=== PATIENT | male | born 1935 | race Caucasian/White ===

== ENCOUNTER 2020-01-23 10:45 | Outpatient (REF) | payer MEDICARE, SELFPAY ==
--- NOTE | 2020-01-23 11:03 | XR_ITS ---
EXAMINATION: AP STANDING KNEES AND A LATERAL RIGHT KNEE STANDING VIEW CLINICAL INFORMATION: Right knee pain COMPARISON: May 09, 2019 TECHNIQUE: AP standing views of the knees and lateral view of the right knee FINDINGS: Patient is status post right total knee arthroplasty with components appearing in good position. There is a right knee effusion. No acute fracture or dislocation is evident. Vascular calcifications are seen. About the mid joint space there is an approximately 1 cm circumscribed calcification which may representing loose body. AP view of the left knee demonstrate some marginal spurring about the medial lateral joint space compartments without significant joint space narrowing. No acute fracture or dislocation evident on AP view. IMPRESSION: Right knee effusion. Status post right total knee arthroplasty with question calcific loose body.
== END 2020-01-23 10:46 | disposition home or self-care (01) ==
LOC: HO.XRAY 10:45
PROVIDERS: PCP Internal Medicine; Referring Provider Internal Medicine; Visit Provider Orthopaedic Surgery
DX: T84.84XA Pain due to internal orthopedic prosthetic devices, implants and grafts, initial encounter (principal); M25.562 Pain in left knee; Z96.651 Presence of right artificial knee joint
CPT/HCPCS: 73560; 73565; 99213

== ENCOUNTER 2021-01-21 07:58 | Outpatient (REF) | payer MEDICARE, SELFPAY ==
--- NOTE | ~2021-01-21 | XR_ITS ---
EXAMINATION: XR KNEES STANDING, BILATERAL XR KNEE, RIGHT CLINICAL INFORMATION: Bilateral knee pain. COMPARISON: 01/23/2020 TECHNIQUE: Single standing view of both knees with 2 additional views right knee. FINDINGS: Again seen is a right total knee joint prosthesis. Prosthetic components appear in good position. There has been no significant interval change since last years exam. A small joint effusion is again noted. On the sunrise view, a 5 mm ovoid calcific density seen which could correspond to the intra-articular body felt to be present at the time of the prior study. Single view of the left knee demonstrates at least bicompartmental mild degenerative changes. XR/XR knee standing BI IMPRESSION: Right knee joint prosthesis in good position. Small effusion with question of calcific loose body remains. Degenerative changes of left knee.
--- NOTE | ~2021-01-21 | XR_ITS ---
EXAMINATION: XR KNEES STANDING, BILATERAL XR KNEE, RIGHT CLINICAL INFORMATION: Bilateral knee pain. COMPARISON: 01/23/2020 TECHNIQUE: Single standing view of both knees with 2 additional views right knee. FINDINGS: Again seen is a right total knee joint prosthesis. Prosthetic components appear in good position. There has been no significant interval change since last years exam. A small joint effusion is again noted. On the sunrise view, a 5 mm ovoid calcific density seen which could correspond to the intra-articular body felt to be present at the time of the prior study. Single view of the left knee demonstrates at least bicompartmental mild degenerative changes. XR/XR knee RT 2V IMPRESSION: Right knee joint prosthesis in good position. Small effusion with question of calcific loose body remains. Degenerative changes of left knee.
== END 2021-01-21 07:59 | disposition home or self-care (01) ==
LOC: HO.HOSX 07:58
PROVIDERS: Visit Provider Physician Assistant
DX: Z96.651 Presence of right artificial knee joint (principal)
CPT/HCPCS: 73560; 73565; 99212

== ENCOUNTER 2021-01-30 11:49 | Outpatient (REF) | payer MEDICARE, SELFPAY ==
--- NOTE | ~2021-01-30 | XR_ITS ---
EXAMINATION: XR PELVIS CLINICAL INFORMATION: Pain in the hip COMPARISON: 09/28/2018 TECHNIQUE: AP view of the pelvis. FINDINGS: There is a total left hip arthroplasty. The femoral head component articulates appropriately with the acetabular component. No periprosthetic lucency or fracture. Moderate degenerative change of the right hip with narrowing, sclerosis, and osteophyte formation. The pelvic rim is intact. Partial fusion of the left sacroiliac joint is unchanged. Nonobstructive bowel gas pattern. XR/XR pelvis 1-2V IMPRESSION: Moderate degenerative change of the right hip. Total left hip arthroplasty in typical positioning and alignment.
== END 2021-01-30 11:50 | disposition home or self-care (01) ==
LOC: HO.HOSX 11:49
PROVIDERS: Visit Provider Orthopaedic Surgery
DX: T84.84XA Pain due to internal orthopedic prosthetic devices, implants and grafts, initial encounter (principal); M12.812 Other specific arthropathies, not elsewhere classified, left shoulder; Z96.651 Presence of right artificial knee joint; Z96.642 Presence of left artificial hip joint
CPT/HCPCS: 72170; 99212

== ENCOUNTER → 2021-05-05 12:27 | Outpatient (BNVA) | payer MEDICARE, SELFPAY | PROVIDERS: PCP Internal Medicine; Visit Provider Orthopaedic Surgery ==

== ENCOUNTER → 2021-07-07 10:09 | Outpatient (REF) | payer MEDICARE, SELFPAY ==
--- NOTE | 2021-07-07 10:17 | ECG_ITS ---
Test Reason : FLATULENCE ABD DISTENSION Blood Pressure : / mmHG Vent. Rate : 056 BPM Atrial Rate : 056 BPM P-R Int : 208 ms QRS Dur : 176 ms QT Int : 480 ms P-R-T Axes : 063 -13 024 degrees QTc Int : 463 ms Sinus bradycardia Right bundle branch block Abnormal ECG When compared with ECG of 30-NOV-2018 10:03, Premature ventricular complexes are no longer Present Referred By: Ramsey Campos Electronically Signed By:KAILYN LIZAMA MD
== END ==
LOC: HO.CARD 10:09
PROVIDERS: PCP Internal Medicine; Visit Provider Nurse Practitioner Family
DX: R00.1 Bradycardia, unspecified (principal); I45.10 Unspecified right bundle-branch block; R14.3 Flatulence; R14.0 Abdominal distension (gaseous)
CPT/HCPCS: 93005

== ENCOUNTER → 2021-10-14 12:33 | Outpatient (BNVA) | payer MEDICARE, SELFPAY | PROVIDERS: PCP Internal Medicine; Visit Provider Dietitian, Registered | DX: E66.3 Overweight (principal); Z68.26 Body mass index [BMI] 26.0-26.9, adult; Z71.3 Dietary counseling and surveillance | CPT/HCPCS: 97802 ==

== ENCOUNTER 2022-04-09 08:48 | Outpatient (REF) | payer MEDICARE, SELFPAY ==
--- NOTE | ~2022-04-09 | XR_ITS ---
EXAMINATION: X-RAY BILATERAL KNEES X-RAY RIGHT KNEE CLINICAL INFORMATION: Pain COMPARISON: None TECHNIQUE: AP bilateral knees one view. Right knee 2 views. FINDINGS: Right knee: Right total knee arthroplasty in stable position and alignment. Intact hardware. No suspicious nate-hardware lucencies. No acute periprosthetic fracture. Small effusion.. Redemonstrated is a 5 mm ovoid density on the sunrise view, could represent a loose body, stable from previous. Left knee: Mild-moderate medial and lateral compartment arthritis, with mild joint space loss, marginal osteophytes. There is a small chronic appearing ossification along the superior/lateral aspect of the patella. Vascular calcification. No acute osseous abnormality seen. XR/XR knee RT 2V IMPRESSION: Right knee prosthesis is in stable position and alignment. No suspicious nate-hardware lucencies. Small effusion. Question small loose body, stable.
--- NOTE | ~2022-04-09 | XR_ITS ---
EXAMINATION: XR PELVIS CLINICAL INFORMATION: Pain COMPARISON: X-ray 01/30/2021 TECHNIQUE: 2 AP view of the pelvis. FINDINGS: Left hip prosthesis is in stable position and alignment. No suspicious nate-hardware lucency. No acute periprosthetic fracture. Stable chronic appearing ossification superior to the greater trochanter. Mild-moderate right hip arthritis. No acute fracture or dislocation is seen. SI joints are intact. There are 2 radiopaque densities projected over the pelvis measuring 2.2 cm and 2.5 cm respectively in craniocaudal length, indeterminate. XR/XR pelvis 1-2V IMPRESSION: Left hip prosthesis is unchanged in appearance. No suspicious nate-hardware lucencies. Mild-moderate right hip arthritis. 2 radiopaque densities projected over the pelvis, of indeterminate etiology, clinically correlate. This could be overlying the patient, repeat radiographs as clinically warranted.
--- NOTE | ~2022-04-09 | XR_ITS ---
EXAMINATION: X-RAY BILATERAL KNEES X-RAY RIGHT KNEE CLINICAL INFORMATION: Pain COMPARISON: None TECHNIQUE: AP bilateral knees one view. Right knee 2 views. FINDINGS: Right knee: Right total knee arthroplasty in stable position and alignment. Intact hardware. No suspicious nate-hardware lucencies. No acute periprosthetic fracture. Small effusion.. Redemonstrated is a 5 mm ovoid density on the sunrise view, could represent a loose body, stable from previous. Left knee: Mild-moderate medial and lateral compartment arthritis, with mild joint space loss, marginal osteophytes. There is a small chronic appearing ossification along the superior/lateral aspect of the patella. Vascular calcification. No acute osseous abnormality seen. XR/XR knee standing BI IMPRESSION: Right knee prosthesis is in stable position and alignment. No suspicious nate-hardware lucencies. Small effusion. Question small loose body, stable.
== END 2022-04-09 08:49 | disposition home or self-care (01) ==
LOC: HO.HOSX 08:48
PROVIDERS: Visit Provider Orthopaedic Surgery
DX: T84.84XA Pain due to internal orthopedic prosthetic devices, implants and grafts, initial encounter (principal); Z96.642 Presence of left artificial hip joint; Z96.651 Presence of right artificial knee joint
CPT/HCPCS: 72170; 73560; 73565; 99212

== ENCOUNTER → 2022-04-16 09:56 | Outpatient (BNVA) | payer MEDICARE, SELFPAY | PROVIDERS: PCP Internal Medicine; Visit Provider Dietitian, Registered | DX: E66.3 Overweight (principal); Z68.26 Body mass index [BMI] 26.0-26.9, adult | CPT/HCPCS: 97803 ==

== ENCOUNTER 2022-10-15 09:00 | Outpatient (AMB) | payer MEDICARE, SELFPAY ==
[2022-10-15 09:03] VITALS: BMI 27.0
--- NOTE | 2022-10-15 09:03 | A.OFFVIS_ITS ---
Intake VS Expanded 10/15/22 09:03 Height 6 ft Weight 199 lb 4.766 oz BMI 27.0 Intake Visit Reasons: overweight Allergies No Known Allergies Allergy (Verified 06/16/22 10:09) HPI Nutrition Presentation Details Pt presents for MNT for overweight. Pt reports keeping physically active: plays golf 3 x/wk , Reports reading food labels and calorie content of foods per portion sizes. He reports working on increasing fiber intake to prevent constipation, noted consuming higher calorie foods in the last month monitors weight at home 1 / m typical meal B: bran flakes or shredded wheat or cheerios with lactose free milk L: Sand turkey, ham/cheese/ or tuna or burger fries, other days may have a salad with protein , water or cranberry juice D: potatoes beef, corn, asparagus, water snack: posset, fruits, p.b. Reports working on including fish twice/wk and choosing mufa sources of foods. Has tried low fat /lactose free options but dislike flavors. 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 Mother No problems noted. Social History Housing: House Alcohol intake: former Patient Tobacco Use Status: Never used Tobacco e-Cigarette/Vaping Use: Never Used Second Hand Smoke Exposure: Yes service: No Current occupational status: retired Cognitive needs: No Hearing needs: Yes Vision needs: Yes (Pt wear glasses) Assessment & Plan Assessment & Plan (1) Overweight (BMI 25.0-29.9): Code(s): E66.3 - Overweight Plan: Educate patient on lactose free foods and balancing meals ? Pt's set goal (Date: 10/14/21 ): choosing lactose free foods at follow up (Date: 10/15/22 ): met 50% Used wt : 89 kg Est kcal as per 25 kcal/kg bw: 2225 (40% carb, 30% fat/prot) Est fluid needs: 2225 -2670 ml/d (25-30 ml/kg bw) Rec fiber: increase to 8-10 g per day and gradually increase as tolerated Rec Na: < 2000 mg /d Educate patient on: (R= Reviewed, V = verbalizes understanding N/R= Needs review N/A= not applicable) * Food sources of carbohydrates and serving adequate serving sizes : R * Difference between complex carbohydrates and simple carbohydrates, role of fiber: R * choosing low fat protein foods : R V * Food sources of sodium and salt and healthy modifications for heart health and kidney health: R * Vitamins and minerals: R * How to interpret food labels: R * Healthy Plate method concept: R V * Physical activity: benefits and precaution: R V * lactose free food options : REVIEWED , VERBALIZED Patient Instructions: Keep hydrated, dilute juices with water Continue following healthy plate method MOdify amount of fat on recipes by choosing low fat /lactose free dairy options Keep physically active as able Coding Level of Care Code Nutr Indiv Subseq (10347) Diagnoses Overweight (BMI 25.0-29.9) E66.3 Time Spent (min) 30
== END 2022-10-15 09:37 | disposition home or self-care (01) ==
PROVIDERS: PCP Internal Medicine; Visit Provider Dietitian, Registered
DX: E66.3 Overweight (principal)

== ENCOUNTER → 2022-10-15 09:00 | Outpatient (BNVA) | payer MEDICARE, SELFPAY | PROVIDERS: Visit Provider Dietitian, Registered | DX: E66.3 Overweight (principal); Z68.27 Body mass index [BMI] 27.0-27.9, adult | CPT/HCPCS: 97803 ==

== ENCOUNTER 2022-10-22 09:20 | Outpatient (AMB) | payer MEDICARE, SELFPAY ==
--- NOTE | 2022-10-22 09:42 | MHC.OFFVIS ---
Intake Intake Visit Reasons: OV - Right TKA 01/09/2019 Intake Note: Ruy 86 yr old male presents today for his s/p Right TKA 01/09/2019 follow up visit. Patient reports that he is doing well but is having some concerns of weakness in the right knee. He find this mostly when he is going up and down stairs. He is active in working out at the gym and golfing. Allergies No Known Allergies Allergy (Verified 06/16/22 10:09) HPI OV - Right TKA 01/09/2019 HPI Details Ruy is an 86 year old man who presents for a follow-up of his right knee. He also has a Hx of right TKA, DOS: 01/09/[address] Johnson. He has a Hx of left QUEENIE, DOS: 09/14/[address] Johnson. His complaint today is of right knee weakness, particularly with using stairs. He stays active otherwise with weekly Golf sessions and sculpting classes, as well as other exercise at the gym. He has no issues walking on flat ground. He says he has concerns about falling and wants to know how to minimize the risk. He complains of worsening right shoulder pain, worse with overhead reaching or lifting activities. He has right RTC arthropathy. 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 Mother No problems noted. Social History Housing: House Alcohol intake: former Patient Tobacco Use Status: Never used Tobacco e-Cigarette/Vaping Use: Never Used Second Hand Smoke Exposure: Yes service: No Current occupational status: retired Cognitive needs: No Hearing needs: Yes Vision needs: Yes (Pt wear glasses) Review of Systems Const All systems reviewed & are unremarkable except as noted in HPI and below Physical Exam Const General: no acute distress and alert Orientation/consciousness: patient oriented x3 Neuro General: patient oriented x3 Extrem Other: Right Knee: Full ROM well-healed incision No effusion Psych Appearance: grossly normal Affect: normal affect Attitude: cooperative Results Reviewed Results Reviewed: I personally reviewed relevant radiographs. Right TKA in expected post operative position with no hardware complications or evidence of loosening Assessment & Plan Assessment & Plan (1) History of total right knee replacement (TKR): Code(s): Z96.651 - Presence of right artificial knee joint Plan: This is an 86 year old man with a right TKA, DOS: 01/09/[address] Johnson. He denies any pain and says he is doing well, though with some concerns of falling. He stays active with weekly exercise classes at the gym, and Golfing. No acute intervention warranted. I recommend he remain active with exercise, he can follow up prn. (2) History of total left hip replacement: Comment: 09/14/2011 Code(s): Z96.642 - Presence of left artificial hip joint Plan Scribed for Gilbert Merida MD by Arron Vazquez, medical transcription supervisor, on 10/22/22 at 9:50 AM, EST. Coding Level of Care Code Est Pt Level 3 (54791) Diagnoses History of total right knee replacement (TKR) Z96.651 History of total left hip replacement Z96.642
== END 2022-10-22 09:56 | disposition home or self-care (01) ==
PROVIDERS: Visit Provider Orthopaedic Surgery
DX: Z47.89 Encounter for other orthopedic aftercare (principal); Z96.651 Presence of right artificial knee joint; Z96.642 Presence of left artificial hip joint
CPT/HCPCS: 99213

== ENCOUNTER → 2022-10-22 09:20 | Outpatient (BNVA) | payer MEDICARE, SELFPAY | PROVIDERS: Visit Provider Orthopaedic Surgery | DX: Z96.651 Presence of right artificial knee joint (principal); Z96.642 Presence of left artificial hip joint | CPT/HCPCS: 99212 ==

== ENCOUNTER 2022-11-17 12:48 | Outpatient (AMB) | payer MEDICARE, SELFPAY ==
--- OUTSIDE RECORDS SUMMARY | 2022-11-17 12:50 | XMS_ITS | Patient Health Record ---
Author Name Unknown Organization [facility] Address [address] [place] [address] Care Team Providers Care Veneer Sawyer Name Role Phone Jose L JARAMILLO, [place] Primary Care Provider Ever Brooks Unavailable [phone] ALLERGIES No Known Allergies REASON FOR REFERRAL No Information SOCIAL HISTORY Tobacco Use: Social History Observation Description Date Details (start date - stop date) Never Smoker NA - NA Sex Assigned At : Social History Observation Description Sex Assigned At Unknown Tobacco Use/Smoking Question Answer Notes Are you a: nonsmoker Additional Findings: Tobacco Non-User Current no n-smoker Alcohol Screen Question Answer Notes Did you have a drink containing alcohol in the p ast year? No Points 0 Interpretation Negative Tobacco use other than smoking: Question Answer Notes Are you an other tobacco user? No PROBLEMS Problem Type ICD Code Onset Dates Problem Status W/U Status Risk SNOMED Code Notes Problem Raynaud's disease without gangrene (I73.00) Active confirmed 259633582 Encounters Encounter Location Date Provider Diagnosis [address] [address] 05/14/2022 [facility] Other viral warts B07.8 ; Pain in left foot M79.672 ; Xerosis cutis L85.3 ; Raynaud's disease without gangrene I73.00 and Metatarsalgia, left foot M77.[address] [address] 05/14/2022 [facility] [address] [address] 05/28/2022 [facility] [address] 06/01/[address] [address] 06/04/2022 [facility] Other viral warts B07.8 ; Pain in left foot M79.672 ; Xerosis cutis L85.3 ; Raynaud's disease without gangrene I73.00 and Metatarsalgia, left foot M77.[address] [facility] [address] 06/15/2022 [facility] ASSESSMENTS Encounter Date Diagnosis Assessment Notes Treatment Notes Treatment Clinical Notes 05/14/2022 Other viral warts (ICD-10 - B07.8) 05/14/2022 Pain in left foot (ICD-10 - M79.672) 06/04/2022 Other viral warts (ICD-10 - B07.8) 06/04/2022 Pain in left foot (ICD-10 - M79.672) 06/04/2022 Xerosis cutis (ICD-10 - L85.3) 05/14/2022 Xerosis cutis (ICD-10 - L85.3) 05/14/2022 Raynaud's disease without gangrene (ICD-10 - I73.00) 06/04/2022 Raynaud's disease without gangrene (ICD-10 - I73.00) 05/14/2022 Metatarsalgia, left foot (ICD-10 - M77.42) 06/04/2022 Metatarsalgia, left foot (ICD-10 - M77.42) PLAN OF TREATMENT No Information Insurance Providers Payer Name Payer Address Payer Phone Subscriber Number Group Number Insured Name Patient Relationship to Insured Coverage Start Date Coverage End Date Medicare National [employer] [address] [place] [address] [id number] Ruy Roth Self - patient is the insured [employer] [address] [place] [address] [id number] Ruy Roth Self - patient is the insured MEDICAL (GENERAL) HISTORY Medical History History ICD Code Cataracts Measles Mumps Chicken pox Joint implants/screws Surgical History Surgery Date(Month/Year)
--- OUTSIDE RECORDS SUMMARY | 2022-11-17 12:50 | XMS_ITS ---
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 460829932 Problem History of adenomatous polyp of colon Z86.010 Active Problem Encounter for screening for malignant neoplasm of colon Z12.11 Active 286577847 Problem Preprocedural examination Z01.818 Active 452059978896435 Problem History of colon polyps Z86.010 Active [id number] ALLERGIES No Known Allergies ENCOUNTERS Encounter Location Date Diagnosis [facility] [address] [place] [phone] Jul, [facility] Outpatient [address] [place], [place] [phone] Mar, [facility] [address] [place] [address] Feb, Preprocedural examination Z01.818 ; History of adenomatous polyp of colon Z86.010 and Encounter for screening for malignant neoplasm of colon Z12.11 [facility] [address] [place] [phone] Oct, [facility] [address] [place] [address] Oct, 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 and History of adenomatous polyp of colon Z86.010 [facility] [address] [place] [address] Sep, [facility] Outpatient [address], [place] [id number] Sep, [facility] [address] [place] [address] Jul, [facility] [address] [place] [address] Jul, Preprocedural examination Z01.818 ; History of colon polyps Z86.010 and Encounter for screening for malignant neoplasm of colon Z12.11 [facility] [address] [place] [phone] May, [facility] [address] [place] [phone] Apr, [facility] Outpatient [address] [place], [place] [phone] Apr, [facility] [address] [place] [phone] Jan, [facility] [address] [place] [address] Jan, Preprocedural examination Z01.818 ; History of colon polyps Z86.010 and Encounter for screening for malignant neoplasm of colon Z12.11 [facility] Outpatient [address], [place] [phone] Oct, [facility] [address] [place] [address] Jul, [facility] [address] [place] [address] Jul, [facility] [address] [place] [address] Jul, Other specified pre-operative examination V72.83 and Colon cancer screening V76.51 [facility] Outpatient [address] [place] [id number] Feb, [facility] ER [address] [place] [id number] Sep, IMMUNIZATIONS Vaccine Route Administration Date Status Influenza Unknown Jan 03, 2017 Administered Flu vaccine no Preserv 3 and > Unknown Jan 04 15 Administered Flu vaccine no Preserv 3 and > Unknown Jan 24 14 Administered SOCIAL HISTORY Never Assessed REASON FOR REFERRAL FUNCTIONAL STATUS PLAN OF CARE Activity Details VITAL SIGNS Weight 217 lbs 2017-02-19 Weight 215 lbs 2015-10-08 Weight 216 lbs 2015-07-25 Weight 227 lbs 2015-01-25 Weight 227 lbs 2014-07-17 Height 70 in 2017-02-19 Height 70 in 2015-10-08 Height 70 in 2015-07-25 Height 70 in 2015-01-25 Height 70 in 2014-07-17 BMI 31.13 kg/m2 2017-02-19 BMI 30.85 kg/m2 2015-10-08 BMI 30.99 kg/m2 2015-07-25 BMI 32.57 kg/m2 2015-01-25 BMI 32.57 kg/m2 2014-07-17 Heart Rate 60 /min 2014-07-17 Blood pressure systolic 122 mm Hg Blood pressure diastolic 68 mm Hg 2017-02 MEDICATIONS Unknown Medications PROCEDURES Procedure Date Ordered Result Body Site [facility] [place] [facility] July 25, 2015 BMI >=30 CALCUATE W/FOLLOWUP Jan 25, 2015 BMI >=30 CALCUATE W/FOLLOWUP October 08, 2015 BMI >=30 CALCUATE W/FOLLOWUP July 17, 2014 FLU IMMUNIZE ORDER/ADMIN July 17, 2014 BP SCR PRFRM RCMDD DEFIND SCR INTVL July 17, 2014 FLU IMMUNIZE ORDER/ADMIN October 08, 2015 FLU IMMUNIZE ORDER/ADMIN Jan 25, 2015 TOBACCO NON-USER July 17, 2014 PRE[facility]ON VISIT MEDICARE MEDICAID [facility] Feb 19, 2017 DOC MEDS VERIFIED W/PT OR RE Jan 25, 2015 DOC MEDS VERIFIED W/PT OR RE July 17, 2014 DOC MEDS VERIFIED W/PT OR RE October 08, 2015 BP SCR PRFRM RCMDD DEFIND SCR INTVL October 08, 2015 BP SCR PRFRM RCMDD DEFIND SCR INTVL Jan 25, 2015 TOBACCO NON-USER October 08, 2015 TOBACCO NON-USER Jan 25, 2015 RESULTS Name Result Date Reference Range SURGICAL 2015-11-12 SURGICAL GI BIOPSY 2015-09-26 G.I. BIOPSY GI BIOPSY 2015-04-19 G.I. BIOPSY GI BIOPSY 2014-10-03 G.I. BIOPSY REASON FOR VISIT bad ingestion , hx of polyps,screening, PATIENT PRESENTS TODAY FOR colon recall , needs f/u colon.,follow up, ? WHEN TO SEE , screening,personal hx of polyps, prep, F/U From Colonoscopy, Needs f/u in June or July, hx of polyps, screening, 6 month f/u, send over colyte prep, f/u colonoscopy, f/u colonoscopy, screening colon, Please send rx to pharmacy for colyte, send over colyte prep, SCREENING COLONOSCOPY Insurance Providers Health Insurance Type Health Plan Insurance Address Health Plan Insurance Phone Health Plan Insurance Name Health Plan Coverage Dates Member ID Patient Relationship to Subscriber Patient Address Patient Phone Patient Name Patient Date of Subscriber ID Subscriber Name Subscriber Date of Group No MEDEX ATTN CLAIMS [address] [facility] [address] MEDEX self ANGEL JADE [id number] MEDICARE OF [place] [address] [facility] [address] [facility] [id number]
--- NOTE | 2022-11-17 13:45 | MHC.OFFWIV ---
Intake Vital Signs 11/17/22 13:47 Weight 197 lb BP 116/68 Blood Pressure Location Rt brachial Position Sitting Pulse 60 Pulse Source Pulse Oximeter Pulse Oximetry (%) 98 Oxygen Delivery Method Room Air Intake Visit Reasons: EP, Intake Note: Patient here because he had a yeast infection in groin area about 1 month ago and was given meds which helped and it went away but now it has come back with same symptoms. Patient Tobacco Use Status: Never used Tobacco Allergies No Known Allergies Allergy (Verified 11/18/22 18:53) Medication List - Last Reconciled 11/18/22 by Kings Agarwal MD fluticasone propionate 50 mcg/actuation 2 sprays intranasal DAILY ketoconazole 2% 1 appl topical DAILY Do you need a note to return to daycare/school/sports/work: No HPI EP, HPI Details 87-year-old male presents to the office for a sick visit. Patient has a rash on his scrotum. Symptoms present for the past 2 weeks. Very itchy in nature. 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 Mother No problems noted. Social History Housing: House Alcohol intake: former Patient Tobacco Use Status: Never used Tobacco e-Cigarette/Vaping Use: Never Used Second Hand Smoke Exposure: Yes service: No Current occupational status: retired Cognitive needs: No Hearing needs: Yes Vision needs: Yes (Pt wear glasses) Physical Exam Vital Signs: Last Vital Signs Pulse 60 11/17/22 13:47 BP 116/68 11/17/22 13:47 Pulse Ox 98 11/17/22 13:47 Oxygen Delivery Method Room Air 11/17/22 13:47 Skin Other: Scrotum: Erythematous area over the scrotum with whitish exudate from the skin. Assessment & Plan Assessment & Plan (1) Tinea cruris: Code(s): B35.6 - Tinea cruris Plan: Ketoconazole cream to be applied. Keep the area dry. If symptoms do not improve to follow-up here. Medications: New ketoconazole 2% 1 appl topical DAILY 30 grams 1RF Coding Level of Care Code Est Pt Level 3 (64383) Diagnoses Tinea cruris B35.6
[2022-11-17 13:47] VITALS: BP 116/68; PULSE 60; O2SAT 98
== END 2022-11-17 16:02 | disposition home or self-care (01) ==
PROVIDERS: PCP Internal Medicine; Visit Provider Internal Medicine
DX: B35.6 Tinea cruris (principal)
CPT/HCPCS: 99213

== ENCOUNTER 2022-11-23 07:59 | Outpatient (AMB) | payer MEDICARE, SELFPAY ==
--- OUTSIDE RECORDS SUMMARY | 2022-11-23 08:00 | XMS_ITS | Patient Health Record ---
Author Name Unknown Organization [facility] Address [address] [place] [address] Care Team Providers Care Medical Technical Writer Name Role Phone Jose L JARAMILLO, [place] Primary Care Provider Ever Brooks Unavailable [phone] ALLERGIES No Known Allergies REASON FOR REFERRAL [...] Raynaud's disease without gangrene (I73.00) Active confirmed [id number] Encounters Encounter Location Date Provider Diagnosis [address] [address] 05/14/2022 [facility] Other viral warts B07.8 ; Pain in left foot M79.672 ; Xerosis cutis L85.3 ; Raynaud's disease without gangrene I73.00 and Metatarsalgia, left foot M77.[address] [address] 05/14/2022 [facility] [address] [address] 05/28/2022 [facility] [address] [address] 06/01/[address] [address] 06/04/2022 [facility] Other viral warts B07.8 ; Pain in left foot M79.672 ; Xerosis cutis L85.3 ; Raynaud's disease without gangrene I73.00 and Metatarsalgia, left foot M77.42 [facility] [address] 06/15/2022 [facility] ASSESSMENTS Encounter Date Diagnosis Assessment Notes Treatment Notes Treatment Clinical Notes 06/04/2022 Other viral warts (ICD-10 - B07.8) 06/04/2022 Pain in left foot (ICD-10 - M79.672) 05/14/2022 Other viral warts (ICD-10 - B07.8) 05/14/2022 Pain in left foot (ICD-10 - M79.672) 05/14/2022 Xerosis cutis (ICD-10 - L85.3) 06/04/2022 Xerosis cutis (ICD-10 - L85.3) 06/04/2022 Raynaud's disease without gangrene (ICD-10 - I73.00) 05/14/2022 Raynaud's disease without gangrene (ICD-10 - I73.00) 06/04/2022 Metatarsalgia, left foot (ICD-10 - M77.42) 05/14/2022 Metatarsalgia, left foot (ICD-10 - M77.42) PLAN OF TREATMENT No Information Insurance Providers Payer Name Payer Address Payer Phone Subscriber Number Group Number Insured Name Patient Relationship to Insured Coverage Start Date Coverage End Date Medicare National Govt Sv[employer] [address] [place] [address] [id number] Ruy Roth Self - patient is the insured [employer] Blue [employer] [address] [place] [address] [phone] [id number] Ruy Roth Self - patient is the insured MEDICAL (GENERAL) HISTORY Medical History History ICD Code Cataracts Measles Mumps Chicken pox Joint implants/screws Surgical History Surgery Date(Month/Year)
--- OUTSIDE RECORDS SUMMARY | 2022-11-23 08:00 | XMS_ITS ---
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 686363911 Problem History of adenomatous polyp of colon Z86.010 Active Problem Encounter for screening for malignant neoplasm of colon Z12.11 Active 919140727 Problem Preprocedural examination Z01.818 Active 030521639069298 Problem History of colon polyps Z86.010 Active 892176146 ALLERGIES No Known Allergies ENCOUNTERS Encounter Location Date Diagnosis [facility] [address] [place] [address] Jul, [facility] Outpatient [address] [place] [id number] Mar, [facility] [address] [place] [address] Feb, Preprocedural examination Z01.818 ; History of adenomatous polyp of colon Z86.010 and Encounter for screening for malignant neoplasm of colon Z12.11 [facility] [address] [place] [address] Oct, [facility] [address] [place] [address] Oct, 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 and History of adenomatous polyp of colon Z86.010 [facility] [address] [place] [address] Sep, [facility] Outpatient [address] [place], [place] [id number] Sep, [facility] [address] [place] [address] Jul, [facility] [address] [place] [address] Jul, Preprocedural examination Z01.818 ; History of colon polyps Z86.010 and Encounter for screening for malignant neoplasm of colon Z12.11 [facility] [address] [place] [phone] May, [facility] [address] [place] [phone] Apr, [facility] Outpatient [address] [place], [place] [id number] Apr, [facility] [address] [place] [address] Jan, [facility] [address] [place] [address] Jan, Preprocedural examination Z01.818 ; History of colon polyps Z86.010 and Encounter for screening for malignant neoplasm of colon Z12.11 [facility] Outpatient [address] [place], [place] [phone] Oct, [facility] [address] [place] [address] Jul, [facility] [address] [place] [address] Jul, [facility] [address] [place] [phone] Jul, Other specified pre-operative examination V72.83 and Colon cancer screening V76.51 [facility] Outpatient [address] [place] [id number] Feb, [facility] ER [address] [place] [id number] Sep, IMMUNIZATIONS Vaccine Route Administration Date Status [...] Subscriber Name Subscriber Date of Group No MEDICARE OF [place] [address] [facility] [address] MEDICARE OF [facility] ANGEL JADE [id number] MEDEX ATTN CLAIMS [address] [facility] [address] MEDEX self ANGEL JADE [id number]
--- NOTE | 2022-11-23 08:03 | MHC.OFFWIV ---
Intake Vital Signs 11/23/22 08:04 Weight 198 lb BP 122/76 Blood Pressure Location Rt brachial Position Sitting Pulse 66 Pulse Source Pulse Oximeter Pulse Oximetry (%) 97 Oxygen Delivery Method Room Air Intake Visit Reasons: EP Check on Yeast infection Intake Note: Patient here to re check yeast infection, pt states he is feeling a bit better. Patient Tobacco Use Status: Never used Tobacco Allergies No Known Allergies Allergy (Verified 11/24/22 07:52) Medication List - Last Reconciled 11/24/22 by Kings Agarwal MD cephalexin 500 mg PO BID fluticasone propionate 50 mcg/actuation 2 sprays intranasal DAILY ketoconazole 2% 1 appl topical DAILY Do you need a note to return to daycare/school/sports/work: No HPI EP Check on Yeast infection HPI Details 87-year-old male returns for a follow-up visit. Patient reports that since he started using the ketoconazole, the stinging sensation in the scrotum is improved. The discomfort sensation has improved. Continues to leak or have some exudate from the lesion. [facility] Medical History BPH (benign prostatic hyperplasia) Degenerative disc disease, cervical Dyslipidemia Epistaxis, recurrent Overweight (BMI 25.0-29.9) Primary osteoarthritis of left hip Primary osteoarthritis of right knee Rotator cuff arthropathy of left shoulder Surgical History H/O right hemicolectomy History of arthroscopy of right knee History of cataract extraction History of total left hip replacement Family History Father No problems noted. Mother No problems noted. Social History Housing: House Alcohol intake: former Patient Tobacco Use Status: Never used Tobacco e-Cigarette/Vaping Use: Never Used Second Hand Smoke Exposure: Yes service: No Current occupational status: retired Cognitive needs: No Hearing needs: Yes Vision needs: Yes (Pt wear glasses) Physical Exam Vital Signs: Last Vital Signs Pulse 66 11/23/22 08:04 BP 122/76 11/23/22 08:04 Pulse Ox 97 11/23/22 08:04 Oxygen Delivery Method Room Air 11/23/22 08:04 Skin Other: Scrotum: Erythematous rash, weeping lesions, improvement since last visit. Assessment & Plan Assessment & Plan (1) Tinea cruris: Code(s): B35.6 - Tinea cruris Plan: Possible superinfection. Antibiotics added to the regimen. Will call with results. Medications: New cephalexin 500 mg PO BID 14 caps 0RF Refilled ketoconazole 2% 1 appl topical DAILY 30 grams 1RF Coding Level of Care Code Est Pt Level 3 (71606) Diagnoses Tinea cruris B35.6
[2022-11-23 08:04] VITALS: BP 122/76; PULSE 66; O2SAT 97
== END 2022-11-23 08:54 | disposition home or self-care (01) ==
PROVIDERS: PCP Internal Medicine; Visit Provider Internal Medicine
DX: B35.6 Tinea cruris (principal)
CPT/HCPCS: 99213

== ENCOUNTER 2022-11-30 08:00 | Outpatient (AMB) | payer MEDICARE, SELFPAY ==
--- OUTSIDE RECORDS SUMMARY | 2022-11-30 08:02 | XMS_ITS ---
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 193074602 Problem History of adenomatous polyp of colon Z86.010 Active Problem Encounter for screening for malignant neoplasm of colon Z12.11 Active 338245182 Problem Preprocedural examination Z01.818 Active 076377383042764 Problem History of colon polyps Z86.010 Active 716291565 ALLERGIES No Known Allergies ENCOUNTERS Encounter Location Date Diagnosis [facility] [address] [place] [address] Jul, [facility] Outpatient [address] [place], [place] [id number] Mar, [facility] [address] [place] [phone] Feb, Preprocedural examination Z01.818 ; History of adenomatous polyp of colon Z86.010 and Encounter for screening for malignant neoplasm of colon Z12.11 [facility] [address] [place] [address] Oct, [facility] [address] [place] [address] Oct, 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 and History of adenomatous polyp of colon Z86.010 [facility] [address] [place] [address] Sep, [facility] Outpatient [address] [place] [id number] Sep, [facility] [address] [place] [phone] Jul, [facility] [address] [place] [address] Jul, Preprocedural examination Z01.818 ; History of colon polyps Z86.010 and Encounter for screening for malignant neoplasm of colon Z12.11 [facility] [address] [place] [address] May, [facility] [address] [place] [phone] Apr, [facility] Outpatient [address] [place] [id number] Apr, [facility] [address] [place] [phone] Jan, [facility] [address] [place] [address] Jan, Preprocedural examination Z01.818 ; History of colon polyps Z86.010 and Encounter for screening for malignant neoplasm of colon Z12.11 [facility] Outpatient [address] [place], [place] [id number] Oct, [facility] [address] [place] [phone] Jul, [facility] [address] [place] [address] Jul, [facility] [address] [place] [phone] Jul, Other specified pre-operative examination V72.83 and Colon cancer screening V76.51 [facility] Outpatient [address] [place] [id number] Feb, [facility] ER [address] [place] [id number] Sep, IMMUNIZATIONS Vaccine Route Administration Date Status [...] July 25, 2015 BMI >=30 CALCUATE W/FOLLOWUP October 08, 2015 BMI >=30 CALCUATE W/FOLLOWUP July 17, 2014 BMI >=30 CALCUATE W/FOLLOWUP Jan 25, 2015 FLU IMMUNIZE ORDER/ADMIN Jan 25, 2015 BP SCR PRFRM RCMDD DEFIND SCR INTVL July 17, 2014 FLU IMMUNIZE ORDER/ADMIN July 17, 2014 FLU IMMUNIZE ORDER/ADMIN October 08, 2015 TOBACCO NON-USER Jan 25, 2015 DOC MEDS VERIFIED W/PT OR RE Jan 25, 2015 PRECOLON VISIT MEDICARE MEDICAID GIC Feb 19, 2017 DOC MEDS VERIFIED W/PT OR RE July 17, 2014 DOC MEDS VERIFIED W/PT OR RE October 08, 2015 BP SCR PRFRM RCMDD DEFIND SCR INTVL October 08, 2015 BP SCR PRFRM RCMDD DEFIND SCR INTVL Jan 25, 2015 TOBACCO NON-USER July 17, 2014 TOBACCO NON-USER October 08, 2015 RESULTS Name Result Date Reference Range [...] Subscriber Date of Group No MEDICARE OF [place] [address] [facility] [address] [facility] ANGEL JADE [id number] MEDEX ATTN CLAIMS [address] [facility] [address] MEDEX self ANGEL JADE [id number] 2
--- OUTSIDE RECORDS SUMMARY | 2022-11-30 08:02 | XMS_ITS | Patient Health Record ---
Author Name Unknown [facility] Address [address] [place] [address] Care Team Providers Care Continuous Miner Operator Name Role Phone Jose L JARAMILLO, [place] Primary Care Provider Ever Brooks Unavailable [phone] ALLERGIES No Known Allergies REASON FOR REFERRAL [...] Raynaud's disease without gangrene (I73.00) Active confirmed [id number] Encounters Encounter Location Date Provider Diagnosis [address] [address] 05/14/2022 [facility] Other viral warts B07.8 ; Pain in left foot M79.672 ; Xerosis cutis L85.3 ; Raynaud's disease without gangrene I73.00 and Metatarsalgia, left foot M77.[address] [address] 05/14/2022 [facility] [address] [address] 05/28/2022 [facility] [address] 06/01/[address] [address] 06/04/2022 [facility] Other viral warts B07.8 ; Pain in left foot M79.672 ; Xerosis cutis L85.3 ; Raynaud's disease without gangrene I73.00 and Metatarsalgia, left foot M77.42 [facility] [address] 06/15/2022 [facility] ASSESSMENTS Encounter Date Diagnosis [...] Medicare National Govt Svcs Inc [address] [facility] [address] [id number] Ruy Roth Self - patient is the insured [employer] Blue [employer] [address] [place] [address] [id number] Ruy Roth Self - patient is the insured MEDICAL (GENERAL) HISTORY Medical History History ICD Code Cataracts Measles Mumps Chicken pox Joint implants/screws Surgical History Surgery Date(Month/Year)
[2022-11-30 08:09] VITALS: BP 128/52; PULSE 63; TEMP 36.2; O2SAT 98
--- NOTE | 2022-11-30 08:09 | MHC.OFFWIV ---
Intake Vital Signs 11/30/22 08:09 Weight 198 lb 4 oz BP 128/52 L Blood Pressure Location Rt brachial Position Sitting Pulse 63 Pulse Source Pulse Oximeter Temp 97.1 F Temp Source Oral Pulse Oximetry (%) 98 Oxygen Delivery Method Room Air Intake Visit Reasons: EP Yeast infection/Follow up Intake Note: Pt states it feeling better after taking Cephalexin, just her for a follow up Patient Tobacco Use Status: Never used Tobacco Allergies No Known Allergies Allergy (Verified 11/30/22 08:12) Do you need a note to return to daycare/school/sports/work: No HPI EP Yeast infection/Follow up HPI Details 87-year-old male presents to the office for a sick visit. Patient has responded very well to the antibiotic and cream. He is here for a follow-up visit. [facility] Medical History BPH (benign prostatic hyperplasia) Degenerative disc disease, cervical Dyslipidemia Epistaxis, recurrent Overweight (BMI 25.0-29.9) Primary osteoarthritis of left hip Primary osteoarthritis of right knee Rotator cuff arthropathy of left shoulder Surgical History H/O right hemicolectomy History of arthroscopy of right knee History of cataract extraction History of total left hip replacement Family History Father No problems noted. Mother No problems noted. Social History Housing: House Alcohol intake: former Patient Tobacco Use Status: Never used Tobacco e-Cigarette/Vaping Use: Never Used Second Hand Smoke Exposure: Yes service: No Current occupational status: retired Cognitive needs: No Hearing needs: Yes Vision needs: Yes (Pt wear glasses) Physical Exam Vital Signs: Last Vital Signs Temp 97.1 F 11/30/22 08:09 Pulse 63 11/30/22 08:09 BP 128/52 L 11/30/22 08:09 Pulse Ox 98 11/30/22 08:09 Oxygen Delivery Method Room Air 11/30/22 08:09 Skin Other: Significant improvement in the rash. Erythema is markedly reduced. Weeping discharge has stopped. No tenderness. Assessment & Plan Assessment & Plan (1) Tinea cruris: Code(s): B35.6 - Tinea cruris Plan: Antibiotics course has been completed. No more antibiotics. Patient was given another prescription of ketoconazole. Coding Level of Care Code Est Pt Level 3 (27247) Diagnoses Tinea cruris B35.6
== END 2022-11-30 08:58 | disposition home or self-care (01) ==
PROVIDERS: PCP Internal Medicine; Visit Provider Internal Medicine
DX: B35.6 Tinea cruris (principal)
CPT/HCPCS: 99213

== ENCOUNTER 2022-12-18 14:10 | Outpatient (AMB) | payer MEDICARE, SELFPAY ==
--- NOTE | 2022-12-18 14:15 | MHC.PC.OV ---
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 Accompanied by: Self / Same As Patient Allergies No Known Allergies Allergy (Verified 12/18/22 14:49) Medication List - Last Reconciled 12/18/22 by Pepito Domingo MD fluticasone propionate 50 mcg/actuation 2 sprays intranasal DAILY ketoconazole 2% 1 appl topical DAILY Tobacco use date assessed: 12/18/22 Fall risk assessment: No Falls in past year Last assessed Fall Risk: 12/18/22 Dental Screening Dental Screen Date: 12/18/22 Did you have a dental visit in the last 12 months?: Yes Did you have a dental problem in the last 6 months where you did not have access to dental care?: No Was dental information given to patient?: Patient has dentist HPI OA, allergic rhinitis HPI Details Patient comes in today for his follow up visit States that he somehow has been developing a recurrent itchy and painful inguinal rash over the past month and has been to the walk-in clinic in [place] 3 separate times last month for the same symptoms He was prescribed Ketoconazole cream on all 3 visits and started additionally on Cephalexin x 7 days when he was last there on 12/01/2022 States that the Ketoconazole cream would help clear the symptoms up temporarily but they would recur again a couple of days later as soon as he stopped using the cream States that he has tried to request refills of his Ketoconazole cream through his pharmacy a few times lately but is upset when he was told that we were denying his refills Adds that he has been experiencing some numbness and tingling sensation over his left calf muscles lately; states that he would also have some cramping pain there at times and that he was having some difficulty walking [place] the golf [place] recently when his leg symptoms were acting up - is wondering if he is now experiencing neuropathy in his legs Reports also some stiffness of his fingers and is concerned that if he is starting to get arthritis in his hands, this will affect his ability to play the piano States that he feels okay otherwise He denies any headaches or dizziness Denies any chest pains, no shortness of breath No nausea/ vomiting, no abdominal pain No change in bowel habits noted [facility] Medical History Overweight (BMI 25.0-29.9) BPH (benign prostatic hyperplasia) 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 Mother No problems noted. Social History Housing: House Alcohol intake: former Patient Tobacco Use Status: Never used Tobacco e-Cigarette/Vaping Use: Never Used Second Hand Smoke Exposure: Yes service: No Current occupational status: retired Cognitive needs: No Hearing needs: Yes Vision needs: Yes (Pt wear glasses) Questionnaire PHQ-9 Over the last 2 weeks, how often have you been bothered by any of the following problems? 1. Little interest or pleasure in doing things: not at all 2. Feeling down, depressed, or hopeless: not at all 3. Trouble falling or staying asleep, or sleeping too much: not at all 4. Feeling tired or having little energy: not at all 5. Poor appetite or overeating: not at all 6. Feeling bad about yourself - or that you are a failure or have let yourself or your family down: not at all 7. Trouble concentrating on things, such as reading the newspaper or watching television: not at all 8. Moving or speaking so slowly that other people could have noticed. Or the opposite - being so fidgety or restless that you have been moving around a lot more than usual: not at all 9. Thoughts that you would be better off or of hurting yourself in some way: not at all Total score: 0 Depression Screening Interpretation: Negative 57138 - PHQ-9 Billing: Yes Source: Developed by Drs. Inocencio Alvarez, Robyn Tellez, Bg Posada and colleagues, with an educational nathalia from [employer]. Thrive Questionnaire Date Thrive assessed: 12/18/22 I am a: Patient What is your living situation today?: I have a steady place to live Within the past 12 months, did the food you bought not last and you didn't have the money to get more?: Never true Within the past 12 months, did you worry whether your food would run out before you got money to buy more?: Never true Do you have trouble paying for medicines?: No Do you have trouble getting transportation to medical appointments?: No Do you have trouble paying your heating and electricity bill?: No Do you have trouble taking care of your child, family member or friend?: No Do you have trouble with day-to-day activities such as bathing, preparing meals, shopping, managing finances, etc.?: No Are you currently unemployed and looking for a job?: No Are you interested in more education?: No Please select the resources that you would like help with: None Currently or been in a relationship where the following occur: no concerns reported AUDIT C Alcohol Use Questionnaire (AUDIT-C) 1. How often do you have a drink containing alcohol?: Never 3. How often do you have six or more drinks on one occasion?: Never Total Score: 0 Score Reviewed/Action Taken: Yes JAS-7 AMB Questionnaire JAS-7 Date JAS - 7 assessed: 12/18/22 Feeling nervous, anxious, or on edge: 0 = Not at all Not being able to stop or control worryin = Not at all Worrying too much about different things: 0 = Not at all Trouble relaxin = Not at all Being so restless that it is hard to sit still: 0 = Not at all Becoming easily annoyed or irritable: 0 = Not at all Feeling afraid as if something awful might happen: 0 = Not at all Total JAS-7 score (0-4 normal; 5-9 mild; 10-14 moderate; 15-21 severe): 0 Source: Developed by Drs. Inocencio Alvarez, Robyn Tellez, Bg Posada and colleagues, with an educational nathalia from [employer]. Review of Systems Const Denies chills, Denies fatigue, Denies fever(s) and Denies headache(s) ENT Denies dysphagia, Denies dizziness, Denies otalgia, Denies headache(s), Denies neck pain, Denies odynophagia and Denies sore throat Card Denies chest pain, Denies palpitations and Denies dyspnea Resp Denies cough and Denies dyspnea GI Denies abdominal pain, Denies constipation, Denies dysphagia, Denies heartburn, Denies diarrhea, Denies nausea, Denies odynophagia and Denies vomiting Denies dysuria, Denies nocturia and Denies urinary frequency Musc Reports muscle cramps (on and off in his left leg (calf muscles) recently), Denies neck pain and Reports stiffness (in hands/fingers lately, on and off) Skin/Breast Details: recurrent itchy rash over the inguinal areas and over the groin Neuro Denies dizziness and Denies headache(s) Endo Denies fatigue and Denies palpitations Ant/Lymph Reports easy bruising Physical exam (Primary Care) Vital Signs: Last Vital Signs Pulse 66 12/18/22 14:16 BP 128/76 12/18/22 14:16 Pulse Ox 97 12/18/22 14:16 Oxygen Delivery Method Room Air 12/18/22 14:16 BMI result Body Mass Index 26.5 Tobacco/Smoking Status: Tobacco use Status Tobacco use date assessed 12/18/22 12/18/22 14:25 Patient Tobacco Use Status Never used Tobacco 12/18/22 14:25 e-Cigarette/Vaping Use Never Used 12/18/22 14:25 PHQ-9: PHQ-9 Score PHQ-9: Total score 0 12/18/22 15:06 Depression Screening Interpretation: Negative Thrive Assessment: Date of Thrive Assessment Date Thrive assessed 12/18/22 12/18/22 14:25 Currently or been in a relationship where the following occur: no concerns reported Const General: no acute distress and alert HENMT Ears: TM's normal bilaterally and EAC's normal Throat: Yes posterior oropharynx normal and Yes tonsils normal (no TP congestion noted) Neck Neck: Yes no lymphadenopathy and Yes supple Resp Auscultation: clear to auscultation bilaterally, no rales and no wheezes Cardio Rate: regular rate Rhythm: regular rhythm Heart sounds: no murmurs GI Palpation (GI): Soft to palpation and nontender Auscultation: normal bowel sounds Skin Other: (+) erythematous rash over the inguinal areas bilaterally as well as over the scrotal areas Extrem General: Yes no clubbing, cyanosis or edema Left upper extremity: shoulder/upper arm Details: tenderness (minimal) and normal ROM Right lower extremity: hip/thigh Details: tenderness Location: of the hip Left lower extremity: knee Details: tenderness Assessment and Plan Assessment & Plan (1) Dyslipidemia: Code(s): E78.5 - Hyperlipidemia, unspecified Plan: Reinforced low cholesterol diet Will have patient recheck his labs JULIO for follow up (2) Primary osteoarthritis of right knee: Comment: S/P total right knee arthroplasty in January 2019 Code(s): M17.11 - Unilateral primary osteoarthritis, right knee Plan: Knee symptoms have improved with physical therapy/rehab in the past - can refer to physical therapy again as needed if symptoms recur Patient will call for referral when needed Follow-up with Orthopedics as scheduled (3) Degenerative disc disease, cervical: Code(s): M50.30 - Other cervical disc degeneration, unspecified cervical region Plan: States that his neck symptoms have been mostly manageable so far Advised to continue with the previously instructed neck exercises regularly to help manage his symptoms (4) Rotator cuff arthropathy of left shoulder: Comment: MRI of the left shoulder done on 06/22/2018 showed (+) rotator cuff tear as well as moderate OA changes Code(s): M12.812 - Other specific arthropathies, not elsewhere classified, left shoulder Plan: Follow-up with Orthopedics as scheduled Has been advised that no surgery is indicated at this time as his shoulder symptoms are minimal and his range of motion is mostly normal Can also refer to physical therapy for further evaluation and management if needed (5) Primary osteoarthritis of left hip: Comment: S/P total arthroplasty of the left hip with Dr. Johnson in 2011 Code(s): M16.12 - Unilateral primary osteoarthritis, left hip Plan: Symptoms have improved with surgery (6) Tinea cruris: Code(s): B35.6 - Tinea cruris Plan: Will start patient on Nystatin powder [id number] gm to apply over his groin and inguinal rash TID until they clear up Is advised that the Ketoconazole cream may actually be aggravating his inguinal and groin rash with prolonged use because it adds to the moisture over his inguinal areas (7) Cramps of left lower extremity: Code(s): R25.2 - Cramp and spasm Plan: Patient is advised that his recent left calf muscle cramping pain is most likely a combination of muscle fatigue and dehydration and is not a symptom of neuropathy (8) Stiffness of joint, hand: Code(s): M25.649 - Stiffness of unspecified hand, not elsewhere classified Qualifiers: Laterality: unspecified laterality Qualified Code(s): M25.649 - Stiffness of unspecified hand, not elsewhere classified Plan: Is advised that his recent on and off stiffness of the hands and fingers bilaterally may most likely due to osteoarthritis Is encouraged to continue with regular hand exercises to help minimize his stiffness and pain; is advised that otherwise there are no effective treatment for degenerative arthritis of the hands and fingers (9) BPH (benign prostatic hyperplasia): Code(s): N40.0 - Benign prostatic hyperplasia without lower urinary tract symptoms Qualifiers: Lower urinary tract symptom presence: unspecified whether lower urinary tract symptoms present Qualified Code(s): N40.0 - Benign prostatic hyperplasia without lower urinary tract symptoms Plan: Follow up with Urology as scheduled (10) Overweight (BMI 25.0-29.9): Code(s): E66.3 - Overweight Plan: Reinforced diet/exercise as tolerated/lose weight Plan Follow up in 6 months Orders: Orders Complete Blood Count Auto Diff 12/18/22 M79.10 - Myalgia, unspecified site Comprehensive [place]. Panel Fast 12/18/22 M79.10 - Myalgia, unspecified site Lipid Panel 12/18/22 E78.00 - Pure hypercholesterolemia, unspecified, M79.10 - Myalgia, unspecified site Vitamin B12 and Folate 12/18/22 E53.8 - Deficiency of other specified B group vitamins, M79.10 - Myalgia, unspecified site Erythrocyte Sedimentation Rate 12/18/22 M79.10 - Myalgia, unspecified site UA CC w/rflx Micro + Cult 12/18/22 M79.10 - Myalgia, unspecified site, R30.0 - Dysuria Vitamin D 25-OH Total 12/18/22 E55.9 - Vitamin D deficiency, unspecified, M79.10 - Myalgia, unspecified site TSH reflex Free T4 12/18/22 E78.00 - Pure hypercholesterolemia, unspecified, M79.10 - Myalgia, unspecified site Medications: New nystatin 1 appl topical TID 10 days 60 grams 3RF Coding Level of Care Code Est Pt Level 4 (27853) Diagnoses Dyslipidemia E78.5 Primary osteoarthritis of right knee M17.11 Degenerative disc disease, cervical M50.30 Rotator cuff arthropathy of left shoulder M12.812 Primary osteoarthritis of left hip M16.12 Tinea cruris B35.6 Cramps of left lower extremity R25.2 Stiffness of hand joint, unspecified laterality M25.649 Laterality: unspecified laterality Benign prostatic hyperplasia, unspecified whether lower urinary tract symptoms present N40.0 Lower urinary tract symptom presence: unspecified whether lower urinary tract symptoms present Overweight (BMI 25.0-29.9) E66.3
[2022-12-18 14:16] VITALS: BP 128/76; PULSE 66; O2SAT 97; BMI 26.5
== END 2022-12-18 15:37 | disposition home or self-care (01) ==
PROVIDERS: Visit Provider Internal Medicine
DX: E78.5 Hyperlipidemia, unspecified (principal); M17.11 Unilateral primary osteoarthritis, right knee; M50.30 Other cervical disc degeneration, unspecified cervical region; M16.12 Unilateral primary osteoarthritis, left hip; B35.6 Tinea cruris; R25.2 Cramp and spasm; M25.649 Stiffness of unspecified hand, not elsewhere classified; N40.0 Benign prostatic hyperplasia without lower urinary tract symptoms; E66.3 Overweight
CPT/HCPCS: 99214

== ENCOUNTER 2023-04-19 08:56 | Outpatient (AMB) | payer MEDICARE, SELFPAY ==
[2023-04-19 09:12] VITALS: BMI 27.5
--- NOTE | 2023-04-19 09:12 | A.OFFVIS_ITS ---
Intake VS Expanded 04/19/23 09:12 Height 6 ft Weight 203 lb 0.732 oz BMI 27.5 Intake Visit Reasons: overweight/CONFIRMED Allergies No Known Allergies Allergy (Verified 12/18/22 14:49) HPI Nutrition Presentation Details Patient presents for medical nutrition therapy for overweight. 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 Mother No problems noted. Social History Housing: House Alcohol intake: former Patient Tobacco Use Status: Never used Tobacco e-Cigarette/Vaping Use: Never Used Second Hand Smoke Exposure: Yes service: No Current occupational status: retired Cognitive needs: No Hearing needs: Yes Vision needs: Yes (Pt wear glasses) Assessment & Plan Assessment & Plan (1) Overweight (BMI 25.0-29.9): Code(s): E66.3 - Overweight Plan: Review low-sodium food options ? Pt's set goal (Date: 10/14/21 ): choosing lactose free foods at follow up (Date: 10/15/22 ): met 50% Used wt : 89 kg Est kcal as per 25 kcal/kg bw: 2225 (40% carb, 30% fat/prot) Est fluid needs: 2225 -2670 ml/d (25-30 ml/kg bw) Rec fiber: increase to 8-10 g per day and gradually increase as tolerated Rec Na: < 2000 mg /d Educate patient on: (R= Reviewed, V = verbalizes understanding N/R= Needs review N/A= not applicable) * Food sources of carbohydrates and serving adequate serving sizes : R * Difference between complex carbohydrates and simple carbohydrates, role of fiber: R * choosing low fat protein foods : R V * Food sources of sodium and salt and healthy modifications for heart health and kidney health: R * Vitamins and minerals: R * How to interpret food labels: R * Healthy Plate method concept: R V * Physical activity: benefits and precaution: R V * l Patient Instructions: Have yasso bar in place of ice cream 1-2 times a week try apple cider vinegar in your salads Have water with meals keep physically active as able Have milk in place of cheese as lower sodium option Coding Level of Care Code Nutr Indiv Subseq (36266) Diagnoses Overweight (BMI 25.0-29.9) E66.3 Time Spent (min) 30
== END 2023-04-19 09:47 | disposition home or self-care (01) ==
PROVIDERS: PCP Internal Medicine; Visit Provider Dietitian, Registered
DX: E66.3 Overweight (principal)

== ENCOUNTER → 2023-04-19 08:56 | Outpatient (BNVA) | payer MEDICARE, SELFPAY | PROVIDERS: PCP Internal Medicine; Visit Provider Dietitian, Registered | DX: E66.3 Overweight (principal); Z68.27 Body mass index [BMI] 27.0-27.9, adult | CPT/HCPCS: 97803 ==

== ENCOUNTER 2023-06-07 08:37 | Outpatient (REF) | payer MEDICARE, SELFPAY ==
--- NOTE | ~2023-06-07 | XR_ITS ---
EXAMINATION: XR PELVIS CLINICAL INFORMATION: Pain in unspecified hip. COMPARISON: 04/09/2022. TECHNIQUE: 2 AP views of the pelvis. FINDINGS: Degenerative changes in the imaged lower lumbar spine. Redemonstration of left total hip prosthesis, similar in position. Hardware appears intact. Redemonstration of [id number] degenerative changes in the right hip. Small rounded pelvic calcifications are likely vascular. Similar-appearing ossification superior to the left greater trochanter. XR/XR pelvis 1-2V IMPRESSION: 1. Redemonstration of left total hip prosthesis, similar in position. Hardware appears intact. 2. Redemonstration of [id number] degenerative changes in the right hip.
== END 2023-06-07 08:38 | disposition home or self-care (01) ==
LOC: HO.HOSX 08:37
PROVIDERS: Visit Provider Orthopaedic Surgery
DX: M25.552 Pain in left hip (principal); M76.899 Other specified enthesopathies of unspecified lower limb, excluding foot; Z96.642 Presence of left artificial hip joint; Z91.81 History of falling
CPT/HCPCS: 72170; 99212

== ENCOUNTER 2023-06-07 10:18 | Outpatient (AMB) | payer MEDICARE, SELFPAY ==
--- NOTE | 2023-06-07 10:29 | A.OFFVIS_ITS ---
Intake Vital Signs 06/07/23 10:36 Height 6 ft Weight 203 lb BMI 27.5 Intake Visit Reasons: Ov- Left hip pain - Left QUEENIE 2011 KI Intake Note: Ruy is an 88 year old male who presents today for a follow up visit of his left hip. History of Left QUEENIE 09/14/2011 KI. Patient reports that he is having difficulty lifting his leg which is affecting his gait. He has taken a fall about 1 month ago at the gym, Reports that he feels clicking with ROM. Reports bruising. He would like Ibuprofen. Allergies No Known Allergies Allergy (Verified 12/18/22 14:49) HPI Ov- Left hip pain - Left QUEENIE 2011 KI HPI Details Ruy is an 88 year old man who presents with complaints of left hip pain & weakness. he has a hx of left QUEENIE done in 2011. He complains of pain and weakness in his left hip. he reports falling at the gym ~1 month ago, and since has been unable to properly lift his leg, which is affecting his gait. He also complains of a clicking sensation in his hip. He has a hx of a right QUEENIE, DOS: 01/09/19. 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 Mother No problems noted. Social History Housing: House Alcohol intake: former Patient Tobacco Use Status: Never used Tobacco e-Cigarette/Vaping Use: Never Used Second Hand Smoke Exposure: Yes service: No Current occupational status: retired Cognitive needs: No Hearing needs: Yes Vision needs: Yes (Pt wear glasses) Review of Systems Const All systems reviewed & are unremarkable except as noted in HPI and below Physical Exam Vital Signs: BMI result Body Mass Index 27.5 Const General: no acute distress, alert and awake Orientation/consciousness: patient oriented x3 HEENT Head: Yes normocephalic and Yes atraumatic Eyes EOM: EOMs intact bilaterally Resp Effort & Inspection: normal respiratory effort and able to speak in complete sentences Cardio Jugular venous distension: no JVD Skin General skin exam: turgor normal Rashes: no rashes Neuro General: patient oriented x3 Extrem Other: Tenderness to palpation over the greater trochanter on the left. Trendelenburg gait on the left Psych Appearance: grossly normal Affect: normal affect Attitude: cooperative Results Reviewed Results Reviewed: Left QUEENIE in expected post operative position with no hardware complications or evidence of loosening Assessment & Plan Assessment & Plan (1) History of total left hip replacement: Comment: 09/14/2011 Code(s): Z96.642 - Presence of left artificial hip joint Plan: This is an 88-year-old gentleman with ongoing [id number] left hip pain. I suspect there is abductor tendinitis and some weakness. I discussed this with him. I do not think there is a surgical treatment that is going to be helpful for him and he understands this. I do think he would benefit from strengthening with physical therapy and a referral was made. He can follow-up as needed. (2) Hip abductor tendinitis: Code(s): M76.899 - Other specified enthesopathies of unspecified lower limb, excluding foot Plan Prepared for Gilbert Merida MD by Arron Vazquez, director biomedical engineering, on 06/07/23 at 10:41 AM, EST. Orders: Orders XR pelvis 1-2V 06/07/23 M25.559 - Pain in unspecified hip PT Evaluation and Treatment 06/07/23 M76.899 - Other specified enthesopathies of unspecified lower limb, excluding foot, Z96.642 - Presence of left artificial hip joint Medications: New celecoxib (Celebrex) 200 mg PO DAILY 30 caps 0RF Coding Level of Care Code Est Pt Level 4 (03137) Diagnoses History of total left hip replacement Z96.642 Hip abductor tendinitis M76.899
[2023-06-07 10:36] VITALS: BMI 27.5
== END 2023-06-07 11:03 | disposition home or self-care (01) ==
PROVIDERS: PCP Internal Medicine; Visit Provider Orthopaedic Surgery
DX: M76.899 Other specified enthesopathies of unspecified lower limb, excluding foot (principal); Z96.642 Presence of left artificial hip joint
CPT/HCPCS: 99213

== ENCOUNTER 2023-06-17 09:55 | Outpatient (AMB) | payer MEDICARE, SELFPAY ==
[2023-06-17 09:57] VITALS: BP 132/80; BMI 27.1
--- NOTE | 2023-06-17 09:57 | MHC.PC.OV ---
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 by: Self / Same As Patient Allergies No Known Allergies Allergy (Verified 06/17/23 10:40) Medication List - Last Reconciled 06/17/23 by Pepito Domingo MD celecoxib (Celebrex) 200 mg PO DAILY fluticasone propionate 50 mcg/actuation 2 sprays intranasal DAILY ketoconazole 2% 1 appl topical DAILY nystatin 1 appl topical TID 10 days varicella-zoster gE-AS01B (PF) 50 mcg/0.5 mL (Shingrix (PF)) 0.5 mL IM ONCE Tobacco use date assessed: 06/17/23 Fall risk assessment: 1 Fall in past year Last assessed Fall Risk: 06/17/23 Dental Screening Dental Screen Date: 06/17/23 Did you have a dental visit in the last 12 months?: No Did you have a dental problem in the last 6 months where you did not have access to dental care?: No Was dental information given to patient?: No HPI 6 month f/u HPI Details Patient comes in today for his follow up visit Relates that he lost his balance and fell on his left side during his friend's golfing class last month He still has increased soreness over his left hip area and some left leg weakness Recalls that his left hip area was black and blue for a while and the bruising is just starting to clear up He was seen by orthopedics a couple of weeks ago for follow up and sent for x-rays, which came out negative for acute fractures He was referred for physical therapy and is now scheduled to start PT next week on 06/25/2023 States that he feels okay otherwise He denies any headaches or dizziness Denies any chest pains, no SOB No nausea/vomiting, no abdominal pain No change in bowel habits noted He had his follow up labs done at 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 Mother No problems noted. Social History Housing: House Alcohol intake: former Patient Tobacco Use Status: Never used Tobacco e-Cigarette/Vaping Use: Never Used Second Hand Smoke Exposure: Yes service: No Current occupational status: retired Cognitive needs: No Hearing needs: Yes Vision needs: Yes (Pt wear glasses) Questionnaire PHQ-9 Over the last 2 weeks, how often have you been bothered by any of the following problems? 1. Little interest or pleasure in doing things: not at all 2. Feeling down, depressed, or hopeless: not at all 3. Trouble falling or staying asleep, or sleeping too much: not at all 4. Feeling tired or having little energy: not at all 5. Poor appetite or overeating: not at all 6. Feeling bad about yourself - or that you are a failure or have let yourself or your family down: not at all 7. Trouble concentrating on things, such as reading the newspaper or watching television: not at all 8. Moving or speaking so slowly that other people could have noticed. Or the opposite - being so fidgety or restless that you have been moving around a lot more than usual: not at all 9. Thoughts that you would be better off or of hurting yourself in some way: not at all Total score: 0 Depression Screening Interpretation: Negative Depression Screening Done: Yes 61291 - PHQ-9 Billing: Yes Source: Developed by Drs. Inocencio Alvarez, Robyn Tellez, Bg Posada and colleagues, with an educational nathalia from [employer]. Thrive Questionnaire Date Thrive assessed: 06/17/23 I am a: Patient What is your living situation today?: I have a steady place to live Within the past 12 months, did the food you bought not last and you didn't have the money to get more?: Never true Within the past 12 months, did you worry whether your food would run out before you got money to buy more?: Never true Do you have trouble paying for medicines?: No Do you have trouble getting transportation to medical appointments?: No Do you have trouble paying your heating and electricity bill?: No Do you have trouble taking care of your child, family member or friend?: No Do you have trouble with day-to-day activities such as bathing, preparing meals, shopping, managing finances, etc.?: No Are you currently unemployed and looking for a job?: No Are you interested in more education?: No Please select the resources that you would like help with: None Currently or been in a relationship where the following occur: no concerns reported THRIVE Score: 0 AUDIT C Alcohol Use Questionnaire (AUDIT-C) 1. How often do you have a drink containing alcohol?: Never 3. How often do you have six or more drinks on one occasion?: Never Total Score: 0 Score Reviewed/Action Taken: Yes JAS-7 AMB Questionnaire JAS-7 Date JAS - 7 assessed: 06/17/23 Feeling nervous, anxious, or on edge: 0 = Not at all Not being able to stop or control worryin = Not at all Worrying too much about different things: 0 = Not at all Trouble relaxin = Not at all Being so restless that it is hard to sit still: 0 = Not at all Becoming easily annoyed or irritable: 0 = Not at all Feeling afraid as if something awful might happen: 0 = Not at all Total JAS-7 score (0-4 normal; 5-9 mild; 10-14 moderate; 15-21 severe): 0 Source: Developed by Drs. Inocencio Alvarez, Robyn Tellez, Bg Posada and colleagues, with an educational nathalia from [employer]. Review of Systems Const Denies chills, Denies fatigue, Denies fever(s), Denies headache(s) and Reports weakness (of the left leg) ENT Denies dysphagia, Denies dizziness, Denies otalgia, Denies headache(s), Denies neck pain, Denies odynophagia and Denies sore throat Card Denies chest pain, Denies palpitations and Denies dyspnea Resp Denies cough and Denies dyspnea GI Denies abdominal pain, Denies constipation, Denies dysphagia, Denies heartburn, Denies diarrhea, Denies nausea, Denies odynophagia and Denies vomiting Denies dysuria, Denies nocturia and Denies urinary frequency Musc Reports arthralgias (in the left hip - S/P fall), Reports muscle cramps (on and off in his left leg (calf muscles) recently), Denies neck pain and Reports stiffness (in hands/fingers lately, on and off) Skin/Breast Denies rash Neuro Denies dizziness, Denies headache(s) and Reports weakness (of the left leg) Endo Denies fatigue and Denies palpitations Ant/Lymph Reports easy bruising Physical exam (Primary Care) Vital Signs: Last Vital Signs BP 132/80 06/17/23 09:57 Oxygen Delivery Method Room Air 06/17/23 09:57 BMI result Body Mass Index 27.1 Tobacco/Smoking Status: Tobacco use Status Tobacco use date assessed 06/17/23 06/17/23 09:59 Patient Tobacco Use Status Never used Tobacco 06/17/23 09:59 e-Cigarette/Vaping Use Never Used 06/17/23 09:59 PHQ-9: PHQ-9 Score PHQ-9: Total score 0 06/17/23 10:44 Depression Screening Interpretation: Negative Thrive Assessment: Date of Thrive Assessment Date Thrive assessed 06/17/23 06/17/23 09:59 Currently or been in a relationship where the following occur: no concerns reported Const General: no acute distress and alert HENMT Ears: TM's normal bilaterally and EAC's normal Throat: Yes posterior oropharynx normal and Yes tonsils normal (no TP congestion noted) Neck Neck: Yes no lymphadenopathy and Yes supple Resp Auscultation: clear to auscultation bilaterally, no rales and no wheezes Cardio Rate: regular rate Rhythm: regular rhythm Heart sounds: no murmurs GI Palpation (GI): Soft to palpation and nontender Auscultation: normal bowel sounds General: Yes no CVA tenderness Back/Spine/Pelvis Back: no CVA tenderness Thoracic/Lumbar Spine: No lumbar spinal tenderness Skin Rashes: no rashes Extrem General: Yes no clubbing, cyanosis or edema Left upper extremity: shoulder/upper arm Details: tenderness (minimal) and normal ROM Right lower extremity: hip/thigh Details: tenderness Location: of the hip Left lower extremity: hip/thigh Details: tenderness Location: of the hip Location: anterolaterally and knee Details: tenderness Assessment and Plan Assessment & Plan (1) Dyslipidemia: Code(s): E78.5 - Hyperlipidemia, unspecified Plan: Results of his labs done at [facility] a few weeks ago reviewed and discussed with patient Reinforced low cholesterol diet (2) Primary osteoarthritis of right knee: Comment: S/P total right knee arthroplasty in January 2019 Code(s): M17.11 - Unilateral primary osteoarthritis, right knee Plan: Knee symptoms have improved with physical therapy/rehab in the past - can refer to physical therapy again as needed if symptoms recur Patient will call for referral when needed Follow-up with Orthopedics as scheduled (3) Degenerative disc disease, cervical: Code(s): M50.30 - Other cervical disc degeneration, unspecified cervical region Plan: States that his neck symptoms have been mostly manageable so far Advised to continue with the previously instructed neck exercises regularly to help manage his symptoms (4) Rotator cuff arthropathy of left shoulder: Comment: MRI of the left shoulder done on 06/22/2018 showed (+) rotator cuff tear as well as moderate OA changes Code(s): M12.812 - Other specific arthropathies, not elsewhere classified, left shoulder Plan: Follow-up with Orthopedics as scheduled Has been advised that no surgery is indicated at this time as his shoulder symptoms are minimal and his range of motion is mostly normal Can also refer to physical therapy for further evaluation and management if needed (5) Left hip pain: Code(s): M25.552 - Pain in left hip Plan: S/P fall recently (see HPI) X-rays of the left hip done last week came out normal He is advised that his hip pain is likely due to tendinitis / bursitis and was referred to PT by orthopedics - will be starting physical therapy next week (6) Bilateral leg weakness: Code(s): R29.898 - Other symptoms and signs involving the musculoskeletal system Plan: Will send patient for EMG and NCV of the lower extremities for further evaluation (7) BPH (benign prostatic hyperplasia): Code(s): N40.0 - Benign prostatic hyperplasia without lower urinary tract symptoms Qualifiers: Lower urinary tract symptom presence: unspecified whether lower urinary tract symptoms present Qualified Code(s): N40.0 - Benign prostatic hyperplasia without lower urinary tract symptoms Plan: Follow up with Urology as scheduled (8) Overweight (BMI 25.0-29.9): Code(s): E66.3 - Overweight Plan: Reinforced diet/exercise as tolerated/lose weight Plan Follow up in 6 months Orders: Orders NE electromyogram (EMG) 06/17/23 R20.2 - Paresthesia of skin, R29.898 - Other symptoms and signs involving the musculoskeletal system NE nerve conduction velocity 06/17/23 R29.898 - Other symptoms and signs involving the musculoskeletal system Coding Level of Care Code Est Pt Level 4 (92617) Diagnoses Dyslipidemia E78.5 Primary osteoarthritis of right knee M17.11 Degenerative disc disease, cervical M50.30 Rotator cuff arthropathy of left shoulder M12.812 Left hip pain M25.552 Bilateral leg weakness R29.898 Benign prostatic hyperplasia, unspecified whether lower urinary tract symptoms present N40.0 Lower urinary tract symptom presence: unspecified whether lower urinary tract symptoms present Overweight (BMI 25.0-29.9) E66.3
== END 2023-06-17 11:04 | disposition home or self-care (01) ==
PROVIDERS: PCP Internal Medicine; Visit Provider Internal Medicine
DX: E78.5 Hyperlipidemia, unspecified (principal); M25.552 Pain in left hip; Z96.651 Presence of right artificial knee joint; M50.30 Other cervical disc degeneration, unspecified cervical region; M12.812 Other specific arthropathies, not elsewhere classified, left shoulder; R29.898 Other symptoms and signs involving the musculoskeletal system; N40.0 Benign prostatic hyperplasia without lower urinary tract symptoms
CPT/HCPCS: 99214

== ENCOUNTER 2023-06-24 08:51 | Outpatient (REF) | payer MEDICARE, SELFPAY ==
--- NOTE | 2023-06-24 08:54 | EMG_ITS ---
Bilateral tibial and peroneal motor studies were performed. Bilateral superficial peroneal and sural sensory studies were performed. Tibial H reflexes were obtained and paraspinal muscles were tested with a needle. 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 MD LISA Salvador/JOSE MIGUELL / [id number]
== END 2023-06-24 08:52 | disposition home or self-care (01) ==
LOC: HO.NEURO 08:51
PROVIDERS: PCP Internal Medicine; Visit Provider Internal Medicine
DX: R20.2 Paresthesia of skin (principal); R29.898 Other symptoms and signs involving the musculoskeletal system
CPT/HCPCS: 95886; 95911

== ENCOUNTER 2023-07-22 09:58 | Outpatient (AMB) | payer MEDICARE, SELFPAY ==
[2023-07-22 10:08] VITALS: BP 134/62; O2SAT 94; BMI 26.9
--- NOTE | 2023-07-22 10:08 | MHC.PC.OV ---
Vital Signs 07/22/23 10:08 Height 6 ft Weight 198 lb BMI 26.9 BP 134/62 Blood Pressure Location Rt brachial Position Sitting Pulse Oximetry (%) 94 Intake Visit Reasons: Transfer r. Jose L/OK per Dr. Ricardo Guan ?neuropathy Allergies No Known Allergies Allergy (Verified 07/22/23 10:25) Medication List - Last Reconciled 07/22/23 by KARLOS Gutierrez celecoxib (Celebrex) 200 mg PO DAILY PRN fluticasone propionate 50 mcg/actuation 2 sprays intranasal DAILY PRN ketoconazole 2% 1 appl topical DAILY PRN nystatin 1 appl topical TID PRN varicella-zoster gE-AS01B (PF) 50 mcg/0.5 mL (Shingrix (PF)) 0.5 mL IM ONCE Tobacco use date assessed: 07/22/23 Fall risk assessment: 1 Fall in past year Last assessed Fall Risk: 07/22/23 Dental Screening Dental Screen Date: 07/22/23 Did you have a dental visit in the last 12 months?: Yes Did you have a dental problem in the last 6 months where you did not have access to dental care?: No Was dental information given to patient?: Patient has dentist HPI HPI Comments History of Present Illness Details Patient is an 88-year-old male who I am meeting for the 1st time. He has a past medical history significant for osteoarthritis of the right knee, BPH, bilateral leg weakness, dyslipidemia, GERD, cataracts, left hip pain. 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 Patient will need referral to Neurology. Will refer to Neurology. Patient is also getting physical therapy for his left hip, states he is in his 2nd month of therapy which is progressing well. Does have follow up with Ortho in 1 month Will order fasting labs for patient. . 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 Mother No problems noted. Social History Housing: House Alcohol intake: former Patient Tobacco Use Status: Never used Tobacco e-Cigarette/Vaping Use: Never Used Second Hand Smoke Exposure: Yes service: No Current occupational status: retired Cognitive needs: No Hearing needs: Yes Vision needs: Yes (Pt wear glasses) Questionnaire Thrive Questionnaire Date Thrive assessed: 06/17/23 JAS-7 AMB Questionnaire JAS-7 Date JAS - 7 assessed: 06/17/23 Source: Developed by Drs. Inocencio Alvarez, Robyn Tellez, Bg Posada and colleagues, with an educational nathalia from [employer]. Review of Systems Const Details: Constitutional : No Weight loss, No Fever, No Chills, No Fatigue, No Malaise Cardiovascular : No Chest Pain, No SOB, No Dyspnea on Exertion, No Orthopnea, No Edema, No Palpitations Respiratory : No Cough, No Sputum, No Wheezing Gastrointestinal : No Nausea, No Vomiting, No Diarrhea, No Constipation, No abdominal Pain, No Hematochezia, No Melena Genitourinary : No Dysuria, No Urinary Frequency, No Hematuria, Musculoskeletal : Admits some left hip discomfort, improving with PT. Skin : Admits cold hands and feet. Neuro : Admits some bilateral leg Weakness, No Numbness, No Dizziness, No Headache Psych : No Anxiety/Panic, No Depression All other systems reviewed and are negative Physical exam (Primary Care) Vital Signs: Last Vital Signs BP 134/62 07/22/23 10:08 Pulse Ox 94 07/22/23 10:08 Care Plan Goal for BP management: Patient's vital signs reviewed and stable BMI result Body Mass Index 26.9 Tobacco/Smoking Status: Tobacco use Status Tobacco use date assessed 07/22/23 07/22/23 10:15 Patient Tobacco Use Status Never used Tobacco 07/22/23 10:15 e-Cigarette/Vaping Use Never Used 07/22/23 10:15 Thrive Assessment: Date of Thrive Assessment Date Thrive assessed 06/17/23 07/22/23 10:15 Const Other: Appearance: Alert.? Oriented X3.? No acute distress.? Neck: Normal inspection.? Neck supple.? CVS: Normal heart rate and rhythm.? Pulses normal.?+ systolic murmur Respiratory: No respiratory distress.? Breath sounds normal.? Skin: Cold bilateral hands. Blanching of fingers. Extremities: No lower extremity edema.? No calf ttp. 5/5 strength to bilateral upper and lower extremities Neuro: Oriented X 3. CN 2-12 intact. 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 Assessment and Plan Assessment & Plan (1) Neuropathy: Comment: Will refer patient to Neurology. Patient should continue with physical therapy. Code(s): G62.9 - Polyneuropathy, unspecified (2) Systolic murmur: Comment: Will refer patient for echocardiogram. Code(s): R01.1 - Cardiac murmur, unspecified Plan: Take your medications as prescribed. If you were prescribed antibiotics today, it is important that you take your medication to their entirety, do not skip any doses, do not finish them early. Follow-up with your primary care provider this week. Return to the emergency department with new or worsening symptoms. Such as fevers, chills, chest pain, shortness of breath, nausea, vomiting, dizziness, headache, vision changes, lethargy In case of emergency call 911 Plan Will draw labs. Patient will follow-up in 2 months. Orders: Orders Vitamin D 25-OH (D2 and D3) Today KARLOS Gutierrez Z13.21 - Encounter for screening for nutritional disorder PSA,Total (Free>4and<10) Today KARLOS Gutierrez Z12.5 - Encounter for screening for malignant neoplasm of prostate UA CC w/rflx Micro + Cult Today KARLOS Gutierrez Z13.89 - Encounter for screening for other disorder TSH reflex Free T4 Today KARLOS Gutierrez Z13.29 - Encounter for screening for other suspected endocrine disorder Lipid Panel Today KARLOS Gutierrez Z13.220 - Encounter for screening for lipoid disorders CA echo transthoracic complete Today KARLOS Gutierrez R01.1 - Cardiac murmur, unspecified Complete Blood Count Auto Diff Today KARLOS Gutierrez Z13.0 - Encounter for screening for diseases of the blood and blood-forming organs and certain disorders involving the immune mechanism Comprehensive Met. Panel Today KARLOS Gutierrez Z91.89 - Other specified personal risk factors, not elsewhere classified Vitamin B6 Today KARLOS Gutierrez Z13.21 - Encounter for screening for nutritional disorder Vitamin B12 Today KARLOS Gutierrez Z13.21 - Encounter for screening for nutritional disorder Referrals Neurology Referral KARLOS Gutierrez G62.9 - Polyneuropathy, unspecified Medications: Changed From fluticasone propionate 50 mcg/actuation administer into each nostril 2 sprays intranasal DAILY 16 grams 3RF To fluticasone propionate 50 mcg/actuation administer into each nostril 2 sprays intranasal DAILY PRN Pepito Domingo MD From ketoconazole 2% 1 appl topical DAILY 30 grams 1RF To ketoconazole 2% 1 appl topical DAILY PRN Kings Agarwal MD From celecoxib (Celebrex) 200 mg PO DAILY 30 caps 0RF To celecoxib (Celebrex) 200 mg PO DAILY PRN Gilbert Merida MD From nystatin 1 appl topical TID 10 days 60 grams 3RF To nystatin 1 appl topical TID PRN Pepito Domingo MD Coding Level of Care Code Est Pt Level 3 (90603) Diagnoses Neuropathy G62.9 Systolic murmur R01.1 Time Spent (min) 28
== END 2023-07-22 13:06 | disposition home or self-care (01) ==
PROVIDERS: PCP Internal Medicine; Visit Provider Nurse Practitioner Primary Care
DX: G62.9 Polyneuropathy, unspecified (principal); R01.1 Cardiac murmur, unspecified
CPT/HCPCS: 99213

== ENCOUNTER 2023-07-27 08:28 | Outpatient (REF) | payer MEDICARE, SELFPAY ==
[2023-07-27 10:26] LABS: MANUAL DIFF FLAG NO
[2023-07-27 10:35] LABS: Basophils Absolute Auto 0.1 X10*3/uL (0.0-0.2); Basophils Percent Auto 1.8 % (0-2); Eosinophils Absolute Auto 0.7 X10*3/uL (0.0-0.4); Eosinophils Percent Auto 9.3 % (0-4); Hematocrit 32.7 % (42.0-52.0); Hemoglobin 11.1 g/dl (14.0-18.0); Imm Gran Abs Auto 0.18 X10*3/uL (0.00-0.03); Imm Gran Pct Auto 2.5 % (0.0-0.4); Lymphocytes Absolute Auto 1.6 X10*3/uL (1.2-4.9); Lymphocytes Percent Auto 21.3 % (20-40); Mean Corpuscular HGB Conc 33.9 g/dl (31.0-36.0); Mean Corpuscular Hemoglobin 33.1 pg (27.0-33.0); Mean Corpuscular Volume 97.6 fL (80.0-98.0); Mean Platelet Volume 12.3 fL (9.4-12.4); Monocytes Absolute Auto 0.7 X10*3/uL (0.1-1.2); Monocytes Percent Auto 9.4 % (2-11); Neutrophils Absolute Auto 4.1 x10*3/uL (2.0-8.3); Neutrophils Percent Auto 55.7 % (45-73); Platelet Count 123 X10*3/uL (160-400); Red Blood Count 3.35 X10*6/uL (4.60-5.80); Red Cell Distribution Width 19.6 % (11.0-16.0); White Blood Count 7.3 X10*3/uL (4.8-10.8)
[2023-07-27 10:41] LABS: Appearance Urine Turbid; Color Urine Yellow; Glucose Urine UA Negative (Negative); Leukocyte Esterase Urine Negative (Negative); Nitrite Urine Negative (Negative); PH 5.5 (5.0-9.0); Urine Blood Negative (Negative); Urine Ketones Negative (Negative); Urine Protein Negative (Neg-Trace)
[2023-07-27 11:57] LABS: PSA,Total (Free>4and<10) 0.89 ng/mL (0.00-4.00)
[2023-07-27 12:09] LABS: Alanine Aminotransferase 18 U/L (0-40); Albumin Level 4.3 g/dL (3.5-5.0); Alkaline Phosphatase 36 U/L (39-117); Anion Gap 8 (12-20); Aspartate Amino Transferase 30 U/L (5-37); Bilirubin Total 1.1 mg/dL (0.0-1.0); Blood Urea Nitrogen 13 mg/dL (9-16); Calcium 8.9 mg/dL (8.4-10.2); Carbon Dioxide 31 mmol/L (22-29); Chloride 106 mmol/L (96-108); Cholesterol 162 mg/dL (<200); Estimated Glomerular Filt Rate > 60; Glucose Random 94 mg/dL (60-115); HDL Cholesterol 41 mg/dL (>40); LDL Cholesterol Calculated 109 mg/dL (<100); Potassium 4.2 mmol/L (3.3-5.1); Sodium 141 mmol/L (135-145); TSH reflex Free T4 6.23 uIU/mL (0.32-4.0); Total Protein 6.6 g/dL (6.5-8.0); Triglycerides 60 mg/dL (<150)
[2023-07-27 12:11] LABS: Vitamin B12 1978 pg/mL (200-900)
[2023-07-27 12:44] LABS: Free T4 (Free Thyroxine) 0.57 ng/dL (0.71-1.85)
[2023-07-31 15:27] LABS: Vitamin D 25-OH, D2 <4 ng/mL; Vitamin D 25-OH, D3 36 ng/mL; Vitamin D 25-OH, Total 36 ng/mL (30-100)
== END 2023-07-27 08:29 | disposition home or self-care (01) ==
LOC: HO.HMGCLDS 08:28
PROVIDERS: PCP Nurse Practitioner Primary Care; Visit Provider Nurse Practitioner Primary Care
DX: Z13.21 Encounter for screening for nutritional disorder (principal); Z13.0 Encounter for screening for diseases of the blood and blood-forming organs and certain disorders involving the immune mechanism; Z91.89 Other specified personal risk factors, not elsewhere classified; Z13.220 Encounter for screening for lipoid disorders; Z12.5 Encounter for screening for malignant neoplasm of prostate; Z13.29 Encounter for screening for other suspected endocrine disorder; Z13.89 Encounter for screening for other disorder
CPT/HCPCS: 36415; 80053; 80061; 81003; 82306; 82607; 84153; 84207; 84439; 84443; 85025

== ENCOUNTER 2023-08-12 13:00 | Outpatient (RCR) | payer MEDICARE, SELFPAY ==
--- NOTE | 2023-06-29 14:27 | MHC.PT.EP ---
[facility] [place] [address] Waqas Mcguire [address] [phone] F: [phone] F: [phone] F: [phone] F: [phone] Physical Therapy Plan of Care Date of Evaluation: 06/29/23 Date of Surgery: Diagnosis: presence of L artificial hip joint Assessment: Patient is a 88 year old R handed male who presents with s/s consistent with L hip pain, presence of L artificial hip joint. He does not work but likes staying active at the [email or web address] and [employer]. Patient past medical history includes QUEENIE, TKA and severe peripheral neuropathy. Current impairments include pain, posture, ROM, balance, gait mechanics, strength, activity tolerance and functional mobility. Functional limitations include decreased ability to walk, negotiate stairs, get in and out of cars, sleep, golf, and exercise. Patient is motivated with good rehab potential. Skilled PT will address impairments and functional limitations in order to achieve goals. 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 Manual therapy to restore motion and function. Therapeutic exercise to improve strength and flexibility. Neuromuscular re-education for posture and balance. Therapeutic activities to return to functional activities of daily living. Electronically signed by: Saji Munoz, PT Please sign and return to therapist. Thank you for your referral.
--- NOTE | 2023-12-20 14:46 | MHC.PT.DC ---
[facility] [place] Office [place] Office [place] Office [address] Waqas Mcguire [address] [phone] F: [phone] F: [phone] F: [phone] F: [phone] Physical Therapy Discharge Report Diagnosis: presence of L artificial hip joint Date of Surgery: Date of Evaluation: 06/29/23 Date of Discharge: 09/21/23 Treatments to Date: 14 Cancellations to Date: No Shows to Date: Discharge Status: Achieved Goals Independent with HEP Discharge Summary: 08/12/23: progressing functionally. able to golf pain free and able to sleep pain free. we are going to taper to HEP in 2 weeks. 08/10/23: pt with no new s/s. progressing functionally and with increased strength and balance. progress as tolerated. 08/05/23: pt continuing to improve functionally. balance and strength gains are improving pt ability to engage in golfing activities. 08/03/23: pt has been feeling better overall. still labored with hip flexion but improving. 07/29/23: pt progressing well and tolerating increased resistance well. min tightness in hip. improved strength. 07/27/23: pt progressing well with balance, ROM, flex and strength. improving and motivated to continue. 07/22/23: pt progressing well with skilled PT. no adverse reactions. responding well functionally, and with ROM/strength. 07/20/23: no new s/s. pt notes his hip seems to be looser. amb symmetrically. SLB 8 seconds. 07/15/23: pt progressing well on current program. we continue to progress resistance as appropriate and pt pain level is min to absent. 07/13/23: pt progressing well. strength, balance, ROM, flexibility all trending well. 07/08/23: pt progressing well with strength. no adverse reactions. continue to progress as tolerated. 07/06/23: pt progressing with strength, function. improved rotation. continue to progress as tolerated. 07/01/23: pt progressing well with skilled PT. added LE strength and balance. no adverse reactions. progress as tolerated. Patient is a 88 year old R handed male who presents with s/s consistent with L hip pain, presence of L artificial hip joint. He does not work but likes staying active at the [facility] and golfing. Patient past medical history includes QUEENIE, TKA and severe peripheral neuropathy. Current impairments include pain, posture, ROM, balance, gait mechanics, strength, activity tolerance and functional mobility. Functional limitations include decreased ability to walk, negotiate stairs, get in and out of cars, sleep, golf, and exercise. Patient is motivated with good rehab potential. Skilled PT will address impairments and functional limitations in order to achieve goals. Electronically signed by: Saji Munoz, PT Please sign and return to therapist. Thank you for your referral.
== END 2023-12-20 14:46 | disposition home or self-care (01) ==
LOC: HO.PTCHIC 13:00
PROVIDERS: PCP Internal Medicine; Visit Provider Orthopaedic Surgery
DX: Z96.642 Presence of left artificial hip joint (principal); M76.892 Other specified enthesopathies of left lower limb, excluding foot
CPT/HCPCS: 97110; 97112; 97163

== ENCOUNTER → 2023-08-12 14:47 | Outpatient (REF) | payer MEDICARE, SELFPAY ==
--- NOTE | 2023-08-12 14:51 | CA_ITS ---
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 Normal LV systolic function with LVEF of 60-65% with mild LVH with pseudonormal filling pattern 2. Moderate biatrial enlargement 3. Moderate calcific aortic stenosis with mild aortic regurgitation 4. Normal RV systolic pressure 5. Upper limits of normal ascending aortic size 6. No gross pericardial effusion Findings Left Ventricle Normal left ventricular size and systolic function. There is mildly increased left ventricular wall thickness. The visually estimated ejection fraction is between 60-65%. Spectral Doppler is indicative of a pseudonormal filling pattern. E/E prime ratio is between 8 and 15 consistent with indeterminate filling pressures. Peak GLS is -20.5%, wit Right Ventricle Mildly increased right ventricular cavity size. There is normal right ventricular systolic function. Atria The left atrium is moderately dilated. There is no evidence of interatrial shunt. The right atrium is moderately dilated. Aortic Valve There is moderate calcification of the aortic valve. There is moderate thickening of the aortic valve. There is moderate aortic valve stenosis. The peak aortic gradient is 43 mmHg.The mean gradient is 27 mmHg. The aortic valve area is 1.32 cm2. There is mild aortic valve regurgitation. Mitral Valve There is mild anterior and posterior mitral leaflet thickening. There is mild mitral annular calcification. There is mild mitral valve regurgitation. There is no mitral valve stenosis. Pulmonic Valve The pulmonic valve is likely normal. There is trace pulmonic valve regurgitation. Tricuspid Valve Normal tricuspid valve structure. There is mild tricuspid valve regurgitation. The right ventricular systolic pressure is normal. The right ventricular systolic pressure is 25 mmHg. Normal right atrial pressure. There is no evidence of pulmonary hypertension. Great Vessels All visible segments of the aorta are normal in size. The pulmonary artery was not well visualized. Small plaque is seen in the sino tubular ridge. Venous The inferior vena cava is severely dilated and collapses less than 50% with inspiration. Pericardium/Pleural There is no evidence of pericardial effusion. Measurements 2D Linear Measurements IVSd: 1.32 0.6-0.9/0.6-1.0 cm LVIDd: 4.55 3.9-5.3/4.2-5.9 cm LVIDd Index: 2.16 2.4-3.2/2.2-3.1 cm/m2 LVIDs: 2.86 2.0-3.6 cm LVPWd: 1.07 0.7-1.1 cm LA Diam: 4.80 2.7-3.8/3.0-4.0 cm LAIDs Index: 2.27 1.5-2.3 cm/m2 LV Mass: 249.66 67-162/88-224 g LV Mass Index: 118.32 43-95/49-115 g/m2 LVOT Diam: 2.30 3.0+(-)1.3 cm 2D Systolic Function EF 4C: 61.40 >55% EF 2C: 61.00 >55% EF BiP: 61.10 >55% Mitral Valve MV Pk E: 0.71 MV PK A: 0.46 MV Decel Time: 220.00 E/A: 1.50 E'Lateral: 8.49 E'Medial: 5.87 E/E' Med: 12.00 E/E' Lat: 8.30 PHT: 64.00 MVA PHT: 3.44 Decel Otoe: 3.21 Aortic Valve AoV Pk Devonte: 3.29 AoV Mn Devonte: 2.50 AoV VTI: 0.87 AoV Pk Grad: 43.00 Aov Mn Grad: 27.00 JOSE MANUEL Cont.VTI: 1.32 AI Pk Devonte: 3.50 AI Otoe: 1.27 LVOT LVOT Pk Devonte: 0.92 LVOT Mn Devonte: 0.65 LVOT VTI: 0.28 LVOT Pk Grad: 3.00 LVOT Mn Grad: 2.00 LVOT Diam: 2.30 LVOT Area: 4.15 Diastolic Function MV Pk E: 0.71 MV Pk A: 0.46 E/A: 1.50 E'Medial: 5.87 E/E' Med: 12.00 E' Laterial: 8.49 E/E' Lat: 8.30 Right Ventricle TAPSE (mm): 25.30 TVS' Devonte: 14.50 Tricuspid Valve TR Pk Devonte: 1.62 TR Pk Grad: 10.00 RA Press: 15.00 RVSP: 25.00 Great Vessels Aorta Sinus of Valsalva: 3.91 2.0-3.5 cm Ao Asc: 3.60 2.1-3.4 cm Updated in Other Vendor System with Status of Final Mandeep Mckeon MD electronically signed on 08/13/2023 12:04:18 PM with status of Final
== END ==
LOC: HO.CARD 14:47
PROVIDERS: PCP Nurse Practitioner Primary Care; Visit Provider Nurse Practitioner Primary Care
DX: R01.1 Cardiac murmur, unspecified (principal)
CPT/HCPCS: 93306; 93356

== ENCOUNTER → 2023-08-12 14:51 | Outpatient (BNV) | payer MEDICARE, SELFPAY | PROVIDERS: PCP Nurse Practitioner Primary Care; Visit Provider Internal Medicine Cardiovascular Disease | DX: R01.1 Cardiac murmur, unspecified (principal) | CPT/HCPCS: 93306; 93356 ==

== ENCOUNTER 2023-08-13 09:39 | Outpatient (AMB) | payer MEDICARE, SELFPAY ==
[2023-08-13 09:42] VITALS: BMI 26.9
--- NOTE | 2023-08-13 09:42 | MHC.OFFVIS ---
Vital Signs 08/13/23 09:42 Height 6 ft Weight 198 lb BMI 26.9 Intake Visit Reasons: Ov- Left hip pain - Left QUEENIE 2011 KI Intake Note: Ruy is an 88 year old male who presents today for a follow up visit of his left hip. History of Left QUEENIE 09/14/2011 KI. Patient reports that he is feeling frustrated. He states that he is exercising doing all of what he is supposed to do but his progress is very slow. He is working with Physical Therapy, but he is running out of sessions so he is looking for another physical therapy script. He struggles with lifting the knee , is limping and feels that he had developed a waddling gait Allergies No Known Allergies Allergy (Verified 07/22/23 10:25) HPI HPI Ov- Left hip pain - Left QUEENIE 2011 KI: Details: Ruy is an 88 year old male who presents today for a follow up visit of his left hip. History of Left QUEENIE 09/14/2011 KI. Patient reports that he is feeling frustrated. He states that he is exercising doing all of what he is supposed to do but his progress is very slow. He is working with Physical Therapy, but he is running out of sessions so he is looking for another physical therapy script. 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 Mother No problems noted. Social History Housing: House Alcohol intake: former Patient Tobacco Use Status: Never used Tobacco e-Cigarette/Vaping Use: Never Used Second Hand Smoke Exposure: Yes service: No Current occupational status: retired Cognitive needs: No Hearing needs: Yes Vision needs: Yes (Pt wear glasses) Physical Exam Vital Signs: BMI result Body Mass Index 26.9 Const General: no acute distress, alert and awake Orientation/consciousness: patient oriented x3 HEENT Head: Yes normocephalic and Yes atraumatic Eyes EOM: EOMs intact bilaterally Resp Effort & Inspection: normal respiratory effort and able to speak in complete sentences Cardio Jugular venous distension: no JVD Skin General skin exam: turgor normal Rashes: no rashes Neuro General: patient oriented x3 Extrem Other: Tenderness to palpation over the greater trochanter on the left. Trendelenburg gait on the left Psych Appearance: grossly normal Affect: normal affect Attitude: cooperative Assessment & Plan Assessment & Plan (1) Hip abductor tendinitis: Code(s): M76.899 - Other specified enthesopathies of unspecified lower limb, excluding foot Category: Medical Plan: This is a 88-year-old gentleman who is many years status post left hip replacement by Dr. Johnson. He continues to have abductor tendinitis. I had a long discussion with him regarding physical therapy and recommend he continue but that he focus more on core strengthening and isometrics as opposed to open chain repetitive motion exercises he seems to been doing. Plan Orders: Orders PT Evaluation and Treatment 08/13/23 M76.899 - Other specified enthesopathies of unspecified lower limb, excluding foot Coding Level of Care Code Est Pt Level 4 (83189) Diagnoses Hip abductor tendinitis M76.899
== END 2023-08-13 10:16 | disposition home or self-care (01) ==
PROVIDERS: PCP Internal Medicine; Visit Provider Orthopaedic Surgery
DX: M76.892 Other specified enthesopathies of left lower limb, excluding foot (principal); Z96.642 Presence of left artificial hip joint
CPT/HCPCS: 99213

== ENCOUNTER → 2023-08-13 09:39 | Outpatient (BNVA) | payer MEDICARE, SELFPAY | PROVIDERS: PCP Internal Medicine; Visit Provider Orthopaedic Surgery | DX: M76.899 Other specified enthesopathies of unspecified lower limb, excluding foot (principal); Z96.642 Presence of left artificial hip joint | CPT/HCPCS: 99212 ==

== ENCOUNTER 2023-08-23 09:52 | Outpatient (AMB) | payer MEDICARE, SELFPAY ==
--- OUTSIDE RECORDS SUMMARY | 2023-08-23 09:53 | XMS_ITS | Patient Health Record ---
Author Organization [facility] Address [address] [place] [address] Care Team Providers Care Sled Maker Name Role Phone Jose L JARAMILLO, [place] Primary Care Provider Inocencio Murcia Unavailable [phone] REASON FOR REFERRAL No Information IMMUNIZATIONS Vaccine Route Administration Date Status Comme nts Flu vaccine no Preserv 3 and > Unknown 01/24/2014 Admin istered Flu vaccine no Preserv 3 and > Unknown 01/04/2015 Admin istered Influenza Unknown 01/03/2017 Administered SOCIAL HISTORY Sex Assigned At : Social History Observation Description Sex Assigned At Unknown PROBLEMS Problem Type ICD Code Onset Dates Problem Status W/U Status Risk SNOMED Code Notes Problem Encounter for screening for malignant neoplasm of colon (Z12.11) Active confirmed 232965748 Problem History of adenomatous polyp of colon (Z86.010) Active confirmed 004867299 Problem Preprocedural examination (Z01.818) Active confirmed 86697239 Problem History of colon polyps (Z86.010) Active confirmed 031181225 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 [id number] PLAN OF TREATMENT Future Test Test Name Order Date COLONOSCOPY 07/25/2015 COLONOSCOPY 02/19/2017 Insurance Providers Payer Name Payer Address Payer Phone Subscriber Number Group Number Insured Name Patient Relationship to Insured Coverage Start Date Coverage End Date MEDICARE OF [place] [address] [place] [address] [phone] [id number] ANGEL BARRERA Self - patient is the insured [employer] ATT[employer] CLAIMS [address] [place] [address] [phone] [id number] ANGEL BARRERA Self - patient is the insured MEDICAL (GENERAL) HISTORY Medical History History ICD Code 02/21/2004 Screening Colonos copy was negative other than some diverticulosis and internal hemorrhoids Denies CO,DM,CVA,Lung disease,renal dise ase Colonoscopy in 10/2014--flat adenoma on the portion of the Ileocecal valve that was closest to the cecum--partially removed Followup colonoscopy in 2015 revealed residual adenomatous tissue with high-grade dysplaia on the ileocecal valve that was removed, but I did not feel I removed the lesion in its entirety at that time and I was also concerned that a portion of it was actually going into the terminal ileum itself. Followup colonoscopy in September of 2015 revealed persistent polyp tissue along this portion of the ileocecal valve--biopsies showed tubulovillous adenoma--- the lesion was not completely removed--there was also a flat adenomatous polyp in the proximal ascending colon that was biopsied, but not removed Surgical History Surgery Date(Month/Year) Left hip replacement [address] Renteria Right colectomy in 11/2015-DR Gavin Renteria---2.0cm sessile tubular adenoma on ICV and 1.2 cm sessile tubular adenoma with high grade dysplasia in the ascending colon
--- NOTE | 2023-08-23 09:54 | AM.OFFWIN_ITS ---
Intake Vital Signs 08/23/23 09:55 Height 6 ft Weight 197 lb BMI 26.7 BP 118/70 Pulse 86 Pulse Source Pulse Oximeter Temp 97.5 F Temp Source Temporal Artery Scan Pulse Oximetry (%) 90 L Oxygen Delivery Method Room Air Intake Visit Reasons: EP SOB, Cough, Blue finger tips/Sore back Intake Note: pt is here today for SOB cough blue finger tips and sore back started 1 week ago Patient Tobacco Use Status: Never used Tobacco Allergies No Known Allergies Allergy (Verified 08/23/23 10:00) Do you need a note to return to daycare/school/sports/work: No HPI HPI Comments History of Present Illness Details This is an 88-year-old male who presented to the walk-in clinic complaining of sinus congestion with green-yellow nasal discharge as well as a productive cough with green-yellow sputum x 10 days. He also reports associated fatigue. He denies any fevers/chills. He denies any chest pain. He denies any shortness of breath or difficulty breathing; however, he does have some lower back pain with deep breaths, which he believes is likely musculoskeletal in the setting of his coughing. [facility] Medical History Overweight (BMI 25.0-29.9) BPH (benign prostatic hyperplasia) Primary osteoarthritis of left hip Rotator cuff arthropathy of left shoulder Degenerative disc disease, cervical Primary osteoarthritis of right knee Dyslipidemia Surgical History History of cataract extraction H/O right hemicolectomy History of total left hip replacement History of arthroscopy of right knee Family History Father No problems noted. Mother No problems noted. Social History Housing: House Alcohol intake: former Patient Tobacco Use Status: Never used Tobacco e-Cigarette/Vaping Use: Never Used Second Hand Smoke Exposure: Yes service: No Current occupational status: retired Cognitive needs: No Hearing needs: Yes Vision needs: Yes (Pt wear glasses) Review of Systems Const All systems reviewed & are unremarkable except as noted in HPI and below Reports no additional complaints Eyes Reports no additional complaints ENT Reports no additional complaints Card Reports no additional complaints Resp Reports no additional complaints GI Reports no additional complaints Reports no additional complaints Musc Reports no additional complaints Skin/Breast Reports system reviewed and no additional complaints, except as documented Neuro Reports no additional complaints Psych Reports no additional complaints Endo Reports no additional complaints Ant/Lymph Reports no additional complaints Aller/Immun Reports no additional complaints Physical Exam Vital Signs: Last Vital Signs Temp 97.5 F 08/23/23 09:55 Pulse 86 08/23/23 09:55 BP 118/70 08/23/23 09:55 Pulse Ox 90 L 08/23/23 09:55 Oxygen Delivery Method Room Air 08/23/23 09:55 BMI result Body Mass Index 26.7 Const Other: Vital signs reviewed. Constitutional: Non-toxic appearing. No acute distress. Well-developed and well-nourished. HEENT: Normocephalic and atraumatic. Tympanic membranes without erythema, edema, or bulging bilaterally. External auditory canals without erythema or edema bilaterally. Moist mucous membranes. No pharyngeal erythema or exudates. Erythematous nasal turbinates. Skin: Warm and dry. No rashes or lesions noted. Neck: Full and painless range of motion. No cervical lymphadenopathy. Cardio: Regular rate and rhythm. No murmurs, gallops, or rubs. No lower extremity edema. No JVD. Pulmonary: No significant respiratory distress although he does appear winded with conversation with mild tachypnea. No accessory muscle usage. Clear to auscultation bilaterally without wheezing, crackles, or rhonchi. Gastrointestinal: Soft, nontender, and nondistended in all 4 quadrants. Musculoskeletal: Normal range of motion in joints throughout the body. No deformity or other signs of injury. Neuro: Alert and oriented x4. Cranial nerves 2-12 grossly intact. No focal deficits appreciated. Psych: Normal mood and affect. 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 On physical examination, patient's lungs are clear to auscultation bilaterally although patient does complain of some chest congestion and some shortness of breath and he has some tachypnea and appears winded with conversation. The patient's oxygen saturation was low at 83-90% on room air although did not show great pleth so unclear how accurate this is as patient is in no acute respiratory distress without any adventitious breath sounds. Patient was given a DuoNeb without improvement in his O2 saturations. His history and physical are most consistent with acute bacterial rhinosinusitis versus possible community-acquired pneumonia. A chest xray was obtained, which shows possible trace left-sided pleural effusion versus opacity/infiltrate on my read although final read is still pending. I had sent prescriptions for PO azithromycin 500 mg today followed by 250 mg daily x 4 days as well as PO amoxicillin/clavulanate 875/125mg twice daily x 5 days to cover for sinusitis as well as pneumonia. However, given the patient's hypoxia, I have recommended that the patient proceed to the emergency room for further evaluation. He will be going to [facility] ER. I spoke with the triage nurse regarding his symptoms/exam findings and vital signs as well as my differential diagnosis. I offered the patient an ambulance multiple times however he declined and in my opinion, he has the capacity to make his own medical decisions. (2) Low back pain: Code(s): M54.50 - Low back pain, unspecified Qualifiers: Back pain laterality: left Chronicity: acute Sciatica presence: without sciatica Qualified Code(s): M54.50 - Low back pain, unspecified Plan: Patient complains of some left sided low back pain that occurs with coughing and deep breathing. This pain appears to be musculoskeletal in nature related to his coughing. Recommended rest/activity modification, ice/heat to the area, and acetaminophen and OTC lidocaine patches for pain management. Orders: Orders XR chest 2V Today R05.9 - Cough, unspecified AMB Nebulizer Treatment Today R05.9 - Cough, unspecified Medications: New azithromycin For 250 mg dose pack: take 500 mg today (day 1), then 250 mg for 4 days (days 2-5) PO 6 tabs 0RF amoxicillin-pot clavulanate 875-125 mg 1 tab PO BID 10 tabs 0RF Coding Level of Care Code Est Pt Level 3 (30564) Diagnoses Acute cough R05.1 Cough type: acute Acute left-sided low back pain without sciatica M54.50 Back pain laterality: left Chronicity: acute Sciatica presence: without sciatica CPT Codes Nebulizer Treatment - Nebulizer Treatment, initial or subsequent: 81113- Nebulizer/MDI RX initial, or Nebulizer Subsequent Treatment ([id number])
[2023-08-23 09:55] VITALS: BP 118/70; PULSE 86; TEMP 36.4; O2SAT 90; BMI 26.7
== END 2023-08-23 11:56 | disposition home or self-care (01) ==
PROVIDERS: PCP Nurse Practitioner Primary Care; Visit Provider Physician Assistant Medical
DX: R05.1 Acute cough (principal); M54.50 Low back pain, unspecified
CPT/HCPCS: 94640; 99213; J7620

== ENCOUNTER 2023-08-23 10:35 | Outpatient (REF) | payer MEDICARE, SELFPAY ==
--- NOTE | ~2023-08-23 | XR_ITS ---
EXAMINATION: XR CHEST CLINICAL INFORMATION: Cough COMPARISON: 10/17/2018 TECHNIQUE: 2 views chest FINDINGS: There is new patchy consolidation seen in most likely the right middle lobe as well as the left upper lobe and lingula. Heart size normal. No evidence of CHF. XR/XR chest 2V IMPRESSION: Multifocal pneumonia.
== END 2023-08-23 10:36 | disposition home or self-care (01) ==
LOC: HO.HMGCX 10:35
PROVIDERS: PCP Nurse Practitioner Primary Care; Visit Provider Physician Assistant Medical
DX: Z13.89 Encounter for screening for other disorder (principal)
CPT/HCPCS: 71046

== ENCOUNTER 2023-08-23 12:06 | Inpatient (IN) | payer MEDICARE, SELFPAY ==
[2023-08-23] VITALS (10 sets, daily range): BP systolic 104–122; BP diastolic 34–58; PULSE 67–84; RESP 13–20; TEMP 37–38.1; O2SAT 87–98; BMI 26.9
--- NOTE | ~2023-08-23 | US_ITS ---
EXAMINATION: US ABDOMEN LIMITED CLINICAL INFORMATION: Right upper quadrant pain, elevated LFTs. COMPARISON: CT scan from 2019 and renal ultrasound from 2007 TECHNIQUE: Real-time imaging of the right upper quadrant abdominal viscera. FINDINGS: PANCREAS: Normal. LIVER: Normal. The liver is normal in size. The liver contour is normal. Parenchymal echogenicity is normal. No focal hepatic lesion. There is no intrahepatic biliary duct dilatation seen. GALLBLADDER: Abnormal with wall thickening measuring 0.4 cm and echogenic shadowing mobile stone, measured 2.2 cm. There is no pericholecystic fluid collection in sonographic Igbson's sign reported negative. COMMON BILE DUCT: Normal in caliber measuring 0.4 cm in diameter. RIGHT KIDNEY: There is upper pole 3.2 x 3.5 x 2.6 cm simple cyst No hydronephrosis. No renal calculi or focal parenchymal lesions. The kidney measures 11 point cm in maximum dimension. FREE FLUID: None. US/US abdomen limited IMPRESSION: Cholelithiasis and thickened gallbladder wall without pericholecystic fluid collection or positive Gibson's sign. Simple cyst in the right kidney
--- NOTE | ~2023-08-23 | XR_ITS ---
EXAMINATION: XR chest 1V CLINICAL INFORMATION: Reason for Exam follow up pneumonia COMPARISON: Chest radiograph 08/23/2023 TECHNIQUE: One view of the chest XR/XR chest 1V FINDINGS/IMPRESSION: Multifocal bibasilar lateral opacity, similar to prior study. No pneumothorax. No pleural effusion. Unchanged cardiomediastinal silhouette.
--- NOTE | 2023-08-23 12:17 | ED_ITS ---
HPI - General Adult General Chief complaint: Upper Respiratory Symptoms Stated complaint: Low blood count Time Seen by Provider: 08/23/23 13:06 Source: patient Mode of arrival: ambulatory Limitations: no limitations History of Present Illness HPI narrative: Patient comes to the emergency room complaining of shortness of breath. Patient states that he went to urgent Care complaining of productive cough, shortness of breath, intermittent fatigue, not quite feeling right. Patient states 2 days day 10 of his symptoms. Denies chest pain. Earlier today, patient was not urgent care, chest x-ray was done showing bilateral pneumonia. In urgent care, they had a hard time getting an oxygen saturation, when they finally got 1, it was 83% on room air. However, they were unable to obtain a waveform. Patient was sent to the emergency room. Patient drove himself. Related Data Home Medications ?Medication ?Instructions ?Recorded ?Confirmed fluticasone propionate 50 2 spray intranasal DAILY PRN 07/22/23 07/22/23 mcg/actuation nasal spray,suspension ketoconazole 2 % topical cream 1 appl topical DAILY PRN 07/22/23 07/22/23 nystatin 100,000 unit/gram topical 1 appl topical TID PRN 07/22/23 07/22/23 powder Previous Rx's ?Medication ?Instructions ?Recorded varicella-zoster glycoE [id number] 0.5 ml IM ONCE #1 ea 01/12/23 adj(PF) 50 mcg/0.5 mL IM susp, kit (Shingrix (PF)) ferrous fumarate 324 mg (106 mg 324 mg PO DAILY #90 tabs 07/28/23 iron) tablet levothyroxine 25 mcg tablet 25 mcg PO DAILY #60 tabs 07/28/23 sennosides 8.6 mg capsule (senna) 8.6 mg PO DAILY PRN constipation 07/28/23 #30 caps amoxicillin 875 mg-potassium 1 tab PO BID #10 tabs 08/23/23 clavulanate 125 mg tablet azithromycin 250 mg tablet See Rx Instructions PO .COMPLEX #6 08/23/23 tabs Allergies Allergy/AdvReac Type Severity Reaction Status Date / Time No Known Allergies Allergy Verified 08/23/23 12:33 Review of Systems 2 Review of Systems: Constitutional : No Weight loss, No Fever, complaining of Chills, No Night Sweats, No Fatigue, No Malaise ENT/Mouth : No Hearing loss, No Ear Pain, No Nasal Congestion, No Sinus Pain, No Hoarseness, No sore throat, No Rhinorrhea, No Swallowing Difficulty Eyes: No Eye Pain, No Swelling, No Redness, No Foreign Body, No Discharge, No Vision Changes Cardiovascular : No Chest Pain, No SOB, complaining of Dyspnea on Exertion, No Orthopnea, No Edema, No Palpitations Respiratory : Complaining of productive cough, no wheezing, shortness of breath worse with exertion. Gastrointestinal : No Nausea, No Vomiting, No Diarrhea, No Constipation, No abdominal Pain, No Hematochezia, No Melena Genitourinary : no irregular bleeding, No Dysuria, No Urinary Frequency, No Hematuria, No Urinary Incontinence, No Urgency, No Flank Pain, No Urinary Flow Changes, No Hesitancy Musculoskeletal : No joint pain, No Myalgias, No Joint Swelling Skin : No Skin Lesions, No rash Neuro : No Weakness, No Numbness, No Paresthesias, No Loss of Consciousness, No Dizziness, No Headache Psych : No Anxiety/Panic, No Depression, No SI/HI/AH/VH, No Social Issues, Heme/Lymph: No Bruising, No Bleeding,No Lymphadenopathy Endocrine : No Polyuria, No Polydipsia, No Temperature Intolerance PMFSH Past Medical History Medical History Overweight (BMI 25.0-29.9) BPH (benign prostatic hyperplasia) 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 Mother No problems noted. Social History Social History Housing: House Alcohol intake: former Patient Tobacco Use Status: Never used Tobacco e-Cigarette/Vaping Use: Never Used Second Hand Smoke Exposure: Yes Advance Directives: No Advance Directives Information Provided: Yes Do you have a plan to hurt others: No Plan service: No Current occupational status: retired Cognitive needs: No Hearing needs: Yes Vision needs: Yes (Pt wear glasses) Physical Exam ED Vital Signs: Vital Signs - 24 hr 08/23/23 12:15 08/23/23 13:55 08/23/23 15:56 Temperature 99 F 100.6 F H 99 F Pulse Rate 84 77 74 Respiratory Rate 20 19 16 Blood Pressure 111/58 L 104/44 L 114/47 L Pulse Oximetry 90 L 92 94 Oxygen Delivery Method Room Air Nasal Cannula Room Air Oxygen Flow Rate 2 08/23/23 16:19 08/23/23 17:56 08/23/23 18:40 Temperature Pulse Rate 78 Respiratory Rate 14 Blood Pressure 118/47 L Pulse Oximetry 98 96 87 L Oxygen Delivery Method Nasal Cannula Oxygen Flow Rate 2 08/23/23 19:03 08/23/23 19:27 08/23/23 19:45 Temperature 99 F Pulse Rate 70 67 Respiratory Rate 13 15 Blood Pressure 106/34 L Pulse Oximetry 93 93 Oxygen Delivery Method Room Air Room Air Oxygen Flow Rate BMI result Body Mass Index 26.9 Const Other: Appearance: Alert. Oriented X3. No acute distress. Patient is well-appearing, does not seem to be hypoxic despite low O2 levels. Eyes: Pupils equal, round and reactive to light. ENT: Pharynx normal. Neck: Normal inspection. Neck supple. No lymph nodes noted. No crepitus CVS: Normal heart rate and rhythm. Pulses normal. Normal S1 and S2 Respiratory: No respiratory distress. Breath sounds normal. No Wheezing. No rales Abdomen: Soft and nontender. No rigidity. No distention. Skin: Skin warm and dry. Normal skin color. Normal skin turgor. Extremities: No lower extremity edema. No Lacerations. No Rash, fingertips are cold Neuro: Oriented X 3. No motor deficit. No sensory deficit. Moving all extremities. No slurred speech. CN 2 through 12 grossly intact Psych: calm, cooperative, normal affect Course Course Course Narrative: This is an RME: Additional HPI, ROS, PE not included below will be deferred to primary provider. RME assessment and note performed by: Ro Mcarthur PA-C This is a 22-iqna-ecn-male, with a hx of BPJ, DDD, dyslipidemia, who presents to the ER with complaints of productive cough with green-yellow sputum x 10 days. Pt was seen at a walk in clinic today and O2 was 83% on RA and was sent in by private car. Pt speaking in full sentences in no respiratory distress, O2 90% on RA, placed on 2L. Chest x-ray revealing multifocal pneumonia. Plan: Labs, EKG, further ER evaluation needed. Medications Administered Generic Name Dose Route Start Last Admin Trade Name Freq PRN Reason Stop Dose Admin Albuterol/Ipratropium 3 ml 08/23/23 19:30 08/23/23 19:45 Albuterol/Iprat 2.5/0.5mg 3 Ml Ampul.Neb INHALE 3 ml Q4H PAOLO Administration Guaifenesin/Codeine Phosphate 10 ml 08/23/23 19:30 08/23/23 20:20 Guaifen/Codeine Sf 200/20/10ml 10 Ml Liquid PO 10 ml Q6H PAOLO Administration Heparin Sodium (Porcine) 5,000 unit 08/23/23 19:30 08/23/23 20:20 Heparin Sodium,Porcine 5,000 Unit/Ml Vial SUBCUT 5,000 unit Q12H PAOLO Administration Loratadine 10 mg 08/23/23 19:30 08/23/23 20:19 Loratadine 10 Mg Tablet PO 10 mg DAILY PAOLO Administration Discontinued Medications Generic Name Dose Route Start Last Admin Trade Name Freq PRN Reason Stop Dose Admin Sodium Chloride 2,697 mls @ 2,697 mls/hr 08/23/23 13:24 08/23/23 15:15 Ns 30 ml/kg infuse over 1 hr (2697 ml) 08/23/23 14:23 Infused IV Infusion .Q1H STA Ceftriaxone Sodium 1 gm/ 50 mls @ 100 mls/hr 08/23/23 13:24 08/23/23 14:48 Sodium Chloride IV 08/23/23 13:53 Infused ONCE ONE Infusion Azithromycin 500 mg/ Sodium 250 mls @ 125 mls/hr 08/23/23 13:08/23/23 17:02 Chloride IV 08/23/23 15:23 Infused ONCE ONE Infusion Medical Decision Making Medical Decision Making MDM Narrative: -patient's oxygen saturation 90% on arrival. However, patient does not seem to have a good waveform, fingertips are very cold. Patient was put on 2 L of oxygen. -given patient's symptoms, unclear oxygen saturation, patient remains on 2 L of oxygen, was started on IV fluids and IV antibiotics.. Patient does not have a fever, not tachycardic. -sepsis not suspected -all of patient's labs pending -my interpretation of EKG: Patient has pronounced T-waves in the inferior leads, old right bundle branch block, heart rate 82, QTC 486 -I discussed the EKG findings with Dr. Frost, the T-wave enlargement in the inferior leads likely secondary to increased heart rate. Patient has no chest pain at all, well-appearing, STEMI not suspected at this time -my interpretation of labs: White blood cell count normal, hematology shows a hemoglobin slightly below baseline., normal chemistry, LFTs more elevated than usual with no abdominal pain -chest x-ray from earlier today: Patient has bilateral pneumonia. -patient's has normal blood pressure, not tachycardic, no fever, normal white blood cell count and normal lactic acid, sepsis not suspected. -patient was empirically treated with IV fluids and antibiotics, ceftriaxone and azithromycin. -when patient ambulates, his oxygen drops to 87%. -it was noted the patient's LFTs are elevated, ultrasound shows no obvious abnormality. Patient has no abdominal pain. Differential Diagnosis Differential Diagnoses: The differential diagnosis associated with the presentation includes (Pneumonia, NSTEMI, CHF) Admission/Observation Consideration of admission/observation: Escalation of care including admission/observation considered Consult Healthcare Provider Management of the patient was discussed with: Hospitalist and Airfield Engineer Officer Lab Data MDM Lab Attestation statement: I reviewed the patient's lab results. 08/23/23 14:00 08/23/23 14:00 Labs: Lab Results 08/23/23 Range/Units 14:00 WBC 9.5 (4.8-10.8) X10*3/uL RBC 2.87 L (4.60-5.80) X10*6/uL Hgb 9.3 L (14.0-18.0) g/dl Hct 27.1 L (42.0-52.0) % MCV 94.4 (80.0-98.0) fL MCH 32.4 (27.0-33.0) pg MCHC 34.3 (31.0-36.0) g/dl RDW 20.8 H (11.0-16.0) % Plt Count 222 D (160-400) X10*3/uL MPV 12.5 H (9.4-12.4) fL Immature Gran % (Auto) Cancelled Neut % (Auto) Cancelled Lymph % (Auto) Cancelled [place] % (Auto) Cancelled Eos % (Auto) Cancelled Baso % (Auto) Cancelled Lymph # (Auto) Cancelled [place] # (Auto) Cancelled Eos # (Auto) Cancelled Baso # (Auto) Cancelled Abs Immat Gran (auto) Cancelled Absolute Neuts (auto) Cancelled Absolute Nucleated RBC 0.000 (0.0-0.012) X10*3/uL Nucleated RBC % (auto) 0.0 (0.0-0.2) /100WBC Neutrophils % (Manual) 75 H (45-73) % Band Neutrophils % 7 H (3-5) % Lymphocytes % (Manual) 6 L (20-40) % Monocytes % (Manual) 10 (2-11) % Eosinophils % (Manual) 1 (0-4) % Metamyelocytes % 1 % Abs Neuts (Manual) 7.8 (2.0-8.3) X10*3/uL Lymphocytes # (Manual) 0.6 L (1.2-4.9) X10*3/uL Monocytes # (Manual) 1.0 (0.1-1.2) X10*3/uL Eosinophils # (Manual) 0.1 (0.0-0.4) X10*3/uL Metamyelocytes # 0.1 X10*3/uL Platelet Estimate NORMAL (NORMAL) Large Platelets PRESENT Plt Morphology Comment NOTED RBC Morphology NOTED Tear Drop Cells 1+ (0-2) /OIF Ovalocytes 1+ (5-14) /OIF Sodium 133 L (135-145) mmol/L Potassium 4.0 (3.3-5.1) mmol/L Chloride 97 (96-108) mmol/L Carbon Dioxide 24 (22-29) mmol/L Anion Gap 16 (12-20) BUN 16 (9-16) mg/dL Creatinine 0.99 (0.5-1.4) mg/dL Estim Creat Clear Calc 57.6 Estimated GFR > 60 Random Glucose 111 (60-115) mg/dL Lactic Acid 1.7 (0.5-2.0) mmol/L Calcium 8.9 (8.4-10.2) mg/dL Total Bilirubin 2.6 H (0.0-1.0) mg/dL Direct Bilirubin 1.7 H (0.0-0.5) mg/dL AST 126 H (5-37) U/L ALT 150 H (0-40) U/L Alkaline Phosphatase 334 H (39-117) U/L Troponin I High Sens 15.3 (<3.5-35.0) ng/L B-Natriuretic Peptide 211 H (<100) pg/mL Total Protein 6.9 (6.5-8.0) g/dL Albumin 3.6 (3.5-5.0) g/dL Independent Interpretation I performed an independent interpretation of an: Plain X-Ray and Ultrasound Radiology Impression Discussion of test interpretation with radiology: I have reviewed the radiologist's reading. Radiologist Impression: There is new patchy consolidation seen in most likely the right middle lobe as well as the left upper lobe and lingula. Heart size normal. No evidence of CHF. XR/XR chest 2V IMPRESSION: Multifocal pneumonia. FINDINGS: PANCREAS: Normal. LIVER: Normal. The liver is normal in size. The liver contour is normal. Parenchymal echogenicity is normal. No focal hepatic lesion. There is no intrahepatic biliary duct dilatation seen. GALLBLADDER: Abnormal with wall thickening measuring 0.4 cm and echogenic shadowing mobile stone, measured 2.2 cm. There is no pericholecystic fluid collection in sonographic Gibson's sign reported negative. COMMON BILE DUCT: Normal in caliber measuring 0.4 cm in diameter. RIGHT KIDNEY: There is upper pole 3.2 x 3.5 x 2.6 cm simple cyst No hydronephrosis. No renal calculi or focal parenchymal lesions. The kidney measures 11 point cm in maximum dimension. FREE FLUID: None. US/US abdomen limited IMPRESSION: Cholelithiasis and thickened gallbladder wall without pericholecystic fluid collection or positive Gibson's sign. Simple cyst in the right kidney Critical Care Time Critical Care Time Critical Care Time: Yes Total Critical Care Time: 60 Attestation: I have personally provided critical care time. Time includes review of lab data, radiology results, discussion with consultants, and monitoring for potential decompensation. Intervention performed as documented. Discharge Plan Discharge Clinical Impression: Pneumonia Patient Disposition: Admitted As Inpatient Prescriptions: No Action Shingrix (PF) 50 mcg/0.5 mL suspension for reconstitution 0.5 ml IM ONCE Qty: 1 0RF levothyroxine 25 mcg tablet 25 mcg PO DAILY Qty: 60 0RF ferrous fumarate 324 mg (106 mg iron) tablet 324 mg PO DAILY Qty: 90 0RF senna 8.6 mg capsule 8.6 mg PO DAILY PRN (Reason: constipation) Qty: 30 0RF fluticasone propionate 50 mcg/actuation spray,suspension 2 spray intranasal DAILY PRN Rx Instructions: administer into each nostril ketoconazole 2 % cream 1 appl topical DAILY PRN nystatin 100,000 unit/gram powder 1 appl topical TID PRN azithromycin 250 mg tablet See Rx Instructions PO .COMPLEX Qty: 6 0RF Rx Instructions: For 250 mg dose pack: take 500 mg today (day 1), then 250 mg for 4 days (days 2-5) PO amoxicillin-pot clavulanate 875-125 mg tablet 1 tab PO BID Qty: 10 0RF Print Language: Thai
--- NOTE | 2023-08-23 12:36 | ECG_ITS ---
Test Reason : SOB Blood Pressure : / mmHG Vent. Rate : 083 BPM Atrial Rate : 083 BPM P-R Int : 202 ms QRS Dur : 152 ms QT Int : 432 ms P-R-T Axes : -07 004 -07 degrees QTc Int : 507 ms Normal sinus rhythm Right bundle branch block T wave abnormality, consider inferior ischemia Abnormal ECG When compared with ECG of 07-JUL-2021 10:22, Vent. rate has increased BY 27 BPM Inverted T waves have replaced nonspecific T wave abnormality in Inferior leads Referred By: Ro Mcarthur Electronically Signed By:Indra Frost
--- OUTSIDE RECORDS SUMMARY | 2023-08-23 12:44 | XMS_ITS | Patient Health Record ---
Author Organization [facility] Address [address] [place] [address] Care Team Providers Care Market Intelligence Consultant Name Role Phone Jose L JARAMILLO, [place] Primary Care Provider Ever Brooks Unavailable [phone] ALLERGIES No Known Allergies REASON FOR REFERRAL [...] Raynaud's disease without gangrene (I73.00) Active confirmed [id number] PLAN OF TREATMENT No Information Insurance Providers Payer Name Payer Address Payer Phone Subscriber Number Group Number Insured Name Patient Relationship to Insured Coverage Start Date Coverage End Date Medicare [facility] [address] [facility] [address] [phone] [id number] Ruy Roth Self - patient is the insured [employer] [address] [place] [address] [id number] Ruy Roth Self - patient is the insured MEDICAL (GENERAL) HISTORY Medical History History ICD Code Cataracts Measles Mumps Chicken pox Joint implants/screws Surgical History Surgery Date(Month/Year)
--- NOTE | 2023-08-23 13:18 | MHC.EDTECH ---
EKG done at 1255 I am unable to document in the EKG order.
[2023-08-23 14:13] LABS: Hematocrit 27.1 % (42.0-52.0); Hemoglobin 9.3 g/dl (14.0-18.0); Mean Corpuscular HGB Conc 34.3 g/dl (31.0-36.0); Mean Corpuscular Hemoglobin 32.4 pg (27.0-33.0); Mean Corpuscular Volume 94.4 fL (80.0-98.0); Mean Platelet Volume 12.5 fL (9.4-12.4); Platelet Count 222 X10*3/uL (160-400); Red Blood Count 2.87 X10*6/uL (4.60-5.80); Red Cell Distribution Width 20.8 % (11.0-16.0); White Blood Count 9.5 X10*3/uL (4.8-10.8)
[2023-08-23] MEDS: SODIUM CHLORIDE 2697 ML IV (14:15)
[2023-08-23] MEDS: cefTRIAXone sodium 1 GM in 0.9 % Sodium Chloride 50 ML IV (14:18)
[2023-08-23 14:27] LABS: Lactic Acid 1.7 mmol/L (0.5-2.0)
[2023-08-23 14:31] LABS: Alanine Aminotransferase 150 U/L (0-40); Albumin Level 3.6 g/dL (3.5-5.0); Alkaline Phosphatase 334 U/L (39-117); Anion Gap 16 (12-20); Aspartate Amino Transferase 126 U/L (5-37); Bilirubin Direct 1.7 mg/dL (0.0-0.5); Bilirubin Total 2.6 mg/dL (0.0-1.0); Blood Urea Nitrogen 16 mg/dL (9-16); Calcium 8.9 mg/dL (8.4-10.2); Carbon Dioxide 24 mmol/L (22-29); Chloride 97 mmol/L (96-108); Creatinine Clr Calc Pharmacy 57.6; Estimated Glomerular Filt Rate > 60; Glucose Random 111 mg/dL (60-115); Sodium 133 mmol/L (135-145); Total Protein 6.9 g/dL (6.5-8.0)
[2023-08-23 14:35] LABS: B Type Natriuretic Peptide 211 pg/mL (<100); Troponin-I High Sensitivity 15.3 ng/L (<3.5-35.0)
[2023-08-23 14:40] LABS: Band Neutrophils Percent 7 % (3-5); Eosinophils Absolute Manual 0.1 X10*3/uL (0.0-0.4); Eosinophils Percent Manual 1 % (0-4); Lymphocytes Absolute Manual 0.6 X10*3/uL (1.2-4.9); Lymphocytes Percent Manual 6 % (20-40); Metamyelocytes Absolute 0.1 X10*3/uL; Metamyelocytes Percent 1 %; Monocytes Percent Manual 10 % (2-11); Neutrophils Absolute Manual 7.8 X10*3/uL (2.0-8.3); Neutrophils Percent Manual 75 % (45-73)
[2023-08-23 14:43] LABS: Large Platelet PRESENT; Ovalocytes 1+ (5-14) /OIF; Platelet Estimate NORMAL (NORMAL); Platelet Morphology Comment NOTED; RBC Morphology NOTED; Tear Drop Cells 1+ (0-2) /OIF
[2023-08-23] MEDS: Azithromycin 500 MG in 0.9 % Sodium Chloride 250 ML 125 MG IV (15:02)
--- NOTE | 2023-08-23 18:40 | PC.NURSE ---
patient difficult to obtain pulse ox. while ambulating patient's oxygen saturation 87-96%
--- NOTE | 2023-08-23 19:14 | P.HPHOSP_ITS ---
History of Present Illness Date of Service: 08/23/23 Attending physician on admission: Singh Lundberg Chief Complaint: Acute hypoxemic respiratory failure secondary to pneumonia. 88y/o M history of arthritis, dyslipidemia, ? hypothryroidismcomplaining of sinus congestion with green-yellow nasal discharge as well as a productive cough with green-yellow sputum x 10 days. patient's lungs are clear to auscultation bilaterally although patient does complain of some chest congestion and some shortness of breath and he has some tachypnea and appears winded with conversation. The patient's oxygen saturation was low at 83-90% on room air although did not show great pleth so unclear how accurate this is as patient is in no acute respiratory distress without any adventitious breath sounds. Patient was given a DuoNeb without improvement in his O2 saturations. His history and physical are most consistent with acute bacterial rhinosinusitis versus possible community-acquired pneumonia. Patient was given p.o. antibiotics today in walk-in clinic but patient still feeling short of breath, hypoxic, has productive cough decided to come to the hospital. Lab imaging reviewed: No leukocytosis, H&H 9.3. BMP electrolytes seems fine, LFT elevated. Chest x-ray shows multifocal pneumonia Documented hypoxia in the ED. EKG NSR Patient was given ceftriaxone/azithromycin needed ED and requested admission for acute hypoxemic respiratory failure secondary to pneumonia. Denies any new complaint of abdominal pain or fever or chills or nausea or vomiting Mild pleurisy Low-grade fever Generalized weak Review of Systems 2 Review of Systems: As above. Yes all other systems are reviewed and are negative [facility] Medical History Overweight (BMI 25.0-29.9) BPH (benign prostatic hyperplasia) Primary osteoarthritis of left hip Rotator cuff arthropathy of left shoulder Degenerative disc disease, cervical Primary osteoarthritis of right knee Dyslipidemia Family History Father No problems noted. Mother No problems noted. Surgical History History of cataract extraction H/O right hemicolectomy History of total left hip replacement History of arthroscopy of right knee Social History Housing: House Alcohol intake: former Patient Tobacco Use Status: Never used Tobacco e-Cigarette/Vaping Use: Never Used Second Hand Smoke Exposure: Yes Advance Directives: No Advance Directives Information Provided: Yes Do you have a plan to hurt others: No Plan service: No Current occupational status: retired Cognitive needs: No Hearing needs: Yes Vision needs: Yes (Pt wear glasses) Meds Allergies Allergy/AdvReac Type Severity Reaction Status Date / Time No Known Allergies Allergy Verified 08/23/23 12:33 Active Medications: Current Medications Ceftriaxone Sodium 1 gm/ (Sodium Chloride) 50 mls @ 100 mls/hr IV DAILY PAOLO Azithromycin 500 mg/ Sodium (Chloride) 250 mls @ 125 mls/hr IV DAILY PAOLO Sodium Chloride (0.9 % Sodium Chloride Flush 3 Ml Syringe) 3 ml IVFLUSH QSHIFT PAOLO Home Medications ?Medication ?Instructions ?Recorded ?Confirmed ?Last Taken ?Type fluticasone propionate 50 2 spray intranasal DAILY PRN 07/22/23 07/22/23 Unknown History mcg/actuation nasal spray,suspension ketoconazole 2 % topical cream 1 appl topical DAILY PRN 07/22/23 07/22/23 Unknown History nystatin 100,000 unit/gram topical 1 appl topical TID PRN 07/22/23 07/22/23 Unknown History powder Physical Exam 2 Vital Signs and Narrative: Vital Signs: Last Vital Signs Temp 99 F 08/23/23 15:56 Pulse 78 08/23/23 16:19 Resp 14 08/23/23 16:19 BP 118/47 L 08/23/23 16:19 Pulse Ox 93 08/23/23 19:03 O2 Del Method Room Air 08/23/23 19:03 O2 Flow Rate 2 08/23/23 16:19 BMI result Body Mass Index 26.9 Appearance: Alert.? Oriented X3.? sob mainly with exsersion.? Eyes: Pupils equal, round and reactive to light.? Sclera nonicteric.? ENT: Pharynx normal.? Moist mucous membranes. cvs: rrr, [id number] . res: clear to auscultation ,no rhonchii or wheezing abd: no rebound or guarding ,nt, bs present. ext pulses present , no cyanosis . neuro: axo3 , nonfocal. Results Labs 08/23/23 14:00 08/23/23 14:00 Labs: Laboratory Results - last 24 hr 08/23/23 14:00 MCV 94.4 MCH 32.4 MCHC 34.3 RDW 20.8 H Plt Count 222 D MPV 12.5 H Immature Gran % (Auto) Cancelled Neut % (Auto) Cancelled Lymph % (Auto) Cancelled [place] % (Auto) Cancelled Eos % (Auto) Cancelled Baso % (Auto) Cancelled Lymph # (Auto) Cancelled [place] # (Auto) Cancelled Eos # (Auto) Cancelled Baso # (Auto) Cancelled Abs Immat Gran (auto) Cancelled Absolute Neuts (auto) Cancelled Absolute Nucleated RBC 0.000 Nucleated RBC % (auto) 0.0 Neutrophils % (Manual) 75 H Band Neutrophils % 7 H Lymphocytes % (Manual) 6 L Monocytes % (Manual) 10 Eosinophils % (Manual) 1 Metamyelocytes % 1 Abs Neuts (Manual) 7.8 Lymphocytes # (Manual) 0.6 L Monocytes # (Manual) 1.0 Eosinophils # (Manual) 0.1 Metamyelocytes # 0.1 Platelet Estimate NORMAL Large Platelets PRESENT Plt Morphology Comment NOTED RBC Morphology NOTED Tear Drop Cells 1+ (0-2) Ovalocytes 1+ (5-14) Anion Gap 16 Estim Creat Clear Calc 57.6 Estimated GFR > 60 Random Glucose 111 Lactic Acid 1.7 Calcium 8.9 Total Bilirubin 2.6 H Direct Bilirubin 1.7 H AST 126 H ALT 150 H Alkaline Phosphatase 334 H Troponin I High Sens 15.3 B-Natriuretic Peptide 211 H Total Protein 6.9 Albumin 3.6 Imaging Radiologist's Impressions: Impressions Abdomen Ultrasound 08/23/23 15:20 IMPRESSION: Cholelithiasis and thickened gallbladder wall without pericholecystic fluid collection or positive Gibson's sign. Simple cyst in the right kidney Assessment and Plan (1) Acute hypoxemic respiratory failure: Status: Acute (2) Pneumonia: Qualifiers: Laterality: unspecified laterality Lung location: unspecified part of lung Pneumonia type: due to unspecified organism Qualified Code(s): J18.9 - Pneumonia, unspecified organism Status: Acute Plan 88y/o M history of arthritis, dyslipidemia, ? hypothryroidismcomplaining of sinus congestion with green-yellow nasal discharge as well as a productive cough with green-yellow sputum x 10 days Acute hypoxemic respiratory failure secondary to pneumonia: Blood cultures sent, lactic acid normal, fever is 100.6 No tachycardia or or tachypnea Continue IV antibiotics, oxygen, nebs, loratadine, cough medication Mild acute hyponatremia: Due to decreased p.o. intake, encouraged for p.o. intake. Mild elevated liver function test: Possibly secondary to viral URI Liver ultrasound seems fine. Will check hepatitis profile for morning Will check ReS panel Hypothyroidism: Start home medications once reconciled. Medical reconciliation pending for chronic conditions, please start meds once reconciled. DVT prophylaxis: SubQ heparin Ongoing need for hospitalization patient will benefit from 2 midnight stay: Acute hypoxemic respiratory failure secondary to pneumonia-needs oxygen, IV antibiotics, also need electrolyte monitoring for hyponatremia, also liver function tests monitoring and further testing. If needed. Above management discussed with the patient and his family at bedside in detail length they understand and in agreement with the above plan, time spent 70 minute, patient full code. Quality Stroke Does the patient have a stroke diagnosis?: No VTE Prior VTE?: No VTE Risk Level:: Medical - low VTE Device Contraindication: N/A - Device Ordered VTE Drug Contraindication: N/A - Med Ordered
--- NOTE | 2023-08-23 19:16 | PC.NURSE ---
this rn assumed care of pt, pt resting in stretcher, no acute distress noted. pt given water per request. pt vss.
[2023-08-23] MEDS: Albuterol/Iprat 2.5/0.5MG 3 ML AMPUL.NEB INHALE (19:45)
[2023-08-23] MEDS: Loratadine 10 MG TABLET PO (20:19)
[2023-08-23] MEDS: Heparin Sodium,Porcine 5,000 UNIT/ML VIAL 5000 UNIT SUBCUT (20:20)
[2023-08-23] MEDS: guaiFEN/Codeine SF 200/20/10ML 10 ML LIQUID PO (20:20)
--- NOTE | 2023-08-23 20:21 | PC.NURSE ---
pt medicated per mar, pt tolerated well with water.
[2023-08-23 21:48] LABS: Appearance Urine Clear; Color Urine Dark Yellow; Glucose Urine UA Negative (Negative); Leukocyte Esterase Urine Trace (Negative); Nitrite Urine Negative (Negative); PH 5.5 (5.0-9.0); UMIC TRIGGER UACC YES; Urine Blood Trace (Negative); Urine Ketones Trace mg/dL (Negative); Urine Protein 100 (2+) mg/dL (Neg-Trace)
[2023-08-23 21:51] LABS: Bacteria Urine None Seen (None Seen); Hyaline Casts Urine 0-2 /LPF (0-2); Squamous Epithelial Cell Urine 0-2 /HPF (0-2); WBC Urine 0-5 /HPF (0-5)
--- NOTE | 2023-08-23 22:13 | PHA.MEDREC ---
Pharmacy Consult ? Medication Reconciliation Pharmacy has completed the medication reconciliation. Patient a bit confused, unable to name meds but saus he takes a big three utilized claims in most recent history. Knew one was for thyroid and one was for low levels in my blood States he takes his levothyroxine an hour befor ehe eats, then he stated he took one tablet at bedtime, woke up to use the bathroom at around 1am and takes the other tablet. Unable to differentiate what tablet he takes at bedtime vs middle of the night but put both the iron and senna at bedtime
[2023-08-24] MEDS: 0.9 % Sodium Chloride Flush 3 ML SYRINGE IVFLUSH ×2 (00:52→08:47)
[2023-08-24 01:06] VITALS: BP 144/39; PULSE 68; RESP 20; TEMP 36.8; O2SAT 92
[2023-08-24] MEDS: guaiFEN/Codeine SF 200/20/10ML 10 ML LIQUID PO ×4 (01:18→20:35)
[2023-08-24 05:10] VITALS: BP 119/40; PULSE 66; RESP 20; TEMP 37.2; O2SAT 92
[2023-08-24 05:18] LABS: Hematocrit 22.3 % (42.0-52.0); Hemoglobin 7.7 g/dl (14.0-18.0)
[2023-08-24 05:44] LABS: Alanine Aminotransferase 102 U/L (0-40); Albumin Level 2.8 g/dL (3.5-5.0); Alkaline Phosphatase 242 U/L (39-117); Anion Gap 13 (12-20); Aspartate Amino Transferase 82 U/L (5-37); Bilirubin Total 1.4 mg/dL (0.0-1.0); Blood Urea Nitrogen 13 mg/dL (9-16); Calcium 7.7 mg/dL (8.4-10.2); Carbon Dioxide 22 mmol/L (22-29); Chloride 103 mmol/L (96-108); Creatinine Clr Calc Pharmacy 75.1; Estimated Glomerular Filt Rate > 60; Glucose Random 96 mg/dL (60-115); Potassium 4.2 mmol/L (3.3-5.1); Sodium 134 mmol/L (135-145); Total Protein 5.4 g/dL (6.5-8.0)
[2023-08-24] MEDS: Loratadine 10 MG TABLET PO (08:47)
[2023-08-24] MEDS: Heparin Sodium,Porcine 5,000 UNIT/ML VIAL 5000 UNIT SUBCUT (08:47)
--- NOTE | 2023-08-24 08:51 | PC.NURSE ---
this RN resumed care of pt at 0700. a&ox4. vss and up to date. nsr on the quality assurance monitor chassis. pt denies pain. productive cough noted. brown phlegm noted in bedside cup. medication administered per provider order. pt repositioned to comfort. sitting upright eating breakfast. no sob/wob noted. respirations even and unlabored. pt waiting for bed assignment. call red placed within reach.
[2023-08-24 09:22] LABS: HBS Num1 1.18 mIU/mL (0-7.99); HBc Num1 0.26 S/CO (0.00-0.79); HBsAGNum1 0.27 S/CO (0.00-0.99); Hepatitis A Antibody IgM 0.18 Index (0-0.79); Hepatitis B Core Antibody Nonreactive (Nonreactive); Hepatitis B Surface Antigen Negative (Negative); ~HepC Num1 0.13 S/CO (0.00-0.79); ~Hepatitis A Antibody IgM Nonreactive (Nonreactive); ~Hepatitis B Surface Antibody NONREACTIVE (Nonreactive); ~Hepatitis C Antibody Nonreactive (Nonreactive)
--- NOTE | 2023-08-24 10:15 | PC.NURSE ---
PT eval completed at this time.
--- NOTE | 2023-08-24 11:19 | PC.NURSE ---
Emmanuel Ingram ([id number]) - pt's son called for status update on pt.
--- NOTE | 2023-08-24 11:56 | MHC.CM.PN ---
IMM 08/24/23, pt lives with his Alivia, he will name her as HCP. He does not have any home care services or medical equipment at home. to transport at [place], [place] plan, home with services.
[2023-08-24 12:01] LABS: Adenovirus PCR Not Detected (Not Detect.); Bordetella parapertussis PCR Not Detected (Not Detect.); Bordetella pertussis PCR Not Detected (Not Detect.); Chlamydia pneumoniae PCR Not Detected (Not Detect.); Coronavirus 229E PCR Not Detected (Not Detect.); Coronavirus HKU1 PCR Not Detected (Not Detect.); Coronavirus NL63 PCR Not Detected (Not Detect.); Coronavirus OC43 PCR Not Detected (Not Detect.); Human metapneumovirus PCR Not Detected (Not Detect.); Influenza A PCR Not Detected (Not Detect.); Influenza B PCR Not Detected (Not Detect.); Mycoplasma pneumoniae PCR Not Detected (Not Detect.); Parainfluenza 1 PCR Not Detected (Not Detect.); Parainfluenza 2 PCR Not Detected (Not Detect.); Parainfluenza 3 PCR Not Detected (Not Detect.); Parainfluenza 4 PCR Not Detected (Not Detect.); RSV PCR Not Detected (Not Detect.); Rhino/Enterovirus PCR Not Detected (Not Detect.)
[2023-08-24 12:13] LABS: SARS-CoV-2 PCR Not Detected (Not Detect.)
[2023-08-24 12:55] VITALS: BP 112/37; PULSE 67; RESP 18; TEMP 37.3; O2SAT 91
[2023-08-24] MEDS: Oxymetazoline HCl 0.05 % Nasal 15 ML SPRAY 2 SPRAY NOSTRIL-B (12:56)
[2023-08-24] MEDS: cefTRIAXone sodium 1 GM in 0.9 % Sodium Chloride 50 ML IV (13:00)
--- NOTE | 2023-08-24 13:16 | PC.NURSE ---
pt O2 sat dropped to 84% on RA w/ good waveform. pt placed on 2L via NC - resting at 92%. no sob/wob noted. respirations even and unlabored. repositioned to promote patent airway.
[2023-08-24 13:17] VITALS: PULSE 76; RESP 18; O2SAT 84; O2SAT 92
[2023-08-24] MEDS: Azithromycin 500 MG in 0.9 % Sodium Chloride 250 ML 125 MG IV (14:30)
--- NOTE | 2023-08-24 14:33 | PC.NURSE ---
abx administered per provider order.
--- NOTE | 2023-08-24 14:52 | P.PNIM_ITS ---
Subjective Subjective Date of Service: 08/24/23 Interval History: epistaxis overnight Physical Exam 2 Vital Signs: Vital Signs: Last Vital Signs Temp 99.1 F 08/24/23 12:55 Pulse 76 08/24/23 13:17 Resp 18 08/24/23 13:17 BP 112/37 L 08/24/23 12:55 Pulse Ox 92 08/24/23 13:17 O2 Del Method Nasal Cannula 08/24/23 13:17 O2 Flow Rate 2 08/24/23 13:17 BMI result Body Mass Index 26.9 General: AO X 3, no acute distress Resp: CTA bilateral, no accessory muscles used CVS: S1,S2,RRR,murmur GI: soft, non tender, non distended Neuro: motor grossly intact, alert Psych: appropriate affect, appropriate insight Objective Data Active Medications Albuterol/Ipratropium (Albuterol/Iprat 2.5/0.5mg 3 Ml Ampul.Neb) 3 ml INHALE RQ4H PRN PRN Reason: Wheezing Guaifenesin/Codeine Phosphate (Guaifen/Codeine Sf 200/20/10ml 10 Ml Liquid) 10 ml PO Q6H [facility] Last Admin: 08/24/23 12:56 Dose: 10 ml Documented By: MAGGIE Heparin Sodium (Porcine) (Heparin Sodium,Porcine 5,000 Unit/Ml Vial) 5,000 unit SUBCUT Q12H [facility] Last Admin: 08/24/23 08:47 Dose: 5,000 unit Documented By: MAGGIE Ceftriaxone Sodium 1 gm/ (Sodium Chloride) 50 mls @ 100 mls/hr IV DAILY [facility] Last Infusion: 08/24/23 13:37 Dose: Infused Documented By: MAGGIE Azithromycin 500 mg/ Sodium (Chloride) 250 mls @ 125 mls/hr IV DAILY [facility] Last Admin: 08/24/23 14:30 Dose: 125 mls/hr Documented By: MAGGIE Levothyroxine Sodium (Levothyroxine Sodium 25 Mcg Tablet) 25 mcg PO DAILY@0600 [facility] Loratadine (Loratadine 10 Mg Tablet) 10 mg PO DAILY [facility] Last Admin: 08/24/23 08:47 Dose: 10 mg Documented By: MAGGIE Sodium Chloride (0.9 % Sodium Chloride Flush 3 Ml Syringe) 3 ml IVFLUSH QSHIFT [facility] Last Admin: 08/24/23 08:47 Dose: 3 ml Documented By: MAGGIE Labs 08/24/23 04:44 08/24/23 04:44 Labs: Laboratory Results - last 24 hr 08/23/23 08/23/23 08/24/23 19:36 21:40 04:44 Anion Gap 13 Estim Creat Clear Calc 75.1 Estimated GFR > 60 Random Glucose 96 Calcium 7.7 L D Total Bilirubin 1.4 H AST 82 H ALT 102 H Alkaline Phosphatase 242 H Total Protein 5.4 L Albumin 2.8 L Urine Color Dark Yellow Urine Appearance Clear Urine pH 5.5 Ur Specific [place] 1.020 Urine Protein 100 (2+) H Urine Glucose (UA) Negative Urine Ketones Trace Urine Blood Trace H Urine Nitrite Negative Ur Leukocyte Esterase Trace H Urine RBC 3-5 H Urine WBC 0-5 Ur Squamous Epith Cells 0-2 Urine Bacteria None Seen Hyaline Casts 0-2 Respiratory Panel Arana See Note Adenovirus (Rapid PCR) Not Detected B.pert (TEM-PCR) Not Detected B.parapertussis DNA PCR Not Detected C. pneumoniae DNA (PCR) Not Detected Coronavirus OC43 (PCR) Not Detected Coronavirus HKU1 (PCR) Not Detected Coronavirus 229E (PCR) Not Detected Coronavirus NL63 (PCR) Not Detected Hepatitis A IgM Ab Nonreactive Hep Bs Antigen Negative Hep Bs Antibody NONREACTIVE Hep B Core Total Ab Nonreactive Hepatitis C Ab (EIA) Nonreactive Human Metapneumovir PCR Not Detected Influenza A (RT-PCR) Not Detected Influenza B (RT-PCR) Not Detected M. pneumoniae (PCR) Not Detected Parainfluenza 1 (PCR) Not Detected Parainfluenza 2 (PCR) Not Detected Parainfluenza 3 (PCR) Not Detected Parainfluenza 4 (PCR) Not Detected RSV (PCR) Not Detected Entero/Rhino (PCR) Not Detected SARS-CoV-2 RNA (RT-PCR) Not Detected Assessment and Plan (1) Acute hypoxemic respiratory failure: Status: Acute Plan 88M PMH arthritis, hyperlipidemia, hypothyroidism, chronic epistaxis, moderate aortic stenosis, presented with cough Acute hypoxic respiratory failure secondary to pneumonia Continue ceftriaxone and azithromycin Wean O2 as tolerated Follow-up cultures Acute blood loss anemia due to acute on chronic epistaxis Monitor hemoglobin Will hold off on transfusion for now Hypothyroid Levothyroxine DVT prophylaxis - mechanical due to epistaxis Full code reason for continued hospitalization: Monitoring for blood loss anemia Quality Stroke Does the patient have a stroke diagnosis?: No VTE Prior VTE?: No VTE Risk Level:: Medical - low VTE Device Contraindication: N/A - Device Ordered VTE Drug Contraindication: N/A - Med Ordered
[2023-08-24 15:28] VITALS: BP 122/46; PULSE 80; RESP 18; O2SAT 91
--- NOTE | 2023-08-24 21:44 | PC.NURSE ---
pt moved into hospital bed. resting comfortably , wearing 3L O2 via nasal cannula at 95%. needs met, offers no current complaints, call red within reach
[2023-08-25] VITALS (8 sets, daily range): BP systolic 112–139; BP diastolic 51–65; PULSE 65–95; RESP 16–20; TEMP 36.1–37.1; O2SAT 91–96; BMI 28.4
[2023-08-25] MEDS: 0.9 % Sodium Chloride Flush 3 ML SYRINGE IVFLUSH ×4 (02:18→23:20)
[2023-08-25] MEDS: guaiFEN/Codeine SF 200/20/10ML 10 ML LIQUID PO ×4 (03:52→23:20)
[2023-08-25] MEDS: Levothyroxine Sodium 25 MCG TABLET PO (06:05)
[2023-08-25] MEDS: Azithromycin 500 MG in 0.9 % Sodium Chloride 250 ML 125 MG IV (09:05)
[2023-08-25] MEDS: Loratadine 10 MG TABLET PO (09:17)
[2023-08-25 10:05] LABS: Hemoglobin 8.4 g/dl (14.0-18.0); Mean Corpuscular HGB Conc 33.6 g/dl (31.0-36.0); Mean Corpuscular Hemoglobin 32.3 pg (27.0-33.0); Mean Corpuscular Volume 96.2 fL (80.0-98.0); Mean Platelet Volume 12.1 fL (9.4-12.4); Platelet Count 267 X10*3/uL (160-400); Red Cell Distribution Width 21.3 % (11.0-16.0); White Blood Count 8.1 X10*3/uL (4.8-10.8)
[2023-08-25 10:18] LABS: Anion Gap 13 (12-20); Blood Urea Nitrogen 12 mg/dL (9-16); Calcium 8.2 mg/dL (8.4-10.2); Carbon Dioxide 27 mmol/L (22-29); Chloride 98 mmol/L (96-108); Creatinine Clr Calc Pharmacy 90.2; Estimated Glomerular Filt Rate > 60; Glucose Fasting 114 mg/dL (60-99); Sodium 134 mmol/L (135-145)
--- NOTE | 2023-08-25 10:23 | HO.PM.IMPN ---
Subjective Subjective Date of Service: 08/25/23 Interval History: no further epistaxis, overall feeling better Physical Exam Vital Signs: Vital Signs: Last Vital Signs Temp 97.1 F 08/25/23 07:38 Pulse 65 08/25/23 07:38 Resp 17 08/25/23 07:38 BP 138/65 08/25/23 07:38 Pulse Ox 96 08/25/23 07:38 O2 Del Method Nasal Cannula 08/25/23 07:38 O2 Flow Rate 2 08/25/23 07:38 BMI result Body Mass Index 28.4 General: AO X 3, no acute distress Resp: CTA bilateral, no accessory muscles used CVS: S1,S2,RRR,murmur GI: soft, non tender, non distended Neuro: motor grossly intact, alert Psych: appropriate affect, appropriate insight Objective Data Active Medications Albuterol/Ipratropium (Albuterol/Iprat 2.5/0.5mg 3 Ml Ampul.Neb) 3 ml INHALE RQ4H PRN PRN Reason: Wheezing Guaifenesin/Codeine Phosphate (Guaifen/Codeine Sf 200/20/10ml 10 Ml Liquid) 10 ml PO Q6H [facility] Last Admin: 08/25/23 09:05 Dose: 10 ml Documented By: CHAYA Ceftriaxone Sodium 1 gm/ (Sodium Chloride) 50 mls @ 100 mls/hr IV DAILY [facility] Last Infusion: 08/24/23 13:37 Dose: Infused Documented By: MAGGIE Azithromycin 500 mg/ Sodium (Chloride) 250 mls @ 125 mls/hr IV DAILY [facility] Last Admin: 08/25/23 09:05 Dose: 125 mls/hr Documented By: CHAYA Levothyroxine Sodium (Levothyroxine Sodium 25 Mcg Tablet) 25 mcg PO DAILY@0600 [facility] Last Admin: 08/25/23 06:05 Dose: 25 mcg Documented By: RJ Loratadine (Loratadine 10 Mg Tablet) 10 mg PO DAILY [facility] Last Admin: 08/25/23 09:17 Dose: 10 mg Documented By: CHAYA Sodium Chloride (0.9 % Sodium Chloride Flush 3 Ml Syringe) 3 ml IVFLUSH QSHIFT [facility] Last Admin: 08/25/23 09:15 Dose: 3 ml Documented By: CHAYA Labs 08/25/23 08:31 08/25/23 08:31 Labs: Laboratory Results - last 24 hr 08/23/23 08/24/23 08/25/23 19:36 04:44 08:31 MCV 96.2 MCH 32.3 MCHC 33.6 RDW 21.3 H Plt Count 267 MPV 12.1 Absolute Nucleated RBC 0.000 Nucleated RBC % (auto) 0.0 Anion Gap 13 Estim Creat Clear Calc 90.2 Estimated GFR > 60 Fasting Glucose 114 H Calcium 8.2 L D Respiratory Panel Arana See Note Adenovirus (Rapid PCR) Not Detected B.pert (TEM-PCR) Not Detected B.parapertussis DNA PCR Not Detected C. pneumoniae DNA (PCR) Not Detected Coronavirus OC43 (PCR) Not Detected Coronavirus HKU1 (PCR) Not Detected Coronavirus 229E (PCR) Not Detected Coronavirus NL63 (PCR) Not Detected Hepatitis A IgM Ab Nonreactive Hep Bs Antigen Negative Hep Bs Antibody NONREACTIVE Hep B Core Total Ab Nonreactive Hepatitis C Ab (EIA) Nonreactive Human Metapneumovir PCR Not Detected Influenza A (RT-PCR) Not Detected Influenza B (RT-PCR) Not Detected M. pneumoniae (PCR) Not Detected Parainfluenza 1 (PCR) Not Detected Parainfluenza 2 (PCR) Not Detected Parainfluenza 3 (PCR) Not Detected Parainfluenza 4 (PCR) Not Detected RSV (PCR) Not Detected Entero/Rhino (PCR) Not Detected SARS-CoV-2 RNA (RT-PCR) Not Detected Microbiology Microbiology Results: Microbiology 08/23/23 14:00 Blood Culture - Preliminary Blood - Venous No growth after 24 hours. 08/23/23 14:00 Blood Culture - Preliminary Blood - Venous No growth after 24 hours. Assessment and Plan (1) Acute hypoxemic respiratory failure: Status: Acute Plan 88M PMH arthritis, hyperlipidemia, hypothyroidism, chronic epistaxis, moderate aortic stenosis, presented with cough Acute hypoxic respiratory failure secondary to pneumonia vs pneumonitis from aspirated epistaxis Continue ceftriaxone and azithromycin Wean O2 as tolerated Acute blood loss anemia due to acute on chronic epistaxis hgb stable Will hold off on transfusion for now outpatient ENT Hypothyroid Levothyroxine DVT prophylaxis - mechanical due to epistaxis Full code reason for continued hospitalization: weaning o2 Quality Stroke Does the patient have a stroke diagnosis?: No VTE Prior VTE?: No VTE Risk Level:: Medical - low VTE Device Contraindication: N/A - Device Ordered VTE Drug Contraindication: N/A - Med Ordered
[2023-08-25] MEDS: cefTRIAXone sodium 1 GM in 0.9 % Sodium Chloride 50 ML IV (11:35)
--- NOTE | 2023-08-25 13:47 | MHC.CM.PN ---
EMR reviewed and per MD rounds, pt is not medically cleared for discharge due to weaning pt from O2, pt will likely be ready for discharge tomorrow 08/25.
[2023-08-25] MEDS: Melatonin 3 MG TABLET 6 MG PO (23:20)
[2023-08-26 04:00] VITALS: BP 116/54; PULSE 61; RESP 18; TEMP 36.8; O2SAT 95
[2023-08-26 07:37] VITALS: BP 106/53; PULSE 66; RESP 17; TEMP 36.3; O2SAT 94
[2023-08-26] MEDS: guaiFEN/Codeine SF 200/20/10ML 10 ML LIQUID PO (08:55)
[2023-08-26] MEDS: 0.9 % Sodium Chloride Flush 3 ML SYRINGE IVFLUSH (08:55)
[2023-08-26] MEDS: Loratadine 10 MG TABLET PO (08:56)
[2023-08-26] MEDS: Azithromycin 500 MG in 0.9 % Sodium Chloride 250 ML 125 MG IV (08:57)
[2023-08-26] MEDS: cefTRIAXone sodium 1 GM in 0.9 % Sodium Chloride 50 ML IV (08:57)
--- NOTE | 2023-08-26 09:52 | PM.DS ---
DS: Providers Provider Date of Service: 08/26/23 Date of admission: 08/23/23 18:58 Primary care physician: KARLOS Gutierrez DS: Diagnosis Discharge Diagnosis (1) Acute hypoxemic respiratory failure: Status: Acute DS: Summary Hospital Course Hospital Course: from initial hpi: 88y/o M history of arthritis, dyslipidemia, ? hypothryroidismcomplaining of sinus congestion with green-yellow nasal discharge as well as a productive cough with green-yellow sputum x 10 days. patient's lungs are clear to auscultation bilaterally although patient does complain of some chest congestion and some shortness of breath and he has some tachypnea and appears winded with conversation. The patient's oxygen saturation was low at 83-90% on room air although did not show great pleth so unclear how accurate this is as patient is in no acute respiratory distress without any adventitious breath sounds. Patient was given a DuoNeb without improvement in his O2 saturations. His history and physical are most consistent with acute bacterial rhinosinusitis versus possible community-acquired pneumonia. Patient was given p.o. antibiotics today in walk-in clinic but patient still feeling short of breath, hypoxic, has productive cough decided to come to the hospital. Lab imaging reviewed: No leukocytosis, H&H 9.3. BMP electrolytes seems fine, LFT elevated. Chest x-ray shows multifocal pneumonia Documented hypoxia in the ED. EKG NSR Patient was given ceftriaxone/azithromycin needed ED and requested admission for acute hypoxemic respiratory failure secondary to pneumonia. Denies any new complaint of abdominal pain or fever or chills or nausea or vomiting Mild pleurisy Low-grade fever Generalized weak hospital course: Patient was admitted for acute hypoxic respiratory failure secondary to pneumonia versus pneumonitis from aspirated epistaxis. He was treated ceftriaxone azithromycin and was able to be weaned off oxygen his shortness of breath significantly improved and will be discharged home on 5 more days of Augmentin. Course was complicated by acute blood loss anemia due to acute on chronic epistaxis. He was given Afrin and his epistaxis resolved. Hemoglobin stabilized and did not require transfusion. He is recommended to follow up outpatient with ENT. For hypothyroidism was continued on Synthroid. Time Attestation Discharge Coordination Time (in mins): 34 Quality: Safe Use of Opioids Does Pt have an Active Cancer Diagnosis on the Problem List?: No Quality: Stroke Does the patient have a stroke diagnosis?: No Physical Exam Vital Signs: Vital Signs: Last Vital Signs Temp 97.3 F 08/26/23 07:37 Pulse 66 08/26/23 07:37 Resp 17 08/26/23 07:37 BP 106/53 L 08/26/23 07:37 Pulse Ox 94 08/26/23 07:37 O2 Del Method Room Air 08/26/23 07:37 O2 Flow Rate 2 08/25/23 12:00 BMI result Body Mass Index 28.4 General: AO X 3, no acute distress Resp: CTA bilateral, no accessory muscles used CVS: S1,S2,RRR,murmur GI: soft, non tender, non distended Neuro: motor grossly intact, alert Psych: appropriate affect, appropriate insight DS: Data Data Completed and Pending Labs on day of discharge: Laboratory Results - last 24 hr 08/25/23 08:31 WBC 8.1 RBC 2.60 L Hgb 8.4 L Hct 25.0 L MCV 96.2 MCH 32.3 MCHC 33.6 RDW 21.3 H Plt Count 267 MPV 12.1 Absolute Nucleated RBC 0.000 Nucleated RBC % (auto) 0.0 Sodium 134 L Potassium 4.0 Chloride 98 Carbon Dioxide 27 Anion Gap 13 BUN 12 Creatinine 0.69 Estim Creat Clear Calc 90.2 Estimated GFR > 60 Fasting Glucose 114 H Calcium 8.2 L D Preliminary micro results at discharge 08/23/23 14:00 Blood Culture - Preliminary Blood - Venous No growth after 48 hours. 08/23/23 14:00 Blood Culture - Preliminary Blood - Venous No growth after 48 hours. Discharge Plan Discharge Anticipated Discharge Date/Time: 08/26/23 09:50 Patient Disposition: Home, Self-Care Discharge Diagnosis: epistaxis, pna Referrals: Richard Schofield FNP [Primary Care Provider] - 1 Week Wes Bolivar [Physician] - 1 Week Discharge Medications: New amoxicillin 875 mg tablet 875 mg PO BID Qty: 10 0RF Continued levothyroxine 25 mcg tablet 25 mcg PO DAILY@0600 senna 8.6 mg capsule 8.6 mg PO BEDTIME ferrous fumarate 324 mg (106 mg iron) tablet 324 mg PO BEDTIME Discharge Orders: Discharge Order (Routine); Ordered 08/26/23 Ordered By: Abdi Gallardo Diet: Advance to usual diet Activity on Discharge: As tolerated Stand Alone Forms: Patient Portal Discharge page Print Language: Turkish Care Plan Goals: manage pneumonia, epistaxis Health Concerns: pneumonia and epistaxis Plan of Treatment: 5 more days augmentin, follow up ENT Assessment: see above
--- NOTE | 2023-08-26 10:34 | MHC.CM.PN ---
PT WILL DC HOME TODAY WITH NO SERVICES VIA PRIVATE TRANSPORT
[2023-08-26 11:39] VITALS: BP 131/61; PULSE 76; RESP 20; TEMP 36.5; O2SAT 100
== END 2023-08-26 13:00 | disposition home or self-care (01) | DRG 193 ==
LOC: HO.ED 20:30 → HO.EDOVER 20:31 → HO.IMC 08-25
PROVIDERS: Physician Assistant Medical; Admitting Provider Internal Medicine; Emergency Provider Emergency Medicine; PCP Nurse Practitioner Primary Care; Visit Provider Internal Medicine
DX: J18.9 Pneumonia, unspecified organism (principal); J96.01 Acute respiratory failure with hypoxia; E87.1 Hypo-osmolality and hyponatremia; D62 Acute posthemorrhagic anemia; J01.90 Acute sinusitis, unspecified; B96.89 Other specified bacterial agents as the cause of diseases classified elsewhere; E03.9 Hypothyroidism, unspecified; R04.0 Epistaxis; Z20.822 Contact with and (suspected) exposure to COVID-19; Z79.890 Hormone replacement therapy; Z79.899 Other long term (current) drug therapy
CPT/HCPCS: 36415; 71045; 71046; 76705; 80048; 80053; 80076; 81001; 83605; 83880; 84484; 85007; 85014; 85018; 85027; 86704; 86706; 86709; 86803; 87040; 87340; 87633; 93005; 94640; 97116; 97161; 97530; 99285; J0456; J0696; J1644

== ENCOUNTER → 2023-08-23 12:36 | Outpatient (BNV) | payer MEDICARE, SELFPAY | PROVIDERS: Admitting Provider Internal Medicine; Emergency Provider Emergency Medicine; PCP Nurse Practitioner Primary Care; Visit Provider Internal Medicine Cardiovascular Disease | DX: R06.02 Shortness of breath (principal) | CPT/HCPCS: 93010 ==

== ENCOUNTER → 2023-08-23 12:42 | Outpatient (BNV) | payer MEDICARE, SELFPAY | PROVIDERS: Emergency Provider Emergency Medicine; PCP Nurse Practitioner Primary Care; Visit Provider Internal Medicine | DX: J96.01 Acute respiratory failure with hypoxia (principal); J18.9 Pneumonia, unspecified organism | CPT/HCPCS: 99222; 99232; 99239 ==

== ENCOUNTER 2023-09-02 08:17 | Outpatient (REF) | payer MEDICARE, SELFPAY ==
[2023-09-02 10:35] LABS: Hemoglobin 10.4 g/dl (14.0-18.0); Mean Corpuscular HGB Conc 32.5 g/dl (31.0-36.0); Mean Corpuscular Hemoglobin 32.2 pg (27.0-33.0); Mean Corpuscular Volume 99.1 fL (80.0-98.0); Mean Platelet Volume 10.6 fL (9.4-12.4); Platelet Count 352 X10*3/uL (160-400); Red Blood Count 3.23 X10*6/uL (4.60-5.80); Red Cell Distribution Width 20.9 % (11.0-16.0); White Blood Count 8.7 X10*3/uL (4.8-10.8)
[2023-09-02 11:00] LABS: Band Neutrophils Percent 4 % (3-5); Basophils Abs Manual 0.3 X10*3/uL (0.0-0.2); Basophils Percent Manual 4 % (0-2); Eosinophils Absolute Manual 0.5 X10*3/uL (0.0-0.4); Eosinophils Percent Manual 6 % (0-4); Lymphocytes Absolute Manual 1.7 X10*3/uL (1.2-4.9); Lymphocytes Percent Manual 19 % (20-40); Metamyelocytes Absolute 0.1 X10*3/uL; Metamyelocytes Percent 1 %; Monocytes Absolute Manual 0.3 X10*3/uL (0.1-1.2); Monocytes Percent Manual 4 % (2-11); Myelocytes Absolute 0.1 X10*/uL; Myelocytes Percent 1 %; Neutrophils Absolute Manual 5.7 X10*3/uL (2.0-8.3); Neutrophils Percent Manual 61 % (45-73)
[2023-09-02 11:04] LABS: Microcytosis 1+ (5-14) /OIF; Ovalocytes 1+ (5-14) /OIF; RBC Morphology NOTED; Schistocytes 1+ (0-2) /OIF
[2023-09-02 11:05] LABS: Platelet Estimate NORMAL (NORMAL); Platelet Morphology Comment NORMAL
[2023-09-02 11:06] LABS: Alanine Aminotransferase 51 U/L (0-40); Albumin Level 3.4 g/dL (3.5-5.0); Alkaline Phosphatase 180 U/L (39-117); Anion Gap 10 (12-20); Aspartate Amino Transferase 42 U/L (5-37); Bilirubin Total 0.8 mg/dL (0.0-1.0); Blood Urea Nitrogen 11 mg/dL (9-16); Calcium 8.3 mg/dL (8.4-10.2); Carbon Dioxide 28 mmol/L (22-29); Chloride 105 mmol/L (96-108); Estimated Glomerular Filt Rate > 60; Glucose Random 94 mg/dL (60-115); Potassium 4.4 mmol/L (3.3-5.1); Sodium 139 mmol/L (135-145); Total Protein 6.5 g/dL (6.5-8.0)
[2023-09-02 11:09] LABS: TSH reflex Free T4 3.44 uIU/mL (0.32-4.0)
== END 2023-09-02 08:18 | disposition home or self-care (01) ==
LOC: HO.HMGCLDS 08:17
PROVIDERS: PCP Nurse Practitioner Primary Care; Visit Provider Nurse Practitioner Primary Care
DX: Z91.89 Other specified personal risk factors, not elsewhere classified (principal); Z13.29 Encounter for screening for other suspected endocrine disorder
CPT/HCPCS: 36415; 80053; 84443; 85007; 85027

== ENCOUNTER 2023-09-08 09:43 | Outpatient (AMB) | payer MEDICARE, SELFPAY ==
[2023-09-08 09:45] VITALS: BP 118/60; PULSE 71; O2SAT 96; BMI 25.2
--- NOTE | 2023-09-08 09:45 | MHC.PC.OV ---
Vital Signs 09/08/23 09:45 Height 6 ft Weight 186 lb BMI 25.2 BP 118/60 Blood Pressure Location Lt brachial Position Sitting Pulse 71 Pulse Source Pulse Oximeter Pulse Oximetry (%) 96 Oxygen Delivery Method Room Air Intake Visit Reasons: [facility] [place] Intake Note: pt here for f/u from [facility] for acute resp. failure w/ hypoxia Allergies No Known Allergies Allergy (Verified 09/08/23 09:59) Medication List - Last Reconciled 09/08/23 by KARLOS Gutierrez amoxicillin 875 mg PO BID ferrous fumarate 324 mg PO BEDTIME levothyroxine 25 mcg PO DAILY@0600 sennosides (senna) 8.6 mg PO BEDTIME Tobacco use date assessed: 09/08/23 Fall risk assessment: 1 Fall in past year Last assessed Fall Risk: 09/08/23 Dental Screening Dental Screen Date: 09/08/23 Did you have a dental visit in the last 12 months?: Yes Was dental information given to patient?: Patient has dentist HPI HPI Comments History of Present Illness Details Patient is an 88-year-old male in today for hospital discharge follow-up. Patient originally presented to the emergency room 2 weeks prior for increased shortness of breath. Patient was found to have pneumonia and was admitted to the stay at the hospital. While at the hospital patient had episode of epistaxis with notably blood loss. Was discharged with Hgb: of 10.4 and Hct: of 32.0. He was also given a course of amoxicillin that he has completed prior to this appointment. He was given referral for ENT. Patient had EKG while in the hospital that demonstrated right bundle branch block. Also had recent echocardiogram revealed mild aortic stenosis and calcification, he has upcoming appointment with Cardiology in November. Will redraw CBC and CMP in two weeks to verify blood levels are trending upward. Patient has no complaints of dizziness, weakness, chest pain, shortness a breath, nausea, vomiting, diarrhea today's appointment. 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 Mother No problems noted. Social History Housing: House Alcohol intake: former Patient Tobacco Use Status: Never used Tobacco e-Cigarette/Vaping Use: Never Used Second Hand Smoke Exposure: Yes service: No Current occupational status: retired Cognitive needs: No Hearing needs: Yes Vision needs: Yes (Pt wear glasses) Questionnaire Thrive Questionnaire Date Thrive assessed: 08/24/23 JAS-7 AMB Questionnaire JAS-7 Date JAS - 7 assessed: 06/17/23 Source: Developed by Drs. Inocencio Alvarez, Robyn Tellez, Bg Posada and colleagues, with an educational nathalia from [employer]. Review of Systems Const All systems reviewed & are unremarkable except as noted in HPI and below Denies chills, Denies fever(s) and Denies headache(s) Eyes Denies blurry vision and Denies diplopia ENT Denies dizziness, Denies headache(s), Reports epistaxis (history of) and Denies nose pain Card Denies chest pain and Denies dyspnea Resp Denies cough, Denies dyspnea and Denies wheezing GI Denies diarrhea, Denies nausea and Denies vomiting Neuro Denies dizziness and Denies headache(s) Psych Denies homicidal ideation and Denies suicidal ideation Aller/Immun Denies wheezing Physical exam (Primary Care) Vital Signs: Last Vital Signs Pulse 71 09/08/23 09:45 BP 118/60 09/08/23 09:45 Pulse Ox 96 09/08/23 09:45 Oxygen Delivery Method Room Air 09/08/23 09:45 Care Plan Goal for BP management: BP controlled. BMI result Body Mass Index 25.2 Tobacco/Smoking Status: Tobacco use Status Tobacco use date assessed 09/08/23 09/08/23 09:53 Patient Tobacco Use Status Never used Tobacco 09/08/23 09:46 e-Cigarette/Vaping Use Never Used 09/08/23 09:46 Thrive Assessment: Date of Thrive Assessment Date Thrive assessed 08/24/23 09/08/23 09:46 Const Other: Appearance: Alert.? Oriented X3.? No acute distress.? Head: Normocephalic. ENT: Pharynx normal.?TM intact and pearly hackett. Neck: Normal inspection.? Neck supple.? CVS: Normal heart rate and rhythm.? Pulses normal.?+systolic murmur. Respiratory: No respiratory distress.? Breath sounds normal.? Neuro: Oriented X 3.? No motor deficit.? No sensory deficit. CN 2-12 intact Results Reviewed Results Reviewed: Sodium 139 135-145 mmol/L Potassium 4.4 3.3-5.1 mmol/L CL 105 96-108 mmol/L CO2 28 22-29 mmol/L Gap 10 L 12-20 BUN 11 9-16 mg/dL Creat 0.74 0.5-1.4 mg/dL EGFR > 60 NOTE: For -Swazi individuals, multiply the result by 1.210. Chronic Kidney Disease: Estimated GFR < 60 mL/min/1.73m2 Severe Kidney Disease: Estimated GFR < 15 mL/min/1.73m2 Glucose, Random 94 60-115 mg/dL CA 8.3 L 8.4-10.2 mg/dL Total Bili 0.8 0.0-1.0 mg/dL AST (GOT) 42 H 5-37 U/L ALT (GPT) 51 H 0-40 U/L Protein, Total 6.5 6.5-8.0 g/dL Alb 3.4 L 3.5-5.0 g/dL Alk Phos 180 H 39-117 U/L TSH 3.44 0.32-4.0 uIU/mL WBC 8.7 4.8-10.8 X10*3/uL RBC 3.23 # L 4.60-5.80 X10*6/uL HGB 10.4 # L 14.0-18.0 g/dl HCT 32.0 # L 42.0-52.0 % MCV 99.1 H 80.0-98.0 fL MCH 32.2 27.0-33.0 pg MCHC 32.5 31.0-36.0 g/dl RDW 20.9 H 11.0-16.0 % PLT 352 # 160-400 X10*3/uL MPV 10.6 9.4-12.4 fL NRBC Pct Auto 0.0 0.0-0.2 /100WBC NRBC Abs Auto 0.000 0.0-0.012 X10*3/uL Neut Pct Manual 61 45-73 % Band Pct 4 3-5 % Lymph PctManual 19 L 20-40 % [place] Pct Manual 4 2-11 % Eos Pct Manual 6 H 0-4 % Baso Pct Manual 4 H 0-2 % [place] Pct Man 1 % Myelo Pct Man 1 % ANC NeutAbsMan 5.7 2.0-8.3 X10*3/uL Lymph Abs Man 1.7 1.2-4.9 X10*3/uL [place] Abs Manual 0.3 0.1-1.2 X10*3/uL Eos Abs Manual 0.5 H 0.0-0.4 X10*3/uL Baso Abs Manual 0.3 H 0.0-0.2 X10*3/uL [place] Abs Man 0.1 X10*3/uL Myelo Abs Man 0.1 X10*/uL Platelet Est NORMAL NORMAL Plt Morph Com NORMAL RBC Morph NOTED Microcytosis 1+ (5-14) /OIF Ovalocytes 1+ (5-14) /OIF Schistocytes 1+ (0-2) /OIF Assessment and Plan Assessment & Plan (1) Epistaxis: Comment: Patient get referral to ENT. Will redraw CBC. Code(s): R04.0 - Epistaxis (2) Pneumonia: Comment: Patient finished amoxicillin day of appointment today. No complaints of shortness of breath or respiratory distress. Code(s): J18.9 - Pneumonia, unspecified organism Qualifiers: Laterality: unspecified laterality Lung location: unspecified part of lung Pneumonia type: due to unspecified organism Qualified Code(s): J18.9 - Pneumonia, unspecified organism Plan: Will redraw labs. Orders: Orders Complete Blood Count Auto Diff Today Z13.0 - Encounter for screening for diseases of the blood and blood-forming organs and certain disorders involving the immune mechanism Comprehensive Met. Panel Today Z91.89 - Other specified personal risk factors, not elsewhere classified Referrals Ear/Nose/Throat Referral R04.0 - Epistaxis Medications: New sennosides (senna) 8.6 mg PO BEDTIME 90 caps 0RF constipation Discontinued amoxicillin Discontinued Reason: Patient Completed Course 875 mg PO BID 10 tabs 0RF Patient Instructions: Follow up in 5 weeks. Coding Level of Care Code Est Pt Level 4 (35220) Diagnoses Epistaxis R04.0 Pneumonia due to infectious organism, unspecified laterality, unspecified part of lung J18.9 Laterality: unspecified laterality Lung location: unspecified part of lung Pneumonia type: due to unspecified organism Time Spent (min) 32
== END 2023-09-08 12:24 | disposition home or self-care (01) ==
PROVIDERS: PCP Nurse Practitioner Primary Care; Visit Provider Nurse Practitioner Primary Care
DX: R04.0 Epistaxis (principal); J18.9 Pneumonia, unspecified organism
CPT/HCPCS: 99214

== ENCOUNTER 2023-09-23 08:18 | Outpatient (REF) | payer MEDICARE, SELFPAY ==
[2023-09-23 10:28] LABS: MANUAL DIFF FLAG NO
[2023-09-23 10:35] LABS: Basophils Absolute Auto 0.1 X10*3/uL (0.0-0.2); Basophils Percent Auto 1.2 % (0-2); Eosinophils Absolute Auto 0.3 X10*3/uL (0.0-0.4); Eosinophils Percent Auto 4.2 % (0-4); Hematocrit 31.5 % (42.0-52.0); Hemoglobin 10.5 g/dl (14.0-18.0); Imm Gran Abs Auto 0.19 X10*3/uL (0.00-0.03); Imm Gran Pct Auto 2.8 % (0.0-0.4); Lymphocytes Absolute Auto 1.9 X10*3/uL (1.2-4.9); Lymphocytes Percent Auto 27.9 % (20-40); Mean Corpuscular HGB Conc 33.3 g/dl (31.0-36.0); Mean Corpuscular Volume 99.1 fL (80.0-98.0); Mean Platelet Volume 11.2 fL (9.4-12.4); Monocytes Absolute Auto 0.7 X10*3/uL (0.1-1.2); Monocytes Percent Auto 9.8 % (2-11); Neutrophils Absolute Auto 3.7 x10*3/uL (2.0-8.3); Neutrophils Percent Auto 54.1 % (45-73); Platelet Count 184 X10*3/uL (160-400); Red Blood Count 3.18 X10*6/uL (4.60-5.80); Red Cell Distribution Width 21.1 % (11.0-16.0); White Blood Count 6.9 X10*3/uL (4.8-10.8)
[2023-09-23 10:46] LABS: Alanine Aminotransferase 15 U/L (0-40); Albumin Level 3.9 g/dL (3.5-5.0); Alkaline Phosphatase 57 U/L (39-117); Anion Gap 9 (12-20); Aspartate Amino Transferase 26 U/L (5-37); Bilirubin Total 1.1 mg/dL (0.0-1.0); Blood Urea Nitrogen 15 mg/dL (9-16); Calcium 8.4 mg/dL (8.4-10.2); Carbon Dioxide 29 mmol/L (22-29); Chloride 106 mmol/L (96-108); Estimated Glomerular Filt Rate > 60; Glucose Random 106 mg/dL (60-115); Potassium 4.1 mmol/L (3.3-5.1); Sodium 140 mmol/L (135-145); Total Protein 6.5 g/dL (6.5-8.0)
== END 2023-09-23 08:19 | disposition home or self-care (01) ==
LOC: HO.HMGCLDS 08:18
PROVIDERS: PCP Nurse Practitioner Primary Care; Visit Provider Nurse Practitioner Primary Care
DX: Z13.0 Encounter for screening for diseases of the blood and blood-forming organs and certain disorders involving the immune mechanism (principal); Z91.89 Other specified personal risk factors, not elsewhere classified
CPT/HCPCS: 36415; 80053; 85025

== ENCOUNTER 2023-09-30 13:02 | Outpatient (AMB) | payer MEDICARE, SELFPAY ==
[2023-09-30 13:09] VITALS: BP 130/60; PULSE 57; BMI 26.1
--- NOTE | 2023-09-30 13:09 | MHC.OFFVIS ---
Vital Signs 09/30/23 13:09 Height 6 ft Weight 192 lb 3.889 oz BMI 26.1 BP 130/60 Blood Pressure Location Lt brachial Position Sitting Pulse 57 Pulse Source Pulse Oximeter Intake Visit Reasons: ETCHER HAND/ Richard Schofield/aortic valve stenosis Manager Hiv Required: No Accompanied by: Self / Same As Patient Allergies No Known Allergies Allergy (Verified 09/08/23 09:59) Medication List - Last Reconciled 09/30/23 by Endy Hawthorne MD ferrous fumarate 324 mg PO BEDTIME levothyroxine 25 mcg PO DAILY@0600 sennosides (senna) 8.6 mg PO BEDTIME HPI Comments Details: Ruy is here for consultation regarding abnormal echocardiogram showing aortic stenosis. He does not have any history of cardiac issues in the past including coronary disease or myocardial infarction or cardiomyopathy. Within limits of his activity, he does not really have clear-cut symptoms like angina or shortness of breath. 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 Mother No problems noted. Social History Housing: House Alcohol intake: former Patient Tobacco Use Status: Never used Tobacco e-Cigarette/Vaping Use: Never Used Second Hand Smoke Exposure: Yes service: No Current occupational status: retired Cognitive needs: No Hearing needs: Yes Vision needs: Yes (Pt wear glasses) Review of Systems Const Denies chills, Denies fatigue, Denies fever(s), Denies frequent falls, Denies weakness, Denies weight gain and Denies weight loss ENT Denies dizziness Card Denies chest pain, Denies leg edema, Denies lightheadedness, Denies palpitations, Denies dyspnea, Denies dyspnea on exertion and Denies orthopnea Resp Denies cough, Denies dyspnea and Denies dyspnea on exertion GI Denies bloating and Denies change in bowel habits Musc Denies muscle weakness, Denies numbness and Denies tingling Neuro Denies dizziness, Denies frequent falls, Denies numbness, Denies tingling and Denies weakness Endo Denies fatigue and Denies palpitations Physical Exam Vital Signs: Last Vital Signs Pulse 57 09/30/23 13:09 BP 130/60 09/30/23 13:09 BMI result Body Mass Index 26.1 Const General: comfortable and no acute distress Orientation/consciousness: patient oriented x3 HEENT Other: Unremarkable Head: Yes normal to inspection Neck Neck: Yes normal visual inspection Chest Chest palpation & inspection: normal inspection of the chest Resp Auscultation: clear to auscultation bilaterally Cardio Palpation: normal PMI Heart sounds: S1 normal heart sound present, S2 normal heart sound present, no gallops, Murmur heart sound present systolic II/ and at the right sternal border and no rubs GI Palpation (GI): Soft to palpation Back/Spine/Pelvis Other: unremarkable Skin General skin exam: no rashes or lesions noted Neuro General: patient oriented x3 Extrem General: Yes normal to inspection Psych Mental Status: mental status grossly normal Assessment & Plan Assessment & Plan (1) Non-rheumatic aortic stenosis: Code(s): I35.0 - Nonrheumatic aortic (valve) stenosis Category: Medical Plan: In the recent echocardiogram, moderately calcified aortic valve. Peak gradient 43 mm Hg; mean 27 mm Hg with a calculated valve area of 1.3 sq cm. Preserved LVEF at 60-65%. Normal peak global longitudinal strain. Clinically, it does not really have any symptoms at this time. We will continue to monitor. Findings discussed with patient. (2) Right bundle branch block: Code(s): I45.10 - Unspecified right bundle-branch block Category: Medical Plan: Recent EKG shows right bundle-branch block and borderline ND. Will monitor for any progressive conduction system disease. Orders: Orders CA echo transthoracic complete 6 Months I35.0 - Nonrheumatic aortic (valve) stenosis Coding Level of Care Code New Pt Level 4 (17109) Diagnoses Non-rheumatic aortic stenosis I35.0 Right bundle branch block I45.10
== END 2023-09-30 13:37 | disposition home or self-care (01) ==
PROVIDERS: PCP Nurse Practitioner Primary Care; Visit Provider Internal Medicine
DX: I35.0 Nonrheumatic aortic (valve) stenosis (principal); I45.10 Unspecified right bundle-branch block
CPT/HCPCS: 99204

== ENCOUNTER → 2023-09-30 13:02 | Outpatient (BNVA) | payer MEDICARE, SELFPAY | PROVIDERS: PCP Nurse Practitioner Primary Care; Visit Provider Internal Medicine | DX: I35.0 Nonrheumatic aortic (valve) stenosis (principal); I45.10 Unspecified right bundle-branch block | CPT/HCPCS: 99202 ==

== ENCOUNTER 2023-10-11 06:22 | Outpatient (REF) | payer MEDICARE, SELFPAY ==
[2023-10-11 10:17] LABS: MANUAL DIFF FLAG NO
[2023-10-11 10:27] LABS: Basophils Absolute Auto 0.1 X10*3/uL (0.0-0.2); Basophils Percent Auto 1.2 % (0-2); Eosinophils Absolute Auto 0.4 X10*3/uL (0.0-0.4); Eosinophils Percent Auto 5.8 % (0-4); Hemoglobin 10.5 g/dl (14.0-18.0); Imm Gran Abs Auto 0.36 X10*3/uL (0.00-0.03); Imm Gran Pct Auto 4.7 % (0.0-0.4); Lymphocytes Absolute Auto 2.1 X10*3/uL (1.2-4.9); Mean Corpuscular HGB Conc 32.8 g/dl (31.0-36.0); Mean Corpuscular Hemoglobin 33.7 pg (27.0-33.0); Mean Corpuscular Volume 102.6 fL (80.0-98.0); Monocytes Absolute Auto 0.8 X10*3/uL (0.1-1.2); Monocytes Percent Auto 10.5 % (2-11); Neutrophils Absolute Auto 3.8 x10*3/uL (2.0-8.3); Neutrophils Percent Auto 49.8 % (45-73); Platelet Count 152 X10*3/uL (160-400); Red Blood Count 3.12 X10*6/uL (4.60-5.80); Red Cell Distribution Width 21.2 % (11.0-16.0); White Blood Count 7.6 X10*3/uL (4.8-10.8)
== END 2023-10-11 06:23 | disposition home or self-care (01) ==
LOC: HO.HMGCLDS 06:22
PROVIDERS: Visit Provider Nurse Practitioner Primary Care
DX: Z13.0 Encounter for screening for diseases of the blood and blood-forming organs and certain disorders involving the immune mechanism (principal)
CPT/HCPCS: 36415; 85025

== ENCOUNTER 2023-10-13 10:55 | Outpatient (AMB) | payer MEDICARE, SELFPAY ==
--- NOTE | 2023-10-13 11:00 | A.OFFPC_ITS ---
Vital Signs 10/13/23 11:05 Height 6 ft Weight 195 lb BMI 26.4 BP 132/78 Blood Pressure Location Lt brachial Position Sitting Pulse 79 Pulse Source Pulse Oximeter Pulse Oximetry (%) 97 Oxygen Delivery Method Room Air Intake Visit Reasons: 1 month follow up Intake Note: pt is here for 1 mo f/u Allergies No Known Allergies Allergy (Verified 10/13/23 11:01) Tobacco use date assessed: 10/13/23 Fall risk assessment: No Falls in past year Dental Screening Dental Screen Date: 09/08/23 HPI HPI Comments History of Present Illness Details Patient is an 88-year-old male in today for one-month follow-up for anemia. Has been taking ferrous fumarate 325 once daily, recent blood draw CBC, 1 day prior indicated hemoglobin at 10.5 which is consistent with previous draw. He has not been taking this medication with vitamin-C, he has been educated to do that in order to increase absorption rate. Patient also has upcoming appointment with ENT due to frequent nose bleeds, which he admits has reduced in frequency over the past 6 weeks. He denies symptoms of GREWAL, shortness for breath, headache, dizziness, numbness, nausea, vomited, diarrhea. He also has been educated to stop using Ibuprofen and instead utilize tylenol. 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 Mother No problems noted. Social History Housing: House Alcohol intake: former Patient Tobacco Use Status: Never used Tobacco e-Cigarette/Vaping Use: Never Used Second Hand Smoke Exposure: Yes service: No Current occupational status: retired Cognitive needs: No Hearing needs: Yes Vision needs: Yes (Pt wear glasses) Questionnaire Thrive Questionnaire Date Thrive assessed: 08/24/23 AUDIT C Alcohol Use Questionnaire (AUDIT-C) 1. How often do you have a drink containing alcohol?: Never 3. How often do you have six or more drinks on one occasion?: Never Total Score: 0 JAS-7 AMB Questionnaire JAS-7 Date JAS - 7 assessed: 06/17/23 Source: Developed by Drs. Inocencio Alvarez, Robyn Tellez, Bg Posada and colleagues, with an educational nathalia from [employer]. Review of Systems Const All systems reviewed & are unremarkable except as noted in HPI and below Physical exam (Primary Care) Vital Signs: Last Vital Signs Pulse 79 10/13/23 11:05 BP 132/78 10/13/23 11:05 Care Plan Goal for BP management: BP is controlled. BMI result Body Mass Index 26.4 Tobacco/Smoking Status: Tobacco use Status Tobacco use date assessed 10/13/23 10/13/23 11:04 Patient Tobacco Use Status Never used Tobacco 10/13/23 11:04 e-Cigarette/Vaping Use Never Used 10/13/23 11:04 Thrive Assessment: Date of Thrive Assessment Date Thrive assessed 08/24/23 10/13/23 11:04 Const Other: Appearance: Alert.? Oriented X3.? No acute distress.? Head: Normocephalic, atraumatic, no step-offs or deformities Eyes: Pupils equal, round and reactive to light.? CVS: Normal heart rate and rhythm.? Pulses normal.? Respiratory: No respiratory distress.? Breath sounds normal.? Neuro: Oriented X 3.? No motor deficit.? No sensory deficit. CN 2-12 intact Assessment and Plan Assessment & Plan (1) Anemia: Comment: Patient has been educated to take Iron supplement with vitamin-c to increase absorption. He has been instructed to stop using ibuprofen instead utilize Tylenol. He has been educated on the maximum dose tolerated per day. Will redraw labs in 6 weeks. Code(s): D64.9 - Anemia, unspecified Qualifiers: Anemia type: unspecified type Qualified Code(s): D64.9 - Anemia, unspecified Plan: will refer to hematology if indicated. Orders: Orders Folate 6 Weeks Z13.0 - Encounter for screening for diseases of the blood and blood-forming organs and certain disorders involving the immune mechanism UA CC w/rflx Micro + Cult Today Z13.89 - Encounter for screening for other disorder Complete Blood Count Auto Diff 6 Weeks Z13.0 - Encounter for screening for diseases of the blood and blood-forming organs and certain disorders involving the immune mechanism IRON PROFILE 6 Weeks Z13.0 - Encounter for screening for diseases of the blood and blood-forming organs and certain disorders involving the immune mechanism Vitamin B12 6 Weeks Z13.0 - Encounter for screening for diseases of the blood and blood-forming organs and certain disorders involving the immune mechanism Medications: New ferrous fumarate 324 mg PO BEDTIME 90 tabs 0RF Refilled sennosides (senna) 8.6 mg PO BEDTIME 90 caps 0RF constipation levothyroxine 25 mcg PO DAILY@0600 90 tabs 0RF Coding Level of Care Code Est Pt Level 3 (89629) Diagnoses Anemia, unspecified type D64.9 Anemia type: unspecified type Time Spent (min) 26
[2023-10-13 11:05] VITALS: BP 132/78; PULSE 79; O2SAT 97; BMI 26.4
== END 2023-10-13 17:59 | disposition home or self-care (01) ==
PROVIDERS: PCP Nurse Practitioner Primary Care; Visit Provider Nurse Practitioner Primary Care
DX: D64.9 Anemia, unspecified (principal)
CPT/HCPCS: 99213

== ENCOUNTER 2023-10-19 09:01 | Outpatient (AMB) | payer MEDICARE, SELFPAY ==
[2023-10-19 09:07] VITALS: BMI 26.6
--- NOTE | 2023-10-19 09:07 | MHC.AMNUTRGE ---
VS Expanded 10/19/23 09:07 Height 6 ft Weight 196 lb 6.91 oz BMI 26.6 Intake Visit Reasons: overweight Allergies No Known Allergies Allergy (Verified 10/13/23 11:01) Nutrition Presentation Details: Pt presents for MNT for anemia. Pt was referred by Rashaad Felder Pt has questions regarding anemia and iron rich foods Pt reports taking an iron supplement daily with vitamin C. 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 Mother No problems noted. Social History Housing: House Alcohol intake: former Patient Tobacco Use Status: Never used Tobacco e-Cigarette/Vaping Use: Never Used Second Hand Smoke Exposure: Yes service: No Current occupational status: retired Cognitive needs: No Hearing needs: Yes Vision needs: Yes (Pt wear glasses) Assessment & Plan Assessment & Plan (1) Anemia: Code(s): D64.9 - Anemia, unspecified Category: Medical Qualifiers: Anemia type: unspecified type Qualified Code(s): D64.9 - Anemia, unspecified Plan: Educate Pt on iron and vitamin c rich sources of foods for anemia and fiber, hydration to prevent constipation Patient Instructions: Include beef 1-2 times a week with spinach/carrots Choose iron fortified cereals (bran flakes, oatmeal as example) have water, at least 4 oz of juice ( prune juice as example of high iron juice) with meals , keeping hydrated Keep active as able Coding Level of Care Code Nutr Indiv Subseq (58857) Diagnoses Anemia, unspecified type D64.9 Anemia type: unspecified type Time Spent (min) 30
== END 2023-10-19 09:42 | disposition home or self-care (01) ==
PROVIDERS: PCP Internal Medicine; Visit Provider Dietitian, Registered
DX: D64.9 Anemia, unspecified (principal)

== ENCOUNTER → 2023-10-19 09:01 | Outpatient (BNVA) | payer MEDICARE, SELFPAY | PROVIDERS: PCP Internal Medicine; Visit Provider Dietitian, Registered | DX: E66.3 Overweight (principal); D64.9 Anemia, unspecified; Z71.3 Dietary counseling and surveillance; Z68.26 Body mass index [BMI] 26.0-26.9, adult | CPT/HCPCS: 97803 ==

== ENCOUNTER 2023-11-11 12:37 | Outpatient (AMB) | payer MEDICARE, SELFPAY ==
--- NOTE | 2023-11-11 12:39 | MHC.OFFVIS ---
Intake Visit Reasons: ov - Right TKA 01/09/2019 KI Intake Note: Ruy is a 88 year old male who presents today for a follow up of his left hip History of Left QUEENIE 09/14/2011 KI s/p with Dr. Johnson. Patient reports that he is doing well, he is not having pain but he feels that things are more difficult. He does not like that he has to hold onto a railing while going up stairs. Allergies No Known Allergies Allergy (Verified 10/13/23 11:01) HPI HPI ov - Right TKA 01/09/2019 KI: Details: Ruy is a 88 year old male who presents today for a follow up of his left hip History of Left QUEENIE 09/14/2011 KI s/p with Dr. Johnson. Patient reports that he is doing well, he is not having pain but he feels that things are more difficult. He does not like that he has to hold onto a railing while going up stairs. He is extremely active but he is bothered by the by the fact that his left lateral hip still still irritates him. He has been doing the exercises we talked about her last visit. 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 Mother No problems noted. Social History Housing: House Alcohol intake: former Patient Tobacco Use Status: Never used Tobacco e-Cigarette/Vaping Use: Never Used Second Hand Smoke Exposure: Yes service: No Current occupational status: retired Cognitive needs: No Hearing needs: Yes Vision needs: Yes (Pt wear glasses) Physical Exam Extrem Other: Trendelenburg gait positive on the left otherwise walking normally with minimal gait antalgia. Full range of motion bilateral knees and hips. Assessment & Plan Assessment & Plan (1) Hip abductor tendinitis: Code(s): M76.899 - Other specified enthesopathies of unspecified lower limb, excluding foot Category: Medical Plan: Ruy is an 88-year-old gentleman status post left hip arthroplasty performed by Dr. Johnson. I think he has some abductor weakness on that side that is persistent. There is no surgical treatment and I recommend that he continue modest exercise with the strengthening component. We discussed some exercises to focus on the posterior chain and to stretch out the hip flexors. He can return to see me on an as-needed basis. Coding Level of Care Code Est Pt Level 3 (30092) Diagnoses Hip abductor tendinitis M76.899
== END 2023-11-11 13:16 | disposition home or self-care (01) ==
PROVIDERS: PCP Internal Medicine; Visit Provider Orthopaedic Surgery
DX: M76.892 Other specified enthesopathies of left lower limb, excluding foot (principal); Z47.1 Aftercare following joint replacement surgery; Z96.642 Presence of left artificial hip joint
CPT/HCPCS: 99213

== ENCOUNTER → 2023-11-11 12:37 | Outpatient (BNVA) | payer MEDICARE, SELFPAY | PROVIDERS: PCP Internal Medicine; Visit Provider Orthopaedic Surgery | DX: M76.899 Other specified enthesopathies of unspecified lower limb, excluding foot (principal) | CPT/HCPCS: 99212 ==

== ENCOUNTER 2023-11-17 07:02 | Outpatient (REF) | payer MEDICARE, SELFPAY ==
[2023-11-17 10:34] LABS: MANUAL DIFF FLAG NO
[2023-11-17 10:37] LABS: Basophils Absolute Auto 0.1 X10*3/uL (0.0-0.2); Basophils Percent Auto 1.2 % (0-2); Eosinophils Absolute Auto 0.6 X10*3/uL (0.0-0.4); Eosinophils Percent Auto 6.6 % (0-4); Hematocrit 32.1 % (42.0-52.0); Hemoglobin 10.6 g/dl (14.0-18.0); Imm Gran Abs Auto 0.22 X10*3/uL (0.00-0.03); Imm Gran Pct Auto 2.3 % (0.0-0.4); Lymphocytes Absolute Auto 2.4 X10*3/uL (1.2-4.9); Mean Corpuscular Hemoglobin 32.7 pg (27.0-33.0); Mean Corpuscular Volume 99.1 fL (80.0-98.0); Mean Platelet Volume 11.4 fL (9.4-12.4); Monocytes Absolute Auto 0.9 X10*3/uL (0.1-1.2); Monocytes Percent Auto 9.5 % (2-11); Neutrophils Absolute Auto 5.2 x10*3/uL (2.0-8.3); Neutrophils Percent Auto 55.4 % (45-73); Platelet Count 146 X10*3/uL (160-400); Red Blood Count 3.24 X10*6/uL (4.60-5.80); Red Cell Distribution Width 19.9 % (11.0-16.0); White Blood Count 9.4 X10*3/uL (4.8-10.8)
[2023-11-17 10:52] LABS: Iron 148 mcg/dL (45-160); Percent Iron Saturation 53 % (15-50); Total Iron Binding Capacity 278 mcg/dL (228-428); Unsaturated Iron Binding 130 ug/dL
[2023-11-17 11:21] LABS: Folate 10.7 ng/mL (> or = 4.0); Vitamin B12 1360 pg/mL (200-900)
== END 2023-11-17 07:03 | disposition home or self-care (01) ==
LOC: HO.HMGCLDS 07:02
PROVIDERS: Visit Provider Nurse Practitioner Primary Care
DX: Z13.0 Encounter for screening for diseases of the blood and blood-forming organs and certain disorders involving the immune mechanism (principal)
CPT/HCPCS: 36415; 82607; 82746; 83540; 85025

== ENCOUNTER 2023-11-22 13:05 | Outpatient (AMB) | payer MEDICARE, SELFPAY ==
--- NOTE | 2023-11-22 13:22 | AM.OFFWIN_ITS ---
Intake Vital Signs 11/22/23 13:23 11/22/23 14:06 11/22/23 14:07 11/22/23 14:08 Height 6 ft Weight 197 lb BMI 26.7 BP 116/78 170/82 H 152/64 H 138/76 Blood Pressure Location Lt brachial Lt brachial Lt brachial Lt brachial Position Sitting Supine Sitting Standing Pulse 66 Pulse Source Pulse Oximeter Temp 98.0 F Temp Source Oral Pulse Oximetry (%) 96 Oxygen Delivery Method Room Air Intake Visit Reasons: EP- Dizziness, headaches Intake Note: pt c/o dizziness and headaches. Ongoing Patient Tobacco Use Status: Never used Tobacco Allergies No Known Allergies Allergy (Verified 11/22/23 13:23) Do you need a note to return to daycare/school/sports/work: No HPI HPI Comments History of Present Illness Details Patient is a 88-year-old male who is complaining of multiple issues. He states he mostly is here because he is dizzy and has headaches, this is all new for him has been getting worse over the last few weeks. He states the dizziness is worse when he changes position. He is also concerned as he has been taking iron since August but he does not feel like his labs are reflective of this. He was told his B12 numbers were high but he does not take B12 so he can not stop taking it and he is not sure why it is elevated. He also states he has been taking his thyroid medication as prescribed. 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 Mother No problems noted. Social History Housing: House Alcohol intake: former Patient Tobacco Use Status: Never used Tobacco e-Cigarette/Vaping Use: Never Used Second Hand Smoke Exposure: Yes service: No Current occupational status: retired Cognitive needs: No Hearing needs: Yes Vision needs: Yes (Pt wear glasses) Review of Systems Const All systems reviewed & are unremarkable except as noted in HPI and below Physical Exam Vital Signs: Last Vital Signs Temp 98.0 F 11/22/23 13:23 Pulse 66 11/22/23 13:23 BP 116/78 11/22/23 13:23 Pulse Ox 96 11/22/23 13:23 Oxygen Delivery Method Room Air 11/22/23 13:23 BMI result Body Mass Index 26.7 Const General: cooperative, healthy appearing, comfortable, no acute distress and well developed Orientation/consciousness: patient oriented x3 Limitations: no limitations HEENT Head: Yes normal to inspection Ears: hearing grossly normal bilaterally General nose exam: Normal external nose present Face and sinus: Yes normal facial exam Eyes General: appearance normal, both eyes and all related structures Neck Neck: Yes normal visual inspection and Yes full ROM Resp Effort & Inspection: normal respiratory effort and able to speak in complete sentences Auscultation: clear to auscultation bilaterally Cardio Rate: bradycardic Rhythm: regular rhythm Heart sounds: normal S1 and S2 Skin General skin exam: no rashes or lesions noted Neuro General: patient oriented x3 Extrem General: Yes normal to inspection Office Procedures EKG Details: 55BPM, sinus eb with RBBB (existing on 08/2023 EKG) [id number], Complete Results Reviewed Results Reviewed: Orthostatics Assessment & Plan Assessment & Plan (1) Orthostatic hypotension: Code(s): I95.1 - Orthostatic hypotension Plan: Orthostatic hypotension as per blood pressures documented today (2) Symptomatic bradycardia: Code(s): R00.1 - Bradycardia, unspecified Plan: Patient with dizziness and headache and EKG showed heart rate of 55BPM sinus bradycardia, right bundle branch block but this was existing and present on prior EKGs back to 08/23/2023. Plan With this constellation of symptoms and blood pressures and EKG, sent patient to the emergency room for further workup. Called [facility] ED with expect. Coding Level of Care Code Est Pt Level 5 (11203) Diagnoses Orthostatic hypotension I95.1 Symptomatic bradycardia R00.1 CPT Codes EKG - CPT: 82191-[id number], Complete ([id number])
[2023-11-22 13:23] VITALS: BP 116/78; PULSE 66; TEMP 36.7; O2SAT 96; BMI 26.7
[2023-11-22 14:06] VITALS: BP 170/82
[2023-11-22 14:07] VITALS: BP 152/64
[2023-11-22 14:08] VITALS: BP 138/76
--- OUTSIDE RECORDS SUMMARY | 2023-11-24 07:43 | XMS_ITS ---
Author Organization [facility] Address [address] [place] [address] Care Team Providers Care Repairer Kiln Car Name Role Phone Jose L JARAMILLO, [place] Primary Care Provider UnaEver Clay Unavailable [phone] REASON FOR VISIT r/s for sooner apt SOCIAL HISTORY Tobacco Use: Social History Observation [...] ast year? No Points 0 Interpretation Negative VITAL SIGNS Height 6 ft 0 in in 06/01/2022 Weight 193 lbs 06/01/2022 BMI 26.17 kg/m2 06/01/2022 Encounters Encounter Location Date Provider Diagnosis [facility] [address] [place] [address] 06/01/2022 Ever Fields PLAN OF TREATMENT No Information
--- OUTSIDE RECORDS SUMMARY | 2023-11-24 07:43 | XMS_ITS ---
Author Organization [facility] Address [address] [place] [address] Care Team Providers Care Camp Dishwasher Name Role Phone Jose L JARAMILLO, [place] Primary Care Provider Ever Brooks Unavailable [phone] ALLERGIES No Known Allergies REASON FOR VISIT Wart(s) SOCIAL HISTORY Tobacco Use: Social History Observation [...] Are you an other tobacco user? No VITAL SIGNS Height 6 ft in 06/04/2022 Weight 193 lbs 06/04/2022 BMI 26.17 kg/m2 06/04/2022 Blood pressure systolic 120 mm Hg 06/05/19 23 Blood pressure diastolic 80 mm Hg 023 Encounters Encounter Location Date Provider Diagnosis [facility] [address] [place] [address] 06/04/2022 Ever Fields Other viral warts B07.8 ; Pain in left foot M79.672 ; Xerosis cutis L85.3 ; Raynaud's disease without gangrene I73.00 and Metatarsalgia, left foot M77.42 ASSESSMENTS Encounter Date Diagnosis Assessment Notes Treatment Notes Treatment Clinical Notes 06/04/2022 Other viral warts (ICD-10 - B07.8) 06/04/2022 Pain in left foot (ICD-10 - M79.672) 06/04/2022 Xerosis cutis (ICD-10 - L85.3) 06/04/2022 Raynaud's disease without gangrene (ICD-10 - I73.00) 06/04/2022 Metatarsalgia, left foot (ICD-10 - M77.42) PLAN OF TREATMENT Next Appt Details Follow Up: prn, Reason: Procedure Notes * Category Sub-Category Detail Notes Wart Treatment Procedure Verrucae(s) were debrided to pin-point bleeding margins with sterile surgical blade (13156), silver nitrate chemocautery applied Progress Notes * Examination Category Sub-Category Detail Notes Neuroma Pain PALPATION: No interspace pa in noted on palpation Neurological SENSORY: Neurological exa m is normal, pain sensation normal, vibration sensation intact, pinprick sensation is normal in the lower extremities, denies, tingling, burning, anesthesia, paresthesia, hyperesthesia, B/L BABINSKI REFLEX: absent TINEL'S COMPRESSION: Negative tarsal cindi alvino, angélica pedis, and medial calcaneal nerves B/L Dermatologic SKIN FINDINGS: Skin exam reveal s normal texture, elasticity, and tugor. There are no masses. The interspaces are clear, B/L VERRUCA: Reveals a Single , m ulti-loculated , mosaically patterned, round, raised, flat-topped, petechial bleeding papulae(s), with cauliflower appearance and interrruption of skin lines, pain to lateral compression, and size estimated at _1_ mm diameter, plantar Forefoot, LEFT--1st mtpj Orthopedic GAIT ABNORMALITY: pronated, abdu cted, B/L MUSCLE STRENGTH: 5/5 all groups in a symmetrical fashion , B/L General Examination GENERAL APPEARANCE: pleasant , alert, well nourished, well developed, well hydrated, with good attention to hygene/body habitus, and in no acute distress ORIENTED: person,place, and ti me Vascular DP PULSES: 2/4, B/L PT PULSES: 2/4, B/L CAPILLARY FILL TIME: delayed, all digits , B/L SKIN TEMPERTURE GRADIENT OF THE LOWER EXTERMITIES: decreased, cool to cold, proximal to dis jared, B/L HAIR GROWTH/TEXTURE/ELASTICITY/TURGOR: d ecreased, B/L EDEMA: no edema TELANGECTASIA: absent VARICOSITIES: absent PIGMENTATION: pale, B/L History and Physical Notes * HPI (History of Present Illness) Category Sub-Category Detail Notes Wart Pt States Last PCP Visit: Date:: 04/27/19 23 Foot Pain Aggrevated: any pressure, st anding, walking, barefoot walking Onset/Cause: unknown, sarah kuhn ma Course: improved Duration: several months Nature: sharp, aching Location Great toe joint, Bot rachel, Left
--- OUTSIDE RECORDS SUMMARY | 2023-11-24 07:43 | XMS_ITS | Patient Health Record ---
[facility] Address [address] [place] [address] Care Team Providers Care Sustainability Project Coordinator Name Role Phone Jose L JARAMILLO, [place] Primary Care Provider Ever Brooks Unavailable [phone] ALLERGIES No Known Allergies REASON FOR REFERRAL [...] Raynaud's disease without gangrene (I73.00) Active confirmed [id number] PLAN OF TREATMENT No Information Insurance Providers Payer Name Payer Address Payer Phone Subscriber Number Group Number Insured Name Patient Relationship to Insured Coverage Start Date Coverage End Date Medicare [facility] [address] [facility] [place] [address] [phone] [id number] Ruy Roth Self - patient is the insured [employer] [address] [place] [address] [id number] Ruy Roth Self - patient is the insured MEDICAL (GENERAL) HISTORY Medical History History ICD Code Cataracts Measles Mumps Chicken pox Joint implants/screws Surgical History Surgery Date(Month/Year)
--- OUTSIDE RECORDS SUMMARY | 2023-11-24 07:43 | XMS_ITS ---
Author Organization [facility] Address [address] [place] [address] Care Team Providers Care Developer Support Engineer Name Role Phone Jose L JARAMILLO, [place] Primary Care Provider Unava Ever Crabtree Unavailable [phone] REASON FOR VISIT seen sooner Encounters Encounter Location Date Provider Diagnosis [facility] [address] [place] [address] 06/15/2022 Ever Fields PLAN OF TREATMENT No Information
--- OUTSIDE RECORDS SUMMARY | 2023-11-24 07:43 | XMS_ITS | Patient Health Record ---
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.11) Active confirmed [id number] Problem History of adenomatous polyp of colon (Z86.010) Active confirmed [id number] Problem Preprocedural examination (Z01.818) Active confirmed [id number] Problem History of colon polyps (Z86.010) Active confirmed [id number] 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 [id number] PLAN OF TREATMENT Future Test Test Name Order Date COLONOSCOPY 07/25/2015 COLONOSCOPY 02/19/2017 Insurance Providers Payer Name Payer Address Payer Phone Subscriber Number Group Number Insured Name Patient Relationship to Insured Coverage Start Date Coverage End Date MEDICARE OF [place] [address] [place] [id number] [phone] [id number] ANGEL BARRERA Self - patient is the insured [employer] CLAIMS [address] [place] [address] [id number] ANGEL BARRERA Self - patient is the insured MEDICAL (GENERAL) HISTORY Medical History History ICD Code 02/21/2004 Screening Colonos copy was negative other than some diverticulosis and internal hemorrhoids Denies MD,DM,CVA,Lung disease,renal dise ase Colonoscopy in 10/2014--flat adenoma [...]
== END 2023-11-22 15:04 | disposition home or self-care (01) ==
PROVIDERS: PCP Internal Medicine; Visit Provider Physician Assistant
DX: I95.1 Orthostatic hypotension (principal); R00.1 Bradycardia, unspecified
CPT/HCPCS: 93000; 99215

== ENCOUNTER 2023-11-22 14:36 | Inpatient (IN) | payer MEDICARE, SELFPAY ==
[2023-11-22] VITALS (7 sets, daily range): BP systolic 134–169; BP diastolic 49–73; PULSE 52–76; RESP 14–18; TEMP 36.2–36.8; O2SAT 97–100; BMI 26.8
--- NOTE | ~2023-11-22 | CT_ITS ---
EXAMINATION: CT HEAD WITHOUT CONTRAST. CT ANGIOGRAM HEAD CT ANGIOGRAM NECK CLINICAL INFORMATION: Reason for Exam dizziness COMPARISON: CT head 01/18/2018 TECHNIQUE: Initial noncontrast track welder imaging of the head and neck was performed. Noncontrast head CT was also performed. Test bolus sequences followed by intravenous administration 100 mL of Omnipaque 350. Helical imaging was performed in the axial plane from the aortic arch to the skull vertex. Delayed postcontrast imaging of the head was also performed. The data was processed at the genetic technologist's workstation for generation of MIP sequences. Angled MIPs and volume rendered reformatted images were also generated at an offline 3D workstation. Stenoses are assessed in accordance with Agudelo et al. Quantification of Carotid Stenosis on CT Angiography. AJR 2006. 27(1):13-19. This CT examination was performed using dose optimization techniques as appropriate, variously including the following: *Automated exposure control *Adjustment of mA and/or kV according to patient size (this includes techniques or standardized protocols for targeted exams where dose is matched to indication/reason for exam; i.e. extremities or head) *Use of iterative reconstruction technique DLP: 2284 mGy-cm FINDINGS: CT HEAD: No significant interval change in a small subdural collection along the right convexity compared to 2018. No acute intracranial hemorrhage. No acute, territorial loss of hackett-white differentiation. No midline shift. The basal cisterns are maintained. No abnormal intracranial enhancement is visualized. The ventricles and sulci are appropriate in size and configuration for the patient's stated age. No depressed calvarial fracture. The mucosal thickening in the maxillary sinuses. The mastoid air cells are well-aerated. Bilateral intraocular lens replacements. CTA HEAD: Suboptimal evaluation secondary to significant intracranial venous contamination. Anterior circulation: Right internal carotid artery: Atherosclerosis without flow-limiting stenosis. Right middle cerebral artery: Moderate stenosis in the M2 posterior division. Right anterior cerebral artery: No hemodynamically significant stenosis. Left internal carotid artery: Atherosclerosis without flow-limiting stenosis. Left middle cerebral artery: No hemodynamically significant stenosis. Left anterior cerebral artery: No hemodynamically significant stenosis. Posterior circulation: Right vertebral artery: Dominant. Patent. Left vertebral artery: Nondominant. Patent. Basilar artery: No hemodynamically significant stenosis. Right posterior cerebral artery: Diminutive P1 segment with patent posterior communicating artery. Left posterior cerebral artery: origin. Patent. No high flow vascular malformation or significant aneurysmal dilatation is visualized. The major dural venous sinuses are grossly within normal limits given arterial technique. CTA NECK: Aortic arch: Normal anatomy. Scattered atherosclerosis of the thoracic aorta and proximal great vessels. Right common carotid artery: Atherosclerosis without flow-limiting stenosis. Right proximal internal carotid artery: Atherosclerosis with up to 60% luminal narrowing. Right mid/distal internal carotid artery: No hemodynamically significant stenosis. Left common carotid artery: No hemodynamically significant stenosis. Left proximal internal carotid artery: Atherosclerosis without flow-limiting stenosis Left mid/distal internal carotid artery: No hemodynamically significant stenosis. Right vertebral artery: Dominant. Patent. Left vertebral artery: Nondominant. Moderate to high-grade stenosis at the origin. Otherwise patent. CT NECK: Portions of the neck are degraded by streak artifact from a necklace. Multilevel degenerative changes of the cervical spine. 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 No acute intracranial hemorrhage or territorial loss of hackett-white differentiation. CTA NECK: Atherosclerosis at the right carotid bulb and proximal internal carotid artery with approximately 60% luminal narrowing. Moderate to high-grade stenosis at the nondominant left vertebral artery origin. The bilateral vertebral arteries are otherwise patent. CTA HEAD: Moderate stenosis in the right middle cerebral artery M2 posterior division. No proximal vessel occlusion.
--- NOTE | 2023-11-22 14:42 | ED.DIZZY ---
HPI - Dizziness General Chief Complaint: Dizziness Stated Complaint: Sent by PCP for Cardiac Testing Time Seen by Provider: 11/22/23 20:41 Source: patient Limitations: no limitations History of Present Illness ED Provider: Aurea Segovia PA-C HPI Narrative: 88-year-old male with a history of moderate aortic stenosis, symptomatic bradycardia, orthostatic hypotension, iron deficiency anemia, osteoarthritis, BPH, hypothyroidism, HLD who presents to the ER from the urgent care for evaluation of headache and dizziness for the last 1 month. There he was found to have sinus bradycardia and orthostatic hypotension with drop in his systolic blood pressure from the 170s to 130s with lying to sitting. Patient indicates over the past month he has had a constant generalized headache. Associated dizziness with position changes at times, although he has episodes that occur spontaneously. During these episodes, patient feels off balance at if he is going to fall. Patient denies tunnel vision or the sense that he is going to ?pass out?. Denies chest pain or shortness of breath. Related Data Home Medications ?Medication ?Instructions ?Recorded ?Confirmed ascorbic acid (vitamin C) 500 mg 500 mg PO DAILY 11/22/23 capsule Previous Rx's ?Medication ?Instructions ?Recorded ferrous fumarate 324 mg (106 mg 324 mg PO BEDTIME #90 tabs 10/13/23 iron) tablet levothyroxine 25 mcg tablet 25 mcg PO DAILY@0600 #90 tabs 10/13/23 sennosides 8.6 mg capsule (senna) 8.6 mg PO BEDTIME constipation #90 10/13/23 caps Allergies Allergy/AdvReac Type Severity Reaction Status Date / Time No Known Allergies Allergy Verified 11/22/23 14:43 Review of Systems Review of Systems: Yes all other systems are reviewed and are negative Constitutional: Constitutional: Denies fatigue, Denies fever(s), Reports headache(s) and Denies weakness ENT: Reports dizziness and Reports headache(s) Cardiovascular: Cardiovascular: Denies chest pain, Denies syncope, Denies rapid heart rate, Denies irregular heart rhythm and Denies dyspnea Respiratory: Respiratory: Denies dyspnea Musculoskeletal: Musculoskeletal: Denies abnormal gait, Denies numbness and Denies tingling Neurologic: Denies abnormal gait, Reports dizziness, Denies syncope, Reports headache(s), Denies focal weakness, Denies numbness, Denies tingling, Denies paresthesias and Denies weakness Endocrine: Endocrine: Denies fatigue [facility] Past Medical History Attestation statement: The following information was validated with the patient. Medical History Overweight (BMI 25.0-29.9) BPH (benign prostatic hyperplasia) 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 Mother No problems noted. Social History Social History Housing: House Alcohol intake: former Patient Tobacco Use Status: Never used Tobacco e-Cigarette/Vaping Use: Never Used Second Hand Smoke Exposure: Yes Advance Directives: No Advance Directives Information Provided: Yes Do you have a plan to hurt others: No Plan service: No Current occupational status: retired Cognitive needs: No Hearing needs: Yes Vision needs: Yes (Pt wear glasses) Physical Exam Vital Signs: Vital Signs: Last Vital Signs Temp 97.9 F 11/22/23 22:45 Pulse 53 11/22/23 22:45 Resp 18 11/22/23 22:45 BP 140/49 H 11/22/23 22:45 Pulse Ox 97 11/22/23 22:45 O2 Del Method Room Air 11/22/23 22:45 BMI result Body Mass Index 26.8 Const: Other: Alert well in appearance Orientation/consciousness: patient oriented x3 Eyes: Other: No nystagmus noted Resp: Other: Nonlabored respirations Cardio: Other: Normal peripheral perfusion Skin: Other: Warm dry no rash Neuro: Other: Romberg negative, no ataxia, General: patient oriented x3, no focal motor deficits and CN's II-XI intact bilaterally Extrem: Other: Strength 5/5 bilateral upper and lower extremities with resistance Psych: Other: Calm cooperative Course Course Course Narrative: This is a Rapid Medical Examination (RME) performed by Zi Allen PA-C in triage. Full HPI, ROS, assessment and treatment plan per primary provider in the Main ED. 88-year-old male with a history of aortic stenosis, osteoarthritis, BPH, hypothyroidism, HLD who presents to the ER from the urgent care for evaluation of headache and dizziness for the last 1 month. There he was found to have sinus bradycardia and orthostatic hypotension with drop in his systolic blood pressure from the 170s to 130s with lying to sitting. Plan: EKG, labs, orthostatic vital signs Medical Decision Making Medical Decision Making MDM Narrative: 88-year-old male with a history of moderate aortic stenosis, symptomatic bradycardia, orthostatic hypotension, iron deficiency anemia, osteoarthritis, BPH, hypothyroidism, HLD who presents to the ER from PCP for evaluation of headache and dizziness for the last 1 month. There he was found to have sinus bradycardia and orthostatic hypotension with drop in his systolic blood pressure from the 170s to 130s with lying to sitting. Patient indicates over the past month he has had a constant generalized headache. Associated dizziness with position changes at times, although he has episodes that occur spontaneously. During these episodes, patient feels off balance at if he is going to fall. Patient denies tunnel vision or the sense that he is going to ?pass out?. Denies chest pain or shortness of breath. Problem: Age, aortic stenosis, anemia History: Per patient I have considered the following differential diagnoses: Posterior circulation CVA, near-syncope, syncope, heart block, intracranial hemorrhage, vertigo, orthostatic hypotension Plan: This is not vertigo, there is no nystagmus on exam, he has had episodes without position change. I am concerned for posterior circulation CVA, we will order CT and CT angiograms. Screening labs and EKG obtained from triage. We screened orthostatic vitals, there was no true change in his vitals here in the emergency department. He has no new arrhythmia on his EKG, he is sinus Chip without a 2nd or third-degree heart block. Therefore, I do not think that this is near-syncope. He does have moderate aortic stenosis, however again he is not having syncopal symptoms. I have independently reviewed the following tests: Labs: No leukocytosis, stable anemia, no electrolyte abnormality, EKG: Sinus bradycardia rate of 50, first-degree AV block, known right bundle, QT 439, no ischemic changes, no CT brain,CT angio brain, CT angio neck: [address] [address] [address] Scan Report Signed Patient: Ruy Ingram MR#: [id number] : 1935 Acct:[id number] Age/Sex: 88 / M ADM Date: 11/22/23 Loc: HO.ED Attending Dr: Ordering Physician: Aurea Segovia Date of Service: 11/22/23 Procedure(s): CT angio head neck Accession Number(s): [id number] cc: Allison Haley MD; Aurea Segovia~ EXAMINATION: CT HEAD WITHOUT CONTRAST. CT ANGIOGRAM HEAD CT ANGIOGRAM NECK CLINICAL INFORMATION: Reason for Exam dizziness COMPARISON: CT head 01/18/2018 TECHNIQUE: Initial noncontrast lithographic press operator apprentice imaging of the head and neck was performed. Noncontrast head CT was also performed. Test bolus sequences followed by intravenous administration 100 mL of Omnipaque 350. Helical imaging was performed in the axial plane from the aortic arch to the skull vertex. Delayed postcontrast imaging of the head was also performed. The data was processed at the manufacturing technologist's workstation for generation of MIP sequences. Angled MIPs and volume rendered reformatted images were also generated at an offline 3D workstation. Stenoses are assessed in accordance with Agudelo et al. Quantification of Carotid Stenosis on CT Angiography. AJR 2006. 27(1):13-19. This CT examination was performed using dose optimization techniques as appropriate, variously including the following: *Automated exposure control *Adjustment of mA and/or kV according to patient size (this includes techniques or standardized protocols for targeted exams where dose is matched to indication/reason for exam; i.e. extremities or head) *Use of iterative reconstruction technique DLP: 2284 mGy-cm FINDINGS: CT HEAD: No significant interval change in a small subdural collection along the right convexity compared to 2018. No acute intracranial hemorrhage. No acute, territorial loss of hackett-white differentiation. No midline shift. The basal cisterns are maintained. No abnormal intracranial enhancement is visualized. The ventricles and sulci are appropriate in size and configuration for the patient's stated age. No depressed calvarial fracture. The mucosal thickening in the maxillary sinuses. The mastoid air cells are well-aerated. Bilateral intraocular lens replacements. CTA HEAD: Suboptimal evaluation secondary to significant intracranial venous contamination. Anterior circulation: Right internal carotid artery: Atherosclerosis without flow-limiting stenosis. Right middle cerebral artery: Moderate stenosis in the M2 posterior division. Right anterior cerebral artery: No hemodynamically significant stenosis. Left internal carotid artery: Atherosclerosis without flow-limiting stenosis. Left middle cerebral artery: No hemodynamically significant stenosis. Left anterior cerebral artery: No hemodynamically significant stenosis. Posterior circulation: Right vertebral artery: Dominant. Patent. Left vertebral artery: Nondominant. Patent. Basilar artery: No hemodynamically significant stenosis. Right posterior cerebral artery: Diminutive P1 segment with patent posterior communicating artery. Left posterior cerebral artery: origin. Patent. No high flow vascular malformation or significant aneurysmal dilatation is visualized. The major dural venous sinuses are grossly within normal limits given arterial technique. CTA NECK: Aortic arch: Normal anatomy. Scattered atherosclerosis of the thoracic aorta and proximal great vessels. Right common carotid artery: Atherosclerosis without flow-limiting stenosis. Right proximal internal carotid artery: Atherosclerosis with up to 60% luminal narrowing. Right mid/distal internal carotid artery: No hemodynamically significant stenosis. Left common carotid artery: No hemodynamically significant stenosis. Left proximal internal carotid artery: Atherosclerosis without flow-limiting stenosis Left mid/distal internal carotid artery: No hemodynamically significant stenosis. Right vertebral artery: Dominant. Patent. Left vertebral artery: Nondominant. Moderate to high-grade stenosis at the origin. Otherwise patent. CT NECK: Portions of the neck are degraded by streak artifact from a necklace. Multilevel degenerative changes of the cervical spine. 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 No acute intracranial hemorrhage or territorial loss of hackett-white differentiation. CTA NECK: Atherosclerosis at the right carotid bulb and proximal internal carotid artery with approximately 60% luminal narrowing. Moderate to high-grade stenosis at the nondominant left vertebral artery origin. The bilateral vertebral arteries are otherwise patent. CTA HEAD: Moderate stenosis in the right middle cerebral artery M2 posterior division. No proximal vessel occlusion. Lab Data 11/22/23 16:05 11/22/23 16:05 Labs: Lab Results 11/22/23 11/22/23 Range/Units 16:05 20:00 WBC 10.4 (4.8-10.8) X10*3/uL RBC 3.23 L (4.60-5.80) X10*6/uL Hgb 10.6 L (14.0-18.0) g/dl Hct 32.2 L (42.0-52.0) % MCV 99.7 H (80.0-98.0) fL MCH 32.8 (27.0-33.0) pg MCHC 32.9 (31.0-36.0) g/dl RDW 19.7 H (11.0-16.0) % Plt Count 142 L (160-400) X10*3/uL MPV 11.8 (9.4-12.4) fL Immature Gran % (Auto) 1.9 H (0.0-0.4) % Neut % (Auto) 65.7 (45-73) % Lymph % (Auto) 17.8 L (20-40) % Lea % (Auto) 9.1 (2-11) % Eos % (Auto) 4.7 H (0-4) % Baso % (Auto) 0.8 (0-2) % Lymph # (Auto) 1.9 (1.2-4.9) X10*3/uL Lea # (Auto) 1.0 (0.1-1.2) X10*3/uL Eos # (Auto) 0.5 H (0.0-0.4) X10*3/uL Baso # (Auto) 0.1 (0.0-0.2) X10*3/uL Abs Immat Gran (auto) 0.20 H (0.00-0.03) X10*3/uL Absolute Neuts (auto) 6.9 (2.0-8.3) x10*3/uL Absolute Nucleated RBC 0.000 (0.0-0.012) X10*3/uL Nucleated RBC % (auto) 0.0 (0.0-0.2) /100WBC Smear Tech's Comments VERIFIED Sodium 139 (135-145) mmol/L Potassium 4.7 (3.3-5.1) mmol/L Chloride 105 (96-108) mmol/L Carbon Dioxide 28 (22-29) mmol/L Anion Gap 11 L (12-20) BUN 16 (9-16) mg/dL Creatinine 0.81 (0.5-1.4) mg/dL Estim Creat Clear Calc 70.5 Estimated GFR > 60 Random Glucose 91 (60-115) mg/dL Calcium 9.4 D (8.4-10.2) mg/dL Magnesium 2.2 (1.6-2.6) mg/dL Total Bilirubin 0.8 (0.0-1.0) mg/dL Direct Bilirubin 0.3 (0.0-0.5) mg/dL AST 27 (5-37) U/L ALT 15 (0-40) U/L Alkaline Phosphatase 42 (39-117) U/L Troponin I High Sens 6.9 D 4.6 (<3.5-35.0) ng/L Total Protein 6.7 (6.5-8.0) g/dL Albumin 4.1 (3.5-5.0) g/dL TSH 2.46 (0.32-4.0) uIU/mL COVID-19 ([facility]) Negative (Negative) COVID-19 Clin Com See Note Discharge Plan Discharge Clinical Impression: Dizziness Patient Disposition: Admitted As Inpatient Prescriptions: No Action ferrous fumarate 324 mg (106 mg iron) tablet 324 mg PO BEDTIME Qty: 90 0RF levothyroxine 25 mcg tablet 25 mcg PO DAILY@0600 Qty: 90 0RF senna 8.6 mg capsule 8.6 mg PO BEDTIME Qty: 90 0RF ascorbic acid (vitamin C) 500 mg capsule 500 mg PO DAILY Print Language: Bulgarian
--- NOTE | 2023-11-22 14:44 | ECG_ITS ---
Test Reason : SYNCOPE Blood Pressure : / mmHG Vent. Rate : 050 BPM Atrial Rate : 050 BPM P-R Int : 216 ms QRS Dur : 164 ms QT Int : 482 ms P-R-T Axes : 057 007 001 degrees QTc Int : 439 ms Sinus bradycardia with 1st degree A-V block Right bundle branch block Abnormal ECG When compared with ECG of 23-AUG-2023 12:41, Vent. rate has decreased BY 33 BPM QT has shortened Referred By: Mercedes Allen Electronically Signed By:MIKE KHAN
[2023-11-22 16:26] LABS: COVID-19 Test Negative (Negative); IDNOW Serial# 152EDE1D
[2023-11-22 16:31] LABS: Basophils Absolute Auto 0.1 X10*3/uL (0.0-0.2); Basophils Percent Auto 0.8 % (0-2); Eosinophils Absolute Auto 0.5 X10*3/uL (0.0-0.4); Eosinophils Percent Auto 4.7 % (0-4); Hematocrit 32.2 % (42.0-52.0); Hemoglobin 10.6 g/dl (14.0-18.0); Imm Gran Pct Auto 1.9 % (0.0-0.4); Lymphocytes Absolute Auto 1.9 X10*3/uL (1.2-4.9); Lymphocytes Percent Auto 17.8 % (20-40); MANUAL DIFF FLAG SCAN; Mean Corpuscular HGB Conc 32.9 g/dl (31.0-36.0); Mean Corpuscular Hemoglobin 32.8 pg (27.0-33.0); Mean Corpuscular Volume 99.7 fL (80.0-98.0); Mean Platelet Volume 11.8 fL (9.4-12.4); Monocytes Percent Auto 9.1 % (2-11); Neutrophils Absolute Auto 6.9 x10*3/uL (2.0-8.3); Neutrophils Percent Auto 65.7 % (45-73); PLT CLUMP 1; Red Blood Count 3.23 X10*6/uL (4.60-5.80); Red Cell Distribution Width 19.7 % (11.0-16.0); SCAN SMEAR FLAG 1
[2023-11-22 16:33] LABS: Alanine Aminotransferase 15 U/L (0-40); Albumin Level 4.1 g/dL (3.5-5.0); Alkaline Phosphatase 42 U/L (39-117); Anion Gap 11 (12-20); Aspartate Amino Transferase 27 U/L (5-37); Bilirubin Direct 0.3 mg/dL (0.0-0.5); Bilirubin Total 0.8 mg/dL (0.0-1.0); Blood Urea Nitrogen 16 mg/dL (9-16); Calcium 9.4 mg/dL (8.4-10.2); Carbon Dioxide 28 mmol/L (22-29); Chloride 105 mmol/L (96-108); Creatinine Clr Calc Pharmacy 70.5; Estimated Glomerular Filt Rate > 60; Glucose Random 91 mg/dL (60-115); Magnesium 2.2 mg/dL (1.6-2.6); Potassium 4.7 mmol/L (3.3-5.1); Sodium 139 mmol/L (135-145); Total Protein 6.7 g/dL (6.5-8.0); Troponin-I High Sensitivity 6.9 ng/L (<3.5-35.0)
[2023-11-22 16:46] LABS: Platelet Count 142 X10*3/uL (160-400); White Blood Count 10.4 X10*3/uL (4.8-10.8)
[2023-11-22 16:47] LABS: SLIDE REVIEW VERIFIED; TSH reflex Free T4 2.46 uIU/mL (0.32-4.0)
[2023-11-22 20:31] LABS: Troponin-I High Sensitivity 4.6 ng/L (<3.5-35.0)
[2023-11-23] VITALS (9 sets, daily range): BP systolic 107–144; BP diastolic 45–56; PULSE 50–66; RESP 15–19; TEMP 36.3–36.8; O2SAT 95–98
--- NOTE | 2023-11-23 09:29 | PHA.MEDREC ---
Addendum entered by Tarik Quigley RPh 11/23/23 09:36: Med rec was reviewed by [facility]. Original Note: Pharmacy Consult ? Medication Reconciliation Pharmacy has completed the medication reconciliation. Spoke to patient to confirm med list.
[2023-11-23] MEDS: 0.9 % Sodium Chloride 1,000 ML 100 ML IVCONT (10:46)
--- NOTE | 2023-11-23 13:07 | P.HPHOSP_ITS ---
History of Present Illness Date of Service: 11/23/23 Chief Complaint: Headache/dizziness 88 yr old male with past medical history of arthritis, dyslipidemia, hypothyroidism, orthostatic hypotension presented to [facility] due to symptoms of pressure-like headache 1 month duration , denies associated nausea, vomiting, lightheadedness, feels oozy and unsteady with standing, denies associated fever, chills, no cough no phlegm, no urinary symptoms urgency frequency, no chest pain, no palpitations, also history of chronic cold tips of fingers and toes, patient was evaluated at urgent Care Clinic of similar symptoms and was refused to nuclear since he was noted to have sinus bradycardia and orthostatic hypotension, patient workup in the ER, showed microcytic chronic anemia unchanged, chronic low platelet count 142, stable electrolytes renal function, liver panel, normal troponin, elevated recent B12 level, CTA head and neck showed moderate stenosis right middle cerebral artery, moderate to high- grade stenosis non dominant left vertebral artery, atherosclerosis at the right carotid bulb and proximal internal carotid artery with approximately 60% luminal narrowing. Will admit patient for orthostatic hypotension and persistent headache. Review of Systems 2 Review of Systems: General no fever chills, no weight loss. CVS no chest pain, no palpitation. 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 Mother No problems noted. Surgical History History of cataract extraction H/O right hemicolectomy History of total left hip replacement History of arthroscopy of right knee Social History Household Members: Spouse Housing: House Do you presently have visiting nurse or other home services: No Alcohol intake: former Patient Tobacco Use Status: Never used Tobacco e-Cigarette/Vaping Use: Never Used Second Hand Smoke Exposure: Yes service: No Current occupational status: retired Cognitive needs: No Hearing needs: Yes Vision needs: Yes (Pt wear glasses) Meds Allergies Allergy/AdvReac Type Severity Reaction Status Date / Time No Known Allergies Allergy Verified 11/22/23 14:43 Active Medications: Current Medications Acetaminophen (Acetaminophen 325 Mg Tablet) 650 mg PO Q6H PRN PRN Reason: Pain, Mild (Pain Scale 1-3), fever or headache Ascorbic Acid (Ascorbic Acid 500 Mg Tablet) 500 mg PO DAILY [facility] Calcium Carbonate (Calcium Carbonate 750 Mg Tab.Chew) 750 mg PO Q4H PRN PRN Reason: Heartburn Sodium Chloride (Ns) 1,000 mls @ 100 mls/hr IVCONT .Q10H [facility] Stop: 11/23/23 20:29 Last Admin: 11/23/23 10:46 Dose: 100 mls/hr Levothyroxine Sodium (Levothyroxine Sodium 25 Mcg Tablet) 25 mcg PO DAILY@0600 [facility] Magnesium Hydroxide (Milk Of Magnesia 30 Ml Oral.Susp) 30 ml PO DAILY PRN PRN Reason: Constipation Melatonin (Melatonin 3 Mg Tablet) 6 mg PO BEDTIME PRN PRN Reason: Insomnia Ondansetron HCl (Ondansetron Hcl 4 Mg/2 Ml Vial) 4 mg IVPUSH Q8H PRN PRN Reason: Nausea and Vomiting Senna (Sennosides 8.6 Mg Tablet) 8.6 mg PO BEDTIME [facility] Sodium Chloride (0.9 % Sodium Chloride Flush 3 Ml Syringe) 3 ml IVFLUSH QSHIFT [facility] Home Medications ?Medication ?Instructions ?Recorded ?Confirmed ?Last Taken ?Type ascorbic acid (vitamin C) 500 mg 500 mg PO DAILY 11/22/23 11/23/23 11/20/23 History capsule Physical Exam 2 Vital Signs and Narrative: Vital Signs: Last Vital Signs Temp 97.8 F 11/23/23 12:21 Pulse 50 11/23/23 12:21 Resp 19 11/23/23 12:21 BP 133/49 L 11/23/23 12:21 Pulse Ox 97 11/23/23 12:21 O2 Del Method Room Air 11/23/23 12:21 BMI result Body Mass Index 26.8 Const: Other: General awake alert x3, in no acute distress. No nystagmus Neck no JVD. CVS regular rate rhythm, Respiratory lungs clear to auscultation, no respiratory distress, no wheeze, no rhonchi. Gastrointestinal abdomen soft, non tender, bowel sounds audible, no guarding , no rigidity. Extremities no edema. Neuro non focal, moving all 4 extremity, speech clear. Skin no rash Appropriate affect Results Labs 11/22/23 16:05 11/22/23 16:05 Labs: Laboratory Results - last 24 hr 11/22/23 11/22/23 16:05 20:00 MCV 99.7 H MCH 32.8 MCHC 32.9 RDW 19.7 H Plt Count 142 L MPV 11.8 Immature Gran % (Auto) 1.9 H Neut % (Auto) 65.7 Lymph % (Auto) 17.8 L [place] % (Auto) 9.1 Eos % (Auto) 4.7 H Baso % (Auto) 0.8 Lymph # (Auto) 1.9 [place] # (Auto) 1.0 Eos # (Auto) 0.5 H Baso # (Auto) 0.1 Abs Immat Gran (auto) 0.20 H Absolute Neuts (auto) 6.9 Absolute Nucleated RBC 0.000 Nucleated RBC % (auto) 0.0 Smear Tech's Comments VERIFIED Anion Gap 11 L Estim Creat Clear Calc 70.5 Estimated GFR > 60 Random Glucose 91 Calcium 9.4 D Magnesium 2.2 Total Bilirubin 0.8 Direct Bilirubin 0.3 AST 27 ALT 15 Alkaline Phosphatase 42 Troponin I High Sens 6.9 D 4.6 Total Protein 6.7 Albumin 4.1 TSH 2.46 COVID-19 ([facility]) Negative COVID-19 Clin Com See Note Imaging Radiologist's Impressions: Impressions Head/Neck CTA 11/22/23 22:14 IMPRESSION: CT HEAD: Stable trace extra-axial collection along the right frontal convexity compared to 2018, 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 No acute intracranial hemorrhage or territorial loss of hackett-white differentiation. CTA NECK: Atherosclerosis at the right carotid bulb and proximal internal carotid artery with approximately 60% luminal narrowing. Moderate to high-grade stenosis at the nondominant left vertebral artery origin. The bilateral vertebral arteries are otherwise patent. CTA HEAD: Moderate stenosis in the right middle cerebral artery M2 posterior division. No proximal vessel occlusion. Assessment and Plan (1) Orthostatic hypotension: Status: Acute Plan 88 yr old male with past medical history of arthritis, hyperlipidemia, hypothyroidism, echo 2023 showed EF 60-65% moderate aortic valve stenosis presented with headache, unsteady gait, dizziness of several weeks duration noted to have orthostatic hypotension and 60% right internal carotid artery narrowing. Headache/dizziness Multifactorial likely related to orthostatic hypotension,ddx incude bradycardia, moderate , rule out temporal arteritis Obtain vascular surgery consultation case discussed with Dr. Gardnre he feels right internal carotid artery narrowing not contributing to symptoms he recommend outpatient follow-up Treat with IV fluids /Yvon stockings./check esr Not on rate control medications, neuro consult. Cardiology eval with history of moderate aortic stenosis Chronic macrocytic anemia stable H&H. Chronic thrombocytopenia stable Hypothyroid normal TSH continue levothyroxine DVT prophylaxis - compression boots Full code Patient will need to night inpatient hospitalization for treatment of symptomatic orthostatic hypotension requiring IV fluid and expert consultation. Quality Stroke Does the patient have a stroke diagnosis?: No VTE Prior VTE?: No VTE Risk Level:: Medical - moderate - high VTE Device Contraindication: Treatment Not Indicated VTE Drug Contraindication: N/A - Med Ordered
--- NOTE | 2023-11-23 14:17 | PM.CNGS ---
History of Present Illness Consult details Consult date: 11/23/23 Reason for consult: other (Carotid stenosis) Narrative: Very pleasant 88-year-old male presented to the emergency room due to orthostatic hypotension. Has had a pressure like headache for about a month. He reports that he was actually in the hospital several months prior with pneumonia which seemed to have resolved. He was seen by the outpatient clinic and reported that he had these headache like symptoms along with these dizzy spells. Was subsequently brought into the emergency room for evaluation. Upon workup he underwent a CTA which demonstrated high-grade stenosis in the left vert. And right carotid stenosis of only 60%. Now presents for vascular evaluation. At the time of our discussion his headache seemed to be reasonably well controlled and he reports no other lateralizing signs or symptoms. Of note he is a very active gentleman and goes to the [employer] on a daily basis in addition to a regular golfer. Review of Systems Review of Systems: Yes all other systems are reviewed and are negative Constitutional: Constitutional: Reports no additional constitutional complaints ENT: Reports Normal hearing present Cardiovascular: Cardiovascular: Denies chest pain, Denies chest pain at rest, Denies chest pain with activity and Denies pedal edema Respiratory: Respiratory: Denies cough Gastrointestinal: Gastrointestinal: Denies abdominal pain Musculoskeletal: Musculoskeletal: Denies abnormal gait, Denies muscle cramps and Denies radiating pain into limb Integumentary/Breasts: Skin/Breast: Denies skin ulcer and Denies wounds Neurologic: Reports Normal hearing present and Denies abnormal gait Psychiatric: Psychiatric: Reports no additional psychiatric complaints [facility] Past Medical History Medical History Overweight (BMI 25.0-29.9) BPH (benign prostatic hyperplasia) 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 Mother No problems noted. Surgical History Surgical History History of cataract extraction H/O right hemicolectomy History of total left hip replacement History of arthroscopy of right knee Social History Social History Housing: House Alcohol intake: former Patient Tobacco Use Status: Never used Tobacco Smoked in Last 30 Days: No e-Cigarette/Vaping Use: Never Used Second Hand Smoke Exposure: Yes Use of substances other than those prescribed or required for medical reasons: No Advance Directives: No Advance Directives Information Provided: Yes Do you have a plan to hurt others: No Plan service: No Current occupational status: retired Cognitive needs: No Hearing needs: Yes Vision needs: Yes (Pt wear glasses) Meds Allergies Allergy/AdvReac Type Severity Reaction Status Date / Time No Known Allergies Allergy Verified 11/22/23 14:43 Active Medications: Current Medications Acetaminophen (Acetaminophen 325 Mg Tablet) 650 mg PO Q6H PRN PRN Reason: Pain, Mild (Pain Scale 1-3), fever or headache Ascorbic Acid (Ascorbic Acid 500 Mg Tablet) 500 mg PO DAILY [facility] Calcium Carbonate (Calcium Carbonate 750 Mg Tab.Chew) 750 mg PO Q4H PRN PRN Reason: Heartburn Sodium Chloride (Ns) 1,000 mls @ 100 mls/hr IVCONT .Q10H [facility] Stop: 11/23/23 20:29 Last Admin: 11/23/23 10:46 Dose: 100 mls/hr Levothyroxine Sodium (Levothyroxine Sodium 25 Mcg Tablet) 25 mcg PO DAILY@0600 [facility] Magnesium Hydroxide (Milk Of Magnesia 30 Ml Oral.Susp) 30 ml PO DAILY PRN PRN Reason: Constipation Melatonin (Melatonin 3 Mg Tablet) 6 mg PO BEDTIME PRN PRN Reason: Insomnia Ondansetron HCl (Ondansetron Hcl 4 Mg/2 Ml Vial) 4 mg IVPUSH Q8H PRN PRN Reason: Nausea and Vomiting Senna (Sennosides 8.6 Mg Tablet) 8.6 mg PO BEDTIME [facility] Sodium Chloride (0.9 % Sodium Chloride Flush 3 Ml Syringe) 3 ml IVFLUSH QSHIFT [facility] Home Medications ?Medication ?Instructions ?Recorded ?Confirmed ?Last Taken ?Type ascorbic acid (vitamin C) 500 mg 500 mg PO DAILY 11/22/23 11/23/23 11/20/23 History capsule Physical Exam Vital Signs: Vital Signs: Last Vital Signs Temp 97.8 F 11/23/23 12:21 Pulse 50 08/20/24 12:21 Resp 19 11/23/23 12:21 BP 133/49 L 11/23/23 12:21 Pulse Ox 97 11/23/23 12:21 O2 Del Method Room Air 11/23/23 12:21 BMI result Body Mass Index 26.8 Const: General: cooperative, healthy appearing and comfortable Orientation/consciousness: oriented to person, oriented to place and oriented to time HEENT: Head: Yes normal to inspection Neck: Neck: Yes normal visual inspection Carotids: no bruits Chest: Chest palpation & inspection: normal inspection of the chest Resp: Effort & Inspection: normal respiratory effort and able to speak in complete sentences Auscultation: clear to auscultation bilaterally, no crackles, no rales, no rhonchi and no wheezes Cardio: Rate: regular rate Rhythm: regular rhythm Heart sounds: S1 normal heart sound present and S2 normal heart sound present Bruits: no carotid bruits Peripheral pulses: Peripheral pulses 2+ throughout GI: Inspection: Yes normal to inspection Skin: Wounds: no wounds Hair: normal Neuro: General: oriented to person, oriented to place and oriented to time Cranial nerves: Yes CN's II-XII intact bilaterally and Yes Normal hearing present Cognition (Neuro): normal cognition Motor exam (neuro): 5/5 motor strength present throughout Extrem: Other: venous exam: No significant superficial varicosities or spider telangiectasias, minimal edema General: No clubbing, No cyanosis and No edema Psych: Appearance: grossly normal Mental Status: mental status grossly normal Speech and movement: Normal speech and movement present Results Labs 11/22/23 16:05 11/22/23 16:05 Labs: Abnormal lab results 11/22/23 Range/Units 16:05 RBC 3.23 L (4.60-5.80) X10*6/uL Hgb 10.6 L (14.0-18.0) g/dl Hct 32.2 L (42.0-52.0) % MCV 99.7 H (80.0-98.0) fL RDW 19.7 H (11.0-16.0) % Plt Count 142 L (160-400) X10*3/uL Immature Gran % (Auto) 1.9 H (0.0-0.4) % Lymph % (Auto) 17.8 L (20-40) % Eos % (Auto) 4.7 H (0-4) % Eos # (Auto) 0.5 H (0.0-0.4) X10*3/uL Abs Immat Gran (auto) 0.20 H (0.00-0.03) X10*3/uL Anion Gap 11 L (12-20) Short CBC 11/22/23 Range/Units 16:05 WBC 10.4 (4.8-10.8) X10*3/uL Hgb 10.6 L (14.0-18.0) g/dl Hct 32.2 L (42.0-52.0) % Plt Count 142 L (160-400) X10*3/uL BMP 11/22/23 16:05 Sodium 139 Potassium 4.7 Chloride 105 Carbon Dioxide 28 BUN 16 Creatinine 0.81 Calcium 9.4 D Liver Function 11/22/23 Range/Units 16:05 Total Bilirubin 0.8 (0.0-1.0) mg/dL Direct Bilirubin 0.3 (0.0-0.5) mg/dL AST 27 (5-37) U/L ALT 15 (0-40) U/L Alkaline Phosphatase 42 (39-117) U/L Albumin 4.1 (3.5-5.0) g/dL All other labs normal. Imaging Additional studies: CT scan dated 11/22/2023 demonstrates moderate stenosis of the right middle cerebral artery moderate to high-grade stenosis of the non dominant left vert. And 60% stenosis of the right carotid. Written report and images were reviewed. Assessment and Plan (1) Right cavernous carotid stenosis: Status: Acute Plan In short patient has mild right carotid stenosis which I do believe some of this is consistent with his overall age. I do not believe that these are contributing to his headaches. Would continue medical management. No surgical intervention required. He can follow up with us as an outpatient for routine evaluation and follow-up upon discharge. Thank you for allowing us to assist in his care. If there are any questions or concerns please do not hesitate to contact us. Procedures Date of Service Date of Service: 11/23/23
--- NOTE | 2023-11-23 14:17 | PM.CNCAR ---
History of Present Illness History of Present Illness Date of Service: 11/23/23 Requesting physician: David Perea Chief complaint: Dizziness/orthostatic bp Narrative: [age] year gentleman presenting with dizziness. He recently had echocardiography which showed moderate aortic valve stenosis. We have been asked to assess him for dizziness and whether it is linked with aortic valve stenosis. He has been getting orthostatic symptoms and when he stands up he gets lightheaded off and on. He has never passed out. Symptoms do not happen when he is in bed laying down and almost always happen when he is changing posture. He has been noticed to be orthostatic in the ER. He is denying any chest discomfort or shortness of breath. No other complaints currently. 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 Mother No problems noted. Surgical History Surgical History History of cataract extraction H/O right hemicolectomy History of total left hip replacement History of arthroscopy of right knee Social History Social History Housing: House Alcohol intake: former Patient Tobacco Use Status: Never used Tobacco Smoked in Last 30 Days: No e-Cigarette/Vaping Use: Never Used Second Hand Smoke Exposure: Yes Use of substances other than those prescribed or required for medical reasons: No Advance Directives: No Advance Directives Information Provided: Yes Do you have a plan to hurt others: No Plan service: No Current occupational status: retired Cognitive needs: No Hearing needs: Yes Vision needs: Yes (Pt wear glasses) Meds Allergies Allergy/AdvReac Type Severity Reaction Status Date / Time No Known Allergies Allergy Verified 11/22/23 14:43 Active Medications: Current Medications Acetaminophen (Acetaminophen 325 Mg Tablet) 650 mg PO Q6H PRN PRN Reason: Pain, Mild (Pain Scale 1-3), fever or headache Ascorbic Acid (Ascorbic Acid 500 Mg Tablet) 500 mg PO DAILY [facility] Calcium Carbonate (Calcium Carbonate 750 Mg Tab.Chew) 750 mg PO Q4H PRN PRN Reason: Heartburn Sodium Chloride (Ns) 1,000 mls @ 100 mls/hr IVCONT .Q10H [facility] Stop: 11/23/23 20:29 Last Admin: 11/23/23 10:46 Dose: 100 mls/hr Levothyroxine Sodium (Levothyroxine Sodium 25 Mcg Tablet) 25 mcg PO DAILY@0600 [facility] Magnesium Hydroxide (Milk Of Magnesia 30 Ml Oral.Susp) 30 ml PO DAILY PRN PRN Reason: Constipation Melatonin (Melatonin 3 Mg Tablet) 6 mg PO BEDTIME PRN PRN Reason: Insomnia Ondansetron HCl (Ondansetron Hcl 4 Mg/2 Ml Vial) 4 mg IVPUSH Q8H PRN PRN Reason: Nausea and Vomiting Senna (Sennosides 8.6 Mg Tablet) 8.6 mg PO BEDTIME [facility] Sodium Chloride (0.9 % Sodium Chloride Flush 3 Ml Syringe) 3 ml IVFLUSH QSHIFT [facility] Home Medications ?Medication ?Instructions ?Recorded ?Confirmed ?Last Taken ?Type ascorbic acid (vitamin C) 500 mg 500 mg PO DAILY 11/22/23 11/23/23 11/20/23 History capsule Physical Exam Vital Signs: Vital Signs: Last Vital Signs Temp 97.8 F 11/23/23 12:21 Pulse 50 11/23/23 12:21 Resp 19 11/23/23 12:21 BP 133/49 L 11/23/23 12:21 Pulse Ox 97 11/23/23 12:21 O2 Del Method Room Air 11/23/23 12:21 BMI result Body Mass Index 26.8 GENERAL APPEARANCE: in no acute distress, pleasant. NECK: no carotid bruit, no jugular venous distention. SKIN: no suspicious lesions, warm and dry. HEART: Systolic murmur aortic area with preserved 2nd heart sound, regular rate and rhythm. LUNGS: clear to auscultation bilaterally. ABDOMEN: soft, nontender. EXTREMITIES: no edema. PERIPHERAL PULSES: equal. NEUROLOGIC: No gross deficits, AAO X 3 Objective Labs and Meds 11/22/23 16:05 11/22/23 16:05 Lab results: Laboratory Results - last 24 hr 11/22/23 11/22/23 16:05 20:00 WBC 10.4 RBC 3.23 L Hgb 10.6 L Hct 32.2 L MCV 99.7 H MCH 32.8 MCHC 32.9 RDW 19.7 H Plt Count 142 L MPV 11.8 Immature Gran % (Auto) 1.9 H Neut % (Auto) 65.7 Lymph % (Auto) 17.8 L [place] % (Auto) 9.1 Eos % (Auto) 4.7 H Baso % (Auto) 0.8 Lymph # (Auto) 1.9 [place] # (Auto) 1.0 Eos # (Auto) 0.5 H Baso # (Auto) 0.1 Abs Immat Gran (auto) 0.20 H Absolute Neuts (auto) 6.9 Absolute Nucleated RBC 0.000 Nucleated RBC % (auto) 0.0 Smear Tech's Comments VERIFIED Sodium 139 Potassium 4.7 Chloride 105 Carbon Dioxide 28 Anion Gap 11 L BUN 16 Creatinine 0.81 Estim Creat Clear Calc 70.5 Estimated GFR > 60 Random Glucose 91 Calcium 9.4 D Magnesium 2.2 Total Bilirubin 0.8 Direct Bilirubin 0.3 AST 27 ALT 15 Alkaline Phosphatase 42 Troponin I High Sens 6.9 D 4.6 Total Protein 6.7 Albumin 4.1 TSH 2.46 COVID-19 ([facility]) Negative COVID-19 Clin Com See Note Imaging Radiologist's impression: Impressions Head/Neck CTA 11/22/23 22:14 IMPRESSION: CT HEAD: Stable trace extra-axial collection along the right frontal convexity compared to 2018, 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 No acute intracranial hemorrhage or territorial loss of hackett-white differentiation. CTA NECK: Atherosclerosis at the right carotid bulb and proximal internal carotid artery with approximately 60% luminal narrowing. Moderate to high-grade stenosis at the nondominant left vertebral artery origin. The bilateral vertebral arteries are otherwise patent. CTA HEAD: Moderate stenosis in the right middle cerebral artery M2 posterior division. No proximal vessel occlusion. Assessment and Plan (1) Orthostatic hypotension: Status: Acute (2) Non-rheumatic aortic stenosis: Status: Acute Plan [age] year gentleman presenting for dizziness due to orthostatic hypotension. He has moderate aortic valve stenosis by echocardiography. On exam a clear 2nd heart sound can be heard and I think he has moderate aortic stenosis. Symptoms are not linked with a valve disease currently and aortic valve just need surveillance for now. We will do repeat echocardiography in a year. Dizziness is due to orthostasis. I have advised him to increase hydration. Repeat orthostatics after hydration and document that they are improved. Thank you for allowing me to participate in the care of your patient. Please feel free to contact me if you have any questions. Procedures Date of Service Date of Service: 11/23/23
[2023-11-23 14:53] LABS: Erythrocyte Sedimentation Rate 25 MM/HR (0-15)
--- NOTE | 2023-11-23 16:52 | P.CNNE_ITS ---
History of Present Illness Data of Consult Service Date: 11/23/23 Primary Care Provider: Allison Haley MD HPI Reason for consult: Dizziness This is a 88 yr old male with history of arthritis, dyslipidemia, hypothyroidism, orthostatic hypotension presented to [facility] due to symptoms of pressure-like headache of 1 month duration. He denies associated nausea, vomiting, lightheadedness, feels whoozy and unsteady with standing, denies associated fever, chills, no cough, no urinary symptoms urgency frequency, no chest pain, no palpitations, also history of chronic cold tips of fingers and toes. 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 Mother No problems noted. Surgical History Surgical History History of cataract extraction H/O right hemicolectomy History of total left hip replacement History of arthroscopy of right knee Social History Social History Housing: House Alcohol intake: former Patient Tobacco Use Status: Never used Tobacco Smoked in Last 30 Days: No e-Cigarette/Vaping Use: Never Used Second Hand Smoke Exposure: Yes Use of substances other than those prescribed or required for medical reasons: No Advance Directives: No Advance Directives Information Provided: Yes Do you have a plan to hurt others: No Plan service: No Current occupational status: retired Cognitive needs: No Hearing needs: Yes Vision needs: Yes (Pt wear glasses) Meds Allergies Allergy/AdvReac Type Severity Reaction Status Date / Time No Known Allergies Allergy Verified 11/22/23 14:43 Active Medications: Current Medications Acetaminophen (Acetaminophen 325 Mg Tablet) 650 mg PO Q6H PRN PRN Reason: Pain, Mild (Pain Scale 1-3), fever or headache Ascorbic Acid (Ascorbic Acid 500 Mg Tablet) 500 mg PO DAILY [facility] Calcium Carbonate (Calcium Carbonate 750 Mg Tab.Chew) 750 mg PO Q4H PRN PRN Reason: Heartburn Sodium Chloride (Ns) 1,000 mls @ 100 mls/hr IVCONT .Q10H [facility] Stop: 11/23/23 20:29 Last Admin: 11/23/23 10:46 Dose: 100 mls/hr Levothyroxine Sodium (Levothyroxine Sodium 25 Mcg Tablet) 25 mcg PO DAILY@0600 [facility] Magnesium Hydroxide (Milk Of Magnesia 30 Ml Oral.Susp) 30 ml PO DAILY PRN PRN Reason: Constipation Melatonin (Melatonin 3 Mg Tablet) 6 mg PO BEDTIME PRN PRN Reason: Insomnia Ondansetron HCl (Ondansetron Hcl 4 Mg/2 Ml Vial) 4 mg IVPUSH Q8H PRN PRN Reason: Nausea and Vomiting Senna (Sennosides 8.6 Mg Tablet) 8.6 mg PO BEDTIME [facility] Sodium Chloride (0.9 % Sodium Chloride Flush 3 Ml Syringe) 3 ml IVFLUSH QSHIFT [facility] Last Admin: 11/23/23 15:08 Dose: Not Given Home Medications ?Medication ?Instructions ?Recorded ?Confirmed ?Last Taken ?Type ascorbic acid (vitamin C) 500 mg 500 mg PO DAILY 11/22/23 11/23/23 11/20/23 History capsule Physical Exam 2 Vital Signs: Vital Signs: Last Vital Signs Temp 98.2 F 11/23/23 16:06 Pulse 66 11/23/23 16:06 Resp 16 11/23/23 16:06 BP 113/45 L 11/23/23 16:06 Pulse Ox 97 11/23/23 16:06 O2 Del Method Room Air 11/23/23 16:06 BMI result Body Mass Index 26.8 Neuro: Other: Non focal Results Labs 11/22/23 16:05 11/22/23 16:05 Assessment and Plan (1) Dizziness: Status: Acute Dizziness, probably related to orthostatic hypotension. Rule out cerebral microvascular disease particularly in the posterior fossa. Recommendation check ortho static blood pressures. MRI of the brain. The carotid stenosis is not considered clinically significant Procedures Date of Service Date of Service: 11/23/23
[2023-11-23] MEDS: Sennosides 8.6 MG TABLET PO (20:30)
[2023-11-24] MEDS: 0.9 % Sodium Chloride Flush 3 ML SYRINGE IVFLUSH
[2023-11-24 03:37] VITALS: BP 126/61; PULSE 56; RESP 18; TEMP 36.1; O2SAT 96
[2023-11-24] MEDS: Levothyroxine Sodium 25 MCG TABLET PO (06:42)
[2023-11-24 07:20] VITALS: BP 117/58; PULSE 56
[2023-11-24 08:00] VITALS: BP 110/54; PULSE 55; RESP 18; TEMP 36.2; O2SAT 94
[2023-11-24] MEDS: Ascorbic Acid 500 MG TABLET PO (08:06)
--- NOTE | 2023-11-24 08:18 | MHC.CM.PN ---
CM met with Patient at bedside and assisted him with the completion of a HCP; he named his Alivia as his Agent. CM addressed IMM with Patient and provided him with the original and a copy has been placed on the chart. 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 Home self care vs new [facility] is the tentative plan and CM has initiated and will follow for dc planning. PCP is Dr. Allison Haley and Patient's own car is here for transport to home.
[2023-11-24 09:36] VITALS: BP 110/53; PULSE 80
[2023-11-24 09:37] VITALS: BP 111/75; PULSE 67
--- NOTE | 2023-11-24 10:50 | MHC.CM.PN ---
Patient has been medically cleared for dc to home today, self care.
--- NOTE | 2023-11-24 10:54 | PM.DS ---
DS: Providers Provider Date of Service: 11/24/23 Date of admission: 11/23/23 10:24 Date of discharge: 11/24/23 Primary care physician: Allison Haley MD Consults: 11/23/23 10:34 Consult to Neurology Routine Consulting Provider: [facility] Reason for consultation: dizziness Has provider been notified: No Consult to Vascular Surgery Routine Consulting Provider: Kem Gardner Reason for consultation: ica 60% Has provider been notified: No 11/23/23 13:31 Consult to Cardiology Routine Consulting Provider: [facility] Reason for consultation: orthostatic bp/mod Has provider been notified: No DS: Diagnosis Discharge Diagnosis (1) Orthostatic hypotension: Status: Acute DS: Summary Hospital Course Hospital Course: Date of Service: 11/23/23 Chief Complaint: Headache/dizziness 88 yr old male with past medical history of arthritis, dyslipidemia, hypothyroidism, orthostatic hypotension presented to [facility] due to symptoms of pressure-like headache 1 month duration , denies associated nausea, vomiting, lightheadedness, feels oozy and unsteady with standing, denies associated fever, chills, no cough no phlegm, no urinary symptoms urgency frequency, no chest pain, no palpitations, also history of chronic cold tips of fingers and toes, patient was evaluated at urgent Care Clinic of similar symptoms and was refused to nuclear since he was noted to have sinus bradycardia and orthostatic hypotension, patient workup in the ER, showed microcytic chronic anemia unchanged, chronic low platelet count 142, stable electrolytes renal function, liver panel, normal troponin, elevated recent B12 level, CTA head and neck showed moderate stenosis right middle cerebral artery, moderate to high-grade stenosis non dominant left vertebral artery, atherosclerosis at the right carotid bulb and proximal internal carotid artery with approximately 60% luminal narrowing. Will admit patient for orthostatic hypotension and persistent headache. 88 yr old male with past medical history of arthritis, hyperlipidemia, hypothyroidism, echo 2023 showed EF 60-65% moderate aortic valve stenosis presented with headache, unsteady gait, dizziness of several weeks duration noted to have orthostatic hypotension and 60% right internal carotid artery narrowing, therefore admitted to intermediate care unit with a diagnosis of headache and dizziness felt to be multifactorial, likely related to orthostatic hypotension,ddx incude bradycardia, moderate , rule out temporal arteritis, treated with IV fluids, Yvon stockings, ESR was 25 therefore temporal arteritis ruled out, all symptoms of headache and dizziness resolved patient evaluated by Dr. Gardner he feels right internal carotid artery narrowing did not contribute to his symptoms he recommended outpatient follow-up,, patient evaluated by self pay representative Dr. Frost he felt moderate aortic stenosis is stable and not contributing to symptoms, also evaluated by Neurology he fell symptoms related to orthostatic hypotension however he recommended MRI of the brain to rule outs cerebral microvascular disease particularly in the posterior fossa since patient is hemodynamically stable with complete resolution of symptoms he is being discharged home and recommended outpatient follow-up with primary care physician and to arrange for MRI brain. He is recommended to stay hydrated and drink plenty of fluids. In regard to chronic microcytic anemia and thrombocytopenia no significant drop was noted. Hypothyroid had normal TSH, continue levothyroxine Time Attestation Discharge Coordination Time (in mins): 34 Quality: Safe Use of Opioids Does Pt have an Active Cancer Diagnosis on the Problem List?: No Quality: Stroke Does the patient have a stroke diagnosis?: No Physical Exam Vital Signs: Vital Signs: Last Vital Signs Temp 97.1 F 11/24/23 08:00 Pulse 67 11/24/23 09:37 Resp 18 11/24/23 08:00 BP 111/75 11/24/23 09:37 Pulse Ox 94 11/24/23 08:00 O2 Del Method Room Air 11/24/23 08:00 BMI result Body Mass Index 26.8 Const: Other: General awake alert x3, in no acute distress. No nystagmus Neck no JVD. CVS regular rate rhythm, Respiratory lungs clear to auscultation, no respiratory distress, no wheeze, no rhonchi. Gastrointestinal abdomen soft, non tender, bowel sounds audible, no guarding , no rigidity. Extremities no edema. Neuro non focal, moving all 4 extremity, speech clear. Skin no rash Appropriate affect DS: Data Data Completed and Pending Labs on day of discharge: Laboratory Results - last 24 hr 11/23/23 14:08 ESR 25 H Discharge Plan Discharge Anticipated Discharge Date/Time: 11/24/23 10:27 Patient Disposition: Home, Self-Care Discharge Diagnosis: Orthostatic hypotension Referrals: Allison Haley MD [Primary Care Provider] - 1 Week Discharge Medications: Continued ferrous fumarate 324 mg (106 mg iron) tablet 324 mg PO BEDTIME Qty: 90 0RF levothyroxine 25 mcg tablet 25 mcg PO DAILY@0600 Qty: 90 0RF senna 8.6 mg capsule 8.6 mg PO BEDTIME Qty: 90 0RF ascorbic acid (vitamin C) 500 mg capsule 500 mg PO DAILY Discharge Orders: Discharge Order (Routine); Ordered 11/24/23 Ordered By: David Perea Diet: Advance to usual diet Activity on Discharge: As tolerated Stand Alone Forms: Patient Portal Discharge page Print Language: Italian Care Plan Goals: Headache dizziness due to orthostatic hypotension resolved. Recommend to drink fluids stay hydrated get up slowly from sitting position, use Yvon stockings. Health Concerns: Continue all home medications Plan of Treatment: Outpatient follow-up with primary care physician, and obtain outpatient MRI brain Outpatient follow-up with vascular surgeon Dr. Gardner call for appointment Assessment: As above Discharge Date/Time: 11/24/23 11:07
== END 2023-11-24 11:07 | disposition home or self-care (01) | DRG 312 ==
LOC: HO.ED 11-23 00:06 → HO.EDOVER 11-23 10:34 → HO.IMC 11-23 19:13
PROVIDERS: Physician Assistant; Admitting Provider Hospitalist; Emergency Provider Internal Medicine; PCP Internal Medicine; Visit Provider Hospitalist
DX: I95.1 Orthostatic hypotension (principal); I65.21 Occlusion and stenosis of right carotid artery; M31.6 Other giant cell arteritis; E03.9 Hypothyroidism, unspecified; D69.6 Thrombocytopenia, unspecified; I35.0 Nonrheumatic aortic (valve) stenosis; D53.9 Nutritional anemia, unspecified; Z20.822 Contact with and (suspected) exposure to COVID-19; Z79.890 Hormone replacement therapy; Z79.899 Other long term (current) drug therapy
CPT/HCPCS: 36415; 70496; 70498; 80048; 80076; 83735; 84443; 84484; 85025; 85652; 87635; 93005; 96360; 96361; 99285

== ENCOUNTER → 2023-11-23 10:24 | Outpatient (BNV) | payer MEDICARE, SELFPAY | PROVIDERS: Admitting Provider Hospitalist; Emergency Provider Internal Medicine; PCP Internal Medicine; Visit Provider Surgery Vascular Surgery | DX: I65.21 Occlusion and stenosis of right carotid artery (principal) | CPT/HCPCS: 99222 ==

== ENCOUNTER → 2023-11-23 10:24 | Outpatient (BNV) | payer MEDICARE, SELFPAY | PROVIDERS: Admitting Provider Hospitalist; Emergency Provider Internal Medicine; PCP Internal Medicine; Visit Provider Internal Medicine Cardiovascular Disease | DX: I95.1 Orthostatic hypotension (principal); I35.0 Nonrheumatic aortic (valve) stenosis | CPT/HCPCS: 99222 ==

== ENCOUNTER → 2023-11-23 10:24 | Outpatient (BNV) | payer MEDICARE, SELFPAY | PROVIDERS: Admitting Provider Hospitalist; Emergency Provider Internal Medicine; PCP Internal Medicine; Visit Provider Psychiatry & Neurology Neurology | DX: R42 Dizziness and giddiness (principal) | CPT/HCPCS: 99222 ==

== ENCOUNTER → 2023-11-23 10:24 | Outpatient (BNV) | payer MEDICARE, SELFPAY | PROVIDERS: Admitting Provider Hospitalist; Emergency Provider Internal Medicine; PCP Internal Medicine; Visit Provider Hospitalist | DX: I95.1 Orthostatic hypotension (principal) | CPT/HCPCS: 99223; 99239 ==

== ENCOUNTER 2023-12-07 12:05 | Outpatient (AMB) | payer MEDICARE, SELFPAY ==
[2023-12-07 12:21] VITALS: BP 132/62; PULSE 68; O2SAT 96; BMI 27.1
--- NOTE | 2023-12-07 12:21 | MHC.PC.OV ---
Vital Signs 12/07/23 12:21 Height 6 ft Weight 199 lb 8 oz BMI 27.1 BP 132/62 Blood Pressure Location Lt brachial Position Sitting Pulse 68 Pulse Source Pulse Oximeter Pulse Oximetry (%) 96 Oxygen Delivery Method Room Air Intake Visit Reasons: [facility] [place]/A & dizziness Intake Note: Pt is here today for HDF follow up [place] [facility] Allergies No Known Allergies Allergy (Verified 12/07/23 13:06) Medication List - Last Reconciled 12/07/23 by Allison Haley MD ascorbic acid (vitamin C) 500 mg PO DAILY ferrous fumarate 324 mg PO BEDTIME levothyroxine 25 mcg PO DAILY@0600 sennosides (senna) 8.6 mg PO BEDTIME Tobacco use date assessed: 12/07/23 Fall risk assessment: 1 Fall in past year Last assessed Fall Risk: 12/07/23 Dental Screening Dental Screen Date: 12/07/23 Did you have a dental visit in the last 12 months?: Yes Did you have a dental problem in the last 6 months where you did not have access to dental care?: No Was dental information given to patient?: Patient has dentist HPI [facility] H/A & dizziness HPI Details 88 yr old male with past medical history of arthritis, dyslipidemia, hypothyroidism, orthostatic hypotension , here today for follow-up after admission at [facility] where he was complaining of intermittent headache which has been present now for the last month. This was not accompanied by any nausea, no vomiting, no lightheadedness, , no chest pain, no shortness of breath, no palpitations, no urinary symptoms no abdominal pain. He presented to an urgent care clinic with the same symptoms , and was noted to have sinus bradycardia and orthostatic hypotension. 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 Will admit patient for orthostatic hypotension and persistent headache. He was treated with IV fluids, temporal arteritis rubs ruled out with sed rate of 25. Patient's headache resolved completely. Was evaluated by vascular surgery, Dr. Gardner who states that the right internal carotid artery narrowing did not contribute to his symptoms, and recommended outpatient follow-up. He was also seen by Dr. Georgiana vu , cardiology, who felt that his moderate aortic stenosis is stable and not contributing to symptoms. Neurology also consulted who recommended MRI of the brain to rule out cerebral microvascular disease but to do this outpatient. He remained hemodynamically stable with complete symptomatic resolution, advised to stay well-hydrated. His thyroid levels were checked with normal TSH and was continued on current dose of levothyroxine. 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 Mother No problems noted. Social History Household Members: Spouse Housing: House Do you presently have visiting nurse or other home services: No Alcohol intake: former Patient Tobacco Use Status: Never used Tobacco e-Cigarette/Vaping Use: Never Used Second Hand Smoke Exposure: Yes service: No Current occupational status: retired Cognitive needs: No Hearing needs: Yes Vision needs: Yes (Pt wear glasses) Questionnaire PHQ-9 Over the last 2 weeks, how often have you been bothered by any of the following problems? 1. Little interest or pleasure in doing things: not at all 2. Feeling down, depressed, or hopeless: not at all 3. Trouble falling or staying asleep, or sleeping too much: not at all 4. Feeling tired or having little energy: several days 5. Poor appetite or overeating: not at all 6. Feeling bad about yourself - or that you are a failure or have let yourself or your family down: not at all 7. Trouble concentrating on things, such as reading the newspaper or watching television: not at all 8. Moving or speaking so slowly that other people could have noticed. Or the opposite - being so fidgety or restless that you have been moving around a lot more than usual: not at all 9. Thoughts that you would be better off or of hurting yourself in some way: not at all Total score: 1 Depression Screening Interpretation: Negative Depression Screening Done: Yes 31479 - PHQ-9 Billing: Yes Source: Developed by Drs. Inocencio Alvarez, Robyn Tellez, Bg Posada and colleagues, with an educational nathalia from [employer]. Thrive Questionnaire Date Thrive assessed: 12/07/23 I am a: Patient What is your living situation today?: I have a steady place to live Within the past 12 months, did the food you bought not last and you didn't have the money to get more?: Never true Within the past 12 months, did you worry whether your food would run out before you got money to buy more?: Never true Do you have trouble paying for medicines?: No Do you have trouble getting transportation to medical appointments?: No Do you have trouble paying your heating and electricity bill?: No Do you have trouble taking care of your child, family member or friend?: No Do you have trouble with day-to-day activities such as bathing, preparing meals, shopping, managing finances, etc.?: No Are you currently unemployed and looking for a job?: No Are you interested in more education?: Yes Please select the resources that you would like help with: None Currently or been in a relationship where the following occur: No concerns reported THRIVE Score: 0 AUDIT C Alcohol Use Questionnaire (AUDIT-C) 1. How often do you have a drink containing alcohol?: 2-3 times a week 2. How many drinks containing alcohol do you have on a typical day when you are drinking?: 1 or 2 3. How often do you have six or more drinks on one occasion?: Never Total Score: 3 Score Reviewed/Action Taken: Yes JAS-7 AMB Questionnaire JAS-7 Date JAS - 7 assessed: 12/07/23 Feeling nervous, anxious, or on edge: 0 = Not at all Not being able to stop or control worryin = Not at all Worrying too much about different things: 2 = More than half the days Trouble relaxin = Not at all Being so restless that it is hard to sit still: 0 = Not at all Becoming easily annoyed or irritable: 0 = Not at all Feeling afraid as if something awful might happen: 0 = Not at all Total JAS-7 score (0-4 normal; 5-9 mild; 10-14 moderate; 15-21 severe): 2 Source: Developed by Drs. Inocencio Alvarez, Robyn Tellez, Bg Posada and colleagues, with an educational nathalia from [employer]. JAS-7 Assessment Billing JAS-7 Assessment Tool: JAS-7 Assessment 62773 Review of Systems Const Denies chills, Denies fatigue, Denies fever(s) and Denies weakness ENT Denies dizziness Card Denies chest pain, Denies leg edema, Denies lightheadedness, Denies palpitations, Denies dyspnea and Denies dyspnea on exertion Resp Denies cough, Denies dyspnea and Denies dyspnea on exertion GI Denies change in bowel habits Reports no additional complaints Musc Denies muscle weakness, Denies numbness and Denies tingling Neuro Denies dizziness, Denies numbness, Denies tingling and Denies weakness Endo Denies fatigue and Denies palpitations Ant/Lymph Reports no additional complaints Physical exam (Primary Care) Vital Signs: Last Vital Signs Pulse 68 12/07/23 12:21 BP 132/62 12/07/23 12:21 Pulse Ox 96 12/07/23 12:21 Oxygen Delivery Method Room Air 12/07/23 12:21 BMI result Body Mass Index 27.1 Tobacco/Smoking Status: Tobacco use Status Tobacco use date assessed 12/07/23 12/07/23 12:25 Patient Tobacco Use Status Never used Tobacco 12/07/23 12:25 e-Cigarette/Vaping Use Never Used 12/07/23 12:25 PHQ-9: PHQ-9 Score PHQ-9: Total score 1 12/07/23 13:07 Depression Screening Interpretation: Negative Thrive Assessment: Date of Thrive Assessment Date Thrive assessed 12/07/23 12/07/23 12:27 Currently or been in a relationship where the following occur: No concerns reported Const General: comfortable, no acute distress and alert Orientation/consciousness: patient oriented x3 HENMT Ears: external ears normal, TM's normal bilaterally and EAC's normal General nose exam: Normal external nose present and No nasal discharge present Mouth: Normal oral and palatal mucosa present, oropharynx normal and moist mucous membranes Eyes General: appearance normal, both eyes and all related structures Neck Neck: Yes full ROM, Yes no lymphadenopathy and Yes supple Resp Effort & Inspection: normal respiratory effort and able to speak in complete sentences Auscultation: clear to auscultation bilaterally Cardio Rate: regular rate Rhythm: regular rhythm Heart sounds: S1 normal heart sound present, S2 normal heart sound present and Murmur heart sound present systolic (at aortic area) GI Palpation (GI): Soft to palpation, nontender and no masses Auscultation: normal bowel sounds Neuro General: patient oriented x3, gait normal, tone normal, moves all extremities, Normal light touch and pain sensation and no focal motor deficits Cranial nerves: Yes CN's II-XII intact bilaterally Cognition (Neuro): normal cognition Extrem General: Yes full ROM, Yes no joint enlargement, Yes no clubbing, cyanosis or edema and Yes no calf tenderness Psych Appearance: grossly normal and well kempt Mental Status: mental status grossly normal Speech and movement: Normal speech and movement present Affect: normal affect Attitude: cooperative Thought process: Normal thought process present Thought content: Normal thought content present, suicidality and no homicidality Results Reviewed Results Reviewed: Name: Ruy Ingram Age/Sex: 88/M : 1935 Unit#: [id number] Attend Dr: David Perea MD Re11/23/23 Status: DIS IN Location: [facility] 446-1 Disch: 11/24/23 SPEC : [id number] BERNADINE: 11/22/23 STATUS: COMP REQ : [id number] RECD: 11/22/[address]: Mercedes Allen COMP: 11/22/23 ENTERED: 11/22/[address]: Allison Haley MD ORDERED: CBC Auto Diff, SLIDE REVIEW Test Result Flag Reference WBC 10.4 4.8-10.8 X10*3/uL RBC 3.23 L 4.60-5.80 X10*6/uL HGB 10.6 L 14.0-18.0 g/dl HCT 32.2 L 42.0-52.0 % MCV 99.7 H 80.0-98.0 fL MCH 32.8 27.0-33.0 pg MCHC 32.9 31.0-36.0 g/dl RDW 19.7 H 11.0-16.0 % PLT 142 L 160-400 X10*3/uL MPV 11.8 9.4-12.4 fL Neut Pct Auto 65.7 45-73 % ImGran Pct Auto 1.9 H 0.0-0.4 % Lymp Pct Auto 17.8 L 20-40 % Vermillion Pct Auto 9.1 2-11 % Eos Pct Auto 4.7 H 0-4 % Baso Pct Auto 0.8 0-2 % NRBC Pct Auto 0.0 0.0-0.2 /100WBC ANC Neut Abs # 6.9 2.0-8.3 x10*3/uL ImGran Abs Auto 0.20 H 0.00-0.03 X10*3/uL Lymph Abs Auto 1.9 1.2-4.9 X10*3/uL Vermillion Abs Auto 1.0 0.1-1.2 X10*3/uL Eos Abs Auto 0.5 H 0.0-0.4 X10*3/uL Baso Abs Auto 0.1 0.0-0.2 X10*3/uL NRBC Abs Auto 0.000 0.0-0.012 X10*3/uL SLIDE REVIEW VERIFIED Name: Ruy Ingram Age/Sex: 88/M : 1935 Unit#: [id number] Attend Dr: David Perea MD Re11/23/23 Status: DIS IN Location: [facility] 446-1 Disch: 11/24/23 SPEC : [id number] BERNADINE: 11/22/23 STATUS: COMP REQ : [id number] RECD: 11/22/23-[address]: Mercedes Allen COMP: 11/22/23-1646 ENTERED: 11/22/23-[address]: Allison Haley MD ORDERED: Liver Panel, BMP, MG, TSH Rflx Test Result Flag Reference Sodium 139 135-145 mmol/L Potassium 4.7 3.3-5.1 mmol/L CL 105 96-108 mmol/L CO2 28 22-29 mmol/L Gap 11 L 12-20 BUN 16 9-16 mg/dL Creat 0.81 0.5-1.4 mg/dL Estimated CrCl 70.5 eGFR (calculated from the MDRD study equation) and eCrCl (calculated from the Cockcroft-Gault equation) are based on different parameters and may not yield comparable results. If eCrCl result is absurd, please check patient's height/weight. EGFR > 60 NOTE: For -[place] individuals, multiply the result by 1.210. Chronic Kidney Disease: Estimated GFR < 60 mL/min/1.73m2 Severe Kidney Disease: Estimated GFR < 15 mL/min/1.73m2 Glucose, Random 91 60-115 mg/dL CA 9.4 # 8.4-10.2 mg/dL Magnesium 2.2 1.6-2.6 mg/dL Total Bili 0.8 0.0-1.0 mg/dL Direct Bili 0.3 0.0-0.5 mg/dL AST (GOT) 27 5-37 U/L ALT (GPT) 15 0-40 U/L Protein, Total 6.7 6.5-8.0 g/dL Alb 4.1 3.5-5.0 g/dL Alk Phos 42 39-117 U/L TSH 2.46 0.32-4.0 uIU/mL Laboratory Tests 11/17/23 07:05 Iron 148 TIBC 278 % Saturation 53 H Unsat Iron Binding 130 Vitamin B12 1360 H Folate 10.7 Assessment and Plan Assessment & Plan (1) Anemia: Code(s): D64.9 - Anemia, unspecified Qualifiers: Anemia type: unspecified type Qualified Code(s): D64.9 - Anemia, unspecified Plan: Chronic unchanged from previous labs, will repeat CBC (2) Hypothyroidism (acquired): Code(s): E03.9 - Hypothyroidism, unspecified Plan: Continue with current dose levothyroxine ordered TSH and free T4 level (3) History of headache: Code(s): Z87.898 - Personal history of other specified conditions Plan: Patient states he feels well, no further headache episodes, no gait unsteadiness, does not want to pursue an MRI of the brain at present time Orders: Orders Free T4 (Free Thyroxine) 01/04/24 D64.9 - Anemia, unspecified, E03.9 - Hypothyroidism, unspecified Complete Blood Count Auto Diff 01/04/24 D64.9 - Anemia, unspecified, E03.9 - Hypothyroidism, unspecified Thyroid Stimulating Hormone 01/04/24 D64.9 - Anemia, unspecified, E03.9 - Hypothyroidism, unspecified Coding Level of Care Code Est Pt Level 4 (81640) Diagnoses Anemia, unspecified type D64.9 Anemia type: unspecified type Hypothyroidism (acquired) E03.9 History of headache Z87.898 Additional Codes JAS-7 Assessment Billing - JAS-7 Assessment Tool: JAS-7 Assessment 27564 ([id number])
== END 2023-12-07 13:46 | disposition home or self-care (01) ==
PROVIDERS: PCP Internal Medicine; Visit Provider Internal Medicine
DX: D64.9 Anemia, unspecified (principal); E03.9 Hypothyroidism, unspecified; Z87.898 Personal history of other specified conditions
CPT/HCPCS: 99214

== ENCOUNTER 2023-12-30 13:54 | Outpatient (AMB) | payer MEDICARE, SELFPAY ==
--- NOTE | 2023-12-30 14:49 | A.OFFVIS_ITS ---
Intake Visit Reasons: ED follow up carotid stenosis Intake Note: Patient presents for follow up carotid stenosis, seen in the emergency room. Currently has no symptoms or complaints. Accompanied by: Self / Same As Patient Allergies No Known Allergies Allergy (Verified 12/30/23 14:51) HPI HPI ED follow up carotid stenosis: Details: Very pleasant 88-year-old gentleman presents for hospital follow-up. He had originally been seen in the hospital for orthostatic hypotension he had a pressure-like headache that had been going on for about a month. He had a dizzy spell was brought to the emergency room. Underwent CTA which demonstrated high- grade stenosis in the left vert and right carotid stenosis of about 60%. He continues to be active gentleman going to the [employer] gym and is irregular golfer. At the current time he continues to golf and bending over causes him some issues. He has not had any recurrent events. He now presents for routine follow-up. [facility] Medical History Overweight (BMI 25.0-29.9) BPH (benign prostatic hyperplasia) Primary osteoarthritis of left hip Rotator cuff arthropathy of left shoulder Degenerative disc disease, cervical Primary osteoarthritis of right knee Dyslipidemia Surgical History History of cataract extraction H/O right hemicolectomy History of total left hip replacement History of arthroscopy of right knee Family History Father No problems noted. Mother No problems noted. Social History Household Members: Spouse Housing: House Do you presently have visiting nurse or other home services: No Alcohol intake: former Patient Tobacco Use Status: Never used Tobacco e-Cigarette/Vaping Use: Never Used Second Hand Smoke Exposure: Yes service: No Current occupational status: retired Cognitive needs: No Hearing needs: Yes Vision needs: Yes (Pt wear glasses) Review of Systems Const All systems reviewed & are unremarkable except as noted in HPI and below Reports no additional complaints ENT Reports Normal hearing present Card Denies chest pain, Denies chest pain at rest, Denies chest pain with activity and Denies pedal edema Resp Denies cough GI Denies abdominal pain Musc Denies abnormal gait, Denies muscle cramps and Denies radiating pain into limb Skin/Breast Denies skin ulcer and Denies wounds Neuro Reports Normal hearing present and Denies abnormal gait Psych Reports no additional complaints Physical Exam Const General: cooperative, healthy appearing and comfortable Orientation/consciousness: oriented to person, oriented to place and oriented to time HEENT Head: Yes normal to inspection Neck Neck: Yes normal visual inspection Carotids: no bruits Chest Chest palpation & inspection: normal inspection of the chest Resp Effort & Inspection: normal respiratory effort and able to speak in complete sentences Auscultation: clear to auscultation bilaterally, no crackles, no rales, no rhonchi and no wheezes Cardio Rate: regular rate Rhythm: regular rhythm Heart sounds: S1 normal heart sound present and S2 normal heart sound present Bruits: no carotid bruits Peripheral pulses: Peripheral pulses 2+ throughout GI Inspection: Yes normal to inspection Skin Wounds: no wounds Hair: normal Neuro General: oriented to person, oriented to place and oriented to time Cranial nerves: Yes CN's II-XII intact bilaterally and Yes Normal hearing present Cognition (Neuro): normal cognition Motor exam (neuro): 5/5 motor strength present throughout Extrem Other: venous exam: No significant superficial varicosities or spider telangiectasias, minimal edema General: No clubbing, No cyanosis and No edema Psych Appearance: grossly normal Mental Status: mental status grossly normal Speech and movement: Normal speech and movement present Assessment & Plan Assessment & Plan (1) Bilateral carotid artery stenosis: Code(s): I65.23 - Occlusion and stenosis of bilateral carotid arteries Category: Medical Plan: In short patient has asymptomatic carotid disease. I do not think the carotid disease caused his symptoms of dizziness. We have reviewed signs and symptoms of a stroke. We also discussed risk factor modification inclusive a healthy diet low in cholesterol. The patient will follow up with us with surveillance ultrasound of the carotids 6 months. Should there be any changes or signs or symptoms of a stroke we will be happy to see them back sooner. Thank you for allowing us to participate in this patient's care. If there are any questions or concerns please do not hesitate to contact us. Please note a longitudinal relationship has been created with the patient and we have been following and surveillance this chronic condition. Orders: Orders US carotid duplex BI 6 Months I65.23 - Occlusion and stenosis of bilateral carotid arteries Coding Level of Care Code Est Pt Level 4 (68722) Complex EM visit Add On G2211 Diagnoses Bilateral carotid artery stenosis I65.23
== END 2023-12-30 15:06 | disposition home or self-care (01) ==
PROVIDERS: PCP Internal Medicine; Visit Provider Surgery Vascular Surgery
DX: I65.23 Occlusion and stenosis of bilateral carotid arteries (principal)
CPT/HCPCS: 99214; G2211

== ENCOUNTER → 2023-12-30 13:54 | Outpatient (BNVA) | payer MEDICARE, SELFPAY | PROVIDERS: PCP Internal Medicine; Visit Provider Surgery Vascular Surgery | DX: I65.23 Occlusion and stenosis of bilateral carotid arteries (principal); R51.9 Headache, unspecified | CPT/HCPCS: 99212 ==

== ENCOUNTER 2024-01-18 09:30 | Outpatient (AMB) | payer MEDICARE, SELFPAY ==
--- NOTE | 2024-01-18 09:32 | A.OFFVIS_ITS ---
VS Expanded 01/18/24 09:34 Height 6 ft Weight 199 lb 15.348 oz BMI 27.1 Intake Visit Reasons: Overweight/LVM Allergies No Known Allergies Allergy (Verified 12/30/23 14:51) Nutrition Presentation Details: Pt presents for MNT f/u overweight Pt reports feeling well, keeps physically active with daily life activities Has hx of anemia and wants to review dietary concepts related to anemia BS Monitoring Most Recent Diabetes Results: Creatinine 0.81 mg/dL (0.5-1.4) 11/22/23 Blood Urea Nitrogen 16 mg/dL (9-16) 11/22/23 Sodium 139 mmol/L (135-145) 11/22/23 Potassium 4.7 mmol/L (3.3-5.1) 11/22/23 Chloride 105 mmol/L (96-108) 11/22/23 Carbon Dioxide 28 mmol/L (22-29) 11/22/23 Calcium 9.4 mg/dL (8.4-10.2) 11/22/23 AST 27 U/L (5-37) 11/22/23 ALT 15 U/L (0-40) 11/22/23 Total Protein 6.7 g/dL (6.5-8.0) 11/22/23 Albumin 4.1 g/dL (3.5-5.0) 11/22/23 [facility] Medical History Overweight (BMI 25.0-29.9) BPH (benign prostatic hyperplasia) Primary osteoarthritis of left hip Rotator cuff arthropathy of left shoulder Degenerative disc disease, cervical Primary osteoarthritis of right knee Dyslipidemia Surgical History History of cataract extraction H/O right hemicolectomy History of total left hip replacement History of arthroscopy of right knee Family History Father No problems noted. Mother No problems noted. Social History Household Members: Spouse Housing: House Do you presently have visiting nurse or other home services: No Alcohol intake: former Patient Tobacco Use Status: Never used Tobacco e-Cigarette/Vaping Use: Never Used Second Hand Smoke Exposure: Yes service: No Current occupational status: retired Cognitive needs: No Hearing needs: Yes Vision needs: Yes (Pt wear glasses) Assessment & Plan Assessment & Plan (1) Anemia: Code(s): D64.9 - Anemia, unspecified Category: Medical Qualifiers: Anemia type: unspecified type Qualified Code(s): D64.9 - Anemia, unspecified Plan: Review iron and vitamin c rich sources of foods as per Pt request Patient Instructions: See list of iron rich foods (ex choose molasses, raisins, spinach, beef ,eggs, cereals fortified with iron Coding Level of Care Code Nutr Indiv Subseq (32738) Diagnoses Anemia, unspecified type D64.9 Anemia type: unspecified type Time Spent (min) 18
[2024-01-18 09:34] VITALS: BMI 27.1
== END 2024-01-18 10:12 | disposition home or self-care (01) ==
PROVIDERS: PCP Internal Medicine; Visit Provider Dietitian, Registered
DX: D64.9 Anemia, unspecified (principal)

== ENCOUNTER → 2024-01-18 09:30 | Outpatient (BNVA) | payer MEDICARE, SELFPAY | PROVIDERS: PCP Internal Medicine; Visit Provider Dietitian, Registered | DX: E66.3 Overweight (principal); D64.9 Anemia, unspecified; Z68.27 Body mass index [BMI] 27.0-27.9, adult | CPT/HCPCS: 97803 ==

== ENCOUNTER 2024-01-20 08:35 | Outpatient (REF) | payer MEDICARE, SELFPAY ==
[2024-01-20 10:03] LABS: MANUAL DIFF FLAG NO
[2024-01-20 10:09] LABS: Basophils Absolute Auto 0.1 X10*3/uL (0.0-0.2); Basophils Percent Auto 1.1 % (0-2); Eosinophils Absolute Auto 0.4 X10*3/uL (0.0-0.4); Eosinophils Percent Auto 4.5 % (0-4); Hematocrit 33.3 % (42.0-52.0); Imm Gran Abs Auto 0.21 X10*3/uL (0.00-0.03); Imm Gran Pct Auto 2.4 % (0.0-0.4); Lymphocytes Absolute Auto 1.6 X10*3/uL (1.2-4.9); Lymphocytes Percent Auto 17.9 % (20-40); Mean Corpuscular Hemoglobin 32.5 pg (27.0-33.0); Mean Corpuscular Volume 98.5 fL (80.0-98.0); Mean Platelet Volume 11.8 fL (9.4-12.4); Monocytes Absolute Auto 0.9 X10*3/uL (0.1-1.2); Monocytes Percent Auto 10.7 % (2-11); Neutrophils Absolute Auto 5.6 x10*3/uL (2.0-8.3); Neutrophils Percent Auto 63.4 % (45-73); Platelet Count 131 X10*3/uL (160-400); Red Blood Count 3.38 X10*6/uL (4.60-5.80); Red Cell Distribution Width 19.1 % (11.0-16.0); White Blood Count 8.8 X10*3/uL (4.8-10.8)
[2024-01-20 11:27] LABS: Free T4 (Free Thyroxine) 0.64 ng/dL (0.71-1.85); Thyroid Stimulating Hormone 4.44 uIU/mL (0.32-4.0)
== END 2024-01-20 08:36 | disposition home or self-care (01) ==
LOC: HO.HMGCLDS 08:35
PROVIDERS: PCP Internal Medicine; Visit Provider Internal Medicine
DX: D64.9 Anemia, unspecified (principal); E03.9 Hypothyroidism, unspecified
CPT/HCPCS: 36415; 84439; 84443; 85025

== ENCOUNTER 2024-01-27 09:08 | Outpatient (AMB) | payer MEDICARE, SELFPAY ==
[2024-01-27 09:29] VITALS: BP 118/58; PULSE 53; O2SAT 100; BMI 27.1
--- NOTE | 2024-01-27 09:29 | A.OFFPC_ITS ---
Vital Signs 01/27/24 09:29 Height 6 ft Weight 200 lb BMI 27.1 BP 118/58 L Blood Pressure Location Lt brachial Position Sitting Pulse 53 Pulse Source Pulse Oximeter Pulse Oximetry (%) 100 Oxygen Delivery Method Room Air Intake Visit Reasons: Ammonia recovery Intake Note: Pt is here today for a follow up visit. Allergies No Known Allergies Allergy (Verified 01/30/24 14:39) Medication List - Last Reconciled 01/30/24 by Allison Haley MD ascorbic acid (vitamin C) 500 mg PO DAILY ferrous fumarate 324 mg PO BEDTIME levothyroxine 50 mcg PO DAILY@0600 sennosides (senna) 8.6 mg PO BEDTIME Tobacco use date assessed: 12/07/23 Dental Screening Dental Screen Date: 12/07/23 HPI HPI Comments History of Present Illness Details 88-year-old male with history of anemia and hypothyroidism, here today for follow-up. Has been feeling well, compliant with taking his medications. Recent fasting labs done which showed some improvement in his hemoglobin and hematocrit, currently on ferrous fumarate. Thyroid levels however was noted to be on a low normal side. Currently on levothyroxine 25 mcg taken once a day. 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 Mother No problems noted. Social History Household Members: Spouse Housing: House Do you presently have visiting nurse or other home services: No Alcohol intake: former Patient Tobacco Use Status: Never used Tobacco e-Cigarette/Vaping Use: Never Used Second Hand Smoke Exposure: Yes service: No Current occupational status: retired Cognitive needs: No Hearing needs: Yes Vision needs: Yes (Pt wear glasses) Questionnaire Thrive Questionnaire Date Thrive assessed: 12/05/23 I am a: Patient What is your living situation today?: I have a steady place to live Within the past 12 months, did the food you bought not last and you didn't have the money to get more?: Never true Within the past 12 months, did you worry whether your food would run out before you got money to buy more?: Never true Do you have trouble paying for medicines?: No Do you have trouble getting transportation to medical appointments?: No Do you have trouble paying your heating and electricity bill?: No Do you have trouble taking care of your child, family member or friend?: No Do you have trouble with day-to-day activities such as bathing, preparing meals, shopping, managing finances, etc.?: No Are you currently unemployed and looking for a job?: No Are you interested in more education?: Yes Please select the resources that you would like help with: None Currently or been in a relationship where the following occur: No concerns reported THRIVE Score: 0 JAS-7 AMB Questionnaire JAS-7 Date JAS - 7 assessed: 12/07/23 Source: Developed by Drs. Inocencio Alvarez, Robyn Tellez, Bg Posada and colleagues, with an educational nathalia from [employer]. Review of Systems Const Denies fever(s) and Denies weakness ENT Denies dizziness Card Denies chest pain, Denies leg edema, Denies lightheadedness and Denies dyspnea Resp Denies cough and Denies dyspnea GI Denies change in bowel habits Reports no additional complaints Neuro Denies dizziness and Denies weakness Ant/Lymph Reports no additional complaints Physical exam (Primary Care) Vital Signs: Last Vital Signs Pulse 53 01/27/24 09:29 BP 118/58 L 01/27/24 09:29 Pulse Ox 100 01/27/24 09:29 Oxygen Delivery Method Room Air 01/27/24 09:29 BMI result Body Mass Index 27.1 Tobacco/Smoking Status: Tobacco use Status Tobacco use date assessed 12/07/23 01/27/24 09:37 Patient Tobacco Use Status Never used Tobacco 01/27/24 09:37 e-Cigarette/Vaping Use Never Used 01/27/24 09:37 Thrive Assessment: Date of Thrive Assessment Date Thrive assessed 12/05/23 01/27/24 09:37 Currently or been in a relationship where the following occur: No concerns reported Const General: comfortable, no acute distress and alert Orientation/consciousness: patient oriented x3 HENMT Ears: external ears normal, TM's normal bilaterally and EAC's normal General nose exam: Normal external nose present and No nasal discharge present Mouth: Normal oral and palatal mucosa present, oropharynx normal and moist mucous membranes Eyes General: appearance normal, both eyes and all related structures Neck Neck: Yes full ROM, Yes no lymphadenopathy and Yes supple Resp Effort & Inspection: normal respiratory effort and able to speak in complete sentences Auscultation: clear to auscultation bilaterally Cardio Rate: regular rate Rhythm: regular rhythm Heart sounds: S1 normal heart sound present, S2 normal heart sound present and Murmur heart sound present systolic (at aortic area) GI Palpation (GI): Soft to palpation, nontender and no masses Auscultation: normal bowel sounds Neuro General: patient oriented x3, gait normal, tone normal, moves all extremities, Normal light touch and pain sensation and no focal motor deficits Cranial nerves: Yes CN's II-XII intact bilaterally Cognition (Neuro): normal cognition Extrem General: Yes full ROM, Yes no joint enlargement, Yes no clubbing, cyanosis or edema and Yes no calf tenderness Results Reviewed Results Reviewed: Laboratory Tests 11/22/23 01/20/24 16:05 09:08 WBC 8.8 Hgb 10.6 L 11.0 L Hct 32.2 L 33.3 L MCV 99.7 H 98.5 H RDW 19.1 H Plt Count 131 L TSH 4.44 H Free T4 0.64 L Coding Level of Care Code Est Pt Level 4 (90061) Complex EM visit Add On G2211 Diagnoses Anemia, unspecified type D64.9 Anemia type: unspecified type Hypothyroidism E03.9 Assessment & Plan Assessment & Plan (1) Anemia: Code(s): D64.9 - Anemia, unspecified Category: Medical Qualifiers: Anemia type: unspecified type Qualified Code(s): D64.9 - Anemia, unspecified Plan: Improvement in hemoglobin hematocrit levels noted. Continued on fumarate 324 mg 1 tablet daily to be taken together with vitamin-C for better absorption. Take senna as needed for constipation (2) Hypothyroidism: Code(s): E03.9 - Hypothyroidism, unspecified Category: Medical Plan: Recent thyroid levels reviewed with patient with low free T4 noted, will increase dose of levothyroxine to 50 mcg daily taken once a day in a.m. an hour before breakfast. Repeat another CBC thyroid level iron profile in 6 weeks Orders: Orders Complete Blood Count Auto Diff 6 Weeks D64.9 - Anemia, unspecified IRON PROFILE 6 Weeks D64.9 - Anemia, unspecified Thyroid Stimulating Hormone 6 Weeks D64.9 - Anemia, unspecified Free T4 (Free Thyroxine) 6 Weeks D64.9 - Anemia, unspecified Medications: Changed From levothyroxine 25 mcg PO DAILY@0600 90 tabs 0RF To levothyroxine 50 mcg PO DAILY@0600 90 tabs 1RF Refilled ferrous fumarate 324 mg PO BEDTIME 90 tabs 1RF
== END 2024-01-27 10:22 | disposition home or self-care (01) ==
PROVIDERS: PCP Internal Medicine; Visit Provider Internal Medicine
DX: D64.9 Anemia, unspecified (principal); E03.9 Hypothyroidism, unspecified

== ENCOUNTER → 2024-01-27 09:08 | Outpatient (BNVA) | payer MEDICARE, SELFPAY | PROVIDERS: PCP Internal Medicine; Visit Provider Internal Medicine | DX: G62.89 Other specified polyneuropathies (principal); D64.9 Anemia, unspecified; E03.9 Hypothyroidism, unspecified | CPT/HCPCS: 99202; 99212 ==

== ENCOUNTER 2024-01-27 10:48 | Outpatient (AMB) | payer MEDICARE, SELFPAY ==
--- NOTE | 2024-01-27 10:51 | A.OFFVIS_ITS ---
Vital Signs 01/27/24 10:53 Height 6 ft Weight 202 lb 8 oz BMI 27.5 BP 118/60 Blood Pressure Location Rt brachial Position Sitting Intake Visit Reasons: INP-Polyneuropathy, unspecified Intake Note: Patient presents for a new patient evaluation for polyneuropathy. Patient reports concern for lack of balance. He is questioning if neuropathy can cause balance issues. Biologist Required: No Accompanied by: Self / Same As Patient Allergies No Known Allergies Allergy (Verified 01/30/24 14:39) HPI HPI INP-Polyneuropathy, unspecified: Details: HPI Comments Details: 88 year old male presents with history of BPH, Osteoporosis of R. Hip, Rotator Cuff Arthropathy, degenerative disc disease and dyslipidemia, and orthostatic hypotension referred to Neurology for bilateral numbness of the feet. In August 2023 he had Pneumonia and was hospitalized, he began to have headaches, dizziness and hypotension. He is an avid golfer and notices his fingers and toes also get cold and start to throb with pain, he also notices dropping things occasionally. He wears compression stockings to help with BP, however he has been taking the stockings off at night and continues to have the numbness and cold feet. He denies nausea, vomiting, vision changes, tingling or being off balance, forgetfulness, sleep disturbances or confusion. [facility] Medical History (Updated 01/31/24 @ 08:27 by Ana Laura Almonte MD) Peripheral neuropathy Hypothyroidism Overweight (BMI 25.0-29.9) BPH (benign prostatic hyperplasia) Primary osteoarthritis of left hip Rotator cuff arthropathy of left shoulder Degenerative disc disease, cervical Primary osteoarthritis of right knee Dyslipidemia Surgical History (Updated 01/30/24 @ 14:42 by Alilson Haley MD) History of total right knee replacement (TKR) History of cataract extraction H/O right hemicolectomy History of total left hip replacement History of arthroscopy of right knee Family History Father No problems noted. Mother No problems noted. Social History Household Members: Spouse Housing: House Do you presently have visiting nurse or other home services: No Alcohol intake: former Patient Tobacco Use Status: Never used Tobacco e-Cigarette/Vaping Use: Never Used Second Hand Smoke Exposure: Yes service: No Current occupational status: retired Cognitive needs: No Hearing needs: Yes Vision needs: Yes (Pt wear glasses) Review of Systems Const Details: Pleasant, oriented X 3. Neuro Details: Cooperative, pleasant male. Reports as per HPI Physical Exam Vital Signs: Last Vital Signs BP 118/60 01/27/24 10:53 BMI result Body Mass Index 27.5 Const General: cooperative, healthy appearing and Physically active Nutritional Appearance: average body habitus Orientation/consciousness: patient oriented x3 Limitations: no limitations HEENT Face and sinus: Yes normal facial exam Mouth: tongue normal Eyes Pupils: Equal, round and reactive pupils present and Pupils normal by confrontation EOM: EOMs intact bilaterally Neck Neck: Yes normal visual inspection and Yes full ROM Resp Effort & Inspection: normal respiratory effort and able to speak in complete sentences Neuro Other: Feet - normal arches, cameron bunions with toe valgus Decreased PP in distal LE General: patient oriented x3 and moves all extremities Cranial nerves: Yes CN's II-XII intact bilaterally, Yes Facial sensation intact/muscles of mastication intact, Yes Equal, round and reactive pupils present, Yes Normal accommodation reflex present, Yes Bilaterally intact EOM present and Yes Midline tongue present Cognition (Neuro): normal cognition Gait exam (Neuro): Antalgic gait present Motor exam (neuro): 5/5 motor strength present throughout Deep tendon reflexes (DTR's): Right triceps reflex intensity grade: 1+, Left triceps reflex intensity grade: 1+, Rt Biceps (C5, C6): 2+, Left biceps reflex intensity grade: 2+, Right brachioradialis reflex intensity grade: 1+, Left brachioradialis reflex intensity grade: 1+, Right patellar reflex intensity grade: 1+ and Left patellar reflex intensity grade: 1+ Coordination: [id number] test normal and Romberg test negative Extrem General: Yes full ROM and Yes normal gait Right lower extremity: foot (Toenails both feet, fungus.) Details: other Psych Appearance: grossly normal Mental Status: mental status grossly normal Speech and movement: Normal speech and movement present Affect: normal affect Attitude: cooperative Thought process: Normal thought process present and Tangential thought process present Insight: Good insight present (Psych) Judgement: Good judgement present (Psych) Assessment & Plan Assessment & Plan (1) Peripheral neuropathy: Comment: Likely hereditary Code(s): G62.9 - Polyneuropathy, unspecified Category: Medical Qualifiers: Peripheral neuropathy type: polyneuropathy, other Qualified Code(s): G62.89 - Other specified polyneuropathies Plan His symptoms are minimal, i will follow him up clinically suggested PT or increasing physical activity Podiatry evaluation for bunions Coding Level of Care Code New Pt Level 4 (44062) Complex EM visit Add On G2211 Diagnoses Other polyneuropathy G62.89 Peripheral neuropathy type: polyneuropathy, other
[2024-01-27 10:53] VITALS: BP 118/60; BMI 27.5
== END 2024-01-27 11:59 | disposition home or self-care (01) ==
PROVIDERS: PCP Nurse Practitioner Primary Care; Visit Provider Psychiatry & Neurology Neurology
DX: G62.89 Other specified polyneuropathies (principal)
CPT/HCPCS: 99204; G2211

== ENCOUNTER 2024-02-02 09:15 | Outpatient (REF) | payer MEDICARE, SELFPAY ==
--- NOTE | ~2024-02-02 | FL_ITS ---
EXAMINATION: XR FLUOROSCOPY UPPER GI WITH AIR CLINICAL INFORMATION: Dysphagia COMPARISON: None TECHNIQUE: Fluoroscopic air contrast upper GI examination was performed utilizing standard techniques with thin and thick barium and effervescent granules. Numerous spot images were obtained. FINDINGS: Lateral cine images of the oropharynx and hypopharynx demonstrate normal swallow mechanism with normal epiglottic inversion and soft palate elevation. There is excessive pooling of contrast in the vallecula and piriform sinuses. No tracheal penetration, glottic or subglottic aspiration identified. No nasopharyngeal reflux present. Hypopharyngeal structures appear normal without evidence of mass or diverticulum. There was no significant cricopharyngeal achalasia. Dual and single contrast images of the esophagus demonstrate a normal caliber, contour, and mucosal pattern. No evidence of stricture, mass, or ulcerations identified. There is to and fro motion of the barium column, with nonpropulsive tertiary contractions noted throughout the esophagus. A very small type I hiatal hernia is present. No significant gastroesophageal reflux was seen during the course of the examination and on reflux views. Dual contrast and single contrast images of the stomach demonstrated a normal contour. The gastric rugal folds have a thickened appearance, suggestive of gastritis no masses or ulcerations are seen. Contrast freely passed into the gastric antrum and duodenal bulb without delay. Single and air-contrast images of the duodenal bulb demonstrate no abnormality. The duodenal sweep has a normal appearance, course, and mucosal fold appearance. The imaged proximal jejunum has a normal fold pattern and caliber. FLUOROSCOPY TIME: 5 minutes Number of Spot Images: 6 Number of Cine: 15 DOSE AREA PRODUCT: 2839 uGy-m2 (microgray-meter squared) FL/FL barium swallow with air IMPRESSION: 1. Excessive pooling of contrast in the vallecula and piriform sinuses. No laryngeal penetration or aspiration was observed. 2. Esophageal dysmotility. 3. Very small type I hiatal hernia 4. Thickened appearance the gastric rugal folds, suggestive of gastritis. This procedure was performed by Raghu Flores PA-C, and supervised by Dr. Mcallister Electronically signed by: Agustin Mcallister MD 02/03/2024 04:43 PM EDT
== END 2024-02-02 09:16 | disposition home or self-care (01) ==
LOC: HO.XRAY 09:15
PROVIDERS: PCP Internal Medicine; Visit Provider Otolaryngology
DX: R13.10 Dysphagia, unspecified (principal); R09.89 Other specified symptoms and signs involving the circulatory and respiratory systems
CPT/HCPCS: 74221

== ENCOUNTER → 2024-02-02 09:50 | Outpatient (BNV) | payer MEDICARE, SELFPAY | PROVIDERS: PCP Internal Medicine; Visit Provider Physician Assistant Surgical | DX: R13.10 Dysphagia, unspecified (principal) | CPT/HCPCS: 74246 ==

== ENCOUNTER → 2024-03-07 09:03 | Outpatient (REF) | payer MEDICARE, SELFPAY ==
--- NOTE | 2024-03-07 09:06 | CA_ITS ---
Transthoracic Echocardiogram Patient (Last, First, Middle): Ruy Ingram W Gender: Male Date of : 1935 Age: 88 Procedure Date: 03/07/2024 Procedure Type: Transthoracic Echocardiogram Location: OP Height: 182.88 cm Weight: 88.45 kg BSA: 2.11 m2 Heart Rate: 109 bpm BP: 124 / 74 mmHg [place] Supervisor: SB Referring MD: Endy Hawthorne MD Symptoms: I35.0 - Nonrheumatic aortic (valve) stenosis Study Quality: Adequate ECG Rhythm: Undetermined Conclusions: - The left ventricular systolic function is low normal. The visually estimated ejection fraction is between 50-55%. - Right ventricle moderate to severely enlarged. - Dilated atria. - There is moderate to severe aortic valve stenosis. Findings Left Ventricle Normal left ventricular cavity size. There is moderately increased left ventricular wall thickness. The left ventricular systolic function is low normal. The visually estimated ejection fraction is between 50-55%. There is no evidence of regional wall motion abnormalities. There is severe septal asymmetric hypertrophy. Right Ventricle There is normal right ventricular systolic function. Right ventricle moderate to severely enlarged. Atria The left atrium is moderately dilated. The right atrium is severely dilated. Aortic Valve There is severe calcification of the aortic valve. There is moderate to severe aortic valve stenosis. The peak aortic velocity is 2.96 m/s with a calculated peak gradient of 35 mmHg. The mean gradient is 25 mmHg. The aortic valve area is 0.96 cm2. Dimensionless index 0.27. Stroke volume index 25 mL/m2. Mitral Valve The mitral valve appears normal. There is trace mitral valve regurgitation. There is no mitral valve stenosis. Pulmonic Valve The pulmonic valve is likely normal. Tricuspid Valve Normal tricuspid valve structure. There is mild tricuspid valve regurgitation. There is no evidence of pulmonary hypertension. Great Vessels The asc aorta is normal in size. Venous The inferior vena cava is dilated and collapses greater than 50% with inspiration. Pericardium/Pleural There is a trivial pericardial effusion. Prior Study Comparison Changes noted compared to prior study dated: 08/12/2023. Some progression of aortic valve stenosis. Increase in right ventricular size. Recommendations, Care & Conclusions No obvious valvular pathology seen on this study. Measurements 2D Linear Measurements IVSd: 1.64 0.6-0.9/0.6-1.0 cm LVIDd: 4.28 3.9-5.3/4.2-5.9 cm LVIDd Index: 2.03 2.4-3.2/2.2-3.1 cm/m2 LVIDs: 2.43 2.0-3.6 cm LVPWd: 1.38 0.7-1.1 cm LA Diam: 4.50 2.7-3.8/3.0-4.0 cm LAIDs Index: 2.13 1.5-2.3 cm/m2 LV Mass: 323.04 67-162/88-224 g LV Mass Index: 153.10 43-95/49-115 g/m2 LVOT Diam: 2.20 3.0+(-)1.3 cm 2D Systolic Function EF 4C: 55.00 >55% EF 2C: 48.30 >55% EF BiP: 51.40 >55% Mitral Valve MV Pk E: 1.06 MV Decel Time: 119.00 E'Medial: 5.98 E/E' Med: 17.70 PHT: 35.00 MVA PHT: 6.29 Decel Burt: 8.88 Aortic Valve AoV Pk Devonte: 2.96 AoV Mn Devonte: 2.41 AoV VTI: 0.57 AoV Pk Grad: 35.00 Aov Mn Grad: 25.00 JOSE MANUEL Cont.VTI: 0.96 LVOT LVOT Pk Devonte: 0.80 LVOT Mn Devonte: 0.53 LVOT VTI: 0.14 LVOT Pk Grad: 3.00 LVOT Mn Grad: 1.00 LVOT Diam: 2.20 LVOT Area: 3.80 Diastolic Function MV Pk E: 1.06 E'Medial: 5.98 E/E' Med: 17.70 Right Ventricle TAPSE (mm): 25.30 TVS' Devonte: 27.60 Tricuspid Valve TR Pk Devonte: 2.40 TR Pk Grad: 23.00 RA Press: 3.00 RVSP: 26.00 Great Vessels Aorta Sinus of Valsalva: 3.60 2.0-3.5 cm Ao Asc: 3.40 2.1-3.4 cm Pulmonary Valve PV Pk Devonte: 1.00 Peak PV Grad: 4.00 Updated in Other Vendor System with Status of Final Endy Hawthorne MD electronically signed on 03/08/2024 12:51:13 PM with status of Final
== END ==
LOC: HO.CARD 09:03
PROVIDERS: PCP Internal Medicine; Visit Provider Internal Medicine
DX: I35.0 Nonrheumatic aortic (valve) stenosis (principal)
CPT/HCPCS: 93306

== ENCOUNTER → 2024-03-07 09:06 | Outpatient (BNV) | payer MEDICARE, SELFPAY | PROVIDERS: PCP Internal Medicine; Visit Provider Internal Medicine | DX: I35.0 Nonrheumatic aortic (valve) stenosis (principal); I35.8 Other nonrheumatic aortic valve disorders; I42.2 Other hypertrophic cardiomyopathy; I36.1 Nonrheumatic tricuspid (valve) insufficiency | CPT/HCPCS: 93306 ==

== ENCOUNTER 2024-03-22 13:40 | Outpatient (AMB) | payer MEDICARE, SELFPAY ==
--- NOTE | 2024-03-22 13:45 | A.OFFVIS_ITS ---
Vital Signs 03/22/24 13:46 Height 6 ft Weight 200 lb 9.93 oz BMI 27.2 BP 120/78 Blood Pressure Location Lt brachial Position Sitting Pulse 106 H Pulse Source Pulse Oximeter Intake Visit Reasons: 6m follow up/Echo Allergies No Known Allergies Allergy (Verified 01/30/24 14:39) Medication List - Last Reconciled 03/22/24 by Endy Hawthorne MD ascorbic acid (vitamin C) 500 mg PO DAILY ferrous fumarate 324 mg PO BEDTIME levothyroxine 50 mcg PO DAILY@0600 sennosides (senna) 8.6 mg PO BEDTIME HPI Comments Details: Ruy returns for follow-up. Few months back, he was seen in consultation regarding aortic stenosis. At that time, not thought to be severe. He stated that he was fine but recently he is noticing some shortness of breath while doing exercise on the treadmill. No clear-cut palpitations. He is slightly tachycardic on exam and hence EKG was performed and that shows probable atrial flutter. 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 Mother No problems noted. Social History Household Members: Spouse Housing: House Do you presently have visiting nurse or other home services: No Alcohol intake: former Patient Tobacco Use Status: Never used Tobacco e-Cigarette/Vaping Use: Never Used Second Hand Smoke Exposure: Yes service: No Current occupational status: retired Cognitive needs: No Hearing needs: Yes Vision needs: Yes (Pt wear glasses) Review of Systems Const Denies weakness ENT Denies dizziness Card Denies chest pain, Denies chest pain with activity, Denies syncope, Denies rapid heart rate, Denies pedal edema, Denies edema, Denies leg edema, Denies lightheadedness, Denies palpitations, Denies dyspnea, Denies dyspnea on exertion and Denies orthopnea Resp Denies cough, Denies dyspnea and Denies dyspnea on exertion GI Denies hematochezia and Denies change in stool character Musc Denies abnormal gait, Denies muscle cramps, Denies muscle weakness, Denies numbness, Denies radiating pain into limb and Denies tingling Neuro Denies abnormal gait, Denies dizziness, Denies syncope, Denies numbness, Denies tingling and Denies weakness Endo Denies palpitations Physical Exam Vital Signs: Last Vital Signs Pulse 106 H 03/22/24 13:46 BP 120/78 03/22/24 13:46 BMI result Body Mass Index 27.2 Const General: comfortable and no acute distress Orientation/consciousness: patient oriented x3 HEENT Other: Unremarkable Head: Yes normal to inspection Neck Neck: Yes normal visual inspection Chest Chest palpation & inspection: normal inspection of the chest Resp Auscultation: clear to auscultation bilaterally Cardio Palpation: normal PMI Heart sounds: S1 normal heart sound present, S2 normal heart sound present, no gallops, Murmur heart sound present systolic III/ and at the right sternal border and no rubs GI Palpation (GI): Soft to palpation Back/Spine/Pelvis Other: unremarkable Skin General skin exam: no rashes or lesions noted Neuro General: patient oriented x3 Extrem General: Yes normal to inspection Psych Mental Status: mental status grossly normal Office Procedures EKG Details: EKG with probable atrial flutter with a ventricular rate of 106/Min. Right bundle-branch block. [id number], Complete Assessment & Plan Assessment & Plan (1) Atrial arrhythmia: Code(s): I49.8 - Other specified cardiac arrhythmias Category: Medical Plan: On the EKG, probable atrial flutter at ventricular rate of 106/Min. In the previous EKG from November, sinus bradycardia at 50/Min with right bundle-branch block and AZ prolongation 216 milliseconds. Overall, suspect he has sick sinus syndrome/atrial arrhythmias. We will get a Holter today. We will discuss with EP regarding further plan. He may need a permanent pacemaker/cardioversion versus ablation. To be decided. (2) Non-rheumatic aortic stenosis: Code(s): I35.0 - Nonrheumatic aortic (valve) stenosis Category: Medical Plan: In the echocardiogram, LVEF 50-55%. Aortic valve is severely calcified. Mean gradient across the aortic valve was 25 mm Hg. Dimensionless index 0.27. Calculated valve area of 0.96 sq cm. Overall, thought to be moderate to severe aortic stenosis, paradoxical, low-flow, low gradient variety. He will need TAVR but we will need to decide on how to proceed considering the above arrhythmia. (3) Right bundle branch block: Code(s): I45.10 - Unspecified right bundle-branch block Category: Medical Plan: Baseline EKG has right bundle-branch block. Overall, underlying conduction system disease and may need a permanent pacemaker. Plan Advised to avoid any strenuous physical ectopy at this time. Orders: Orders ECG 3 day holter monitor Today I49.8 - Other specified cardiac arrhythmias Coding Level of Care Code Est Pt Level 5 (07382) Diagnoses Atrial arrhythmia I49.8 Non-rheumatic aortic stenosis I35.0 Right bundle branch block I45.10 CPT Codes EKG - CPT: 05536-[id number], Complete ([id number])
[2024-03-22 13:46] VITALS: BP 120/78; PULSE 106; BMI 27.2
== END 2024-03-22 14:36 | disposition home or self-care (01) ==
PROVIDERS: PCP Nurse Practitioner Primary Care; Visit Provider Internal Medicine
DX: I48.92 Unspecified atrial flutter (principal)
CPT/HCPCS: 93010; 93244; 99215

== ENCOUNTER → 2024-03-22 13:40 | Outpatient (BNVA) | payer MEDICARE, SELFPAY | PROVIDERS: PCP Nurse Practitioner Primary Care; Visit Provider Internal Medicine ==

== ENCOUNTER → 2024-03-22 14:43 | Outpatient (REF) | payer MEDICARE, SELFPAY | LOC: HO.CARD 14:43 | PROVIDERS: PCP Internal Medicine; Visit Provider Internal Medicine | DX: I48.91 Unspecified atrial fibrillation (principal); I49.8 Other specified cardiac arrhythmias | CPT/HCPCS: 93242 ==

== ENCOUNTER 2024-03-23 08:27 | Outpatient (REF) | payer MEDICARE, SELFPAY ==
[2024-03-23 10:09] LABS: Hematocrit 35.4 % (42.0-52.0); Mean Corpuscular HGB Conc 33.9 g/dl (31.0-36.0); Mean Corpuscular Hemoglobin 32.5 pg (27.0-33.0); Mean Corpuscular Volume 95.9 fL (80.0-98.0); Mean Platelet Volume 11.5 fL (9.4-12.4); Platelet Count 141 X10*3/uL (160-400); Red Blood Count 3.69 X10*6/uL (4.60-5.80); Red Cell Distribution Width 18.8 % (11.0-16.0); White Blood Count 12.2 X10*3/uL (4.8-10.8)
[2024-03-23 10:15] LABS: Prothrombin Time 12.2 SEC (10.9-12.4)
[2024-03-23 11:34] LABS: Anion Gap 12 (12-20); Blood Urea Nitrogen 16 mg/dL (9-16); Carbon Dioxide 30 mmol/L (22-29); Chloride 104 mmol/L (96-108); Estimated Glomerular Filt Rate > 60; Glucose Random 87 mg/dL (60-115); Potassium 4.3 mmol/L (3.3-5.1); Sodium 142 mmol/L (135-145)
== END 2024-03-23 08:28 | disposition home or self-care (01) ==
LOC: HO.HMGCLDS 08:27
PROVIDERS: PCP Internal Medicine; Visit Provider Internal Medicine
DX: I35.0 Nonrheumatic aortic (valve) stenosis (principal)
CPT/HCPCS: 36415; 80048; 85027; 85610

== ENCOUNTER → 2024-03-23 23:59 | Outpatient (BNV) | payer MEDICARE, SELFPAY | PROVIDERS: PCP Internal Medicine; Visit Provider Internal Medicine Cardiovascular Disease | DX: I50.30 Unspecified diastolic (congestive) heart failure (principal) | CPT/HCPCS: 93458; 99152 ==

== ENCOUNTER 2024-03-30 07:18 | Outpatient (REF) | payer MEDICARE, SELFPAY ==
[2024-03-30 10:04] LABS: MANUAL DIFF FLAG NO
[2024-03-30 10:09] LABS: Basophils Absolute Auto 0.1 X10*3/uL (0.0-0.2); Basophils Percent Auto 1.1 % (0-2); Eosinophils Absolute Auto 0.6 X10*3/uL (0.0-0.4); Eosinophils Percent Auto 5.5 % (0-4); Hematocrit 35.1 % (42.0-52.0); Hemoglobin 11.7 g/dl (14.0-18.0); Imm Gran Abs Auto 0.31 X10*3/uL (0.00-0.03); Imm Gran Pct Auto 2.8 % (0.0-0.4); Lymphocytes Absolute Auto 2.2 X10*3/uL (1.2-4.9); Lymphocytes Percent Auto 19.9 % (20-40); Mean Corpuscular HGB Conc 33.3 g/dl (31.0-36.0); Mean Corpuscular Hemoglobin 32.4 pg (27.0-33.0); Mean Corpuscular Volume 97.2 fL (80.0-98.0); Mean Platelet Volume 12.3 fL (9.4-12.4); Monocytes Absolute Auto 1.2 X10*3/uL (0.1-1.2); Monocytes Percent Auto 10.7 % (2-11); Neutrophils Absolute Auto 6.7 x10*3/uL (2.0-8.3); Platelet Count 178 X10*3/uL (160-400); Red Blood Count 3.61 X10*6/uL (4.60-5.80); Red Cell Distribution Width 18.6 % (11.0-16.0); White Blood Count 11.2 X10*3/uL (4.8-10.8)
[2024-03-30 10:27] LABS: Iron 86 mcg/dL (45-160); Percent Iron Saturation 34 % (15-50); Total Iron Binding Capacity 250 mcg/dL (228-428); Unsaturated Iron Binding 164 ug/dL
[2024-03-30 11:05] LABS: Free T4 (Free Thyroxine) 0.83 ng/dL (0.71-1.85)
== END 2024-03-30 07:19 | disposition home or self-care (01) ==
LOC: HO.HMGCLDS 07:18
PROVIDERS: PCP Internal Medicine; Visit Provider Internal Medicine
DX: D64.9 Anemia, unspecified (principal)
CPT/HCPCS: 36415; 83540; 84439; 84443; 85025

== ENCOUNTER 2024-04-04 09:10 | Outpatient (AMB) | payer MEDICARE, SELFPAY ==
[2024-04-04 09:12] VITALS: BP 100/70; PULSE 77; O2SAT 97; BMI 27.5
--- NOTE | 2024-04-04 09:12 | A.OFFPC_ITS ---
Vital Signs 04/04/24 09:12 Height 6 ft Weight 203 lb BMI 27.5 BP 100/70 Blood Pressure Location Rt brachial Position Sitting Pulse 77 Pulse Source Pulse Oximeter Pulse Oximetry (%) 97 Oxygen Delivery Method Room Air Intake Visit Reasons: 3rd week of 03/28 Intake Note: Pt is here today for his lab f/u Allergies No Known Allergies Allergy (Verified 04/10/24 00:33) Medication List - Last Reconciled 04/04/24 by Allison Haley MD ascorbic acid (vitamin C) 500 mg PO DAILY ferrous fumarate 324 mg PO BEDTIME levothyroxine 50 mcg PO DAILY@0600 sennosides (senna) 8.6 mg PO BEDTIME Tobacco use date assessed: 04/04/24 Fall risk assessment: No Falls in past year Last assessed Fall Risk: 04/04/24 Dental Screening Dental Screen Date: 04/04/24 Did you have a dental visit in the last 12 months?: No Did you have a dental problem in the last 6 months where you did not have access to dental care?: No Was dental information given to patient?: Patient has dentist HPI 3rd week of 03/28 HPI Details 88-year-old male with history of aortic stenosis, hypothyroidism, and anemia, here today for follow-up. Had recent fasting labs done which showed presence of normocytic normochromic anemia, normal iron levels, normal renal function and electrolytes, and thyroid levels are within normal limits. Currently taking levothyroxine 50 mcg daily, and has been feeling well. He was recently admitted at [facility], sent by Dr. Hawthorne after a recent visit with him complaining of shortness of breath while doing the treadmill and was found to be in atrial flutter with RVR. Cardiac catheterization was done 03/23/2024, which showed normal systemic p ressures with normal LVEDP and no significant coronary artery disease noted. Patient was supposed to be having catheter ablation and or pacemaker procedure, but unfortunately they were not able to do perform any procedure during his stay there for 3 days. Patient extremely upset that nobody was telling him what the plan was, and the only way he knew that no procedure was going to be done was w hen the kitchen kept asking him what he wanted for dinner .At present patient states that he has been feeling well, denies any chest pain, no shortness of breath, no lightheadedness or palpitations. Patient states that he is still waiting for a call from the EP office for follow-up and to have procedure done in the outpatient setting. 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 Mother No problems noted. Social History Household Members: Spouse Housing: House Do you presently have visiting nurse or other home services: No Alcohol intake: former Patient Tobacco Use Status: Never used Tobacco e-Cigarette/Vaping Use: Never Used Second Hand Smoke Exposure: Yes service: No Current occupational status: retired Cognitive needs: No Hearing needs: Yes Vision needs: Yes (Pt wear glasses) Questionnaire Thrive Questionnaire Date Thrive assessed: 12/05/23 I am a: Patient What is your living situation today?: I have a steady place to live Within the past 12 months, did the food you bought not last and you didn't have the money to get more?: Never true Within the past 12 months, did you worry whether your food would run out before you got money to buy more?: Never true Do you have trouble paying for medicines?: No Do you have trouble getting transportation to medical appointments?: No Do you have trouble paying your heating and electricity bill?: No Do you have trouble taking care of your child, family member or friend?: No Do you have trouble with day-to-day activities such as bathing, preparing meals, shopping, managing finances, etc.?: No Are you currently unemployed and looking for a job?: No Are you interested in more education?: Yes Please select the resources that you would like help with: None Currently or been in a relationship where the following occur: No concerns reported THRIVE Score: 0 JAS-7 AMB Questionnaire JAS-7 Date JAS - 7 assessed: 12/07/23 Source: Developed by Drs. Inocencio Alvarez, Robyn Tellez, Bg Posada and colleagues, with an educational nathalia from [employer]. Review of Systems Const Denies weakness ENT Denies dizziness Card Denies chest pain, Denies chest pain with activity, Denies syncope, Denies rapid heart rate, Denies pedal edema, Denies edema, Denies leg edema, Denies lightheadedness, Denies palpitations, Denies dyspnea, Denies dyspnea on exertion and Denies orthopnea Resp Denies cough, Denies dyspnea and Denies dyspnea on exertion GI Denies hematochezia and Denies change in stool character Reports no additional complaints Musc Denies abnormal gait, Denies muscle cramps, Denies muscle weakness, Denies numbness, Denies radiating pain into limb and Denies tingling Skin/Breast Denies lesions and Denies rash Neuro Denies abnormal gait, Denies dizziness, Denies syncope, Denies numbness, Denies tingling and Denies weakness Psych Reports no additional complaints Endo Denies palpitations Ant/Lymph Reports no additional complaints Aller/Immun Reports no additional complaints Physical exam (Primary Care) Vital Signs: Last Vital Signs Pulse 77 04/04/24 09:12 BP 100/70 04/04/24 09:12 Pulse Ox 97 04/04/24 09:12 Oxygen Delivery Method Room Air 04/04/24 09:12 BMI result Body Mass Index 27.5 Tobacco/Smoking Status: Tobacco use Status Tobacco use date assessed 04/04/24 04/04/24 09:24 Patient Tobacco Use Status Never used Tobacco 04/04/24 09:14 e-Cigarette/Vaping Use Never Used 04/04/24 09:14 Thrive Assessment: Date of Thrive Assessment Date Thrive assessed 12/05/23 04/04/24 09:14 Currently or been in a relationship where the following occur: No concerns reported Const General: comfortable, no acute distress and alert Orientation/consciousness: patient oriented x3 HENMT Ears: external ears normal General nose exam: Normal external nose present Mouth: Normal oral and palatal mucosa present, oropharynx normal and moist mucous membranes Eyes General: appearance normal, both eyes and all related structures Neck Neck: Yes full ROM, Yes no lymphadenopathy and Yes supple Resp Effort & Inspection: normal respiratory effort and able to speak in complete sentences Auscultation: clear to auscultation bilaterally Cardio Rate: regular rate Rhythm: regular rhythm Heart sounds: S1 normal heart sound present, S2 normal heart sound present and Murmur heart sound present systolic (at aortic area) GI Palpation (GI): Soft to palpation, nontender and no masses Auscultation: normal bowel sounds General: Yes no CVA tenderness Back/Spine/Pelvis Back: no CVA tenderness and No back tenderness Skin General skin exam: no rashes or lesions noted Neuro General: patient oriented x3, gait normal, tone normal, moves all extremities, Normal light touch and pain sensation and no focal motor deficits Cranial nerves: Yes CN's II-XII intact bilaterally Cognition (Neuro): normal cognition Extrem General: Yes full ROM, Yes no joint enlargement, Yes no clubbing, cyanosis or edema and Yes no calf tenderness Results Reviewed Results Reviewed: yandy: Ruy Ingram Age/Sex: 88/M : 1935 Unit#: [id number] Attend Dr: Allison Haley MD Re03/30/24 Status: DEP REF Location: [facility] Disch: SPEC : [id number] BERNADINE: 03/30/24 STATUS: COMP REQ : [id number] RECD: 03/30/[address]: Allison Haley MD COMP: 03/30/24 ENTERED: 03/30/[address] [facility] [address]: ORDERED: CBC Auto Diff Test Result Flag Reference WBC 11.2 H 4.8-10.8 X10*3/uL RBC 3.61 L 4.60-5.80 X10*6/uL HGB 11.7 L 14.0-18.0 g/dl HCT 35.1 L 42.0-52.0 % MCV 97.2 80.0-98.0 fL MCH 32.4 27.0-33.0 pg MCHC 33.3 31.0-36.0 g/dl RDW 18.6 H 11.0-16.0 % PLT 178 # 160-400 X10*3/uL MPV 12.3 9.4-12.4 fL Neut Pct Auto 60.0 45-73 % ImGran Pct Auto 2.8 H 0.0-0.4 % Lymp Pct Auto 19.9 L 20-40 % [place] Pct Auto 10.7 2-11 % Eos Pct Auto 5.5 H 0-4 % Baso Pct Auto 1.1 0-2 % NRBC Pct Auto 0.0 0.0-0.2 /100WBC ANC Neut Abs # 6.7 2.0-8.3 x10*3/uL ImGran Abs Auto 0.31 H 0.00-0.03 X10*3/uL Lymph Abs Auto 2.2 1.2-4.9 X10*3/uL [place] Abs Auto 1.2 0.1-1.2 X10*3/uL Eos Abs Auto 0.6 H 0.0-0.4 X10*3/uL Baso Abs Auto 0.1 0.0-0.2 X10*3/uL NRBC Abs Auto 0.000 0.0-0.012 X10*3/uL Name: Ruy Ingram Age/Sex: 88/M : 1935 Unit#: [id number] Attend Dr: Allison Haley MD Re03/30/24 Status: DEP REF Location: [facility] Disch: SPEC : [id number] BERNADINE: 03/30/24 STATUS: COMP REQ : [id number] RECD: 03/30/[address]: Allison Haley MD COMP: 03/30/245 ENTERED: 03/30/[address]: ORDERED: IRON PROF, Free T4, TSH Test Result Flag Reference Iron 86 45-160 mcg/dL TIBC 250 228-428 mcg/dL Saturation 34 15-50 % UIBC 164 ug/dL Free T4 0.83 0.71-1.85 ng/dL TSH 3rd Gen. 2.50 0.32-4.0 uIU/mL Name: Ruy Ingram Age/Sex: 88/M : 1935 Unit#: [id number] Attend Dr: Endy Hawthorne MD Re03/23/24 Status: DEP REF Location: [facility] Disch: SPEC : [id number] BERNADINE: 03/23/24 STATUS: COMP REQ : [id number] RECD: 03/23/[address]: Endy Hawthorne MD COMP: 03/23/24 ENTERED: 03/23/[address]: Allison Haley MD ORDERED: BMP Test Result Flag Reference Sodium 142 135-145 mmol/L Potassium 4.3 3.3-5.1 mmol/L CL 104 96-108 mmol/L CO2 30 H 22-29 mmol/L Gap 12 12-20 BUN 16 9-16 mg/dL Creat 0.81 0.5-1.4 mg/dL eGFR > 60 Chronic Kidney Disease: Estimated GFR < 60 mL/min/1.73m2 Severe Kidney Disease: Estimated GFR < 15 mL/min/1.73m2 Glucose, Random 87 60-115 mg/dL CA 9.0 8.4-10.2 mg/dL Coding Level of Care Code Est Pt Level 4 (93979) Complex EM visit Add On G2211 Diagnoses History of atrial flutter Z86.79 Hypothyroidism E03.9 Anemia, unspecified type D64.9 Anemia type: unspecified type Moderate aortic stenosis I35.0 Leukocytosis D72.829 Assessment & Plan Assessment & Plan (1) History of atrial flutter: Code(s): Z86.79 - Personal history of other diseases of the circulatory system Category: Medical Plan: Patient currently asymptomatic, awaiting call from [facility] EP clinic for follow-up and to have the procedure done in the outpatient setting. Patient has been advised not to perform any strenuous activity or exercises during this time until seen and evaluated by EP have the procedure done to normalize the rhythm. He has been advised to return to the hospital if he experiences any shortness of breath, chest pain, lightheadedness or dizziness. (2) Hypothyroidism: Code(s): E03.9 - Hypothyroidism, unspecified Category: Medical Plan: Latest thyroid levels are within normal limits, continued on current dose of levothyroxine at 50 mcg daily in a.m. (3) Anemia: Code(s): D64.9 - Anemia, unspecified Category: Medical Qualifiers: Anemia type: unspecified type Qualified Code(s): D64.9 - Anemia, unspecified Plan: Normocytic normochromic with normal iron levels (4) Moderate aortic stenosis: Code(s): I35.0 - Nonrheumatic aortic (valve) stenosis Category: Medical Plan: Followed by cardiology my plan is to do outpatient TAVR already had a cardiac catheterization done 03/1924 which showed unremarkable findings (5) Leukocytosis: Code(s): D72.829 - Elevated white blood cell count, unspecified Category: Medical Plan: Unclear etiology, patient asymptomatic with no evidence of any infection, has been a febrile Medications: Refilled ferrous fumarate 324 mg PO BEDTIME 90 tabs 1RF levothyroxine 50 mcg PO DAILY@0600 90 tabs 1RF
== END 2024-04-04 11:42 | disposition home or self-care (01) ==
PROVIDERS: PCP Internal Medicine; Visit Provider Internal Medicine
DX: Z86.79 Personal history of other diseases of the circulatory system (principal); E03.9 Hypothyroidism, unspecified; D64.9 Anemia, unspecified; I35.0 Nonrheumatic aortic (valve) stenosis; D72.829 Elevated white blood cell count, unspecified

== ENCOUNTER → 2024-04-04 09:10 | Outpatient (BNVA) | payer MEDICARE, SELFPAY | PROVIDERS: PCP Internal Medicine; Visit Provider Internal Medicine | DX: E03.9 Hypothyroidism, unspecified (principal); D64.9 Anemia, unspecified; I35.0 Nonrheumatic aortic (valve) stenosis; D72.829 Elevated white blood cell count, unspecified; Z86.79 Personal history of other diseases of the circulatory system | CPT/HCPCS: 99212 ==

== ENCOUNTER 2024-04-17 09:57 | Outpatient (AMB) | payer MEDICARE, SELFPAY ==
--- NOTE | 2024-04-17 09:59 | A.OFFVIS_ITS ---
Vital Signs 04/17/24 10:00 Height 6 ft Weight 202 lb BMI 27.4 BP 118/78 Blood Pressure Location Rt brachial Position Sitting Intake Visit Reasons: follow up Polyneuropathy Intake Note: Patient presents for follow up polyneuropathy Allergies No Known Allergies Allergy (Verified 04/17/24 10:04) HPI Comments Details: 88 year old male comes for follow up of neuropathy. He is scheduled for a procedure for Atrial flutter. He could not do PT because of his heart issues.He saw a jewelry bearing maker- gave him topicals which helped. History from initial visit-He has history of BPH, Osteoporosis of R. Hip, Rotator Cuff Arthropathy, degenerative disc disease and dyslipidemia, and orthostatic hypotension In August 2023 he had Pneumonia and was hospitalized, he began to have headaches, dizziness and hypotension. He is an avid golfer and notices his fingers and toes also get cold and start to throb with pain, he also notices dropping things occasionally. He wears compression stockings to help with BP, however he has been taking the stockings off at night and continues to have the numbness and cold feet. He denies nausea, vomiting, vision changes, tingling or being off balance, forgetfulness, sleep disturbances or confusion. [facility] Medical History Peripheral neuropathy Hypothyroidism Overweight (BMI 25.0-29.9) BPH (benign prostatic hyperplasia) 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 Mother No problems noted. Social History Household Members: Spouse Housing: House Do you presently have visiting nurse or other home services: No Alcohol intake: former Patient Tobacco Use Status: Never used Tobacco e-Cigarette/Vaping Use: Never Used Second Hand Smoke Exposure: Yes service: No Current occupational status: retired Cognitive needs: No Hearing needs: Yes Vision needs: Yes (Pt wear glasses) Physical Exam Vital Signs: Last Vital Signs BP 118/78 04/17/24 10:00 BMI result Body Mass Index 27.4 Const General: cooperative and healthy appearing Nutritional Appearance: average body habitus Orientation/consciousness: patient oriented x3 Limitations: no limitations Neuro Other: Feet - normal arches, cameron bunions with toe valgus Decreased PP in distal LE General: patient oriented x3 and moves all extremities Cranial nerves: Yes CN's II-XII intact bilaterally, Yes Facial sensation intact/muscles of mastication intact, Yes Normal accommodation reflex present, Yes Bilaterally intact EOM present and Yes Midline tongue present Cognition (Neuro): normal cognition Gait exam (Neuro): Antalgic gait present Motor exam (neuro): 5/5 motor strength present throughout Coordination: [id number] test normal and Romberg test negative Assessment & Plan Assessment & Plan (1) Peripheral neuropathy: Comment: Likely hereditary Code(s): G62.9 - Polyneuropathy, unspecified Category: Medical Qualifiers: Peripheral neuropathy type: polyneuropathy, other Qualified Code(s): G62.89 - Other specified polyneuropathies Plan His symptoms are minimal, i will follow him up clinically Continue f/u with cardiology Podiatry F/u for bunions Coding Level of Care Code Est Pt Level 4 (99966) Diagnoses Other polyneuropathy G62.89 Peripheral neuropathy type: polyneuropathy, other
[2024-04-17 10:00] VITALS: BP 118/78; BMI 27.4
== END 2024-04-17 10:41 | disposition home or self-care (01) ==
PROVIDERS: PCP Internal Medicine; Visit Provider Psychiatry & Neurology Neurology
DX: G62.89 Other specified polyneuropathies (principal)
CPT/HCPCS: 99214

== ENCOUNTER → 2024-04-17 09:57 | Outpatient (BNVA) | payer MEDICARE, SELFPAY | PROVIDERS: PCP Internal Medicine; Visit Provider Psychiatry & Neurology Neurology | DX: G62.89 Other specified polyneuropathies (principal) | CPT/HCPCS: 99212 ==

== ENCOUNTER 2024-05-15 10:53 | Outpatient (AMB) | payer MEDICARE, SELFPAY ==
[2024-05-15 11:17] VITALS: BP 120/52; PULSE 79; BMI 27.8
--- NOTE | 2024-05-15 11:17 | MHC.OFFVIS ---
Vital Signs 05/15/24 11:17 Height 6 ft Weight 205 lb 0.478 oz BMI 27.8 BP 120/52 L Blood Pressure Location Rt brachial Position Sitting Pulse 79 Intake Visit Reasons: Pain/Swelling [employer] Converter Required: No Accompanied by: Self / Same As Patient Allergies No Known Allergies Allergy (Verified 04/17/24 10:04) Medication List - Last Reconciled 05/15/24 by Endy Hawthorne MD apixaban (Eliquis) 2.5 mg PO BID 30 days ascorbic acid (vitamin C) 500 mg PO DAILY ferrous fumarate 324 mg PO BEDTIME levothyroxine 50 mcg PO DAILY@0600 sennosides (senna) 8.6 mg PO BEDTIME HPI Comments Details: Ruy returns for follow-up regarding aortic stenosis as well as atrial flutter. He was complaining of shortness of breath with activity last time but he was also in atrial flutter with slightly rapid rate. Subsequently, he underwent ablation. That symptoms seems better and hence more likely from flutter on a background of aortic stenosis. However, he is complaining of other things like some orthostatic dizziness that may not be related to aortic stenosis but not clear. Otherwise, after the flutter ablation, he was put on Eliquis. He states he had bleeding from his nose as well as while urinating. Hence he has not taken Eliquis today. Otherwise, complaints of left leg being swollen up. [facility] Medical History (Updated 05/15/24 @ 12:27 by Endy Hawthorne MD) Pacemaker Peripheral neuropathy Hypothyroidism Overweight (BMI 25.0-29.9) BPH (benign prostatic hyperplasia) 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 Mother No problems noted. Social History Household Members: Spouse Housing: House Do you presently have visiting nurse or other home services: No Alcohol intake: former Patient Tobacco Use Status: Never used Tobacco e-Cigarette/Vaping Use: Never Used Second Hand Smoke Exposure: Yes service: No Current occupational status: retired Cognitive needs: No Hearing needs: Yes Vision needs: Yes (Pt wear glasses) Review of Systems Const Denies chills, Denies fatigue, Denies fever(s), Denies weight gain and Denies weight loss ENT Denies dizziness Card Denies chest pain, Denies leg edema, Denies lightheadedness, Denies palpitations, Denies dyspnea on exertion, Denies orthopnea and Denies other Resp Denies cough and Denies dyspnea on exertion GI Denies hematochezia and Denies change in stool character Musc Denies abnormal gait, Denies muscle weakness, Denies numbness, Denies radiating pain into limb and Denies tingling Neuro Denies abnormal gait, Denies dizziness, Denies numbness and Denies tingling Endo Denies fatigue and Denies palpitations Physical Exam Vital Signs: Last Vital Signs Pulse 79 05/15/24 11:17 BP 120/52 L 05/15/24 11:17 BMI result Body Mass Index 27.8 Const General: comfortable and no acute distress Orientation/consciousness: patient oriented x3 HEENT Other: Unremarkable Head: Yes normal to inspection Neck Neck: Yes normal visual inspection Chest Chest palpation & inspection: normal inspection of the chest Resp Auscultation: clear to auscultation bilaterally Cardio Palpation: normal PMI Heart sounds: S1 normal heart sound present, S2 normal heart sound present, no gallops, Murmur heart sound present systolic III/ and at the right sternal border and no rubs GI Palpation (GI): Soft to palpation Back/Spine/Pelvis Other: unremarkable Skin General skin exam: no rashes or lesions noted Neuro General: patient oriented x3 Extrem General: Yes normal to inspection Psych Mental Status: mental status grossly normal Office Procedures EKG Details: EKG with underlying atrial sensed, ventricular paced rhythm at 79/Min. 60802-[id number], Complete Assessment & Plan Assessment & Plan (1) Non-rheumatic aortic stenosis: Code(s): I35.0 - Nonrheumatic aortic (valve) stenosis Category: Medical Plan: Now that he is back to normal sinus rhythm, we will repeat an echocardiogram to reassess aortic stenosis. Based on this, timing of TAVR. (2) Atrial flutter by electrocardiogram: Code(s): I48.92 - Unspecified atrial flutter Category: Medical Plan: Status post ablation. Will need to get the operative note. (3) Pacemaker: Code(s): Z95.0 - Presence of cardiac pacemaker Category: Medical Plan: We will start following remotely. In-person interrogation in due course. (4) Left leg swelling: Code(s): M79.89 - Other specified soft tissue disorders Category: Medical Plan: Recent flutter ablation. We will evaluate for any DVT with ultrasound. (5) Epistaxis: Code(s): R04.0 - Epistaxis Category: Medical Plan: Can try Eliquis 2.5 mg b.i.d. to see if that helps or not. As he is immediately post ablation, would like to maintain this at least for the next few weeks. (6) Hematuria: Code(s): R31.9 - Hematuria, unspecified Category: Medical Plan: To see urology. Plan Total time spent including review of data, counseling, documentation, coordination of care-48 minutes. Discussed with son who came for appointment. Orders: Orders US venous duplex LE LT Today M79.89 - Other specified soft tissue disorders CA echo transthoracic complete Today I35.0 - Nonrheumatic aortic (valve) stenosis Referrals Urology Referral R31.9 - Hematuria, unspecified Medications: New apixaban (Eliquis) 2.5 mg PO BID 60 tabs 5RF 30 days M79.89 - Other specified soft tissue disorders Discontinued apixaban (Eliquis) New: Blood thinner Discontinued Reason: Doctor's Order 5 mg PO BID 60 tabs 5RF 30 days Coding Level of Care Code Est Pt Level 5 (56240) Complex EM visit Add On G2211 Diagnoses Non-rheumatic aortic stenosis I35.0 Atrial flutter by electrocardiogram I48.92 Pacemaker Z95.0 Left leg swelling M79.89 Epistaxis R04.0 Hematuria R31.9 CPT Codes EKG - CPT: 64796-Nqawyksobucnnwuwx, Complete ([id number])
--- OUTSIDE RECORDS SUMMARY | 2024-05-15 11:58 | XMS_ITS | Data Portability ---
Author Organization [facility], [facility] Office Address [address] [place] [address] Care Team Providers Care Supplier Manager Name Role Phone JAMILAH MOORE Primary Care Provider Assessment Encounter Date Assessment Date Assessment LastModified by Organization Details LastModified Time 09/26/2018 09/26/2018 DATA: I reviewed his radiographs as well as MRI imaging with him today, and explained to him that in his age range and given the chronicity, atrophy, and extent of this tear a surgical repair would likely be unsuccessful. IMPRESSION: Ruy is an 83-year-old male with mild glenohumeral osteoarthritis and a large retracted tear of the supraspinatus with significant atrophy. He is compensating extremely well and I encouraged him to continue with therapy. We discussed a possible cortisone injection to help alleviate the symptoms. Ultimately a reverse shoulder replacement would be the only surgical answer; however, I do not think that it is indicated due to the patient? s compensation and activity level at this point. PLAN: He would like to try additional physical therapy and I provided a prescription with Reading protocol. He will follow up with me on an as needed basis. [email or web address] Not available 09/27/2018 18:36:22 Plan of Treatment Reminders Order Date Submit Date Provider Last Modified By Organization Details Last Modified Time Details Appointments None recorded. Lab None recorded. Referral physical therapist referral 2018 019 moses 2 Not available 9 07:45:47 Procedures None recorded. Surgeries None recorded. Imaging None recorded. Medication Orders None recorded. Patient TargetsNo targets recorded. Patient InstructionsNo instructions recorded. Reason for Referral Physical Therapist Referral for Full thickness rotator cuff tear Referring Physician: Rosi Read, Physician Clinical Trial Manager, Encounter Date: 09/26/2018 Results Created Date Observation Date Name Description Value Unit Range Abnormal Flag Note LastModifiedBy Organization Detail LastModifiedTime 09/27/19 19 MRI, shoul teodora, w/o contr ast No observ ation record ed. [email or web address] Not Available 2018 07:46:30 Result Notes None recorded. Problems No Known Problems Procedures Surgical History Date Name Laterality Status Provider Name and Address Organization Details Recorded Time 03/05/20 15 [facility]26[facility]2018 08:02:59 09/04/19 12 Orthopaedic Surgery completed [facility] 09/26/2018 08:02:46 11/04/19 07 Orthopaedic Surgery completed [facility] 09/26/2018 08:02:33 Imaging Results Imaging Date Name Status LastModified by Organiz ation Details LastModified Time 09/26/2018 MRI, shoulder, w/o contrast completed [email or web address] Information not available 09/26/2018 07:46:30 Procedure Notes None recorded. Medical Equipment None Reported. Allergies No known drug allergies Medications Name Sig Start Date Stop Date Status Note LastModified by Organization Details LastModified Time amoxicillin 500 mg capsule 09/26 completed Not Available Not Available Not Available triamcinolo ne acetonide 0.1 % lotion APPLY TWICE A DAY TO ALL ITCHY AREAS OF TRUNK.. 09/26 completed Not Available Not Available Not Available Pneumovax-2 3 25 mcg/0.5 mL injection syringe VACCINE ADMINISTE RED BY PHARMACIS T 09/26 completed Not Available Not Available Not Available Fluad 2018- 65yr up(PF)45 mcg(15 mcgx3)/0.5 mL intramuscul ar syringe VACCINE ADMINISTE RED BY PHARMACIS T 09/26 completed Not Available Not Available Not Available Vitals Date Recorded Body height Body mass index (BMI) Body weight Provider Name and Address Organization Details Last Updated DateTime 09/26/2018 182.88 cm 28.9 kg/m2 32240.17 g [facility] 09/26/2018 08:00:54 Social History Question Answer Notes LastModified by Organizat ion Details LastModified Time Tobacco Smoking Status Never Smoker Pearl Torres [facility] 09/26/2018 08:01:30 What Is Your Level Of Alcohol Consumption? None Information not available 09/26/2018 Auto Related Injury? No Information not available 09/26/2018 Have You Had Cortisone? Yes R Knee Information not available 09/26/2018 What Was The Date Of Your Most Recent Tobacco Screening? 09/26/2018 Information not available 10/27/2018 What Types Of Sporting Activities Do You Participate In? Conditioning , [facility] At [facility] Information not available 09/26/2018 Work Related Injury? No Information not available 09/26/2018 Sex: Unknown Functional Status Question Answer Note LastModified by Organization D etails LastModified Time What is your exercise level? Heavy Information not available 09/26/2018 Mental Status None recorded. Family History Relationship Description Onset Age of this Age Resolved Age Notes LastModified by Organization Details LastModified Time Father No current problems or disability Not available 09/26 08:01:24 Mother No current problems or disability Not available 09/26 08:01:24 Medical History Condition Response HIV or AIDS N High Blood Pressure N Irregular Heartbeat N MRSA N Any Other Significant Medical Issues N Weight Gain / Loss N Hearing Loss Y Angina, Heart Failure or Attack N Night Sweats N Seizures / Epilepsy N Osteoarthritis / Rheumatoid arthritis / Other Y Cancer N Stroke N Ulcer / Stomach Bleeding / Indigestion N Visual Loss or Glaucoma N Blood Clots / Phlebitis N Heart Problems N Depression or Anxiety N Emphysema / Chronic Bronchitis N Reaction to General/Local Anesthesia N Hepatitis / Jaundice N Kidney / Bladder Infections N Diabetes N Bleeding Disorder N Chemical Dependency / Alcoholism N Psoriasis / Skin Rash N Thyroid Disorder N Heart Disease N Asthma / Shortness of Breath / Sleep Education Teacher ea (please specify) N Pulmonary Embolism N Past Encounters Encounter ID Performer Location Encounter Start Date Encounter Closed Date Diagnosis/Indication Diagnosis SNOMED-CT Code Diagnosis ICD10 Code Diagnosis Note [id number] FRANCK SMALL [facility] Office [address] [place] [phone] 09/26/2018 07:41:04 09/26/2018 08:44:47 Full thickness rotator cuff tear 932125402 M75.122 Health Concerns Section Related Observation LastModified by Organization Detai ls LastModified Time None Recorded Concern Status LastModified by Organization Details LastModified Time None Recorded Advance Directives Directive None Recorded Payers Encounter Date Sequence Insurance Name Policy Number Policy Dumont Covered Member ID Dumont Member ID Guarantor Name 09/26/2018 1 [place] [employer] Ruy Ingram [id number] Ruy Ingram 09/26/2018 2 [place] [id number] Ruy Ingram [id number] Ruy Ingram Notes Date Note Type Note Provider Name and Address Organization Details Recorded Time 09/26/2018 text/html HX: Ruy is an 83-year-old male who presents to clinic today for evaluation of his left shoulder. He unfortunately sustained an injury while falling down the stairs last January. He waited for about one month to see if it got better on its own. He followed up with his primary care physician, who recommended physical therapy. He completed physical therapy from February to May and then discontinued it. He followed up with an orthopedist, who ordered an MRI. The MRI was performed in 06/2018, which showed a large complete tear of the supraspinatus and infraspinatus with atrophy and significant retraction of about 7-18 mm with retraction to the glenohumeral joint. The orthopedist recommended rehabilitation. The patient presents today for a second opinion. MEDICATIONS: None. ALLERGIES: NKDA. PMH: Right knee arthroscopy, left hip replacement, hernia repair in 2014. SH: He is a non-smoker. He exercises heavily with conditioning classes at the [employer] and swimming. ROS: Positive for hearing loss and arthritis. FRANCK SMALL [address] [place] [address], [place], [address], [facility] 09/29/2018 18:52:08
--- OUTSIDE RECORDS SUMMARY | 2024-05-15 11:58 | XMS_ITS | Patient Health Record ---
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) Active confirmed 559104670 Problem History of adenomatous polyp of colon (Z86.010) Active confirmed 352933315 Problem Preprocedural examination (Z01.818) Active confirmed 86403499 Problem History of colon polyps (Z86.010) Active confirmed 582503528 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 873277226 PLAN OF TREATMENT Future Test Test Name Order Date COLONOSCOPY 07/25/2015 COLONOSCOPY 02/19/2017 Insurance Providers Payer Name Payer Address Payer Phone Subscriber Number Group Number Insured Name Patient Relationship to Insured Coverage Start Date Coverage End Date MEDICARE OF [place] [address] [place] [id number] ANGEL BARRERA Self - patient is the insured MEDEX ATTN CLAIMS [address] [place] [address] [id number] ANGEL BARRERA Self - patient is the insured MEDICAL (GENERAL) HISTORY Medical History History ICD Code 02/21/2004 Screening Colonos copy was negative other than some diverticulosis and internal hemorrhoids Denies MN,DM,CVA,Lung disease,renal dise ase Colonoscopy in 10/2014--flat adenoma [...]
--- OUTSIDE RECORDS SUMMARY | 2024-05-15 11:58 | XMS_ITS ---
Author Organization [facility] Address [address] [place] [address] Care Team Providers Care Paradichlorobenzene Tender Name Role Phone Jose L JARAMILLO, [place] Primary Care Provider Keena Navarrete Unavailable [phone] Allergies No Known Allergies REASON FOR VISIT PCP: 01/19/2024, Sbt(s) Medications Medication SIG (Take, Route, Frequency, Duration) Notes Start Date End Date Status Iron Active Levothyroxine Sodium 50 MCG Oral for 90 Days Active Vitamin C Active Ferrous Fumarate 324 (106 Fe) MG TAKE ONE TABLET BY MOUTH DAILY AT BEDTIME Oral for 90 Days Active Problems Problem Type SNOMED Code ICD Code Onset Dates Problem Status W/U Status Risk Notes Problem Plantar wart (42672805) Plantar wart (B07.0) Active confirmed Vital Signs Height 6 ft in 02/02/2024 Weight 193 lbs 02/02/2024 BMI 26.17 kg/m2 02/02/2024 Blood pressure systolic 120 mm Hg 02/02/20 24 Blood pressure diastolic 80 mm Hg 024 Encounters Encounter Location Date Provider Diagnosis [facility] [address] [place] [address] 02/02/2024 Keena Lainez Plantar wart B07.0 Assessments Encounter Date Diagnosis (ICD Code) Assessment Notes Treatment Notes Treatment Clinical Notes Section Notes 02/02/2024 Plantar wart (ICD-10 - B07.0) Plan Of Treatment Next Appt Details Follow Up: prn, Reason: Provider Name:Keena ledesma, 08/02/2024 09:00:00 AM, [address] [place], [address], Progress Notes * Ruy INGRAM WDOB:[birth year] (88 yo M)Acc No.[id number]:02/02/2024 Progress Note Patient:?Ruy Ingram Provider:?Keena Lainez DPM :1935???Age:88 Y???Sex:Male Kris e:02/02/2024 Address:[address] [place] [address] Pcp:Pepito Domingo MD Subjective: * Chief Complaints: * ???PCP: 01/19/2024Wart(s) * HPI: ???Skin problems:?Pt States PCP Visit: ?DATE?01/19/2024 * Medical History:? * Surgical History:?Denies Pas t Surgical History * Hospitalization/Major Diagno stic Procedure:?Denies Past Hospitalization * Family History:?Mother: dece ased.?Father: .? * Medications:?TakingIron Karishma min C Ferrous Fumarate 324 (106 Fe) MG Tablet TAKE ONE TABLET BY MOUTH DAILY AT BEDTIME Oral Levothyroxine Sodium 50 MCG Tablet Oral Medication List reviewed and reconciled with the patientTaking Iron Taking Vitamin C Taking Ferrous Fumarate 324 (106 Fe) MG Tablet TAKE ONE TABLET BY MOUTH DAILY AT BEDTIME Oral Taking Levothyroxine Sodium 50 MCG Tablet Oral Medication List reviewed and reconciled with the patient * Allergies:?N.K.D.A.yes[Aller gies Verified] Objective: * Vitals:?Ht: 6 ft, Wt:193, BM I: 26.17, Shoe size:13, BP:120/80 mm Hg, Wt-k.54 kg. * Examination: ???Dermatologic: ?SKIN FINDINGS:?Skin exam reveals normal texture, elasticity, and tugor. There are no masses. The interspaces are clear, B/L .?VERRUCA:?NO FURTHER SIGN of mosaic papule(s) with skin lines now evident and visible, LEFT forefoot.? Assessment: * Assessment: 1.?Plantar wart - B07.0 (Maryuri hinojosa), Response to treatment - Improvement,LEFT,Chronic problem, Stable (1=3,2=4)? Plan: * Treatment: * Procedure Codes:? * Preventive Medicine:? ??Counseling:?Discussion:?-12: Office or other outpatient visit for the evaluation and management of an established patient, which required a medically appropriate history and/or examination and STRAIGHTFORWARD level of MEDICAL DECISION MAKING, 1 SELF-LIMITED OR MINOR PROBLEM, MINIMAL- NO AMOUNT/COMPLEXITY OF DATA TO BE REVIEWED/ANALYZED, AND MINIMAL RISK OF COMPLICATION/MORBIDITY. The visit on the day of the encounter encompassed interpreting the data and educating the patient as to the nature of their condition, treatment options available according to their individual PMH, meds, allergies, and overall health/living conditions, as well as any potential risks or complications that may occur from a failure to adhere to, and participate in, the recommended course of therapy. The discussion included a complete verbal, and/or written explanation of the examination results, any x-rays taken, the proposed diagnosis, and outline of the treatment plan. A schedule for future care needs was also explained. The patient verbalized an understanding of the instructions at this time and agreed to be an active participant in their treatment. If the patient should think of any questions or concerns after the visit, I have encouraged the patient to call the office,, Patients podiatric issue has improved, they should call the office with any future issues or concerns.? * Follow Up:?prn * Images: * Sign off status: Completed true * Provider:?Keena Lainez DPM Date:?1 Generated for Alxesandra maldonado/Han/Penny on:?05/15/2024 11:58 AM EST History and Physical Notes * HPI (History of Present Illness) Category Sub-Category Detail Notes Category Not es Skin problems Pt States PCP Visit: DATE: 01/19/2024 Examination Category Sub-Category Detail Notes Category Not es Dermatologic SKIN FINDINGS: Skin exam reveal s normal texture, elasticity, and tugor. There are no masses. The interspaces are clear, B/L VERRUCA: NO FURTHER SIGN of m osaic papule(s) with skin lines now evident and visible, LEFT forefoot
--- OUTSIDE RECORDS SUMMARY | 2024-05-15 11:58 | XMS_ITS | Data Portability ---
Author Organization [facility]ANCK Becerra [facility], [address] Address [address] [place] [address] Assessment No assessment recorded. Plan of Treatment Reminders Order Date Submit Date Provider Last Modified By Organization Details Last Modified Time Details Appointments None recorded. Lab urinalysis , dipstick 2022 023 [email or web address] [facility], [facility] [place], [address], 15:58:42 Referral None recorded. Procedures None recorded. Surgeries None recorded. Imaging None recorded. Medication Orders clotrimazo le-betamet hasone 1 %-0.05 % topical cream 2022 023 [facility], [address] [place], [address], 15:07:46 Patient TargetsNo targets recorded. Patient Instructions Encounter Date Encounter Id Patient Instructions Last Modified By Organization Details Last Modified Time 10/11/2022 [id number] What are ringworm, athlete's foot, and jock itch? These are all skin infections caused by a fungus. These types of fungal infections are also called tinea. Some people call these fungal infections ringworm. This is because they often cause a ring-shaped, red, itchy rash on the skin. But a ring-shaped rash is not always there. Depending on where the infection is, it can look different: ? People with athlete's foot might instead have moist, raw skin between their toes, or flaking skin on the bottoms of their feet. ? People with jock itch often just have a rash on their groin. It usually starts in the fold where the thigh meets the groin area. ? Sometimes, especially in children, the fungus can infect the scalp. On the scalp, the infection can look like a bald spot or a round flaky patch of skin. How did I get a fungal infection? You can catch fungal infections through gfeb-dk-bvlp contact with a person who is infected. You can also catch them from an infected dog or cat. You can also get the infections from places where the fungus might be, such as: ? A shower stall ? A locker room floor ? The area near a pool If you have a fungal infection on 1 part of your body, you can also spread it to other parts. For instance, a fungal infection on your feet could spread to your groin. How are fungal infections treated? The treatment for a fungal infection depends on which body part is affected: ? If you have a fungal infection on your scalp, you must take pills to kill the fungus. Treatment for scalp infections usually lasts 1 to 3 months. ? If you have a fungal infection on your feet, groin, or another body part, most of the time, you will not need pills. Instead, you can use a special gel, cream, lotion, or powder to kill the fungus. Treatment with these products lasts 2 to 4 weeks. ? If you have a fungal infection on your groin and on your feet, you must treat both infections at the same time. If you don't, the infection on your feet can spread to your groin again. What problems should I watch for? If you are being treated for a fungal infection, call your doctor or nurse for advice if: ? Your fungal infection spreads. ? You have any of the following symptoms: ?Fever of 100.4? ? ?F (38? ? ?C) or higher ?Chills ?Swelling, redness, or warmth around the infected area ?Pain when touching the area ? Your fungal infection doesn't go away after treatment. How do I keep from getting a fungal infection again? If someone in your home has had a fungal infection on their scalp: ? Get rid of any suárez, brushes, barrettes, or other hair products that could have the fungus on them. ? Make sure that a doctor or nurse checks everyone in the house for a fungal infection on the scalp. The doctor or nurse might also suggest that everyone else in the house use an antifungal shampoo for a few weeks. ? If the fungal infection might have come from a pet, have the pet checked by a vet. Some other general tips to prevent fungal infections: ? Do not share unwashed clothes, sports gear, or towels with other people. ? Always wear slippers or sandals when at the gym, pool, or other public areas. This includes public showers. ? Change your socks and underwear at least once a day. ? Keep your skin clean and dry. Always dry yourself well after swimming or showering. [email or web address] Not available 10/11/2022 15:07:43 Reason for Referral None Reported. Results Created Date Observation Date Name Description Value Unit Range Abnormal Flag Note LastModifiedBy Organization Detail LastModifiedTime 10/12/1910/11/2022 urina lysis , dipst ick Unknown Analyte Normal = light yellow Not Available _bryanna souza [address], [address], 10/11/2022 15:11:21 10/12/1910/11/2022 urina lysis , dipst ick Unknown Analyte Yellow Not Available [facility] [address], [address], 10/11/2022 15:11:21 10/12/1910/11/2022 urina lysis , dipst ick Unknown Analyte Normal = clear Not Available _bryanna souza [address], [address], 10/11/2022 15:11:21 10/12/1910/11/2022 urina lysis , dipst ick Unknown Analyte Clear Not Available [facility] [address], [address], 10/11/2022 15:11:21 10/12/19 23 10/11/2022 urina lysis , dipst ick Unknown Analyte Normal = negati ve Not Available bryanna souza [address], [place], [place], [address], 10/11/2022 15:11:21 10/12/19 23 10/11/2022 urina lysis , dipst ick Unknown Analyte Negati ve Not Available bryanna souza [address], [place], [place], [address], 10/11/2022 15:11:21 10/12/1910/11/2022 urina lysis , dipst ick Unknown Analyte Normal = Negati ve Not Available bryanna souza [address], [place], [address], 10/11/2022 15:11:21 10/12/19 23 10/11/2022 urina lysis , dipst ick Unknown Analyte Negati ve Not Available bryanna souza [address], [place], [place], [address], 10/11/2022 15:11:21 10/12/19 23 10/11/2022 urina lysis , dipst ick Unknown Analyte Normal = Negati ve Not Available bryanna souza [address], [place], [address], 10/11/2022 15:11:21 10/12/19 23 10/11/2022 urina lysis , dipst ick Unknown Analyte Negati ve Not Available bryanna souza [address], [place], [address], 10/11/2022 15:11:21 10/12/19 23 10/11/2022 urina lysis , dipst ick Unknown Analyte Normal = 1.010, 1.015, 1.020 Not Available 2099bryanna souza [address], [place], [address], 10/11/2022 15:11:21 10/12/19 23 10/11/2022 urina lysis , dipst ick Unknown Analyte 1.030 Not Available [address], [place], [address], 10/11/2022 15:11:21 10/12/19 23 10/11/2022 urina lysis , dipst ick Unknown Analyte Normal = Negati ve Not Available [address], [place], [address], 10/11/2022 15:11:21 10/12/19 23 10/11/2022 urina lysis , dipst ick Unknown Analyte Trace- intact Not Available [address], [place], [address], 10/11/2022 15:11:21 10/12/19 23 10/11/2022 urina lysis , dipst ick Unknown Analyte Normal = 6.5, 7.0, 7.5, 8.0 Not Available [address], [place], [address], 10/11/2022 15:11:21 10/12/19 23 10/11/2022 urina lysis , dipst ick Unknown Analyte 5.5 Not Available [address], [place], [address], 10/11/2022 15:11:21 10/12/19 23 10/11/2022 urina lysis , dipst ick Unknown Analyte Normal = Negati ve Not Available [address], [place], [address], 10/11/2022 15:11:21 10/12/19 23 10/11/2022 urina lysis , dipst ick Unknown Analyte Negati ve Not Available bryanna souza [address], [place], [address], 10/11/2022 15:11:21 10/12/1910/11/2022 urina lysis , dipst ick Unknown Analyte Normal = 0.2, 1.0 Not Available [facility] [address], [place], [address], 10/11/2022 15:11:21 10/12/19 23 10/11/2022 urina lysis , dipst ick Unknown Analyte 0.2 E.U./d L Not Available bryanna souza [address], [place], [address], 10/11/2022 15:11:21 10/12/1910/11/2022 urina lysis , dipst ick Unknown Analyte Normal = Negati ve Not Available bryanna [address], [place], [address], 10/11/2022 15:11:21 10/12/1910/11/2022 urina lysis , dipst ick Unknown Analyte Negati ve Not Available bryanna souza [address], [place], [address], 10/11/2022 15:11:21 10/12/19 23 10/11/2022 urina lysis , dipst ick Unknown Analyte Normal = Negati ve Not Available bryanna souza [address], [place], [address], 10/11/2022 15:11:21 10/12/19 23 10/11/2022 urina lysis , dipst ick Unknown Analyte Negati ve Not Available bryanna souza [address], [place], [address], 10/11/2022 15:11:21 Result Notes None recorded. Problems No Known Problems Procedures Surgical History Date Name Laterality Status Provider Name and Address Organization Details Recorded Time procedure on knee completed DIANNE JUÁREZ - [facility] 10/11/2022 14:35:35 prosthetic arthroplasty of hip completed DIANNE JUÁREZ - [facility] 10/11/2022 14:35:51 rectal polypectomy completed DIANNE [facility] 10/11/2022 14:36:20 Imaging Results None recorded. Procedure Notes None recorded. Medical Equipment None Reported. Allergies No known drug allergies Medications Name Sig Start Date Stop Date Status Note LastModified by Organization Details LastModified Time amoxicillin 500 mg capsule TAKE 4 CAPSULES BY MOUTH 1 HOUR PRIOR TO DENTAL APPOINTME NT 10/11 completed Not Available Not Available Not Available clotrimazol e-betametha sone 1 %-0.05 % topical cream APPLY TO THE AFFECTED AND SURROUNDI NG AREAS OF SKIN BY TOPICAL ROUTE 2 TIMES PER DAY IN THE MORNING AND EVENING FOR 2 WEEKS. 2022 active Not Available Not Available Not Avai lable fluticasone propionate 50 mcg/actuati on nasal spray,suspe nsion USE 2 SPRAYS INTRANASA LLY DAILY; ADMINISTE R INTO EACH NOSTRIL. 10/11 completed Not Available Not Available Not Available Vitals Date Recorded Body height Body mass index (BMI) Body weight Pain severity - 0-10 verbal numeric rating [Score] - Reported Respiratory rate Oxygen saturation Oxygen saturation in Arterial blood by Pulse oximetry Heart rate Body temperature Systolic blood pressure Diastolic blood pressure Provider Name and Address Organization Details Last Updated DateTime 3 182.88 cm 26.4 kg/m2 63972.5 1 g 9 17 /min 98 % 98 % 55 /min 97.9 [degF] 151 mm[Hg] 75 mm[Hg] DIANNE [facility] 3 14:37:11 Social History Question Answer Notes LastModified by Organizat ion Details LastModified Time Tobacco Smoking Status Never Smoker DIANNE gomez PA Eduardo [facility] 10/11/2022 14:35:10 What Is Your Level Of Alcohol Consumption? Occasional [email or web address] Information not available 10/11/2022 Do You Use Any Illicit Or Recreational Drugs? No Information not available 10/11/2022 Have You Recently Traveled Abroad? No Information not available 10/11/2022 Do You Or Have You Ever Used Any Other Forms Of Tobacco Or Nicotine? No [email or web address] Information not available 10/11/2022 Sex: Unknown Functional Status None recorded. Mental Status None recorded. Family History Relationship Description Onset Age of this Age Resolved Age Notes LastModified by Organization Details LastModified Time Father No current problems or disability [email or web address] Not available 10/11 14:34:47 Mother No current problems or disability [email or web address] Not available 10/11 14:34:47 Medical History No medical history recorded. Past Encounters Encounter ID Performer Location Encounter Start Date Encounter Closed Date Diagnosis/Indication Diagnosis SNOMED-CT Code Diagnosis ICD10 Code Diagnosis Note [id number] [address] [address] 10/25/2020 19:24:14 10/25/2020 20:09:32 [id number] [place] [address] [place] [address] 10/11/2022 13:49:51 10/11/2022 15:13:21 Tinea cruris 831942247 B35.6 Health Concerns Section Related Observation LastModified by Organization Detai ls LastModified Time None Recorded Concern Status LastModified by Organization Details LastModified Time None Recorded Advance Directives Directive None Recorded Payers Encounter Date Sequence Insurance Name Policy Number Policy Dumont Covered Member ID Dumont Member ID Guarantor Name 10/25/2020 1 [place] [employer] Ruy Leónnsworth [id number] Ruy LeónPawling 10/25/2020 2 [place] [id number] Ruy Resendez Juan Jose [id number] Ruy LeónPawling 10/11/2022 1 [place] Ryu Leónnsworth [id number] Ruy LeónJuan Jose 10/11/2022 2 [place] [id number] Ruy Ingram [id number] Ruy Ingram Notes Date Note Type Note Provider Name and Address Organization Details Recorded Time 3 text/html UC Rash/Skin LesionReported bypatient.source of patient informationInformation obtained from patient; Patient arrived at Urgent Care ambulatory Location:groin Quality:itchy;red Severity:moderate Duration:5 days Context:other exposure; no new detergent or skin product; no recent change in medication; no exposure to hair dye; no expsoure to new clothes/jewelry; no recent travel; no recent illness; no pets/animals in home; not affiliated with chemicals/pesticides Alleviating Factors:nothing gives relief Associated Symptoms:no fever; no fatigue Treatment History:prescription topical treatment with no improvement Aquiles Robert NP [address] [place], [address], [place] - [facility] 10/11/2022 15:59:02
--- OUTSIDE RECORDS SUMMARY | 2024-05-15 11:58 | XMS_ITS | Patient Health Record ---
Author Organization [facility] Address [address] [place] [address] Care Team Providers Care Airworthiness Safety Inspector Name Role Phone Jose L JARAMILLO, [place] Primary Care Provider Keena Navarrete Unavailable [phone] Allergies No Known Allergies Reason For Referral No Information Medications Medication SIG (Take, Route, Frequency, Duration) Notes Start Date End Date Status Iron Active Levothyroxine Sodium 50 MCG Oral for 90 Days Active Vitamin C Active Ferrous Fumarate 324 (106 Fe) MG TAKE ONE TABLET BY MOUTH DAILY AT BEDTIME Oral for 90 Days Active Social History Tobacco Use: Social History Observation Description Date Details (start date - stop date) Never Smoker NA - NA Tobacco Use/Smoking Question Answer Notes Are you a: nonsmoker Additional Findings: Tobacco Non-User Current no n-smoker Alcohol Screen Question Answer Notes Did you have a drink containing alcohol in the p ast year? No Points 0 Interpretation Negative Tobacco use other than smoking: Question Answer Notes Are you an other tobacco user? No Problems Problem Type SNOMED Code ICD Code Onset Dates Problem Status W/U Status Risk Notes Problem Plantar wart ([id number]) Plantar wart (B07.0) Active confirmed Problem 948046333 Raynaud's disease without gangrene (I73.00) Active confirmed Vital Signs Blood pressure diastolic 80 mm Hg 02/02/2024 Height 6 ft in 02/02/2024 Blood pressure systolic 120 mm Hg 02/02/2024 Weight 193 lbs 02/02/2024 BMI 26.17 kg/m2 02/02/2024 Encounters Encounter Location Date Provider Diagnosis [facility] [address] [place] [address] 02/02/2024 Keena Lainez Plantar wart B07.0 Assessments Encounter Date Diagnosis (ICD Code) Assessment Notes Treatment Notes Treatment Clinical Notes Section Notes 02/02/2024 Plantar wart (ICD-10 - B07.0) Plan Of Treatment Next Appt Details Provider Name:Keena ledesma, 08/02/2024 09:00:00 AM, [address] [facility], [place], [address], Insurance Providers Payer Name Payer Address Payer Phone Subscriber Number Group Number Insured Name Patient Relationship to Insured Coverage Start Date Coverage End Date Medicare National [facility] [address] [place] [address] [id number] Ruy Roth Self - patient is the insured [employer] [address] [place] [address] [id number] Ruy Roth Self - patient is the insured Medical (General) History Medical History History ICD Code Cataracts Measles Mumps Chicken pox Joint implants/screws Surgical History Surgery Date(Month/Year)
== END 2024-05-15 12:08 | disposition home or self-care (01) ==
PROVIDERS: PCP Internal Medicine; Visit Provider Internal Medicine
DX: I35.0 Nonrheumatic aortic (valve) stenosis (principal); I48.92 Unspecified atrial flutter; Z95.0 Presence of cardiac pacemaker; M79.89 Other specified soft tissue disorders; R04.0 Epistaxis; R31.9 Hematuria, unspecified
CPT/HCPCS: 93010; 99214

== ENCOUNTER 2024-05-15 13:37 | Outpatient (REF) | payer MEDICARE, SELFPAY | END 2024-05-15 13:38 | disposition home or self-care (01) | LOC: HO.US 13:37 | PROVIDERS: PCP Internal Medicine; Visit Provider Internal Medicine | DX: R60.0 Localized edema (principal) | CPT/HCPCS: 93971 ==

== ENCOUNTER → 2024-05-15 13:39 | Outpatient (BNV) | payer MEDICARE, SELFPAY | PROVIDERS: PCP Internal Medicine; Visit Provider Radiology Diagnostic Radiology | DX: M79.89 Other specified soft tissue disorders (principal) | CPT/HCPCS: 93971 ==

== ENCOUNTER → 2024-05-23 10:05 | Outpatient (AMB) | payer MEDICARE, SELFPAY ==
--- NOTE | 2024-05-23 10:25 | A.OFFVIS_ITS ---
VS Expanded 05/23/24 11:01 Height 6 ft Weight 205 lb BMI 27.8 Intake Visit Reasons: overweight/anemia Allergies No Known Allergies Allergy (Verified 04/17/24 10:04) Nutrition Presentation Details: Pt presents for MNT f/u for anemia, hyperlipidemia, overweight Pt reports eating well, feeling overall well. Reports including foods with iron and balancing meals B: bran flakes/cheerios, milk 1%, sometimes add a fruit L: salads with sandwich (sometimes add spinach) D: potato/beef/carrots or soups has 16 oz of water per day + 3 cups of milk working on including yogurts and having less sugary foods reports taking iron and vitamin c daily denies constipation/diarrhea has questions regarding low Hct /Hgb BS Monitoring Most Recent Diabetes Results: Creatinine 0.81 mg/dL (0.5-1.4) 03/23/24 Blood Urea Nitrogen 16 mg/dL (9-16) 03/23/24 Sodium 142 mmol/L (135-145) 03/23/24 Potassium 4.3 mmol/L (3.3-5.1) 03/23/24 Chloride 104 mmol/L (96-108) 03/23/24 Carbon Dioxide 30 mmol/L (22-29) H 03/23/24 Calcium 9.0 mg/dL (8.4-10.2) 03/23/24 [facility] Medical History (Updated 05/15/24 @ 12:27 by Endy Hawthorne MD) Pacemaker Peripheral neuropathy Hypothyroidism Overweight (BMI 25.0-29.9) BPH (benign prostatic hyperplasia) 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 Mother No problems noted. Social History Household Members: Spouse Housing: House Do you presently have visiting nurse or other home services: No Alcohol intake: former Patient Tobacco Use Status: Never used Tobacco e-Cigarette/Vaping Use: Never Used Second Hand Smoke Exposure: Yes service: No Current occupational status: retired Cognitive needs: No Hearing needs: Yes Vision needs: Yes (Pt wear glasses) Assessment & Plan Assessment & Plan (1) Anemia: Code(s): D64.9 - Anemia, unspecified Category: Medical Qualifiers: Anemia type: unspecified type Qualified Code(s): D64.9 - Anemia, unspecified Plan: Iron within normal limits on 03/2024 - August recommend monitoring labs for vitamin deficiencies : folate, b12 , B1, B2, B6) Discussed hydration and continuing to include a variety of foods including foods with B vitamins (beets, greens, citrus fruits Patient Instructions: Include spinach or green beans or asparagus in scrambled eggs Have beans/lentil soup at least twice a week see list of foods with b vitamins to included in your diet Recommend for MD to monitor for B vitamin deficiency (folate, b12, b6, b1,b2) Coding Level of Care Code Nutr Indiv Subseq ([id number]) Diagnoses Anemia, unspecified type D64.9 Anemia type: unspecified type Time Spent (min) 30
--- OUTSIDE RECORDS SUMMARY | 2024-05-23 11:00 | XMS_ITS | Data Portability ---
Author Organization FRANCK Becerra s, [address] Address [address] [place] [address] Assessment No assessment recorded. Plan of Treatment Reminders Order Date Submit Date Provider Last Modified By Organization Details Last Modified Time Details Appointments None recorded. Lab urinalysis , dipstick 2022 023 [email or web address] _[facility], [facility] [place], [address], 15:58:42 Referral None recorded. Procedures None recorded. Surgeries None recorded. Imaging None recorded. Medication Orders clotrimazo le-betamet hasone 1 %-0.05 % topical cream 2022 023 [facility], [address] [place], [address], 15:07:46 Patient TargetsNo targets recorded. Patient Instructions Encounter Date Encounter Id Patient Instructions Last Modified By Organization Details Last Modified Time 10/11/2022 [id number] What are ringworm, athlete's foot, and jock [...] infection? You can catch fungal infections through tumw-hu-wbxm contact with a person who is infected. [...] = light yellow Not Available _bryanna souza [address], [address], 10/11/2022 15:11:21 10/12/1910/11/2022 urina lysis , dipst ick Unknown Analyte Yellow Not Available cach[facility]ou[facility] [address], [address], 10/11/2022 15:11:21 10/12/1910/11/2022 urina lysis , dipst ick Unknown Analyte Normal = clear Not Available _bryanna souza [address], [address], 10/11/2022 15:11:21 10/12/1910/11/2022 urina lysis , dipst ick Unknown Analyte Clear Not Available [facility] [address], [address], 10/11/2022 15:11:21 10/12/19 23 10/11/2022 urina lysis , dipst ick Unknown Analyte Normal = negati ve Not Available bryanna souza [address], [place], [place], [address], 10/11/2022 15:11:21 10/12/19 23 10/11/2022 urina lysis , dipst ick Unknown Analyte Negati ve Not Available bryanna souza [address], [place], [place], [address], 10/11/2022 15:11:21 10/12/1910/11/2022 urina lysis , dipst ick Unknown Analyte Normal = Negati ve Not Available bryanna souza [address], [place], [address], 10/11/2022 15:11:21 10/12/19 23 10/11/2022 urina lysis , dipst ick Unknown Analyte Negati ve Not Available bryanna souza [address], [place], [place], [address], 10/11/2022 15:11:21 10/12/19 23 10/11/2022 urina lysis , dipst ick Unknown Analyte Normal = Negati ve Not Available bryanna souza [address], [place], [address], 10/11/2022 15:11:21 10/12/19 23 10/11/2022 urina lysis , dipst ick Unknown Analyte Negati ve Not Available bryanna souza [address], [place], [address], 10/11/2022 15:11:21 10/12/19 23 10/11/2022 urina lysis , dipst ick Unknown Analyte Normal = 1.010, 1.015, 1.020 Not Available 2099bryanna souza [address], [place], [address], 10/11/2022 15:11:21 10/12/19 23 10/11/2022 urina lysis , dipst ick Unknown Analyte 1.030 Not Available [address], [place], [address], 10/11/2022 15:11:21 10/12/19 23 10/11/2022 urina lysis , dipst ick Unknown Analyte Normal = Negati ve Not Available [address], [place], [address], 10/11/2022 15:11:21 10/12/19 23 10/11/2022 urina lysis , dipst ick Unknown Analyte Trace- intact Not Available [address], [place], [address], 10/11/2022 15:11:21 10/12/19 23 10/11/2022 urina lysis , dipst ick Unknown Analyte Normal = 6.5, 7.0, 7.5, 8.0 Not Available [address], [place], [address], 10/11/2022 15:11:21 10/12/19 23 10/11/2022 urina lysis , dipst ick Unknown Analyte 5.5 Not Available [address], [place], [address], 10/11/2022 15:11:21 10/12/19 23 10/11/2022 urina lysis , dipst ick Unknown Analyte Normal = Negati ve Not Available [address], [place], [address], 10/11/2022 15:11:21 10/12/19 23 10/11/2022 urina lysis , dipst ick Unknown Analyte Negati ve Not Available bryanna souza [address], [place], [address], 10/11/2022 15:11:21 10/12/1910/11/2022 urina lysis , dipst ick Unknown Analyte Normal = 0.2, 1.0 Not Available [facility] [address], [place], [address], 10/11/2022 15:11:21 10/12/19 23 10/11/2022 urina lysis , dipst ick Unknown Analyte 0.2 E.U./d L Not Available bryanna souza [address], [place], [address], 10/11/2022 15:11:21 10/12/1910/11/2022 urina lysis , dipst ick Unknown Analyte Normal = Negati ve Not Available bryanna [address], [place], [address], 10/11/2022 15:11:21 10/12/1910/11/2022 urina lysis , dipst ick Unknown Analyte Negati ve Not Available bryanna souza [address], [place], [address], 10/11/2022 15:11:21 10/12/19 23 10/11/2022 urina lysis , dipst ick Unknown Analyte Normal = Negati ve Not Available bryanna souza [address], [place], [address], 10/11/2022 15:11:21 10/12/19 23 10/11/2022 urina lysis , dipst ick Unknown Analyte Negati ve Not Available bryanna souza [address], [place], [address], 10/11/2022 15:11:21 Result Notes None recorded. Problems [...] Updated DateTime 3 182.88 cm 26.4 kg/m2 43009.5 1 g 9 17 /min 98 % 98 % 55 /min 97.9 [degF] 151 mm[Hg] 75 mm[Hg] DIANNE [facility] 3 14:37:11 Social History Question Answer Notes LastModified by Organizat ion Details LastModified Time Tobacco Smoking Status Never Smoker DIANNE gomez PA Eduardo [facility] 10/11/2022 14:35:10 What Is Your Level Of Alcohol Consumption? Occasional [email or web address] Information not available 10/11/2022 Do You Use Any Illicit Or Recreational Drugs? No [email or web address] Information not available 10/11/2022 Have You Recently Traveled Abroad? No [email or web address] Information not available 10/11/2022 Do You Or Have You Ever Used Any Other Forms Of Tobacco Or Nicotine? No Information not available 10/11/2022 Sex: Unknown Functional Status None recorded. Mental Status None recorded. Family History Relationship Description Onset Age of this Age Resolved Age Notes LastModified by Organization Details LastModified Time Father No current problems or disability [email or web address] Not available 10/11 14:34:47 Mother No current problems or disability [email or web address] Not available 10/11 14:34:47 Medical History No medical history recorded. Past Encounters Encounter ID Performer Location Encounter Start Date Encounter Closed Date Diagnosis/Indication Diagnosis SNOMED-CT Code Diagnosis ICD10 Code Diagnosis Note [id number] [address] [address] 10/25/2020 19:24:14 10/25/2020 20:09:32 [id number] [place] [address] [place] [address] 10/11/2022 13:49:51 10/11/2022 15:13:21 Tinea cruris 538576657 B35.6 Health Concerns Section Related Observation LastModified by Organization Detai ls LastModified Time None Recorded Concern Status LastModified by Organization Details LastModified Time None Recorded Advance Directives Directive None Recorded Payers Encounter Date Sequence Insurance Name Policy Number Policy Dumont Covered Member ID Dumont Member ID Guarantor Name 10/25/2020 1 [place] Ruy Leónnsworth [id number] [place] 10/25/2020 2 [place] [id number] Ruy Resendez Juan Jose [id number] Ruy [place] 10/11/2022 1 [place] uRy Leónnsworth [id number] Ruy LeónJuan Jose 10/11/2022 2 [place] [id number] Ruy Ingram [id number] Ruy Ingram Notes Date Note Type [...] Robert NP [address] [place], [address], [place] - [facility] 10/11/2022 15:59:02
--- OUTSIDE RECORDS SUMMARY | 2024-05-23 11:00 | XMS_ITS | Patient Health Record ---
Author Organization [facility] Address [address] [place] [address] Care Team Providers Care Research And Development Chemist Name Role Phone Jose L JARAMILLO, [place] Primary Care Provider Keena Navarrete Unavailable [phone] Allergies No Known Allergies Reason For Referral [...] W/U Status Risk Notes Problem Plantar wart (47458392) Plantar wart (B07.0) Active confirmed Problem 556229302 Raynaud's disease without gangrene (I73.00) Active confirmed Vital Signs Blood pressure diastolic 80 mm Hg 02/02/2024 Height 6 ft in 02/02/2024 Blood pressure systolic 120 mm Hg 02/02/2024 Weight 193 lbs 02/02/2024 BMI 26.17 kg/m2 02/02/2024 Encounters Encounter Location Date Provider Diagnosis [facility] [address] [place] [address] 02/02/2024 Keena Lainez Plantar wart B07.0 Assessments Encounter Date Diagnosis (ICD Code) Assessment Notes Treatment Notes Treatment Clinical Notes Section Notes 02/02/2024 Plantar wart (ICD-10 - B07.0) Plan Of Treatment Next Appt Details Provider Name:Keena ledesma, 08/02/2024 09:00:00 AM, [address] [facility], [place], [address], Insurance Providers Payer Name Payer Address Payer Phone Subscriber Number Group Number Insured Name Patient Relationship to Insured Coverage Start Date Coverage End Date Medicare National [facility] [address] [place] [address] [id number] Ruy Roth Self - patient is the insured Medex Blue Shield [address] [place] [address] [phone] [id number] Ruy Roth Self - patient is the insured Medical (General) History Medical History History ICD Code Cataracts Measles Mumps Chicken pox Joint implants/screws Surgical History Surgery Date(Month/Year)
[2024-05-23 11:01] VITALS: BMI 27.8
--- OUTSIDE RECORDS SUMMARY | 2024-05-23 11:01 | XMS_ITS | Patient Health Record ---
Author Organization [facility] Address [address] [place] [address] Care Team Providers Care Miter Operator Name Role Phone Jose L JARAMILLO, [place] Primary Care Provider Inocencio Murcia Unavailable [phone] REASON FOR REFERRAL No Information IMMUNIZATIONS Vaccine [...] malignant neoplasm of colon (Z12.11) Active confirmed 727895532 Problem History of adenomatous polyp of colon (Z86.010) Active confirmed 939668420 Problem Preprocedural examination (Z01.818) Active confirmed 92311825 Problem History of colon polyps (Z86.010) Active confirmed 894090003 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 518758801 PLAN OF TREATMENT Future Test Test Name Order Date COLONOSCOPY 07/25/2015 COLONOSCOPY 02/19/2017 Insurance Providers Payer Name Payer Address Payer Phone Subscriber Number Group Number Insured Name Patient Relationship to Insured Coverage Start Date Coverage End Date MED[place]ARE OF [place] [address] [place] [id number] [id number] ANGEL BARRERA Self - patient is the insured MEDEX ATTN CLAIMS [address] [place] [address] [id number] ANGEL BARRERA Self - patient is the insured MEDICAL (GENERAL) HISTORY Medical History History ICD Code 02/21/2004 Screening Colonos copy was negative other than some diverticulosis and internal hemorrhoids Denies MS,DM,CVA,Lung disease,renal dise ase Colonoscopy in 10/2014--flat adenoma [...]
--- OUTSIDE RECORDS SUMMARY | 2024-05-23 11:01 | XMS_ITS ---
Author Organization [facility] Address [address] [place] [address] Care Team Providers Care Community Health Specialist Name Role Phone Jose L JARAMILLO, [place] Primary Care Provider Keena Navarrete Unavailable [phone] Allergies No Known Allergies REASON FOR VISIT [...] W/U Status Risk Notes Problem Plantar wart (19039522) Plantar wart (B07.0) Active confirmed Vital Signs Height 6 ft in 02/02/2024 Weight 193 lbs 02/02/2024 BMI 26.17 kg/m2 02/02/2024 Blood pressure systolic 120 mm Hg 02/02/20 24 Blood pressure diastolic 80 mm Hg 024 Encounters Encounter Location Date Provider Diagnosis [facility] [address] [place] [address] 02/02/2024 Keena Lainez Plantar wart B07.0 Assessments Encounter Date Diagnosis (ICD Code) Assessment Notes Treatment Notes Treatment Clinical Notes Section Notes 02/02/2024 Plantar wart (ICD-10 - B07.0) Plan Of Treatment Next Appt Details Follow Up: prn, Reason: Provider Name:Keena ledesma, 08/02/2024 09:00:00 AM, [address] [place], [address], Progress Notes * Ruy INGRAM WDOB:[birth year] (88 yo M)Acc No.[id number]:02/02/2024 Progress Note Patient:?Ruy Ingram Provider:?Keena Lainez DPM :1935???Age:88 Y???Sex:Male Kris e:02/02/2024 Address:[address] [place] [address] Pcp:Pepito Domingo MD Subjective: * Chief Complaints: [...] * Provider:?Keena Lainez DPM Date:?1 Generated for Alexsandra maldonado/Han/Penny on:?05/23/2024 11:00 AM EST History and Physical Notes * [...]
== END ==
PROVIDERS: PCP Internal Medicine; Visit Provider Dietitian, Registered
DX: D64.9 Anemia, unspecified (principal)

== ENCOUNTER → 2024-05-23 10:05 | Outpatient (BNVA) | payer MEDICARE, SELFPAY | PROVIDERS: PCP Internal Medicine; Visit Provider Dietitian, Registered | DX: E66.3 Overweight (principal); E78.5 Hyperlipidemia, unspecified; D64.9 Anemia, unspecified; Z71.3 Dietary counseling and surveillance; Z68.27 Body mass index [BMI] 27.0-27.9, adult | CPT/HCPCS: 97803 ==

== ENCOUNTER → 2024-05-26 09:51 | Outpatient (REF) | payer MEDICARE, SELFPAY ==
--- NOTE | 2024-05-26 09:55 | CA_ITS ---
Transthoracic Echocardiogram Patient (Last, First, Middle): Ruy Ingram W Gender: Male Date of : 1935 Age: 89 Procedure Date: 05/26/2024 Procedure Type: Transthoracic Echocardiogram Location: OP Height: 182.88 cm Weight: 90.27 kg BSA: 2.13 m2 Heart Rate: bpm BP: 122 / 60 mmHg Web Content Executive: TO Referring MD: Endy Hawthorne MD Symptoms: I35.0 - Nonrheumatic aortic (valve) stenosis Study Quality: Adequate ECG Rhythm: Sinus with ?PVCs Conclusions: - The left ventricular systolic function is normal. The calculated ejection fraction is 58% by biplane method. - There is severe aortic valve stenosis. Findings Left Ventricle Normal left ventricular cavity size. The left ventricular systolic function is normal. The calculated ejection fraction is 58% by biplane method. There is no evidence of regional wall motion abnormalities. Diastolic function is normal for age. There is moderate septal and moderate basal asymmetric hypertrophy. Right Ventricle Mildly increased right ventricular cavity size. There is normal right ventricular systolic function. Atria Severe biatrial enlargement. Aortic Valve There is severe calcification of the aortic valve. There is severe aortic valve stenosis. The peak aortic velocity is 3.94 m/s with a calculated peak gradient of 62 mmHg. The mean gradient is 41 mmHg. The aortic valve area is 0.96 cm2. There is mild aortic valve regurgitation. Mitral Valve There is mild mitral annular calcification. There is no mitral valve regurgitation. There is no mitral valve stenosis. Pulmonic Valve The pulmonic valve is likely normal. Tricuspid Valve There is mild tricuspid valve regurgitation. There is no evidence of pulmonary hypertension. Great Vessels The asc aorta is normal in size. Venous The inferior vena cava is normal in size and collapses greater than 50% with inspiration. Pericardium/Pleural There is no evidence of pericardial effusion. Prior Study Comparison Changes noted compared to prior study dated: 03/07/2024. Progression of aortic stenosis. Measurements 2D Linear Measurements IVSd: 1.37 0.6-0.9/0.6-1.0 cm LVIDd: 4.91 3.9-5.3/4.2-5.9 cm LVIDd Index: 2.31 2.4-3.2/2.2-3.1 cm/m2 LVIDs: 2.82 2.0-3.6 cm LVPWd: 1.05 0.7-1.1 cm LA Diam: 4.60 2.7-3.8/3.0-4.0 cm LAIDs Index: 2.16 1.5-2.3 cm/m2 LV Mass: 286.48 67-162/88-224 g LV Mass Index: 134.50 43-95/49-115 g/m2 LVOT Diam: 2.20 3.0+(-)1.3 cm 2D Systolic Function EF 4C: 58.50 >55% EF 2C: 57.00 >55% EF BiP: 58.30 >55% Mitral Valve MV Pk E: 0.64 MV PK A: 0.44 MV Decel Time: 208.00 E/A: 1.50 E'Lateral: 6.85 E'Medial: 5.44 E/E' Med: 11.80 E/E' Lat: 9.40 PHT: 61.00 MVA PHT: 3.61 Decel Merrick: 3.09 Aortic Valve AoV Pk Devonte: 3.94 AoV Mn Devonte: 3.08 AoV VTI: 1.00 AoV Pk Grad: 62.00 Aov Mn Grad: 41.00 JOSE MANUEL Cont.VTI: 0.96 AI Pk Devonte: 3.83 AI Merrick: 1.90 LVOT LVOT Pk Devonte: 0.95 LVOT Mn Devonte: 0.61 LVOT VTI: 0.25 LVOT Pk Grad: 4.00 LVOT Mn Grad: 2.00 LVOT Diam: 2.20 LVOT Area: 3.80 Diastolic Function MV Pk E: 0.64 MV Pk A: 0.44 E/A: 1.50 E'Medial: 5.44 E/E' Med: 11.80 E' Laterial: 6.85 E/E' Lat: 9.40 Right Ventricle TAPSE (mm): 27.20 TVS' Devonte: 17.10 Tricuspid Valve TR Pk Devonte: 2.43 TR Pk Grad: 24.00 RA Press: 3.00 RVSP: 27.00 Great Vessels Aorta Sinus of Valsalva: 3.76 2.0-3.5 cm Ao Asc: 3.60 2.1-3.4 cm Updated in Other Vendor System with Status of Final Endy Hawthorne MD electronically signed on 05/27/2024 3:25:42 PM with status of Final
--- OUTSIDE RECORDS SUMMARY | 2024-05-26 10:33 | XMS_ITS | Data Portability ---
Author Organization [facility], [facility] Address [address] [facility] [place] [address] Care Team Providers Care Overcoiler Name Role Phone JAMILAH MOORE Primary Care [...] cuff tear Referring Physician: Rosi Read, Physician Health Coach, Encounter Date: 09/26/2018 Results Created Date Observation [...] Details Recorded Time 03/05/20 15 [facility] 09/26/2018 08:02:59 09/04/19 12 Orthopaedic Surgery completed [facility] 09/26/2018 08:02:46 11/04/19 07 Orthopaedic Surgery completed [facility] 09/26/2018 08:02:33 Imaging [...] Updated DateTime 09/26/2018 182.88 cm 28.9 kg/m2 55540.17 g [facility] 09/26/2018 08:00:54 Social History Question Answer Notes LastModified by Organizat ion Details LastModified Time Tobacco Smoking Status Never Smoker Pearl Torres [facility] 09/26/2018 08:01:30 What Is [...] You Participate In? Conditioning , Weights At [facility] Information not available 09/26/2018 Work Related Injury? 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 Waste Collection Worker ea (please specify) N Pulmonary Embolism N Past Encounters Encounter ID Performer Location Encounter Start Date Encounter Closed Date Diagnosis/Indication Diagnosis SNOMED-CT Code Diagnosis ICD10 Code Diagnosis Note [id number] FRANCK SMALL [facility] Office [address] [place] [address] 09/26/2018 07:41:04 09/26/2018 08:44:47 Full thickness rotator cuff tear 394110055 M75.122 Health Concerns Section Related Observation LastModified by Organization Detai ls LastModified Time None Recorded Concern Status LastModified by Organization Details LastModified Time None Recorded Advance Directives Directive None Recorded Payers Encounter Date Sequence Insurance Name Policy Number Policy Dumont Covered Member ID Dumont Member ID Guarantor Name 09/26/2018 1 [place] uRy Ingram [id number] Ruy Ingram 09/26/2018 2 [place] [id number] Ruy Ingram [id number] Ruy Ingram Notes Date Note Type [...] exercises heavily with conditioning classes at the [employer] and swimming. ROS: Positive for hearing loss and arthritis. FRANCK SMALL [address] [place] [address], [place], [address], [facility] 09/29/2018 18:52:08
--- OUTSIDE RECORDS SUMMARY | 2024-05-26 10:33 | XMS_ITS | Patient Health Record ---
Author Organization [facility] Address [address] [place] [address] Care Team Providers Care It Compliance Manager Name Role Phone Jose L JARAMILLO, [place] Primary Care Provider Keena Navarrete Unavailable [phone] Allergies No Known Allergies Reason For Referral [...] W/U Status Risk Notes Problem Plantar wart (34510241) Plantar wart (B07.0) Active confirmed Problem 722893545 Raynaud's disease without gangrene (I73.00) Active confirmed Vital Signs Blood pressure diastolic 80 mm Hg 02/02/2024 Height 6 ft in 02/02/2024 Blood pressure systolic 120 mm Hg 02/02/2024 Weight 193 lbs 02/02/2024 BMI 26.17 kg/m2 02/02/2024 Encounters Encounter Location Date Provider Diagnosis [facility] [address] [place] [address] 02/02/2024 Keena Lainez Plantar wart B07.0 Assessments Encounter Date Diagnosis (ICD Code) Assessment Notes Treatment Notes Treatment Clinical Notes Section Notes 02/02/2024 Plantar wart (ICD-10 - B07.0) Plan Of Treatment Next Appt Details Provider Name:Keena ledesma, 08/02/2024 09:00:00 AM, [address] [facility], [place], [address], Insurance Providers Payer Name Payer Address Payer Phone Subscriber Number Group Number Insured Name Patient Relationship to Insured Coverage Start Date Coverage End Date Medicare National [facility] [address] [place] [address] [id number] Ruy Roth Self - patient is the insured Medex Blue Shield [address] [place] [address] [id number] Ruy Roth Self - patient is the insured Medical (General) History Medical History History ICD Code Cataracts Measles Mumps Chicken pox Joint implants/screws Surgical History Surgery Date(Month/Year)
--- OUTSIDE RECORDS SUMMARY | 2024-05-26 10:33 | XMS_ITS ---
Author Organization [facility] Address [address] [place] [address] Care Team Providers Care Bullet Slugs Inspector Name Role Phone Jose L JARAMILLO, [place] Primary Care Provider Keena Navarrete Unavailable [phone] Allergies No Known Allergies REASON FOR VISIT [...] W/U Status Risk Notes Problem Plantar wart (23718012) Plantar wart (B07.0) Active confirmed Vital Signs Blood pressure systolic 120 mm Hg 02/02/20 24 Blood pressure diastolic 80 mm Hg 024 Height 6 ft in 02/02/2024 Weight 193 lbs 02/02/2024 BMI 26.17 kg/m2 02/02/2024 Encounters Encounter Location Date Provider Diagnosis [facility] [address] [place] [address] 02/02/2024 Keena Lainez Plantar wart B07.0 Assessments Encounter Date Diagnosis (ICD Code) Assessment Notes Treatment Notes Treatment Clinical Notes Section Notes 02/02/2024 Plantar wart (ICD-10 - B07.0) Plan Of Treatment Next Appt Details Follow Up: prn, Reason: Provider Name:Keena ledesma, 08/02/2024 09:00:00 AM, [address] [place], [address], Progress Notes * Ruy INGRAM WDOB:[birth year] (88 yo M)Acc No.[id number]:02/02/2024 Progress Note Patient:?Ruy Ingram Provider:?Keena Lainez DPM :1935???Age:88 Y???Sex:Male Kris e:02/02/2024 Address:[address] [place] [address] Pcp:Pepito Domingo MD Subjective: * Chief Complaints: [...] Provider:?Keena Lainez DPM Date:?1 Generated for Alexsandra maldonado/Han/Osbaldoitting on:?05/26/2024 10:33 AM EST History and Physical Notes * [...]
--- OUTSIDE RECORDS SUMMARY | 2024-05-26 10:33 | XMS_ITS | Patient Health Record ---
Author Organization [facility] Address [address] [place] [address] Care Team Providers Care Director Of Instrumental Music Name Role Phone Jose L JARAMILLO, [place] Primary Care Provider Inocencio Murcia Unavailable [phone] REASON FOR REFERRAL No Information IMMUNIZATIONS Vaccine [...] malignant neoplasm of colon (Z12.11) Active confirmed 160345666 Problem History of adenomatous polyp of colon (Z86.010) Active confirmed 054921266 Problem Preprocedural examination (Z01.818) Active confirmed 12992285 Problem History of colon polyps (Z86.010) Active confirmed 538060472 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 056873435 PLAN OF TREATMENT Future Test Test Name Order Date COLONOSCOPY 07/25/2015 COLONOSCOPY 02/19/2017 Insurance Providers Payer Name Payer Address Payer Phone Subscriber Number Group Number Insured Name Patient Relationship to Insured Coverage Start Date Coverage End Date MED[place]ARE OF [place] [address] [place] [id number] ANGEL BARRERA Self - patient is the insured MEDEX ATTN CLAIMS [address] [place] [address] [id number] ANGEL BARRERA Self - patient is the insured MEDICAL (GENERAL) HISTORY Medical History History ICD Code 02/21/2004 Screening Colonos copy was negative other than some diverticulosis and internal hemorrhoids Denies ND,DM,CVA,Lung disease,renal dise ase Colonoscopy in 10/2014--flat adenoma [...]
== END ==
LOC: HO.CARD 09:51
PROVIDERS: PCP Internal Medicine; Visit Provider Internal Medicine
DX: I35.0 Nonrheumatic aortic (valve) stenosis (principal)
CPT/HCPCS: 93306

== ENCOUNTER → 2024-05-26 09:55 | Outpatient (BNV) | payer MEDICARE, SELFPAY | PROVIDERS: PCP Internal Medicine; Visit Provider Internal Medicine | DX: I42.2 Other hypertrophic cardiomyopathy (principal); I51.7 Cardiomegaly; I35.2 Nonrheumatic aortic (valve) stenosis with insufficiency; I35.8 Other nonrheumatic aortic valve disorders | CPT/HCPCS: 93306 ==

== ENCOUNTER → 2024-05-29 23:59 | Outpatient (BNV) | payer MEDICARE, SELFPAY ==
--- NOTE | 2024-05-29 19:10 | A.OFFVIS_ITS ---
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 Mother No problems noted. Social History Household Members: Spouse Housing: House Do you presently have visiting nurse or other home services: No Alcohol intake: former Patient Tobacco Use Status: Never used Tobacco e-Cigarette/Vaping Use: Never Used Second Hand Smoke Exposure: Yes service: No Current occupational status: retired Cognitive needs: No Hearing needs: Yes Vision needs: Yes (Pt wear glasses) Office Procedures Cardiac Device Check Cardiac Device Check Details: Date of service- 05/29/2024 ; Battery life >11 years; normal lead parameters; AP 44%; READING PROFESSOR 98%; no significant arrhythmias. Overall normal device function. [id number] Cardiac Device Interrogation, pacemaker Procedure code (CPT) selection complete Assessment & Plan Assessment & Plan (1) Pacemaker: Code(s): Z95.0 - Presence of cardiac pacemaker Category: Medical (2) Atrial flutter by electrocardiogram: Code(s): I48.92 - Unspecified atrial flutter Category: Medical Plan x Coding Level of Care Code Procedure Only Diagnoses Pacemaker Z95.0 Atrial flutter by electrocardiogram I48.92 CPT Codes Cardiac Device Check - Cardiac Device 12: [id number] Cardiac Device Interrogation, pacemaker ([id number])
== END ==
PROVIDERS: PCP Internal Medicine; Visit Provider Internal Medicine
DX: I48.92 Unspecified atrial flutter (principal); Z95.0 Presence of cardiac pacemaker
CPT/HCPCS: 93294

== ENCOUNTER 2024-05-31 10:28 | Outpatient (AMB) | payer MEDICARE, SELFPAY ==
[2024-05-31 10:35] VITALS: BP 120/62; PULSE 78; BMI 26.6
--- NOTE | 2024-05-31 10:35 | MHC.OFFVIS ---
Vital Signs 05/31/24 10:35 Height 6 ft Weight 196 lb 3.382 oz BMI 26.6 BP 120/62 Blood Pressure Location Lt brachial Position Sitting Pulse 78 Pulse Source Pulse Oximeter Intake Visit Reasons: TAVR Consult Allergies No Known Allergies Allergy (Verified 04/17/24 10:04) Medication List - Last Reconciled 05/31/24 by Indra Frost MD apixaban (Eliquis) 2.5 mg PO BID 30 days ascorbic acid (vitamin C) 500 mg PO DAILY ferrous fumarate 324 mg PO BEDTIME levothyroxine 50 mcg PO DAILY@0600 sennosides (senna) 8.6 mg PO BEDTIME HPI Comments Details: 89-year-old gentleman who is here for discussion for transcatheter aortic valve replacement. In 03/24/2024 he started noticing shortness of breath while exercising at [facility]. He was seen in the office by primary care physician and then referred to Dr. Hawthorne. He was noticed to be in new onset atrial flutter. He had echocardiography done which raise concern for faqmejoi-id-qbyzkv aortic valve stenosis. Subsequent to that he had cardiac catheterization done and he underwent atrial flutter ablation and permanent pacemaker placement. He is saying he has not exercise since this process started and has slowed down further. No syncope or chest discomfort. He gets out of breath walking 3/4 of a mi. He has not exercise in a gym since March. He had repeat echocardiography done after atrial flutter ablation which is showing mean gradient across aortic valve of 41 mm Hg, peak aortic valve velocity of 3.94 m/sec, peak gradient 62 mm Hg and aortic valve area of 0.96 centimeters sq. There is mild aortic valve regurgitation. He is taking Eliquis for anticoagulation given atrial flutter in the past. EKG on 05/15/2024 showed sinus rhythm 79 beats per minute with atrial sensed V paced rhythm. Cardiac cath 03/23/2024: Right dominant circulation. No significant coronary disease noted. Mean gradient across aortic valve 28 mm Hg by pullback. [facility] Medical History (Updated 05/15/24 @ 12:27 by Endy Hawthorne MD) Pacemaker Peripheral neuropathy Hypothyroidism Overweight (BMI 25.0-29.9) BPH (benign prostatic hyperplasia) 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 Mother No problems noted. Social History Household Members: Spouse Housing: House Do you presently have visiting nurse or other home services: No Alcohol intake: former Patient Tobacco Use Status: Never used Tobacco e-Cigarette/Vaping Use: Never Used Second Hand Smoke Exposure: Yes service: No Current occupational status: retired Cognitive needs: No Hearing needs: Yes Vision needs: Yes (Pt wear glasses) Review of Systems Const Denies weakness ENT Denies dizziness Card Denies chest pain, Denies chest pain with activity, Denies syncope, Denies rapid heart rate, Denies pedal edema, Denies edema, Denies leg edema, Denies lightheadedness, Denies palpitations, Denies dyspnea, Denies dyspnea on exertion and Denies orthopnea Resp Denies cough, Denies dyspnea and Denies dyspnea on exertion GI Denies hematochezia and Denies change in stool character Musc Denies abnormal gait, Denies muscle cramps, Denies muscle weakness, Denies numbness, Denies radiating pain into limb and Denies tingling Neuro Denies abnormal gait, Denies dizziness, Denies syncope, Denies numbness, Denies tingling and Denies weakness Endo Denies palpitations Physical Exam Vital Signs: Last Vital Signs Pulse 78 05/31/24 10:35 BP 120/62 05/31/24 10:35 BMI result Body Mass Index 26.6 GENERAL APPEARANCE: in no acute distress, pleasant. NECK: no carotid bruit, no jugular venous distention. Slow rising pulse. SKIN: no suspicious lesions, warm and dry. HEART: Ejection systolic murmur aortic area with preserved 2nd heart sound, regular rate and rhythm. LUNGS: clear to auscultation bilaterally. ABDOMEN: soft, nontender. EXTREMITIES: no edema. PERIPHERAL PULSES: equal. NEUROLOGIC: No gross deficits, AAO X 3 Results Reviewed Results Reviewed: Transthoracic Echocardiogram Patient (Last, First, Middle): Ruy Ingram W Gender: Male Date of : 1935 Age: 89 Procedure Date: 05/26/2024 Procedure Type: Transthoracic Echocardiogram Location: OP Height: 182.88 cm Weight: 90.27 kg BSA: 2.13 m2 Heart Rate: bpm BP: 122 / 60 mmHg Ruby Software Developer: TO Referring MD: Endy Hawthorne MD Symptoms: I35.0 - Nonrheumatic aortic (valve) stenosis Study Quality: Adequate ECG Rhythm: Sinus with ?PVCs Conclusions: - The left ventricular systolic function is normal. The calculated ejection fraction is 58% by biplane method. - There is severe aortic valve stenosis. Findings Left Ventricle Normal left ventricular cavity size. The left ventricular systolic function is normal. The calculated ejection fraction is 58% by biplane method. There is no evidence of regional wall motion abnormalities. Diastolic function is normal for age. There is moderate septal and moderate basal asymmetric hypertrophy. Right Ventricle Mildly increased right ventricular cavity size. There is normal right ventricular systolic function. Atria Severe biatrial enlargement. Aortic Valve There is severe calcification of the aortic valve. There is severe aortic valve stenosis. The peak aortic velocity is 3.94 m/s with a calculated peak gradient of 62 mmHg. The mean gradient is 41 mmHg. The aortic valve area is 0.96 cm2. There is mild aortic valve regurgitation. Mitral Valve There is mild mitral annular calcification. There is no mitral valve regurgitation. There is no mitral valve stenosis. Pulmonic Valve The pulmonic valve is likely normal. Tricuspid Valve There is mild tricuspid valve regurgitation. There is no evidence of pulmonary hypertension. Great Vessels The asc aorta is normal in size. Venous The inferior vena cava is normal in size and collapses greater than 50% with inspiration. Pericardium/Pleural There is no evidence of pericardial effusion. Prior Study Comparison Changes noted compared to prior study dated: 03/07/2024. Progression of aortic stenosis. Measurements 2D Linear Measurements IVSd: 1.37 0.6-0.9/0.6-1.0 cm LVIDd: 4.91 3.9-5.3/4.2-5.9 cm LVIDd Index: 2.31 2.4-3.2/2.2-3.1 cm/m2 LVIDs: 2.82 2.0-3.6 cm LVPWd: 1.05 0.7-1.1 cm LA Diam: 4.60 2.7-3.8/3.0-4.0 cm LAIDs Index: 2.16 1.5-2.3 cm/m2 LV Mass: 286.48 67-162/88-224 g LV Mass Index: 134.50 43-95/49-115 g/m2 LVOT Diam: 2.20 3.0+(-)1.3 cm 2D Systolic Function EF 4C: 58.50 >55% EF 2C: 57.00 >55% EF BiP: 58.30 >55% Mitral Valve MV Pk E: 0.64 MV PK A: 0.44 MV Decel Time: 208.00 E/A: 1.50 E'Lateral: 6.85 E'Medial: 5.44 E/E' Med: 11.80 E/E' Lat: 9.40 PHT: 61.00 MVA PHT: 3.61 Decel Lavaca: 3.09 Aortic Valve AoV Pk Devonte: 3.94 AoV Mn Devonte: 3.08 AoV VTI: 1.00 AoV Pk Grad: 62.00 Aov Mn Grad: 41.00 JOSE MANUEL Cont.VTI: 0.96 AI Pk Devonte: 3.83 AI Lavaca: 1.90 LVOT LVOT Pk Devonte: 0.95 LVOT Mn Devonte: 0.61 LVOT VTI: 0.25 LVOT Pk Grad: 4.00 LVOT Mn Grad: 2.00 LVOT Diam: 2.20 LVOT Area: 3.80 Diastolic Function MV Pk E: 0.64 MV Pk A: 0.44 E/A: 1.50 E'Medial: 5.44 E/E' Med: 11.80 E' Laterial: 6.85 E/E' Lat: 9.40 Right Ventricle TAPSE (mm): 27.20 TVS' Devonte: 17.10 Tricuspid Valve TR Pk Devonte: 2.43 TR Pk Grad: 24.00 RA Press: 3.00 RVSP: 27.00 Great Vessels Aorta Sinus of Valsalva: 3.76 2.0-3.5 cm Ao Asc: 3.60 2.1-3.4 cm Updated in Other Vendor System with Status of Final Endy Hawthorne MD electronically signed on 05/27/2024 3:25:42 PM with status of Final Dictated By: Endy Hawthorne MD Signed By: <Electronically signed by Endy Hawthorne MD in OV> 05/27/24 1525 Assessment & Plan Assessment & Plan (1) Non-rheumatic aortic stenosis: Code(s): I35.0 - Nonrheumatic aortic (valve) stenosis Category: Medical Plan 89-year-old gentleman here for discussion about transcatheter aortic valve replacement. He has no coronary disease by cardiac catheterization. He had atrial flutter which he had ablation and permanent pacemaker placement. He is on apixaban 2.5 mg twice a day. We discussed in detail about the natural history of aortic valve stenosis. I have discussed with him and his son in detail about management options including medical/palliative care, surgical aortic valve replacement and transcatheter aortic valve replacement. The patient is more interested in transcatheter aortic valve replacement. I have explained to him that he needs TAVR protocol CTA and needs to see a cardiothoracic surgeon for completion of his workup. We will arrange this for him. I have discussed with him and his son in great detail about potential complications including bleeding, vascular injury, stroke, annular rupture and . Patient is interested in proceeding with transcatheter aortic valve placement. As above we will arrange CTA and discuss him in the TAVR meeting. He will reach out to us in case his symptoms changed. Thank you for allowing me to participate in the care of your patient. Please feel free to contact me if you have any questions. Coding Level of Care Code Est Pt Level 5 (98507) Diagnoses Non-rheumatic aortic stenosis I35.0
--- OUTSIDE RECORDS SUMMARY | 2024-05-31 12:53 | XMS_ITS | Patient Health Record ---
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.11) Active confirmed 049724485 Problem History of adenomatous polyp of colon (Z86.010) Active confirmed 080093662 Problem Preprocedural examination (Z01.818) Active confirmed 71850842 Problem History of colon polyps (Z86.010) Active confirmed 805620571 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 841112976 PLAN OF TREATMENT Future Test Test Name Order Date COLONOSCOPY 07/25/2015 COLONOSCOPY 02/19/2017 Insurance Providers Payer Name Payer Address Payer Phone Subscriber Number Group Number Insured Name Patient Relationship to Insured Coverage Start Date Coverage End Date MEDICARE OF [place] [address] [place] [id number] ANGEL BARRERA Self - patient is the insured MEDEX ATTN CLAIMS [address] [place] [address] [phone] [id number] ANGEL BARRERA Self - patient is the insured MEDICAL (GENERAL) HISTORY Medical History History ICD Code 02/21/2004 Screening Colonos copy was negative other than some diverticulosis and internal hemorrhoids Denies NH,DM,CVA,Lung disease,renal dise ase Colonoscopy in 10/2014--flat adenoma [...]
--- OUTSIDE RECORDS SUMMARY | 2024-05-31 12:53 | XMS_ITS | Patient Health Record ---
Author Organization [facility] Address [address] [place] [address] Care Team Providers Care Pulpwood Cutter Name Role Phone Jose L JARAMILLO, [place] Primary Care Provider Keena Navarrete Unavailable [phone] Allergies No Known Allergies Reason For Referral [...] W/U Status Risk Notes Problem Plantar wart (59244909) Plantar wart (B07.0) Active confirmed Problem 171592759 Raynaud's disease without gangrene (I73.00) Active confirmed Vital Signs Blood pressure diastolic 80 mm Hg 02/02/2024 Height 6 ft in 02/02/2024 Blood pressure systolic 120 mm Hg 02/02/2024 Weight 193 lbs 02/02/2024 BMI 26.17 kg/m2 02/02/2024 Encounters Encounter Location Date Provider Diagnosis [facility] [address] [place] [address] 02/02/2024 Keena Lainez Plantar wart B07.0 Assessments Encounter Date Diagnosis (ICD Code) Assessment Notes Treatment Notes Treatment Clinical Notes Section Notes 02/02/2024 Plantar wart (ICD-10 - B07.0) Plan Of Treatment Next Appt Details Provider Name:Keena ledesma, 08/02/2024 09:00:00 AM, [address] [facility], [place], [address], Insurance Providers Payer Name Payer Address Payer Phone Subscriber Number Group Number Insured Name Patient Relationship to Insured Coverage Start Date Coverage End Date Medicare National [facility] [address] [place] [address] [id number] Ruy Roth Self - patient is the insured Medex Blue Shield [address] [place] [address] [id number] Ruy Roth Self - patient is the insured Medical (General) History Medical History History ICD Code Cataracts Measles Mumps Chicken pox Joint implants/screws Surgical History Surgery Date(Month/Year)
--- OUTSIDE RECORDS SUMMARY | 2024-05-31 12:53 | XMS_ITS | Data Portability ---
Author Organization [facility] [address] Address [address] [place] [address] Assessment No assessment recorded. Plan of Treatment Reminders Order Date Submit Date Provider Last Modified By Organization Details Last Modified Time Details Appointments None recorded. Lab urinalysis , dipstick 2022 023 [email or web address] _[facility], [facility] [place], [address], 15:58:42 Referral None recorded. Procedures None recorded. Surgeries None recorded. Imaging None recorded. Medication Orders clotrimazo le-betamet hasone 1 %-0.05 % topical cream 2022 023 [facility], [address] [place], [address], 15:07:46 Patient TargetsNo targets recorded. Patient Instructions Encounter Date Encounter Id Patient Instructions Last Modified By Organization Details Last Modified Time 10/11/2022 [id number] What are ringworm, athlete's foot, and jock [...] infection? You can catch fungal infections through qmhx-ky-[id number] contact with a person who is infected. [...] = light yellow Not Available _bryanna souza [address], [address], 10/11/2022 15:11:21 10/12/1910/11/2022 urina lysis , dipst ick Unknown Analyte Yellow Not Available [facility] [address], [address], 10/11/2022 15:11:21 10/12/1910/11/2022 urina lysis , dipst ick Unknown Analyte Normal = clear Not Available _bryanna sozua [address], [address], 10/11/2022 15:11:21 10/12/1910/11/2022 urina lysis , dipst ick Unknown Analyte Clear Not Available [facility] [address], [address], 10/11/2022 15:11:21 10/12/19 23 10/11/2022 urina lysis , dipst ick Unknown Analyte Normal = negati ve Not Available bryanna souza [address], [place], [place], [address], 10/11/2022 15:11:21 10/12/19 23 10/11/2022 urina lysis , dipst ick Unknown Analyte Negati ve Not Available bryanna souza [address], [place], [place], [address], 10/11/2022 15:11:21 10/12/1910/11/2022 urina lysis , dipst ick Unknown Analyte Normal = Negati ve Not Available bryanna souza [address], [place], [address], 10/11/2022 15:11:21 10/12/19 23 10/11/2022 urina lysis , dipst ick Unknown Analyte Negati ve Not Available bryanna souza [address], [place], [place], [address], 10/11/2022 15:11:21 10/12/19 23 10/11/2022 urina lysis , dipst ick Unknown Analyte Normal = Negati ve Not Available bryanna souza [address], [place], [address], 10/11/2022 15:11:21 10/12/19 23 10/11/2022 urina lysis , dipst ick Unknown Analyte Negati ve Not Available bryanna souza [address], [place], [address], 10/11/2022 15:11:21 10/12/19 23 10/11/2022 urina lysis , dipst ick Unknown Analyte Normal = 1.010, 1.015, 1.020 Not Available 2099bryanna souza [address], [place], [address], 10/11/2022 15:11:21 10/12/19 23 10/11/2022 urina lysis , dipst ick Unknown Analyte 1.030 Not Available [address], [place], [address], 10/11/2022 15:11:21 10/12/19 23 10/11/2022 urina lysis , dipst ick Unknown Analyte Normal = Negati ve Not Available [address], [place], [address], 10/11/2022 15:11:21 10/12/19 23 10/11/2022 urina lysis , dipst ick Unknown Analyte Trace- intact Not Available [address], [place], [address], 10/11/2022 15:11:21 10/12/19 23 10/11/2022 urina lysis , dipst ick Unknown Analyte Normal = 6.5, 7.0, 7.5, 8.0 Not Available [address], [place], [address], 10/11/2022 15:11:21 10/12/19 23 10/11/2022 urina lysis , dipst ick Unknown Analyte 5.5 Not Available [address], [place], [address], 10/11/2022 15:11:21 10/12/19 23 10/11/2022 urina lysis , dipst ick Unknown Analyte Normal = Negati ve Not Available [address], [place], [address], 10/11/2022 15:11:21 10/12/19 23 10/11/2022 urina lysis , dipst ick Unknown Analyte Negati ve Not Available bryanna souza [address], [place], [address], 10/11/2022 15:11:21 10/12/1910/11/2022 urina lysis , dipst ick Unknown Analyte Normal = 0.2, 1.0 Not Available [facility] [address], [place], [address], 10/11/2022 15:11:21 10/12/19 23 10/11/2022 urina lysis , dipst ick Unknown Analyte 0.2 E.U./d L Not Available bryanna souza [address], [place], [address], 10/11/2022 15:11:21 10/12/1910/11/2022 urina lysis , dipst ick Unknown Analyte Normal = Negati ve Not Available bryanna [address], [place], [address], 10/11/2022 15:11:21 10/12/1910/11/2022 urina lysis , dipst ick Unknown Analyte Negati ve Not Available bryanna souza [address], [place], [address], 10/11/2022 15:11:21 10/12/19 23 10/11/2022 urina lysis , dipst ick Unknown Analyte Normal = Negati ve Not Available bryanna souza [address], [place], [address], 10/11/2022 15:11:21 10/12/19 23 10/11/2022 urina lysis , dipst ick Unknown Analyte Negati ve Not Available bryanna souza [address], [place], [address], 10/11/2022 15:11:21 Result Notes None recorded. Problems [...] Updated DateTime 3 182.88 cm 26.4 kg/m2 66295.5 1 g 9 17 /min 98 % 98 % 55 /min 97.9 [degF] 151 mm[Hg] 75 mm[Hg] DIANNE [facility] 3 14:37:11 Social History Question Answer Notes LastModified by Organizat ion Details LastModified Time Tobacco Smoking Status Never Smoker DIANNE gomez PA Eduardo [facility] 10/11/2022 14:35:10 What Is Your Level Of Alcohol Consumption? Occasional [email or web address] Information not available 10/11/2022 Do You Use Any Illicit Or Recreational Drugs? No [email or web address] Information not available 10/11/2022 Have You Recently Traveled Abroad? No [email or web address] Information not available 10/11/2022 Do You Or Have You Ever Used Any Other Forms Of Tobacco Or Nicotine? No [email or web address] Information not available 10/11/2022 Sex: Unknown Functional Status None recorded. Mental Status None recorded. Family History Relationship Description Onset Age of this Age Resolved Age Notes LastModified by Organization Details LastModified Time Father No current problems or disability [email or web address] Not available 10/11 14:34:47 Mother No current problems or disability Not available 10/11 14:34:47 Medical History No medical history recorded. Past Encounters Encounter ID Performer Location Encounter Start Date Encounter Closed Date Diagnosis/Indication Diagnosis SNOMED-CT Code Diagnosis ICD10 Code Diagnosis Note [id number] [address] [address] 10/25/2020 19:24:14 10/25/2020 20:09:32 [id number] [place] [address] [place] [address] 10/11/2022 13:49:51 10/11/2022 15:13:21 Tinea cruris [id number] B35.6 Health Concerns Section Related Observation LastModified by Organization Detai ls LastModified Time None Recorded Concern Status LastModified by Organization Details LastModified Time None Recorded Advance Directives Directive None Recorded Payers Encounter Date Sequence Insurance Name Policy Number Policy Dumont Covered Member ID Dumnot Member ID Guarantor Name 10/25/2020 1 [place] [employer] Ruy Leónnsworth [id number] [place] 10/25/2020 2 [place] [id number] Ruy Resendez Juan Jose [id number] Ruy [place] 10/11/2022 1 [place] Ruy Leónnsworth [id number] Ruy LeónJuan Jose 10/11/2022 2 [place] [id number] Ruy Ingram [id number] Ruy Ingram Notes Date Note Type [...] Robert NP [address] [place], [address], [place] - [facility] 10/11/2022 15:59:02
--- OUTSIDE RECORDS SUMMARY | 2024-05-31 12:53 | XMS_ITS | Data Portability ---
Author Organization [facility], [facility] Office Address [address] [place] [address] Care Team Providers Care Brick Tosser Name Role Phone JAMILAH MOORE Primary Care Provider [phone] Assessment Encounter Date Assessment Date Assessment LastModified [...] cuff tear Referring Physician: Rosi Read, Physician Assistance Specialist, Encounter Date: 09/26/2018 Results Created Date Observation [...] Details Recorded Time 03/05/20 15 [facility] 09/26/2018 08:02:59 09/04/19 12 Orthopaedic Surgery completed [facility] 09/26/2018 08:02:46 11/04/19 07 Orthopaedic Surgery completed [facility] 09/26/2018 08:02:33 Imaging Results [...] Updated DateTime 09/26/2018 182.88 cm 28.9 kg/m2 77467.17 g [facility] 09/26/2018 08:00:54 Social History Question Answer Notes LastModified by Organizat ion Details LastModified Time Tobacco Smoking Status Never Smoker Pearl Torres [facility] 09/26/2018 08:01:30 What [...] You Participate In? Conditioning , Weights At [facility] Information not available 09/26/2018 Work Related Injury? [...] available 09/26 08:01:24 Medical History Condition Response Blood Clots / Phlebitis N HIV or AIDS N Heart Problems N High Blood Pressure N Depression or Anxiety N Irregular Heartbeat N MRSA N Emphysema / Chronic Bronchitis N Any Other Significant Medical Issues N Reaction to General/Local Anesthesia N Hepatitis / Jaundice N Weight Gain / Loss N Kidney / Bladder Infections N Diabetes N Bleeding Disorder N Hearing Loss Y Angina, Heart Failure or Attack N Night Sweats N Seizures / Epilepsy N Osteoarthritis / Rheumatoid arthritis / Other Y Cancer N Stroke N Chemical Dependency / Alcoholism N Ulcer / Stomach Bleeding / Indigestion N Visual Loss or Glaucoma N Psoriasis / Skin Rash N Thyroid Disorder N Heart Disease N Asthma / Shortness of Breath / Sleep Blasting Worker ea (please specify) N Pulmonary Embolism N Past Encounters Encounter ID Performer Location Encounter Start Date Encounter Closed Date Diagnosis/Indication Diagnosis SNOMED-CT Code Diagnosis ICD10 Code Diagnosis Note [id number] FRANCK SMALL [facility] Office [address] [place] [address] 09/26/2018 07:41:04 09/26/2018 08:44:47 Full thickness rotator cuff tear 710755491 M75.122 Health Concerns Section Related Observation LastModified by Organization Detai ls LastModified Time None Recorded Concern Status LastModified by Organization Details LastModified Time None Recorded Advance Directives Directive None Recorded Payers Encounter Date Sequence Insurance Name Policy Number Policy Dumont Covered Member ID Dumont Member ID Guarantor Name 09/26/2018 1 [place] [employer] [employer] Ruy Ingram [id number] Ruy Ingram 09/26/2018 2 [place] [id number] Ruy Ingram [id number] Ruy Ingram Notes Date Note Type [...] exercises heavily with conditioning classes at the [employer]. and swimming. ROS: Positive for hearing loss and arthritis. FRANCK SMALL [address] [place] [address], [place], [address], [facility] 09/29/2018 18:52:08
--- OUTSIDE RECORDS SUMMARY | 2024-05-31 12:53 | XMS_ITS ---
Author Organization [facility] Address [address] [place] [address] Care Team Providers Care Last Dipper Name Role Phone Jose L JARAMILLO, [place] Primary Care Provider Keena Navarrete Unavailable [phone] Allergies No Known Allergies REASON FOR VISIT [...] W/U Status Risk Notes Problem Plantar wart (43016402) Plantar wart (B07.0) Active confirmed Vital Signs Height 6 ft in 02/02/2024 Weight 193 lbs 02/02/2024 BMI 26.17 kg/m2 02/02/2024 Blood pressure systolic 120 mm Hg 02/02/20 24 Blood pressure diastolic 80 mm Hg 024 Encounters Encounter Location Date Provider Diagnosis [facility] [address] [place] [address] 02/02/2024 Keena Lainez Plantar wart B07.0 Assessments Encounter Date Diagnosis (ICD Code) Assessment Notes Treatment Notes Treatment Clinical Notes Section Notes 02/02/2024 Plantar wart (ICD-10 - B07.0) Plan Of Treatment Next Appt Details Follow Up: prn, Reason: Provider Name:Keena ledesma, 08/02/2024 09:00:00 AM, [address] [place], [address], Progress Notes * Ruy INGRAM WDOB:[birth year] (88 yo M)Acc No.[id number]:02/02/2024 Progress Note Patient:?Ruy Ingram Provider:?Keena Lainez DPM :1935???Age:88 Y???Sex:Male Kris e:02/02/2024 Address:[address] [place] [address] Pcp:Pepito Domingo MD Subjective: * Chief Complaints: [...] Lainez DPM Date:?1 Generated for Alexsandra maldonado/Han/Penny on:?05/31/2024 12:53 PM EST History and Physical Notes * HPI [...]
== END 2024-05-31 11:33 | disposition home or self-care (01) ==
PROVIDERS: PCP Internal Medicine; Visit Provider Internal Medicine Cardiovascular Disease
DX: I35.0 Nonrheumatic aortic (valve) stenosis (principal)
CPT/HCPCS: 99215

== ENCOUNTER → 2024-05-31 10:28 | Outpatient (BNVA) | payer MEDICARE, SELFPAY | PROVIDERS: PCP Internal Medicine; Visit Provider Internal Medicine Cardiovascular Disease | DX: I35.0 Nonrheumatic aortic (valve) stenosis (principal) | CPT/HCPCS: 99212 ==

== ENCOUNTER 2024-06-07 08:01 | Outpatient (REF) | payer MEDICARE, SELFPAY ==
--- OUTSIDE RECORDS SUMMARY | 2024-06-07 08:11 | XMS_ITS ---
Author Organization [facility] Address [address] [place] [address] Care Team Providers Care Operations Welder Name Role Phone Jose L JARAMILLO, [place] Primary Care Provider Keena Navarrete Unavailable [phone] Allergies No Known Allergies REASON FOR VISIT [...] W/U Status Risk Notes Problem Plantar wart (82522911) Plantar wart (B07.0) Active confirmed Vital Signs Height 6 ft in 02/02/2024 Weight 193 lbs 02/02/2024 BMI 26.17 kg/m2 02/02/2024 Blood pressure systolic 120 mm Hg 02/02/20 24 Blood pressure diastolic 80 mm Hg 024 Encounters Encounter Location Date Provider Diagnosis [facility] [address] [place] [address] 02/02/2024 Keena Lainez Plantar wart B07.0 Assessments Encounter Date Diagnosis (ICD Code) Assessment Notes Treatment Notes Treatment Clinical Notes Section Notes 02/02/2024 Plantar wart (ICD-10 - B07.0) Plan Of Treatment Next Appt Details Follow Up: prn, Reason: Provider Name:Keena ledesma, 08/02/2024 09:00:00 AM, [address] [place], [address], Progress Notes * Ruy INGRAM WDOB:[birth year] (88 yo M)Acc No.[id number]:02/02/2024 Progress Note Patient:?Ruy Ingram Provider:?Keena Lainez DPM :1935???Age:88 Y???Sex:Male Kris e:02/02/2024 Address:[address] [place] [address] Pcp:Pepito Domingo MD Subjective: * Chief Complaints: [...] Lainez DPM Date:?1 Generated for Alexsandra maldonado/Han/Penny on:?06/07/2024 08:11 AM EST History and Physical Notes * [...]
--- OUTSIDE RECORDS SUMMARY | 2024-06-07 08:11 | XMS_ITS | Patient Health Record ---
Author Organization [facility] Address [address] [place] [address] Care Team Providers Care Orderly Name Role Phone Jose L JARAMILLO, [place] Primary Care Provider Inocencio Murcia Unavailable [phone] Reason For Referral No Information Immunizations Vaccine Route Administration Date Status Comme nts Flu vaccine no Preserv 3 and > Unknown 01/24/2014 Admin istered Flu vaccine no Preserv 3 and > Unknown 01/04/2015 Admin istered Influenza Unknown 01/03/2017 Administered Problems Problem Type SNOMED Code ICD Code Onset Dates Problem Status W/U Status Risk Notes Problem 129503684 Encounter for screening for malignant neoplasm of colon (Z12.11) Active confirmed Problem 708364456 History of adenomatous polyp of colon (Z86.010) Active confirmed Problem 09206290 Preprocedural examination (Z01.818) Active confirmed Problem 003760939 History of colon polyps (Z86.010) Active confirmed Problem 270818066 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 Plan Of Treatment Future Test Test Name Order Date COLONOSCOPY 07/25/2015 COLONOSCOPY 02/19/2017 Insurance Providers Payer Name Payer Address Payer Phone Subscriber Number Group Number Insured Name Patient Relationship to Insured Coverage Start Date Coverage End Date MEDICARE OF [place] [address] [place] [address] [phone] [id number] ANGEL BARRERA Self - patient is the insured MEDEX ATTN CLAIMS [address] [place] [address] [phone] [id number] ANGEL BARRERA Self - patient is the insured Medical (General) History Medical History History ICD Code 02/21/2004 Screening Colonos copy was negative other than some diverticulosis and internal hemorrhoids Denies DE,DM,CVA,Lung disease,renal dise ase Colonoscopy in 10/2014--flat adenoma [...]
--- OUTSIDE RECORDS SUMMARY | 2024-06-07 08:11 | XMS_ITS | Patient Health Record ---
Author Organization [facility] Address [address] [place] [address] Care Team Providers Care Balance Truing Inspector Name Role Phone Jose L JARAMILLO, [place] Primary Care Provider Keena Navarrete Unavailable [phone] Allergies No Known Allergies Reason For Referral [...] W/U Status Risk Notes Problem Plantar wart (48264389) Plantar wart (B07.0) Active confirmed Problem 462759333 Raynaud's disease without gangrene (I73.00) Active confirmed Vital Signs Blood pressure diastolic 80 mm Hg 02/02/2024 Height 6 ft in 02/02/2024 Blood pressure systolic 120 mm Hg 02/02/2024 Weight 193 lbs 02/02/2024 BMI 26.17 kg/m2 02/02/2024 Encounters Encounter Location Date Provider Diagnosis [facility] [address] [place] [address] 02/02/2024 Keena Lainez Plantar wart B07.0 Assessments Encounter Date Diagnosis (ICD Code) Assessment Notes Treatment Notes Treatment Clinical Notes Section Notes 02/02/2024 Plantar wart (ICD-10 - B07.0) Plan Of Treatment Next Appt Details Provider Name:Keena ledesma, 08/02/2024 09:00:00 AM, [address] [facility], [place], [address], Insurance Providers Payer Name Payer Address Payer Phone Subscriber Number Group Number Insured Name Patient Relationship to Insured Coverage Start Date Coverage End Date Medicare National [facility] [address] [place] [address] [id number] Ruy Roth Self - patient is the insured [employer] Blue Shield [address] [place] [address] [phone] [id number] Ruy Roth Self - patient is the insured Medical (General) History Medical History History ICD Code Cataracts Measles Mumps Chicken pox Joint implants/screws Surgical History Surgery Date(Month/Year)
--- OUTSIDE RECORDS SUMMARY | 2024-06-07 08:11 | XMS_ITS | Data Portability ---
Author Organization [place] [facility] [place], [facility] Office Address [address] [facility] [address] [place] [address] Care Team Providers Care Truck Mechanic Apprentice Name Role Phone JAMILAH MOORE Primary Care Provider [phone] Assessment Encounter Date Assessment Date Assessment LastModified [...] cuff tear Referring Physician: Rosi Read, Physician Medical Liaison, Encounter Date: 09/26/2018 Results Created Date Observation [...] Details Recorded Time 03/05/20 15 Other completed Pearl Torres [facility] [place] 09/26/2018 08:02:59 09/04/19 12 Orthopaedic Surgery completed [facility] [place] 09/26/2018 08:02:46 11/04/19 07 Orthopaedic Surgery completed [facility] Torres [facility] [place] 09/26/2018 08:02:33 Imaging Results Imaging Date Name [...] mL injection syringe VACCINE ADMINISTE RED BY SmartPill T 09/26 completed Not Available Not Available Not Available Fluad 2018- 65yr up(PF)45 mcg(15 mcgx3)/0.5 mL intramuscul ar syringe VACCINE ADMINISTE RED BY SmartPill T 09/26 completed Not Available Not Available Not Available Vitals Date Recorded Body height Body mass index (BMI) Body weight Provider Name and Address Organization Details Last Updated DateTime 09/26/2018 182.88 cm 28.9 kg/m2 59958.17 g Pearl Torres [facility] [place] 09/26/2018 08:00:54 Social History Question Answer Notes LastModified by Organizat ion Details LastModified Time Tobacco Smoking Status Never Smoker Pearl gomez [place] [facility] [place] 09/26/2018 08:01:30 What Is Your Level Of Alcohol Consumption? None Information not available 09/26/2018 Auto Related Injury? No Information not available 09/26/2018 Have You Had Cortisone? Yes R Knee Information not available 09/26/2018 What Was The Date Of Your Most Recent Tobacco Screening? 09/26/2018 Information not available 10/27/2018 What Types Of Sporting Activities Do You Participate In? Conditioning , Weights At [facility] Information not available 09/26/2018 Work Related Injury? 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 School ea (please specify) N Pulmonary Embolism N Past Encounters Encounter ID Performer Location Encounter Start Date Encounter Closed Date Diagnosis/Indication Diagnosis SNOMED-CT Code Diagnosis ICD10 Code Diagnosis Note [id number] FRANCK SMALL [facility] Office [address] [place] [address] 09/26/2018 07:41:04 09/26/2018 08:44:47 Full thickness rotator cuff tear [id number] M75.122 Health Concerns Section Related Observation LastModified by Organization Detai ls LastModified Time None Recorded Concern Status LastModified by Organization Details LastModified Time None Recorded Advance Directives Directive None Recorded Payers Encounter Date Sequence Insurance Name Policy Number Policy Dumont Covered Member ID Dumont Member ID Guarantor Name 09/26/2018 1 [place] Ruy Ingram [id number] Ruy Ingram 09/26/2018 2 [place] [id number] Ruy Ingram [id number] Ruy Ingram Notes Date Note Type [...] exercises heavily with conditioning classes at the [employer] and swimming. ROS: Positive for hearing loss and arthritis. FRANCK SMALL [address] [place] [address], [place], [address], [facility] [place] 09/29/2018 18:52:08
[2024-06-07 10:25] LABS: MANUAL DIFF FLAG NO
[2024-06-07 10:38] LABS: Basophils Absolute Auto 0.1 X10*3/uL (0.0-0.2); Basophils Percent Auto 0.9 % (0-2); Eosinophils Absolute Auto 0.4 X10*3/uL (0.0-0.4); Eosinophils Percent Auto 3.5 % (0-4); Hematocrit 36.2 % (42.0-52.0); Hemoglobin 11.7 g/dl (14.0-18.0); Imm Gran Abs Auto 0.43 X10*3/uL (0.00-0.03); Imm Gran Pct Auto 3.8 % (0.0-0.4); Lymphocytes Absolute Auto 2.2 X10*3/uL (1.2-4.9); Lymphocytes Percent Auto 19.6 % (20-40); Mean Corpuscular HGB Conc 32.3 g/dl (31.0-36.0); Mean Platelet Volume 12.3 fL (9.4-12.4); Monocytes Absolute Auto 1.5 X10*3/uL (0.1-1.2); Neutrophils Absolute Auto 6.6 x10*3/uL (2.0-8.3); Neutrophils Percent Auto 59.2 % (45-73); Platelet Count 142 X10*3/uL (160-400); Red Blood Count 3.77 X10*6/uL (4.60-5.80); White Blood Count 11.2 X10*3/uL (4.8-10.8)
[2024-06-07 11:38] LABS: Iron 121 mcg/dL (45-160); Percent Iron Saturation 46 % (15-50); Total Iron Binding Capacity 265 mcg/dL (228-428); Unsaturated Iron Binding 144 ug/dL
[2024-06-07 11:45] LABS: Free T4 (Free Thyroxine) 0.87 ng/dL (0.71-1.85); Thyroid Stimulating Hormone 1.77 uIU/mL (0.32-4.0)
== END 2024-06-07 08:02 | disposition home or self-care (01) ==
LOC: HO.HMGCLDS 08:01
PROVIDERS: PCP Internal Medicine; Visit Provider Internal Medicine
DX: E03.9 Hypothyroidism, unspecified (principal); D64.9 Anemia, unspecified
CPT/HCPCS: 36415; 83540; 84439; 84443; 85025

== ENCOUNTER 2024-06-09 09:34 | Outpatient (AMB) | payer MEDICARE, SELFPAY ==
--- NOTE | 2024-06-09 09:28 | A.OFFPC_ITS ---
Intake Visit Reasons: f/u labs Intake Note: Pt is having a telehealth visit to discuss recent lab results Allergies No Known Allergies Allergy (Verified 06/10/24 10:20) Medication List - Last Reconciled 06/10/24 by Allison Haley MD apixaban (Eliquis) 2.5 mg PO ONCE apixaban (Eliquis) 5 mg PO ONCE ascorbic acid (vitamin C) 1,000 mg PO DAILY ferrous fumarate 324 mg PO BEDTIME levothyroxine 50 mcg PO DAILY@0600 sennosides (senna) 8.6 mg PO BEDTIME Tobacco use date assessed: 06/09/24 Fall risk assessment: No Falls in past year Last assessed Fall Risk: 06/09/24 Dental Screening Dental Screen Date: 06/09/24 Did you have a dental visit in the last 12 months?: Yes Did you have a dental problem in the last 6 months where you did not have access to dental care?: Yes Was dental information given to patient?: Patient has dentist HPI f/u labs HPI Details 89-year-old male with history of coronary artery disease, moderate aortic stenosis currently anticoagulated with apixaban 2.5 mg twice a day, bilateral carotid artery stenosis, history of hematuria, presenting via telehealth for follow-up for anemia - His recent labs showed stable hemoglo bin levels and slight hematocrit improvement, with normal iron levels suggesting non-iron deficiency anemia. No active bleeding noted. -on recent echocardiogram he was found t o have [id number] aortic valve stenosis. He had cardiac catheterization done and he underwent atrial flutter ablation and permanent pacemaker placement. He states that he has not been exercising since all these processed started, but denies any syncopal attacks, chest pain, shortness of breath or chest discomfort. He however report getting short of breath walking 3/4 of a mi. He has not exercised in a gym since March. He is taking Eliquis for anticoagulation given atrial flutter in the past, but dose was decreased to 2.5 mg twice a day as he developed epistaxis. EKG on 05/15/2024 showed sinus rhythm 79 beats per minute with atrial sensed V paced rhythm. Cardiac cath 03/23/2024: Right dominant circulation. No significant coronary disease noted. Mean gradient across aortic valve 28 mm Hg by pullback. -he has seen already a cardiothoracic hardy rgeon in [facility] and is awaiting appointment to get scheduled for TAVR - she also has an appointment with a uro logist for follow-up regarding his hematuria in July. 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 Mother No problems noted. Social History Household Members: Spouse Housing: House Do you presently have visiting nurse or other home services: No Alcohol intake: former Patient Tobacco Use Status: Never used Tobacco e-Cigarette/Vaping Use: Never Used Second Hand Smoke Exposure: Yes service: No Current occupational status: retired Cognitive needs: No Hearing needs: Yes Vision needs: Yes (Pt wear glasses) Questionnaire PHQ-9 Over the last 2 weeks, how often have you been bothered by any of the following problems? 1. Little interest or pleasure in doing things: not at all 2. Feeling down, depressed, or hopeless: not at all 3. Trouble falling or staying asleep, or sleeping too much: not at all 4. Feeling tired or having little energy: several days 5. Poor appetite or overeating: not at all 6. Feeling bad about yourself - or that you are a failure or have let yourself or your family down: not at all 7. Trouble concentrating on things, such as reading the newspaper or watching television: not at all 8. Moving or speaking so slowly that other people could have noticed. Or the opposite - being so fidgety or restless that you have been moving around a lot more than usual: not at all 9. Thoughts that you would be better off or of hurting yourself in some way: not at all Total score: 1 Depression Screening Interpretation: Negative Depression Screening Done: Yes 65046 - PHQ-9 Billing: Yes Source: Developed by Drs. Inocencio Alvarez, Bg Guerrero and colleagues, with an educational nathalia from [employer]. Thrive Questionnaire Date Thrive assessed: 04/12/24 AUDIT C Alcohol Use Questionnaire (AUDIT-C) 2. How many drinks containing alcohol do you have on a typical day when you are drinking?: 1 or 2 3. How often do you have six or more drinks on one occasion?: Never Total Score: 0 Score Reviewed/Action Taken: Yes JAS-7 AMB Questionnaire JAS-7 Date JAS - 7 assessed: 12/07/23 Source: Developed by Drs. Inocencio Alvarez, Robyn Tellez, Bg Posada and colleagues, with an educational nathalia from [employer]. Review of Systems Const Denies weakness ENT Denies bleeding gums, Denies dysphagia, Denies vertigo, Denies dizziness, Denies epistaxis and Denies disequilibrium Card Denies chest pain, Denies chest pain with activity, Denies syncope, Denies rapid heart rate, Denies edema, Denies irregular heart rhythm, Denies leg edema, Denies lightheadedness, Denies palpitations, Denies dyspnea, Reports dyspnea on exertion and Denies orthopnea Resp Denies cough, Denies dyspnea and Reports dyspnea on exertion GI Denies abdominal pain, Denies hematochezia, Denies change in bowel habits, Denies change in stool character and Denies dysphagia Denies hematuria, Denies oliguria, Denies difficulty urinating and Denies dysuria Musc Denies abnormal gait, Denies muscle cramps, Denies muscle weakness, Denies numbness, Denies radiating pain into limb and Denies tingling Skin/Breast Denies sores and Denies unusual bruising Neuro Denies abnormal gait, Denies vertigo, Denies dizziness, Denies syncope, Denies numbness, Denies tingling, Denies disequilibrium and Denies weakness Psych Reports no additional complaints Endo Denies palpitations Ant/Lymph Reports no additional complaints Physical exam (Primary Care) Tobacco/Smoking Status: Tobacco use Status Tobacco use date assessed 06/09/24 06/09/24 09:33 Patient Tobacco Use Status Never used Tobacco 06/09/24 09:28 e-Cigarette/Vaping Use Never Used 06/09/24 09:28 PHQ-9: PHQ-9 Score PHQ-9: Total score 1 06/10/24 12:38 Depression Screening Interpretation: Negative Thrive Assessment: Date of Thrive Assessment Date Thrive assessed 04/12/24 06/09/24 09:28 Telehealth Telehealth [facility] Location of provider rendering services: practice address Location of patient: address on file Patient Identification confirmed using: Name, : Yes Telehealth method: video Patient verbally consented to treatment: Yes Patient verbally consented to billing insurance company: Yes Patient informed of any privacy concerns related to visit: Yes Minutes spent on Phone/Video with Pt.: 15 Results Reviewed Results Reviewed: Name: Ruy Ingram Age/Sex: 89/M : 1935 Unit#: [id number] Attend Dr: Allison Haley MD Re06/07/24 Status: DEP REF Location: [facility] Disch: SPEC : [id number] BERNADINE: 06/07/24 STATUS: COMP REQ : [id number] RECD: 06/07/24-[address]: Allison Haley MD COMP: 06/07/24 ENTERED: 06/07/[address]: ORDERED: CBC Auto Diff Test Result Flag Reference WBC 11.2 H 4.8-10.8 X10*3/uL RBC 3.77 L 4.60-5.80 X10*6/uL HGB 11.7 L 14.0-18.0 g/dl HCT 36.2 L 42.0-52.0 % MCV 96.0 80.0-98.0 fL MCH 31.0 27.0-33.0 pg MCHC 32.3 31.0-36.0 g/dl RDW 19.0 H 11.0-16.0 % PLT 142 L 160-400 X10*3/uL MPV 12.3 9.4-12.4 fL Neut Pct Auto 59.2 45-73 % ImGran Pct Auto 3.8 H 0.0-0.4 % Lymp Pct Auto 19.6 L 20-40 % [place] Pct Auto 13.0 H 2-11 % Eos Pct Auto 3.5 0-4 % Baso Pct Auto 0.9 0-2 % NRBC Pct Auto 0.0 0.0-0.2 /100WBC ANC Neut Abs # 6.6 2.0-8.3 x10*3/uL ImGran Abs Auto 0.43 H 0.00-0.03 X10*3/uL Lymph Abs Auto 2.2 1.2-4.9 X10*3/uL [place] Abs Auto 1.5 H 0.1-1.2 X10*3/uL Eos Abs Auto 0.4 0.0-0.4 X10*3/uL Baso Abs Auto 0.1 0.0-0.2 X10*3/uL NRBC Abs Auto 0.000 0.0-0.012 X10*3/uL Name: Ruy Ingram Age/Sex: 89/M : 1935 Unit#: [id number] Attend Dr: Allison Haley MD Re06/07/24 Status: DEP REF Location: [facility] Disch: SPEC : [id number] BERNADINE: 06/07/24 STATUS: COMP REQ : [id number] RECD: 06/07/241008 SUBM DR: Allison Haley MD COMP: 06/07/24 ENTERED: 06/07/[address]: ORDERED: IRON PROF, Free T4, TSH Test Result Flag Reference Iron 121 45-160 mcg/dL TIBC 265 228-428 mcg/dL Saturation 46 15-50 % UIBC 144 ug/dL Free T4 0.87 0.71-1.85 ng/dL TSH 3rd Gen. 1.77 0.32-4.0 uIU/mL TSH 3rd Generation ([facility]) Coding Level of Care Code Tele Est Pt Level 4 (04157) Complex EM visit Add On G2211 Diagnoses Bilateral carotid artery stenosis I65.23 Non-rheumatic aortic stenosis I35.0 Anemia, unspecified type D64.9 Anemia type: unspecified type Dyslipidemia E78.5 History of atrial flutter Z86.79 Hypothyroidism E03.9 Additional Codes PHQ-9 - 82128 - PHQ-9 Billing: Yes ([id number]) Assessment & Plan Assessment & Plan (1) Bilateral carotid artery stenosis: Code(s): I65.23 - Occlusion and stenosis of bilateral carotid arteries Category: Medical Plan: Has appointment with Dr. Gardner, vascular surgeon on 06/28/2024. Currently on Eliquis (2) Non-rheumatic aortic stenosis: Code(s): I35.0 - Nonrheumatic aortic (valve) stenosis Category: Medical Plan: Currently on Eliquis 2.5 mg twice a day. Already seen by cardiothoracic surgeon at [facility] and is awaiting scheduled for his TAVR (3) Anemia: Code(s): D64.9 - Anemia, unspecified Category: Medical Qualifiers: Anemia type: unspecified type Qualified Code(s): D64.9 - Anemia, unspecified Plan: Reviewed recent labs which showed stable hemoglobin hematocrit with normal are levels. Currently on ferrous fumarate 324 mg daily (4) Dyslipidemia: Code(s): E78.5 - Hyperlipidemia, unspecified Category: Medical Plan: Repeat fasting lipids ordered to be done in August 2024 (5) History of atrial flutter: Code(s): Z86.79 - Personal history of other diseases of the circulatory system Category: Medical Plan: Has pacemaker in place, followed by cardiology (6) Hypothyroidism: Code(s): E03.9 - Hypothyroidism, unspecified Category: Medical Plan: Recent thyroid levels are within normal limits, continued on current dose of levothyroxine 50 mcg daily Plan I addressed the patient's stable anemia with non-iron deficiency, suggesting continued observation. Coronary artery disease management involves preparation for a valve procedure post-imaging review. Anticoagulation with apixaban needs cardiology input due to dosage concerns from past epistaxis. Carotid artery stenosis and hematuria are scheduled for further evaluation soon, ensuring aligned multidisciplinary follow-up. Patient was informed and verbally consented to the use of an ambient scribe for clinic note documentation during this visit. Orders: Orders Basic Metabolic Panel Fasting 08/12/24 D64.9 - Anemia, unspecified, D72.829 - Elevated white blood cell count, unspecified, E03.9 - Hypothyroidism, unspecified, E78.5 - Hyperlipidemia, unspecified, G62.89 - Other specified polyneuropathies, I35.0 - Nonrheumatic aortic (valve) stenosis, I65.23 - Occlusion and stenosis of bilateral carotid arteries Vitamin D 25-OH Total 08/12/24 D64.9 - Anemia, unspecified, D72.829 - Elevated white blood cell count, unspecified, E03.9 - Hypothyroidism, unspecified, E78.5 - Hyperlipidemia, unspecified, G62.89 - Other specified polyneuropathies, I35.0 - Nonrheumatic aortic (valve) stenosis, I65.23 - Occlusion and stenosis of bilateral carotid arteries Thyroid Stimulating Hormone 08/12/24 D64.9 - Anemia, unspecified, D72.829 - Elevated white blood cell count, unspecified, E03.9 - Hypothyroidism, unspecified, E78.5 - Hyperlipidemia, unspecified, G62.89 - Other specified polyneuropathies, I35.0 - Nonrheumatic aortic (valve) stenosis, I65.23 - Occlusion and stenosis of bilateral carotid arteries Free T4 (Free Thyroxine) 08/12/24 D64.9 - Anemia, unspecified, D72.829 - Elevated white blood cell count, unspecified, E03.9 - Hypothyroidism, unspecified, E78.5 - Hyperlipidemia, unspecified, G62.89 - Other specified polyneuropathies, I35.0 - Nonrheumatic aortic (valve) stenosis, I65.23 - Occlusion and stenosis of bilateral carotid arteries IRON PROFILE 08/12/24 D64.9 - Anemia, unspecified, D72.829 - Elevated white blood cell count, unspecified, E03.9 - Hypothyroidism, unspecified, E78.5 - Hyperlipidemia, unspecified, G62.89 - Other specified polyneuropathies, I35.0 - Nonrheumatic aortic (valve) stenosis, I65.23 - Occlusion and stenosis of bilateral carotid arteries Lipid Panel 08/12/24 D64.9 - Anemia, unspecified, E78.5 - Hyperlipidemia, unspecified, G62.89 - Other specified polyneuropathies, I35.0 - Nonrheumatic aortic (valve) stenosis, I65.23 - Occlusion and stenosis of bilateral carotid arteries Complete Blood Count Auto Diff 08/12/24 D64.9 - Anemia, unspecified, D72.829 - Elevated white blood cell count, unspecified, E03.9 - Hypothyroidism, unspecified, E78.5 - Hyperlipidemia, unspecified, G62.89 - Other specified polyneuropathies, I35.0 - Nonrheumatic aortic (valve) stenosis, I65.23 - Occlusion and stenosis of bilateral carotid arteries Vitamin B12 and Folate 08/12/24 D64.9 - Anemia, unspecified, D72.829 - Elevated white blood cell count, unspecified, E03.9 - Hypothyroidism, unspecified, E78.5 - Hyperlipidemia, unspecified, G62.89 - Other specified polyneuropathies, I35.0 - Nonrheumatic aortic (valve) stenosis, I65.23 - Occlusion and stenosis of bilateral carotid arteries Aspartate Amino Transferase 08/12/24 D64.9 - Anemia, unspecified, E78.5 - Hyperlipidemia, unspecified, G62.89 - Other specified polyneuropathies, I35.0 - Nonrheumatic aortic (valve) stenosis, I65.23 - Occlusion and stenosis of bilateral carotid arteries Alanine Aminotransferase 08/12/24 D64.9 - Anemia, unspecified, E78.5 - Hyperlipidemia, unspecified, G62.89 - Other specified polyneuropathies, I35.0 - Nonrheumatic aortic (valve) stenosis, I65.23 - Occlusion and stenosis of bilateral carotid arteries
--- OUTSIDE RECORDS SUMMARY | 2024-06-09 10:23 | XMS_ITS | Patient Health Record ---
Author Organization [facility] Address [address] [place] [address] Care Team Providers Care Weights And Measures Sealer Name Role Phone Jose L JARAMILLO, [place] Primary Care Provider Inocencio Murcia Unavailable [phone] Reason For Referral No Information Immunizations Vaccine Route Administration Date Status Comme nts Flu vaccine no Preserv 3 and > Unknown 01/24/2014 Admin istered Flu vaccine no Preserv 3 and > Unknown 01/04/2015 Admin istered Influenza Unknown 01/03/2017 Administered Problems Problem Type SNOMED Code ICD Code Onset Dates Problem Status W/U Status Risk Notes Problem 171567165 Encounter for screening for malignant neoplasm of colon (Z12.11) Active confirmed Problem 487112644 History of adenomatous polyp of colon (Z86.010) Active confirmed Problem 96518799 Preprocedural examination (Z01.818) Active confirmed Problem 515656157 History of colon polyps (Z86.010) Active confirmed Problem 923080808 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 Plan Of Treatment Future Test Test Name Order Date COLONOSCOPY 07/25/2015 COLONOSCOPY 02/19/2017 Insurance Providers Payer Name Payer Address Payer Phone Subscriber Number Group Number Insured Name Patient Relationship to Insured Coverage Start Date Coverage End Date MEDICARE OF [place] [address] [place] [address] [id number] ANGEL BARRERA Self - patient is the insured MEDEX ATTN CLAIMS [address] [place] [address] [phone] [id number] ANGEL BARRERA Self - patient is the insured Medical (General) History Medical History History ICD Code 02/21/2004 Screening Colonos copy was negative other than some diverticulosis and internal hemorrhoids Denies CA,DM,CVA,Lung disease,renal dise ase Colonoscopy in 10/2014--flat adenoma [...]
--- OUTSIDE RECORDS SUMMARY | 2024-06-09 10:23 | XMS_ITS | Data Portability ---
Author Organization [place] [facility], [facility] Office Address [address] [place] [address] Care Team Providers Care Metallurgical Or Materials Technician Name Role Phone JAMILAH MOORE Primary Care [...] cuff tear Referring Physician: Rosi Read, Physician Enterprise Architect, Encounter Date: 09/26/2018 Results Created Date Observation [...] Time 03/05/20 15 Other completed Pearl Torres [facility] 09/26/2018 08:02:59 09/04/19 12 Orthopaedic Surgery completed Pearlmago Torres [facility] 09/26/2018 08:02:46 11/04/19 07 Orthopaedic Surgery completed Pearlmago Torres [facility] 09/26/2018 08:02:33 Imaging Results Imaging Date Name [...] mL injection syringe VACCINE ADMINISTE RED BY [facility] 09/26 completed Not Available Not Available Not Available Fluad 2018- 65yr up(PF)45 mcg(15 mcgx3)/0.5 mL intramuscul ar syringe VACCINE ADMINISTE RED BY [facility] 09/26 completed Not Available Not Available Not Available Vitals Date Recorded Body height Body mass index (BMI) Body weight Provider Name and Address Organization Details Last Updated DateTime 09/26/2018 182.88 cm 28.9 kg/m2 11888.17 g Pearl Torres [facility] 09/26/2018 08:00:54 Social History Question Answer Notes LastModified by Organizat ion Details LastModified Time Tobacco Smoking Status Never Smoker Pearl gomez [place] - [facility] 09/26/2018 08:01:30 What Is Your Level Of Alcohol Consumption? None Information not available 09/26/2018 Auto Related Injury? No Information not available 09/26/2018 Have You Had Cortisone? Yes R Knee Information not available 09/26/2018 What Was The Date Of Your Most Recent Tobacco Screening? 09/26/2018 Information not available 10/27/2018 What Types Of Sporting Activities Do You Participate In? Conditioning , Weights At [facility] Information not available 09/26/2018 Work [...] Anxiety N Irregular Heartbeat N MRSA N Any Other Significant Medical Issues N Emphysema / Chronic Bronchitis N Reaction to General/Local Anesthesia N Weight Gain / Loss N Hepatitis / Jaundice N Kidney / Bladder Infections N Diabetes N Bleeding Disorder N Hearing Loss Y Angina, Heart Failure or Attack N Seizures / Epilepsy N Night Sweats N Osteoarthritis / Rheumatoid arthritis / Other Y Cancer N Stroke N Chemical Dependency / Alcoholism N Ulcer / Stomach Bleeding / Indigestion N Visual Loss or Glaucoma N Thyroid Disorder N Psoriasis / Skin Rash N Heart Disease N Pulmonary Embolism N Asthma / Shortness of Breath / Sleep Box Sealing Inspector ea (please specify) N Past Encounters Encounter ID Performer Location Encounter Start Date Encounter Closed Date Diagnosis/Indication Diagnosis SNOMED-CT Code Diagnosis ICD10 Code Diagnosis Note [id number] FRANCK SMALL [facility] Office [address] [place] [phone] 09/26/2018 07:41:04 09/26/2018 08:44:47 Full thickness rotator cuff tear [id number] M75.122 Health Concerns Section Related Observation LastModified by Organization Detai ls LastModified Time None Recorded Concern Status LastModified by Organization Details LastModified Time None Recorded Advance Directives Directive None Recorded Payers Encounter Date Sequence Insurance Name Policy Number Policy Dumont Covered Member ID Dumont Member ID Guarantor Name 09/26/2018 1 [place] [employer] Ruy Ingram [id number] Ruy Ingram 09/26/2018 2 [place] [id number] Ruy Ingram [id number] Ruy Ingram Notes Date Note Type [...] exercises heavily with conditioning classes at the [employer] and swimming. ROS: Positive for hearing loss and arthritis. FRANCK SMALL [address] [place] [address], [place], [address], [facility] 09/29/2018 18:52:08
--- OUTSIDE RECORDS SUMMARY | 2024-06-09 10:23 | XMS_ITS | Patient Health Record ---
Author Organization [facility] Address [address] [place] [address] Care Team Providers Care Training Officer Name Role Phone Jose L JARAMILLO, [place] Primary Care Provider Keena Navarrete Unavailable [phone] Allergies No Known Allergies Reason For Referral [...] W/U Status Risk Notes Problem Plantar wart (31303811) Plantar wart (B07.0) Active confirmed Problem 589781864 Raynaud's disease without gangrene (I73.00) Active confirmed Vital Signs Blood pressure diastolic 80 mm Hg 02/02/2024 Height 6 ft in 02/02/2024 Blood pressure systolic 120 mm Hg 02/02/2024 Weight 193 lbs 02/02/2024 BMI 26.17 kg/m2 02/02/2024 Encounters Encounter Location Date Provider Diagnosis [facility] [address] [place] [address] 02/02/2024 Keena Lainez Plantar wart B07.0 Assessments Encounter Date Diagnosis (ICD Code) Assessment Notes Treatment Notes Treatment Clinical Notes Section Notes 02/02/2024 Plantar wart (ICD-10 - B07.0) Plan Of Treatment Next Appt Details Provider Name:Keena ledesma, 08/02/2024 09:00:00 AM, [address] [facility], [place], [address], Insurance Providers Payer Name Payer Address Payer Phone Subscriber Number Group Number Insured Name Patient Relationship to Insured Coverage Start Date Coverage End Date Medicare National [facility] [address] [place] [address] [id number] Ruy Roth Self - patient is the insured Med[employer] Blue Shield [address] [place] [address] [id number] Ruy Roth Self - patient is the insured Medical (General) History Medical History History ICD Code Cataracts Measles Mumps Chicken pox Joint implants/screws Surgical History Surgery Date(Month/Year)
--- OUTSIDE RECORDS SUMMARY | 2024-06-09 10:23 | XMS_ITS ---
Author Organization [facility] Address [address] [place] [address] Care Team Providers Care Marketing Officer Name Role Phone Jose L JARAMILLO, [place] Primary Care Provider Keena Navarrete Unavailable [phone] Allergies No Known Allergies REASON FOR VISIT [...] W/U Status Risk Notes Problem Plantar wart (71851337) Plantar wart (B07.0) Active confirmed Vital Signs Height 6 ft in 02/02/2024 Weight 193 lbs 02/02/2024 BMI 26.17 kg/m2 02/02/2024 Blood pressure systolic 120 mm Hg 02/02/20 24 Blood pressure diastolic 80 mm Hg 024 Encounters Encounter Location Date Provider Diagnosis [facility] [address] [place] [address] 02/02/2024 Keena Lainez Plantar wart B07.0 Assessments Encounter Date Diagnosis (ICD Code) Assessment Notes Treatment Notes Treatment Clinical Notes Section Notes 02/02/2024 Plantar wart (ICD-10 - B07.0) Plan Of Treatment Next Appt Details Follow Up: prn, Reason: Provider Name:Keena ledesma, 08/02/2024 09:00:00 AM, [address] [place], [address], Progress Notes * Ruy INGRAM WDOB:[birth year] (88 yo M)Acc No.[id number]:02/02/2024 Progress Note Patient:?Ruy Ingram Provider:?Keena Lainez DPM :1935???Age:88 Y???Sex:Male Kris e:02/02/2024 Address:[address] [place] [address] Pcp:Pepito Domingo MD Subjective: * Chief Complaints: [...] Lainez DPM Date:?1 Generated for Alexsandra maldonado/Han/Penny on:?06/09/2024 10:23 AM EST History and Physical Notes * [...]
== END 2024-06-09 10:30 | disposition home or self-care (01) ==
LOC: HO.HMCC 09:34
PROVIDERS: PCP Internal Medicine; Visit Provider Internal Medicine
DX: I65.23 Occlusion and stenosis of bilateral carotid arteries (principal); I35.0 Nonrheumatic aortic (valve) stenosis; D64.9 Anemia, unspecified; E78.5 Hyperlipidemia, unspecified; Z86.79 Personal history of other diseases of the circulatory system; E03.9 Hypothyroidism, unspecified

== ENCOUNTER → 2024-06-09 09:34 | Outpatient (BNVA) | payer MEDICARE, SELFPAY | PROVIDERS: PCP Internal Medicine; Visit Provider Internal Medicine | DX: M79.89 Other specified soft tissue disorders (principal); I65.23 Occlusion and stenosis of bilateral carotid arteries; I35.0 Nonrheumatic aortic (valve) stenosis; D64.9 Anemia, unspecified; E78.5 Hyperlipidemia, unspecified; E03.9 Hypothyroidism, unspecified; Z86.79 Personal history of other diseases of the circulatory system | CPT/HCPCS: 96127 ==

== ENCOUNTER 2024-06-28 08:56 | Outpatient (REF) | payer MEDICARE, SELFPAY ==
--- NOTE | ~2024-06-28 | US_ITS ---
EXAMINATION: BILATERAL CAROTID ULTRASOUND WITH DOPPLER HISTORY: I65.23 - Occlusion and stenosis of bilateral carotid arteries COMPARISON: There are no prior studies for comparison. TECHNIQUE: Real time and Color and Spectral doppler ultrasonography of the carotid and vertebral arteries was performed in multiple planes. FINDINGS: There is mild plaque at both carotid arteries. VERTEBRAL FLOW DIRECTION: Antegrade bilaterally. PEAK SYSTOLIC VELOCITIES (in cm/sec): RIGHT: CCA: Prox: 86 Dist: 127 ICA: Prox: 151 Mid: 139 Dist: 75 ICA/CCA Ratio: 1.19 ECA: 107 Peak ICA EDV: 38 LEFT: CCA: Prox: 116 Dist: 86 ICA: Prox: 59 Mid: 107 Dist: 110 ICA/CCA Ratio: 0.95 ECA: 178 Peak ICA EDV: 29 US/US carotid duplex BI IMPRESSION: Findings consistent with 50-79% stenosis of the right internal carotid artery and 0-49% stenosis of the left internal carotid artery. Electronically signed by: Inocencio Emanuel MD 06/28/2024 09:45 AM EDT
== END 2024-06-28 08:57 | disposition home or self-care (01) ==
LOC: HO.HMGCX 08:56
PROVIDERS: PCP Internal Medicine; Visit Provider Surgery Vascular Surgery
DX: I65.23 Occlusion and stenosis of bilateral carotid arteries (principal)
CPT/HCPCS: 93880

== ENCOUNTER → 2024-06-28 08:58 | Outpatient (BNV) | payer MEDICARE, SELFPAY | PROVIDERS: PCP Internal Medicine; Visit Provider Radiology Diagnostic Radiology | DX: I65.23 Occlusion and stenosis of bilateral carotid arteries (principal) | CPT/HCPCS: 93880 ==

== ENCOUNTER 2024-07-04 13:53 | Outpatient (AMB) | payer MEDICARE, SELFPAY ==
--- NOTE | 2024-07-04 14:06 | MHC.OFFVIS ---
Intake Visit Reasons: 6m follow up s/p Carotid US 06/28/24 Intake Note: Patient presents for 6 month follow up carotid US. Accompanied by: Son Allergies No Known Allergies Allergy (Verified 07/04/24 14:06) HPI HPI 6m follow up s/p Carotid US 06/28/24: Details: The patient is an 89-year-old male presenting with surveillance of bilateral carotid artery stenosis. The stenosis was first noted following a dizzy spell in December 2023 with a continued need for routine surveillance. Previously evaluated through a CTA, subsequent medical interactions centered around managing cardiac concerns and dehydration. His medical evaluation was complicated by the need for pacemaker installation due to cardiac arrhythmia and significant aortic valve regurgitation now to be addressed by a TAVR procedure. Anticoagulation therapy is ongoing to prepare for valve procedure interventions. The patient's symptoms of dizziness have improved, aligning with stabilizing cardiac output from his current cardiovascular management strategy. He now presents for routine carotid surveillance. 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 Mother No problems noted. Social History Household Members: Spouse Housing: House Do you presently have visiting nurse or other home services: No Alcohol intake: former Patient Tobacco Use Status: Never used Tobacco e-Cigarette/Vaping Use: Never Used Second Hand Smoke Exposure: Yes service: No Current occupational status: retired Cognitive needs: No Hearing needs: Yes Vision needs: Yes (Pt wear glasses) Review of Systems Const All systems reviewed & are unremarkable except as noted in HPI and below Reports no additional complaints ENT Reports Normal hearing present Card Denies chest pain, Denies chest pain at rest, Denies chest pain with activity and Denies pedal edema Resp Denies cough GI Denies abdominal pain Musc Denies abnormal gait, Denies muscle cramps and Denies radiating pain into limb Skin/Breast Denies skin ulcer and Denies wounds Neuro Reports Normal hearing present and Denies abnormal gait Psych Reports no additional complaints Physical Exam Const General: cooperative, healthy appearing and comfortable Orientation/consciousness: oriented to person, oriented to place and oriented to time HEENT Head: Yes normal to inspection Neck Neck: Yes normal visual inspection Carotids: no bruits Chest Chest palpation & inspection: normal inspection of the chest Resp Effort & Inspection: normal respiratory effort and able to speak in complete sentences Auscultation: clear to auscultation bilaterally, no crackles, no rales, no rhonchi and no wheezes Cardio Rate: regular rate Rhythm: regular rhythm Heart sounds: S1 normal heart sound present and S2 normal heart sound present Bruits: no carotid bruits Peripheral pulses: Peripheral pulses 2+ throughout GI Inspection: Yes normal to inspection Skin Wounds: no wounds Hair: normal Neuro General: oriented to person, oriented to place and oriented to time Cranial nerves: Yes CN's II-XII intact bilaterally and Yes Normal hearing present Cognition (Neuro): normal cognition Motor exam (neuro): 5/5 motor strength present throughout Extrem Other: venous exam: No significant superficial varicosities or spider telangiectasias, minimal edema General: No clubbing, No cyanosis and No edema Psych Appearance: grossly normal Mental Status: mental status grossly normal Speech and movement: Normal speech and movement present Results Reviewed Results Reviewed: Ultrasound dated 06/28/2024 demonstrates right-sided stenosis of 50-79% with a peak systolic of 151 and left-sided 0-49% written report and images were reviewed Assessment & Plan Assessment & Plan (1) Bilateral carotid artery stenosis: Code(s): I65.23 - Occlusion and stenosis of bilateral carotid arteries Category: Medical Plan: In short patient has asymptomatic carotid disease. We have reviewed signs and symptoms of a stroke. We also discussed risk factor modification inclusive a healthy diet low in cholesterol. The patient will follow up with us with surveillance ultrasound of the carotids 1 year. Should there be any changes or signs or symptoms of a stroke we will be happy to see them back sooner. Thank you for allowing us to participate in this patient's care. If there are any questions or concerns please do not hesitate to contact us. Patient Instructions: - Follow up with Dr. Hawthorne to confirm details regarding the TAVR procedure. - Continue with anticoagulation therapy as prescribed. - Engage in light walking as tolerated but avoid vigorous activities until cleared post-procedure. - Monitor symptoms and report any new or worsening signs such as increased dizziness or neurological changes. - Schedule yearly carotid ultrasound assessments. Coding Level of Care Code Est Pt Level 4 (21557) Complex EM visit Add On G2211 Diagnoses Bilateral carotid artery stenosis I65.23
--- OUTSIDE RECORDS SUMMARY | 2024-07-04 16:33 | XMS_ITS ---
Author Organization [facility] Address [address] [place] [address] Care Team Providers Care Supervisor Denture Department Name Role Phone Jose L JARAMILLO, [place] Primary Care Provider Keena Navarrete Unavailable [phone] Allergies No Known Allergies REASON FOR VISIT [...] W/U Status Risk Notes Problem Plantar wart (58427705) Plantar wart (B07.0) Active confirmed Vital Signs Height 6 ft in 02/02/2024 Weight 193 lbs 02/02/2024 BMI 26.17 kg/m2 02/02/2024 Blood pressure systolic 120 mm Hg 02/02/20 24 Blood pressure diastolic 80 mm Hg 024 Encounters Encounter Location Date Provider Diagnosis [facility] [address] [place] [address] 02/02/2024 Keena Lainez Plantar wart B07.0 Assessments Encounter Date Diagnosis (ICD Code) Assessment Notes Treatment Notes Treatment Clinical Notes Section Notes 02/02/2024 Plantar wart (ICD-10 - B07.0) Plan Of Treatment Next Appt Details Follow Up: prn, Reason: Provider Name:Keena ledesma, 08/02/2024 09:00:00 AM, [address] [place], [address], Progress Notes * Ruy INGRAM WDOB:[birth year] (88 yo M)Acc No.[id number]:02/02/2024 Progress Note Patient:?Ruy Ingram Provider:?Keena Lainez DPM :1935???Age:88 Y???Sex:Male Kris e:02/02/2024 Address:[address] [place] [address] Pcp:Pepito Domingo MD Subjective: * Chief Complaints: [...] Lainez DPM Date:?1 Generated for Alexsandra maldonado/Han/Penny on:?07/04/2024 04:33 PM EDT History and Physical Notes * HPI (History [...]
--- OUTSIDE RECORDS SUMMARY | 2024-07-04 16:33 | XMS_ITS | Patient Health Record ---
Author Organization [facility] Address [address] [place] [address] Care Team Providers Care Transportation Inspector Name Role Phone Jose L JARAMILLO, [place] Primary Care Provider Keena Navarrete Unavailable [phone] Allergies No Known Allergies Reason For Referral [...] W/U Status Risk Notes Problem Plantar wart (31967433) Plantar wart (B07.0) Active confirmed Problem 357135198 Raynaud's disease without gangrene (I73.00) Active confirmed Vital Signs Blood pressure diastolic 80 mm Hg 02/02/2024 Height 6 ft in 02/02/2024 Blood pressure systolic 120 mm Hg 02/02/2024 Weight 193 lbs 02/02/2024 BMI 26.17 kg/m2 02/02/2024 Encounters Encounter Location Date Provider Diagnosis [facility] [address] [place] [address] 02/02/2024 Keena Lainez Plantar wart B07.0 Assessments Encounter Date Diagnosis (ICD Code) Assessment Notes Treatment Notes Treatment Clinical Notes Section Notes 02/02/2024 Plantar wart (ICD-10 - B07.0) Plan Of Treatment Next Appt Details Provider Name:Keena ledesma, 08/02/2024 09:00:00 AM, [address] [facility], [place], [address], Insurance Providers Payer Name Payer Address Payer Phone Subscriber Number Group Number Insured Name Patient Relationship to Insured Coverage Start Date Coverage End Date Medicare National [facility] [address] [place] [address] [id number] Ruy Roth Self - patient is the insured [employer] [address] [place] [address] [phone] [id number] Ruy Roth Self - patient is the insured Medical (General) History Medical History History ICD Code Cataracts Measles Mumps Chicken pox Joint implants/screws Surgical History Surgery Date(Month/Year)
--- OUTSIDE RECORDS SUMMARY | 2024-07-04 16:33 | XMS_ITS | Data Portability ---
Author Organization [facility], [address] Address [address] [place] [address] Assessment No assessment recorded. Plan of Treatment Reminders Order Date Submit Date Provider Last Modified By Organization Details Last Modified Time Details Appointments None recorded. Lab urinalysis , dipstick 2022 023 [email or web address] [facility], [facility] [place], [address], 15:58:42 Referral None recorded. Procedures None recorded. Surgeries None recorded. Imaging None recorded. Medication Orders clotrimazo le-betamet hasone 1 %-0.05 % topical cream 2022 023 [facility], [address] [place], [address], 15:07:46 Patient TargetsNo targets recorded. Patient Instructions Encounter Date Encounter Id Patient Instructions Last Modified By Organization Details Last Modified Time 10/11/2022 [id number] What are ringworm, athlete's foot, and jock [...] infection? You can catch fungal infections through [id number] contact with a person who is infected. [...] = light yellow Not Available _bryanna souza [address], [address], 10/11/2022 15:11:21 10/12/1910/11/2022 urina lysis , dipst ick Unknown Analyte Yellow Not Available [facility] [address], [address], 10/11/2022 15:11:21 10/12/1910/11/2022 urina lysis , dipst ick Unknown Analyte Normal = clear Not Available _bryanna souza [address], [address], 10/11/2022 15:11:21 10/12/1910/11/2022 urina lysis , dipst ick Unknown Analyte Clear Not Available [facility] [address], [address], 10/11/2022 15:11:21 10/12/19 23 10/11/2022 urina lysis , dipst ick Unknown Analyte Normal = negati ve Not Available bryanna souza [address], [place], [place], [address], 10/11/2022 15:11:21 10/12/19 23 10/11/2022 urina lysis , dipst ick Unknown Analyte Negati ve Not Available bryanna souza [address], [place], [place], [address], 10/11/2022 15:11:21 10/12/1910/11/2022 urina lysis , dipst ick Unknown Analyte Normal = Negati ve Not Available bryanna souza [address], [place], [address], 10/11/2022 15:11:21 10/12/19 23 10/11/2022 urina lysis , dipst ick Unknown Analyte Negati ve Not Available bryanna souza [address], [place], [place], [address], 10/11/2022 15:11:21 10/12/19 23 10/11/2022 urina lysis , dipst ick Unknown Analyte Normal = Negati ve Not Available bryanna souza [address], [place], [address], 10/11/2022 15:11:21 10/12/19 23 10/11/2022 urina lysis , dipst ick Unknown Analyte Negati ve Not Available bryanna souza [address], [place], [address], 10/11/2022 15:11:21 10/12/19 23 10/11/2022 urina lysis , dipst ick Unknown Analyte Normal = 1.010, 1.015, 1.020 Not Available 2099bryanna souza [address], [place], [address], 10/11/2022 15:11:21 10/12/19 23 10/11/2022 urina lysis , dipst ick Unknown Analyte 1.030 Not Available [address], [place], [address], 10/11/2022 15:11:21 10/12/19 23 10/11/2022 urina lysis , dipst ick Unknown Analyte Normal = Negati ve Not Available [address], [place], [address], 10/11/2022 15:11:21 10/12/19 23 10/11/2022 urina lysis , dipst ick Unknown Analyte Trace- intact Not Available [address], [place], [address], 10/11/2022 15:11:21 10/12/19 23 10/11/2022 urina lysis , dipst ick Unknown Analyte Normal = 6.5, 7.0, 7.5, 8.0 Not Available [address], [place], [address], 10/11/2022 15:11:21 10/12/19 23 10/11/2022 urina lysis , dipst ick Unknown Analyte 5.5 Not Available [address], [place], [address], 10/11/2022 15:11:21 10/12/19 23 10/11/2022 urina lysis , dipst ick Unknown Analyte Normal = Negati ve Not Available [address], [place], [address], 10/11/2022 15:11:21 10/12/19 23 10/11/2022 urina lysis , dipst ick Unknown Analyte Negati ve Not Available bryanna souza [address], [place], [address], 10/11/2022 15:11:21 10/12/1910/11/2022 urina lysis , dipst ick Unknown Analyte Normal = 0.2, 1.0 Not Available [facility] [address], [place], [address], 10/11/2022 15:11:21 10/12/19 23 10/11/2022 urina lysis , dipst ick Unknown Analyte 0.2 E.U./d L Not Available bryanna souza [address], [place], [address], 10/11/2022 15:11:21 10/12/1910/11/2022 urina lysis , dipst ick Unknown Analyte Normal = Negati ve Not Available bryanna [address], [place], [address], 10/11/2022 15:11:21 10/12/1910/11/2022 urina lysis , dipst ick Unknown Analyte Negati ve Not Available bryanna souza [address], [place], [address], 10/11/2022 15:11:21 10/12/19 23 10/11/2022 urina lysis , dipst ick Unknown Analyte Normal = Negati ve Not Available bryanna souza [address], [place], [address], 10/11/2022 15:11:21 10/12/19 23 10/11/2022 urina lysis , dipst ick Unknown Analyte Negati ve Not Available bryanna souza [address], [place], [address], 10/11/2022 15:11:21 Result Notes None recorded. Problems [...] Updated DateTime 3 182.88 cm 26.4 kg/m2 03229.5 1 g 9 17 /min 98 % 98 % 55 /min 97.9 [degF] 151 mm[Hg] 75 mm[Hg] DIANNE [facility] 3 14:37:11 Social History Question Answer Notes LastModified by Organizat ion Details LastModified Time Tobacco Smoking Status Never Smoker DIANNE gomez PA Eduardo [facility] 10/11/2022 14:35:10 What Is Your Level Of Alcohol Consumption? Occasional [email or web address] Information not available 10/11/2022 Do You Use Any Illicit Or Recreational Drugs? No [email or web address] Information not available 10/11/2022 Have You Recently Traveled Abroad? No Information not available 10/11/2022 Do You Or Have You Ever Used Any Other Forms Of Tobacco Or Nicotine? No [email or web address] Information not available 10/11/2022 Sex: Unknown Functional Status None recorded. Mental Status None recorded. Family History Relationship Description Onset Age of this Age Resolved Age Notes LastModified by Organization Details LastModified Time Father No current problems or disability [email or web address] Not available 10/11 14:34:47 Mother No current problems or disability [email or web address] Not available 10/11 14:34:47 Medical History No medical history recorded. Past Encounters Encounter ID Performer Location Encounter Start Date Encounter Closed Date Diagnosis/Indication Diagnosis SNOMED-CT Code Diagnosis ICD10 Code Diagnosis Note [id number] [address] [address] 10/25/2020 19:24:14 10/25/2020 20:09:32 [id number] [place] [address] [facility] [place] [address] 10/11/2022 13:49:51 10/11/2022 15:13:21 Tinea cruris [id number] B35.6 Health Concerns Section Related Observation LastModified by Organization Detai ls LastModified Time None Recorded Concern Status LastModified by Organization Details LastModified Time None Recorded Advance Directives Directive None Recorded Payers Encounter Date Sequence Insurance Name Policy Number Policy Dumont Covered Member ID Dumont Member ID Guarantor Name 10/25/2020 1 [place] [employer] [place] Ruy Leónnsworth [id number] Ruy LeónFranklin 10/25/2020 2 [place] [id number] Ruy Resendez Juan Jose [id number] Ruy LeónFranklin 10/11/2022 1 [place] Ruy Leónnsworth [id number] Ruy LeónJuan Jose 10/11/2022 2 [place] [id number] Ruy Ingram [id number] Ruy Ingram Notes Date Note Type [...] Robert NP [address] [place], [address], [place] - [facility] 10/11/2022 15:59:02
--- OUTSIDE RECORDS SUMMARY | 2024-07-04 16:33 | XMS_ITS | Patient Health Record ---
Author Organization [facility] Address [address] [place] [address] Care Team Providers Care National Service Officer Name Role Phone Jose L JARAMILLO, [place] Primary Care Provider Inocencio Murcia Unavailable [phone] Reason For Referral No Information Immunizations Vaccine Route Administration Date Status Comme nts Flu vaccine no Preserv 3 and > Unknown 01/24/2014 Admin istered Flu vaccine no Preserv 3 and > Unknown 01/04/2015 Admin istered Influenza Unknown 01/03/2017 Administered Problems Problem Type SNOMED Code ICD Code Onset Dates Problem Status W/U Status Risk Notes Problem 643221756 Encounter for screening for malignant neoplasm of colon (Z12.11) Active confirmed Problem 805077177 History of adenomatous polyp of colon (Z86.010) Active confirmed Problem 21426138 Preprocedural examination (Z01.818) Active confirmed Problem 486358810 History of colon polyps (Z86.010) Active confirmed Problem 105690617 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 Plan Of Treatment Future Test Test Name Order Date COLONOSCOPY 07/25/2015 COLONOSCOPY 02/19/2017 Insurance Providers Payer Name Payer Address Payer Phone Subscriber Number Group Number Insured Name Patient Relationship to Insured Coverage Start Date Coverage End Date MEDICARE OF [place] [address] [place] [id number] ANGEL BARRERA Self - patient is the insured [employer] CLAIMS [address] [place] [address] [phone] [id number] ANGEL BARRERA Self - patient is the insured Medical (General) History Medical History History ICD Code 02/21/2004 Screening Colonos copy was negative other than some diverticulosis and internal hemorrhoids Denies NM,DM,CVA,Lung disease,renal dise ase Colonoscopy in 10/2014--flat adenoma [...]
== END 2024-07-04 14:47 | disposition home or self-care (01) ==
LOC: HO.HVS 13:53
PROVIDERS: PCP Internal Medicine; Visit Provider Surgery Vascular Surgery
DX: I65.23 Occlusion and stenosis of bilateral carotid arteries (principal)
CPT/HCPCS: 99214; G2211

== ENCOUNTER → 2024-07-04 13:53 | Outpatient (BNVA) | payer MEDICARE, SELFPAY | PROVIDERS: PCP Internal Medicine; Visit Provider Surgery Vascular Surgery | DX: I65.23 Occlusion and stenosis of bilateral carotid arteries (principal) | CPT/HCPCS: 99212 ==

== ENCOUNTER 2024-07-11 08:54 | Outpatient (REF) | payer MEDICARE, SELFPAY ==
[2024-07-11 17:03] LABS: Urine Cytology See Pathology rpt
== END 2024-07-11 08:55 | disposition home or self-care (01) ==
LOC: HO.LAB 08:54
PROVIDERS: PCP Internal Medicine; Visit Provider Nurse Practitioner Family
DX: R31.9 Hematuria, unspecified (principal)
CPT/HCPCS: 81003; 88112; 99202

== ENCOUNTER 2024-07-11 08:54 | Outpatient (AMB) | payer MEDICARE, SELFPAY ==
--- NOTE | 2024-07-11 09:09 | A.OFFVIS_ITS ---
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 Domingo. He has a PMH of peripheral neuropathy, BPH, osteoarthritis, lumbar degenerative disc disease, and dyslipidemia. He presents to the office today as a new patient for gross hematuria. In discussion with the patient today he reports shortly after his 2nd dose of anticoagulation due to his ongoing cardiac issues he has been experiencing he experienced one episode of gross hematuria as well as epistaxis. He reports following up with his PCP at which time recommendations were made for urology referral for further assessment evaluation. In office urinalysis today notes no microscopic hematuria. We discussed potential causes of gross hematuria in general as well as in the setting of anticoagulation. He denies any bothersome urinary issues. He does report episodes of urinary urgency and frequency as well as nocturia however feels he is managing these symptoms well independently. He discusses his recent pacemaker placement with Dr. Browning. He also discusses his upcoming valve replacement. He denies dysuria, foul smelling urine, changes to urinary stream, flank pain, fever, and or chills. He is happy with his current voiding parameters. In review of patient's chart it appears PSAs are as follows 07/27 [address] angio 06/27 notes the kidneys and ureters with no hydronephrosis, nephrolithiasis, or suspicious masses. Simple appearing renal cysts in hypodensities that are too small to characterize are noted, requiring no dedicated follow-up per radiology report. The bladder is partially obscured by artifact. No evidence of acute abnormality. He otherwise offers no other issues or concerns at this time. Plan The management strategy includes continued monitoring of hematuria associated with anticoagulation therapy. I will proceed with cytology evaluation of the bladder to elucidate potential malignant causes. Considering the absence of recurrent symptoms, further invasive diagnostics like cystoscopy are deferred at this time, to be reconsidered in three months should symptoms reappear. The patient has been informed of the necessity of continuing anticoagulation to mitigate thromboembolic risks, essential before the scheduled heart valve procedure. This plan is coherent with the patient's current therapy regimen and the expected procedural outcomes at [facility]. Patient was informed and verbally consented to the use of an ambient scribe for clinic note documentation during this visit. Discussion Notes I discussed the potential cause of hematuria relating to anticoagulation required for atrial fibrillation management and the importance of preventing strokes. The patient was informed about the cytology test, which could help in detecting abnormal cells that indicate malignancy in the bladder. We also reviewed the potential risks of continuing on blood thinners, such as the recurrence of bleeding, emphasizing the benefits of preventing thrombotic events and stroke as crucial. The patient understood the plan and agreed with the outlined approach. Follow-up deterioration indicators were reviewed, with a planned reassessment in three months. I also provided reassurance concerning the upcoming heart valve procedure and the collaborative team involved at [facility]. 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 Mother No problems noted. Social History Household Members: Spouse Housing: House Do you presently have visiting nurse or other home services: No Alcohol intake: former Patient Tobacco Use Status: Never used Tobacco e-Cigarette/Vaping Use: Never Used Second Hand Smoke Exposure: Yes service: No Current occupational status: retired Cognitive needs: No Hearing needs: Yes Vision needs: Yes (Pt wear glasses) Review of Systems Const All systems reviewed & are unremarkable except as noted in HPI and below Physical Exam Const General: cooperative, healthy appearing, comfortable, no acute distress, well developed, alert and awake Orientation/consciousness: patient oriented x3 Limitations: no limitations HEENT Head: Yes normal to inspection, Yes normocephalic and Yes atraumatic Ears: hearing grossly normal bilaterally Eyes General: appearance normal, both eyes and all related structures Neck Neck: Yes normal visual inspection and Yes trachea midline Chest Chest palpation & inspection: normal inspection of the chest Resp Effort & Inspection: normal respiratory effort and able to speak in complete sentences Cardio Rate: regular rate GI Inspection: Yes normal to inspection General: Yes no CVA tenderness Back/Spine/Pelvis Back: no CVA tenderness Skin General skin exam: no rashes or lesions noted Neuro General: patient oriented x3 Extrem General: Yes normal to inspection Psych Appearance: grossly normal and well kempt Mental Status: mental status grossly normal Speech and movement: Normal speech and movement present and Clear speech present Affect: normal affect Attitude: cooperative Thought process: Normal thought process present Thought content: Normal thought content present Insight: Fair insight present (Psych) Judgement: Fair judgement present (Psych) Results AMB Urinalysis, Automated UA Leukoctes 0 Glenn/uL Last Edit by Jose Maria Godoy on 07/11/24 09:34 UA Nitrite Last Edit by Habit Labsrodriguez Godoy on 07/11/24 09:34 UA Urobilinogen 0.2 mg/dL Last Edit by Flexionjeanna Godoy on 07/11/24 09:34 UA Protein 0 mg/dL Last Edit by Jose Maria Godoy on 07/11/24 09:34 UA pH 6.0 Last Edit by Jose Maria Godoy on 07/11/24 09:34 UA Blood 0 Jesse/uL Last Edit by FarhanCitra Stylejeanna Godoy on 07/11/24 09:34 UA Specific Franklin 1.015 Last Edit by FarhanCitra Stylejeanna Godoy on 07/11/24 09:34 UA Ketone Last Edit by Farhanrodriguez Walt on 07/11/24 09:34 UA Bilirubin 0 mg/dL Last Edit by Jose Maria Godoy on 07/11/24 09:34 UA Glucose 0 mg/dL Last Edit by Jose Maria Godoy on 07/11/24 09:34 Results Reviewed Results Reviewed: Laboratory Last Values Urine pH (Auto) 6.0 07/11/24 09:33 Specific Franklin (Auto) 1.015 07/11/24 09:33 Urine Protein (Auto) 0 mg/dL 07/11/24 09:33 Glucose (UA)(Auto) 0 mg/dL 07/11/24 09:33 Urine Blood (Auto) 0 Jesse/uL 07/11/24 09:33 Urine Bilirubin (Auto) 0 mg/dL 07/11/24 09:33 Urine Urobilinogen (Auto) 0.2 mg/dL 07/11/24 09:33 Leukocyte Esterase (Auto) 0 Glenn/uL 07/11/24 09:33 Assessment & Plan Assessment & Plan (1) Hematuria: Code(s): R31.9 - Hematuria, unspecified Category: Medical Plan In office urinalysis results reviewed with the patient today; as noted above; will send for urine cytology. We discussed at length potential causes of gross hematuria as well as further treatment options and risks and benefits of these treatment options. Recent CT results reviewed with the patient today; as noted above. Will continue with surveillance monitoring. Most recent PSA results reviewed with the patient today; as noted above. Patient currently denies any bothersome urinary issues or concerns. He reports be happy with current voiding parameters. Follow-up in 3 months; or sooner with any issues, concerns, and or questions. Orders: Orders AMB Urinalysis Automated Today Z13.9 - Encounter for screening, unspecified Urine Cytology Today R31.9 - Hematuria, unspecified Patient Instructions: The patient had an opportunity to ask questions regarding the treatment plan. All questions were answered. Physical exam, labs, and imaging were discussed and reviewed in detail. As well as risks, benefits, and discussion of treatment choices. No major barriers to understanding were identified. The patient expressed understanding and agreement with the above treatment plan. The patient was made aware they should contact our office by phone for worsening of their current condition, the appearance of new symptoms, or with any questions or concerns. Compliance is encouraged with any medications and follow up testing that is ordered. It is a privilege to be allowed the opportunity to participate in? your urological care.? Again, if you have any questions or concerns If you have any questions or concerns please do not hesitate to contact me. The office is [phone]. This note is constructed using voice recognition software. While every effort has been made to ensure accuracy state archivist errors may have been included. Yours sincerely, DEWAYNE Montiel Coding Level of Care Code New Pt Level 3 (36438) Diagnoses Hematuria R31.9
--- OUTSIDE RECORDS SUMMARY | 2024-07-11 09:30 | XMS_ITS | Data Portability ---
Author Organization [facility]AN[facility] Becerra [facility], [address] Address [address] [place] [address] Assessment No assessment recorded. Plan of Treatment Reminders Order Date Submit Date Provider Last Modified By Organization Details Last Modified Time Details Appointments None recorded. Lab urinalysis , dipstick 2022 023 [email or web address] _[facility], [facility] [place], [address], 15:58:42 Referral None recorded. Procedures None recorded. Surgeries None recorded. Imaging None recorded. Medication Orders clotrimazo le-betamet hasone 1 %-0.05 % topical cream 2022 023 [facility], [address] [place], [address], 15:07:46 Patient TargetsNo targets recorded. Patient Instructions Encounter Date Encounter Id Patient Instructions Last Modified By Organization Details Last Modified Time 10/11/2022 [id number] What are ringworm, athlete's foot, and jock [...] infection? You can catch fungal infections through [id number] contact with a person who is infected. [...] = light yellow Not Available _bryanna souza [address], [address], 10/11/2022 15:11:21 10/12/1910/11/2022 urina lysis , dipst ick Unknown Analyte Yellow Not Available [facility] [address], [address], 10/11/2022 15:11:21 10/12/1910/11/2022 urina lysis , dipst ick Unknown Analyte Normal = clear Not Available _bryanna souza [address], [address], 10/11/2022 15:11:21 10/12/1910/11/2022 urina lysis , dipst ick Unknown Analyte Clear Not Available [facility] [address], [address], 10/11/2022 15:11:21 10/12/19 23 10/11/2022 urina lysis , dipst ick Unknown Analyte Normal = negati ve Not Available bryanna souza [address], [place], [place], [address], 10/11/2022 15:11:21 10/12/19 23 10/11/2022 urina lysis , dipst ick Unknown Analyte Negati ve Not Available bryanna souza [address], [place], [place], [address], 10/11/2022 15:11:21 10/12/1910/11/2022 urina lysis , dipst ick Unknown Analyte Normal = Negati ve Not Available bryanna souza [address], [place], [address], 10/11/2022 15:11:21 10/12/19 23 10/11/2022 urina lysis , dipst ick Unknown Analyte Negati ve Not Available bryanna souza [address], [place], [place], [address], 10/11/2022 15:11:21 10/12/19 23 10/11/2022 urina lysis , dipst ick Unknown Analyte Normal = Negati ve Not Available bryanna souza [address], [place], [address], 10/11/2022 15:11:21 10/12/19 23 10/11/2022 urina lysis , dipst ick Unknown Analyte Negati ve Not Available bryanna souza [address], [place], [address], 10/11/2022 15:11:21 10/12/19 23 10/11/2022 urina lysis , dipst ick Unknown Analyte Normal = 1.010, 1.015, 1.020 Not Available 2099bryanna souza [address], [place], [address], 10/11/2022 15:11:21 10/12/19 23 10/11/2022 urina lysis , dipst ick Unknown Analyte 1.030 Not Available [address], [place], [address], 10/11/2022 15:11:21 10/12/19 23 10/11/2022 urina lysis , dipst ick Unknown Analyte Normal = Negati ve Not Available [address], [place], [address], 10/11/2022 15:11:21 10/12/19 23 10/11/2022 urina lysis , dipst ick Unknown Analyte Trace- intact Not Available [address], [place], [address], 10/11/2022 15:11:21 10/12/19 23 10/11/2022 urina lysis , dipst ick Unknown Analyte Normal = 6.5, 7.0, 7.5, 8.0 Not Available [address], [place], [address], 10/11/2022 15:11:21 10/12/19 23 10/11/2022 urina lysis , dipst ick Unknown Analyte 5.5 Not Available [address], [place], [address], 10/11/2022 15:11:21 10/12/19 23 10/11/2022 urina lysis , dipst ick Unknown Analyte Normal = Negati ve Not Available [address], [place], [address], 10/11/2022 15:11:21 10/12/19 23 10/11/2022 urina lysis , dipst ick Unknown Analyte Negati ve Not Available bryanna souza [address], [place], [address], 10/11/2022 15:11:21 10/12/1910/11/2022 urina lysis , dipst ick Unknown Analyte Normal = 0.2, 1.0 Not Available [facility] [address], [place], [address], 10/11/2022 15:11:21 10/12/19 23 10/11/2022 urina lysis , dipst ick Unknown Analyte 0.2 E.U./d L Not Available bryanna souaz [address], [place], [address], 10/11/2022 15:11:21 10/12/1910/11/2022 urina lysis , dipst ick Unknown Analyte Normal = Negati ve Not Available bryanna [address], [place], [address], 10/11/2022 15:11:21 10/12/1910/11/2022 urina lysis , dipst ick Unknown Analyte Negati ve Not Available bryanna souza [address], [place], [address], 10/11/2022 15:11:21 10/12/19 23 10/11/2022 urina lysis , dipst ick Unknown Analyte Normal = Negati ve Not Available bryanna souza [address], [place], [address], 10/11/2022 15:11:21 10/12/19 23 10/11/2022 urina lysis , dipst ick Unknown Analyte Negati ve Not Available bryanna souza [address], [place], [address], 10/11/2022 15:11:21 Result Notes None recorded. Problems [...] Updated DateTime 3 182.88 cm 26.4 kg/m2 98777.5 1 g 9 17 /min 98 % 98 % 55 /min 97.9 [degF] 151 mm[Hg] 75 mm[Hg] DIANNE [facility] 3 14:37:11 Social History Question Answer Notes LastModified by Organizat ion Details LastModified Time Tobacco Smoking Status Never Smoker DIANNE gomez [place] Eduardo [facility] 10/11/2022 14:35:10 What Is Your Level Of Alcohol Consumption? Occasional [email or web address] Information not available 10/11/2022 Do You Use Any Illicit Or Recreational Drugs? No [email or web address] Information not available 10/11/2022 Have You Recently Traveled Abroad? No [email or web address] Information not available 10/11/2022 Do You Or Have You Ever Used Any Other Forms Of Tobacco Or Nicotine? No [email or web address] Information not available 10/11/2022 Sex: Unknown Functional Status None recorded. Mental Status None recorded. Family History Relationship Description Onset Age of this Age Resolved Age Notes LastModified by Organization Details LastModified Time Father No current problems or disability [email or web address] Not available 10/11 14:34:47 Mother No current problems or disability Not available 10/11 14:34:47 Medical History No medical history recorded. Past Encounters Encounter ID Performer Location Encounter Start Date Encounter Closed Date Diagnosis/Indication Diagnosis SNOMED-CT Code Diagnosis ICD10 Code Diagnosis Note [id number] [address] [address] 10/25/2020 19:24:14 10/25/2020 20:09:32 [id number] [place] [address] [place] [address] 10/11/2022 13:49:51 10/11/2022 15:13:21 Tinea cruris 740980416 B35.6 Health Concerns Section Related Observation LastModified by Organization Detai ls LastModified Time None Recorded Concern Status LastModified by Organization Details LastModified Time None Recorded Advance Directives Directive None Recorded Payers Encounter Date Sequence Insurance Name Policy Number Policy Dumont Covered Member ID Dumont Member ID Guarantor Name 10/25/2020 1 [place] Ruy Leónnsworth [id number] Ruy [place] 10/25/2020 2 [place] [id number] Ruy Resendez Juan Jose [id number] Ruy León[place] 10/11/2022 1 [place] Ruy Leónnsworth [id number] Ruy LeónJuan Jose 10/11/2022 2 [place] [id number] Ruy Ingram [id number] Ruy Ingram Notes Date Note Type [...] Robert NP [address] [place], [address], [place] - [facility] 10/11/2022 15:59:02
--- OUTSIDE RECORDS SUMMARY | 2024-07-11 09:30 | XMS_ITS ---
Author Organization [facility] Address [address] [place] [address] Care Team Providers Care Gluing Machine Feeder Name Role Phone Jose L JARAMILLO, [place] Primary Care Provider Keena Navarrete Unavailable [phone] Allergies No Known Allergies REASON FOR VISIT [...] W/U Status Risk Notes Problem Plantar wart (09503686) Plantar wart (B07.0) Active confirmed Vital Signs Height 6 ft in 02/02/2024 Weight 193 lbs 02/02/2024 BMI 26.17 kg/m2 02/02/2024 Blood pressure systolic 120 mm Hg 02/02/20 24 Blood pressure diastolic 80 mm Hg 024 Encounters Encounter Location Date Provider Diagnosis [facility] [address] [place] [address] 02/02/2024 Keena Lainez Plantar wart B07.0 Assessments Encounter Date Diagnosis (ICD Code) Assessment Notes Treatment Notes Treatment Clinical Notes Section Notes 02/02/2024 Plantar wart (ICD-10 - B07.0) Plan Of Treatment Next Appt Details Follow Up: prn, Reason: Provider Name:Keena ledesma, 08/02/2024 09:00:00 AM, [address] [place], [address], Progress Notes * Ruy INGRAM WDOB:[birth year] (88 yo M)Acc No.[id number]:02/02/2024 Progress Note Patient:?Ruy Ingram Provider:?Keena Lainez DPM :1935???Age:88 Y???Sex:Male Kris e:02/02/2024 Address:[address] [place] [address] Pcp:Pepito Domingo MD Subjective: * Chief Complaints: [...] Lainez DPM Date:?1 Generated for Alexsandra maldonado/Han/Penny on:?07/11/2024 09:30 AM EDT History and Physical Notes * HPI [...]
--- OUTSIDE RECORDS SUMMARY | 2024-07-11 09:30 | XMS_ITS | Patient Health Record ---
Author Organization [facility] Address [address] [place] [address] Care Team Providers Care Assistant Associate Professor Name Role Phone Jose L JARAMILLO, [place] Primary Care Provider Inocencio Murcia Unavailable [phone] Reason For Referral No Information Immunizations Vaccine Route Administration Date Status Comme nts Flu vaccine no Preserv 3 and > Unknown 01/24/2014 Admin istered Flu vaccine no Preserv 3 and > Unknown 01/04/2015 Admin istered Influenza Unknown 01/03/2017 Administered Problems Problem Type SNOMED Code ICD Code Onset Dates Problem Status W/U Status Risk Notes Problem 822663455 Encounter for screening for malignant neoplasm of colon (Z12.11) Active confirmed Problem 880793176 History of adenomatous polyp of colon (Z86.010) Active confirmed Problem 95682893 Preprocedural examination (Z01.818) Active confirmed Problem 540814218 History of colon polyps (Z86.010) Active confirmed Problem 487169822 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 Plan Of Treatment Future Test Test Name Order Date COLONOSCOPY 07/25/2015 COLONOSCOPY 02/19/2017 Insurance Providers Payer Name Payer Address Payer Phone Subscriber Number Group Number Insured Name Patient Relationship to Insured Coverage Start Date Coverage End Date MED[place]ARE OF [place] [address] [place] [id number] ANGEL BARRERA Self - patient is the insured MEDEX ATTN CLAIMS [address] [place] [address] [id number] ANGEL BARRERA Self - patient is the insured Medical (General) History Medical History History ICD Code 02/21/2004 Screening Colonos copy was negative other than some diverticulosis and internal hemorrhoids Denies [place],DM,CVA,Lung disease,renal dise ase Colonoscopy in 10/2014--flat adenoma [...]
--- OUTSIDE RECORDS SUMMARY | 2024-07-11 09:30 | XMS_ITS | Data Portability ---
Author Organization [place] [facility], [facility] Address [address] [place] [address] Care Team Providers Care Video Coordinator Name Role Phone JAMILAH MOORE Primary Care Provider [phone] Assessment Encounter Date Assessment Date Assessment LastModified [...] cuff tear Referring Physician: Rosi Read, Physician Communications Specialist, Encounter Date: 09/26/2018 Results Created Date [...] Details Recorded Time 03/05/20 15 Other completed Pearlmago Torres [facility] 09/26/2018 08:02:59 09/04/19 12 Orthopaedic Surgery completed Pearlmago Torres [facility] 09/26/2018 08:02:46 11/04/19 07 [facility]opa[facility] 09/26/2018 08:02:33 Imaging Results Imaging Date Name [...] mL injection syringe VACCINE ADMINISTE RED BY [employer] T 09/26 completed Not Available Not Available Not Available Fluad 2018- 65yr up(PF)45 mcg(15 mcgx3)/0.5 mL intramuscul ar syringe VACCINE ADMINISTE RED BY [employer] T 09/26 completed Not Available Not Available Not Available Vitals Date Recorded Body height Body mass index (BMI) Body weight Provider Name and Address Organization Details Last Updated DateTime 09/26/2018 182.88 cm 28.9 kg/m2 05058.17 g Pearlmago Torres [facility] 09/26/2018 08:00:54 Social History Question Answer Notes LastModified by Organizat ion Details LastModified Time Tobacco Smoking Status Never Smoker Pearl gomez [place] - [facility] 09/26/2018 08:01:30 What Is Your Level Of Alcohol Consumption? None Information not available 09/26/2018 Auto Related Injury? No Information not available 09/26/2018 Have You Had Cortisone? Yes R Knee Information not available 09/26/2018 What Was The Date Of Your Most Recent Tobacco Screening? 09/26/2018 Information not available 10/27/2018 What Types Of Sporting Activities Do You Participate In? Conditioning , We[facility] At [facility] Information not available 09/26/2018 Work Related [...] Condition Response Blood Clots / Phlebitis N Heart Problems N HIV or AIDS N Depression or Anxiety N High Blood Pressure N Irregular Heartbeat [...] Asthma / Shortness of Breath / Sleep Automatic Blocker ea (please specify) N Past Encounters Encounter ID Performer Location Encounter Start Date Encounter Closed Date Diagnosis/Indication Diagnosis SNOMED-CT Code Diagnosis ICD10 Code Diagnosis Note [id number] FRANCK SMALL [facility] Office [address] [place] [address] 09/26/2018 07:41:04 09/26/2018 08:44:47 Full thickness rotator cuff tear 164663325 M75.122 Health Concerns Section Related Observation LastModified by Organization Detai ls LastModified Time None Recorded Concern Status LastModified by Organization Details LastModified Time None Recorded Advance Directives Directive None Recorded Payers Encounter Date Sequence Insurance Name Policy Number Policy Dumont Covered Member ID Dumont Member ID Guarantor Name 09/26/2018 1 [place] Ruy Ingram [id number] Ruy Ingram 09/26/2018 2 [place] [id number] Ruy Ingram [id number] Ruy Ingram Notes Date Note Type [...] exercises heavily with conditioning classes at the [employer] and swimming. ROS: Positive for hearing loss and arthritis. FRANCK SMALL [address] [place] [address], [place], [address], [facility] 09/29/2018 18:52:08
--- OUTSIDE RECORDS SUMMARY | 2024-07-11 09:30 | XMS_ITS | Patient Health Record ---
Author Organization [facility] Address [address] [place] [address] Care Team Providers Care Textile Clothing And Footwear Mechanic Name Role Phone Jose L JARAMILLO, [place] Primary Care Provider Keena Navarrete Unavailable [phone] Allergies No Known Allergies Reason For Referral [...] W/U Status Risk Notes Problem Plantar wart (79888688) Plantar wart (B07.0) Active confirmed Problem 787789918 Raynaud's disease without gangrene (I73.00) Active confirmed Vital Signs Blood pressure diastolic 80 mm Hg 02/02/2024 Height 6 ft in 02/02/2024 Blood pressure systolic 120 mm Hg 02/02/2024 Weight 193 lbs 02/02/2024 BMI 26.17 kg/m2 02/02/2024 Encounters Encounter Location Date Provider Diagnosis [facility] [address] [place] [address] 02/02/2024 Keena Lainez Plantar wart B07.0 Assessments Encounter Date Diagnosis (ICD Code) Assessment Notes Treatment Notes Treatment Clinical Notes Section Notes 02/02/2024 Plantar wart (ICD-10 - B07.0) Plan Of Treatment Next Appt Details Provider Name:Keena ledesma, 08/02/2024 09:00:00 AM, [address] [facility], [place], [address], Insurance Providers Payer Name Payer Address Payer Phone Subscriber Number Group Number Insured Name Patient Relationship to Insured Coverage Start Date Coverage End Date Medicare National [facility] [address] [place] [address] [id number] Ruy Roth Self - patient is the insured Medex Blue Shield [address] [place] [address] [id number] Ruy Roth Self - patient is the insured Medical (General) History Medical History History ICD Code Cataracts Measles Mumps Chicken pox Joint implants/screws Surgical History Surgery Date(Month/Year)
== END 2024-07-11 09:49 | disposition home or self-care (01) ==
LOC: HO.HUSH 08:54
PROVIDERS: PCP Internal Medicine; Visit Provider Nurse Practitioner Family
DX: Z13.9 Encounter for screening, unspecified (principal); R31.9 Hematuria, unspecified
CPT/HCPCS: 99203

== ENCOUNTER 2024-07-27 07:57 | Outpatient (AMB) | payer MEDICARE, SELFPAY ==
--- NOTE | 2024-07-27 08:01 | MHC.OFFVIS ---
Vital Signs 07/27/24 08:02 Height 6 ft Weight 206 lb BMI 27.9 BP 122/60 Blood Pressure Location Rt brachial Position Sitting Intake Visit Reasons: follow up Polyneuropathy-Conf Intake Note: Patient following up for peripheral neuropathy Allergies No Known Allergies Allergy (Verified 07/27/24 08:04) HPI Comments Details: 89 year old male comes for follow up of neuropathy. He shrestha spacemaker an dis scheduled for valve replacement.His feet symptoms have decreased significantly. He is active .He saw a pathology specialist- gave him topicals which helped. History from initial visit-He has history of BPH, Osteoporosis of R. Hip, Rotator Cuff Arthropathy, degenerative disc disease and dyslipidemia, and orthostatic hypotension In August 2023 he had Pneumonia and was hospitalized, he began to have headaches, dizziness and hypotension. He is an avid golfer and notices his fingers and toes also get cold and start to throb with pain, he also notices dropping things occasionally. He wears compression stockings to help with BP, however he has been taking the stockings off at night and continues to have the numbness and cold feet. He denies nausea, vomiting, vision changes, tingling or being off balance, forgetfulness, sleep disturbances or confusion. 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 Mother No problems noted. Social History Household Members: Spouse Housing: House Do you presently have visiting nurse or other home services: No Alcohol intake: former Patient Tobacco Use Status: Never used Tobacco e-Cigarette/Vaping Use: Never Used Second Hand Smoke Exposure: Yes service: No Current occupational status: retired Cognitive needs: No Hearing needs: Yes Vision needs: Yes (Pt wear glasses) Physical Exam Vital Signs: Last Vital Signs BP 122/60 07/27/24 08:02 BMI result Body Mass Index 27.9 Const General: cooperative and healthy appearing Nutritional Appearance: average body habitus Orientation/consciousness: patient oriented x3 Limitations: no limitations Neuro Other: Feet - normal arches, cameron bunions with toe valgus Decreased PP in distal LE General: patient oriented x3 and moves all extremities Cranial nerves: Yes CN's II-XII intact bilaterally, Yes Facial sensation intact/muscles of mastication intact, Yes Normal accommodation reflex present, Yes Bilaterally intact EOM present and Yes Midline tongue present Cognition (Neuro): normal cognition Gait exam (Neuro): Antalgic gait present Motor exam (neuro): 5/5 motor strength present throughout Deep tendon reflexes (DTR's): Right triceps reflex intensity grade: 1+, Left triceps reflex intensity grade: 1+, Rt Biceps (C5, C6): 1+, Left biceps reflex intensity grade: 1+, Right patellar reflex intensity grade: 0 and Left patellar reflex intensity grade: 0 Coordination: ebyjqq-qw-mjji test normal and Romberg test negative Assessment & Plan Assessment & Plan (1) Peripheral neuropathy: Comment: Likely hereditary Code(s): G62.9 - Polyneuropathy, unspecified Category: Medical Qualifiers: Peripheral neuropathy type: polyneuropathy, other Qualified Code(s): G62.89 - Other specified polyneuropathies Plan His symptoms are minimal, i will follow him up clinically Continue f/u with cardiology Podiatry F/u for bunions Coding Level of Care Code Est Pt Level 4 (98155) Diagnoses Other polyneuropathy G62.89 Peripheral neuropathy type: polyneuropathy, other
[2024-07-27 08:02] VITALS: BP 122/60; BMI 27.9
--- OUTSIDE RECORDS SUMMARY | 2024-07-27 08:05 | XMS_ITS ---
Author Organization [facility] Address [address] [place] [address] Care Team Providers Care Style Advisor Name Role Phone Jose L JARAMILLO, [place] Primary Care Provider Keena Navarrete Unavailable [phone] Allergies No Known Allergies REASON FOR VISIT [...] W/U Status Risk Notes Problem Plantar wart (54100129) Plantar wart (B07.0) Active confirmed Vital Signs Height 6 ft in 02/02/2024 Weight 193 lbs 02/02/2024 BMI 26.17 kg/m2 02/02/2024 Blood pressure systolic 120 mm Hg 02/02/20 24 Blood pressure diastolic 80 mm Hg 024 Encounters Encounter Location Date Provider Diagnosis [facility] [address] [place] [address] 02/02/2024 Keena Lainez Plantar wart B07.0 Assessments Encounter Date Diagnosis (ICD Code) Assessment Notes Treatment Notes Treatment Clinical Notes Section Notes 02/02/2024 Plantar wart (ICD-10 - B07.0) Plan Of Treatment Next Appt Details Follow Up: prn, Reason: Provider Name:Keena ledesma, 08/02/2024 09:00:00 AM, [address] [place], [address], Progress Notes * Ruy INGRAM WDOB:[birth year] (88 yo M)Acc No.[id number]:02/02/2024 Progress Note Patient:?Ruy Ingram Provider:?Keena Lainez DPM :1935???Age:88 Y???Sex:Male Kris e:02/02/2024 Address:[address] [place] [address] Pcp:Pepito Domingo MD Subjective: * Chief Complaints: [...] Lainez DPM Date:?1 Generated for Alexsandra maldonado/Han/Penny on:?07/27/2024 08:05 AM EDT History and Physical Notes * [...]
--- OUTSIDE RECORDS SUMMARY | 2024-07-27 08:05 | XMS_ITS | Data Portability ---
Author Organization [facility] [address] Address [address] [place] [address] Assessment No assessment recorded. Plan of Treatment Reminders Order Date Submit Date Provider Last Modified By Organization Details Last Modified Time Details Appointments None recorded. Lab urinalysis , dipstick 2022 023 [email or web address] [facility], [facility] [place], [address], 15:58:42 Referral None recorded. Procedures None recorded. Surgeries None recorded. Imaging None recorded. Medication Orders clotrimazo le-betamet hasone 1 %-0.05 % topical cream 2022 023 [facility], [address] [place], [address], 15:07:46 Patient TargetsNo targets recorded. Patient Instructions Encounter Date Encounter Id Patient Instructions Last Modified By Organization Details Last Modified Time 10/11/2022 [id number] What are ringworm, athlete's foot, and jock [...] infection? You can catch fungal infections through toyb-hj-bgxx contact with a person who is infected. [...] light yellow Not Available _bryanna souza [address], [address], 10/11/2022 15:11:21 10/12/1910/11/2022 urina lysis , dipst ick Unknown Analyte Yellow Not Available [facility] [address], [address], 10/11/2022 15:11:21 10/12/1910/11/2022 urina lysis , dipst ick Unknown Analyte Normal = clear Not Available _bryanna souza [address], [address], 10/11/2022 15:11:21 10/12/1910/11/2022 urina lysis , dipst ick Unknown Analyte Clear Not Available [facility] [address], [address], 10/11/2022 15:11:21 10/12/19 23 10/11/2022 urina lysis , dipst ick Unknown Analyte Normal = negati ve Not Available bryanna souza [address], [place], [place], [address], 10/11/2022 15:11:21 10/12/19 23 10/11/2022 urina lysis , dipst ick Unknown Analyte Negati ve Not Available bryanna souza [address], [place], [place], [address], 10/11/2022 15:11:21 10/12/1910/11/2022 urina lysis , dipst ick Unknown Analyte Normal = Negati ve Not Available bryanna souza [address], [place], [address], 10/11/2022 15:11:21 10/12/19 23 10/11/2022 urina lysis , dipst ick Unknown Analyte Negati ve Not Available bryanna souza [address], [place], [place], [address], 10/11/2022 15:11:21 10/12/19 23 10/11/2022 urina lysis , dipst ick Unknown Analyte Normal = Negati ve Not Available bryanna souza [address], [place], [address], 10/11/2022 15:11:21 10/12/19 23 10/11/2022 urina lysis , dipst ick Unknown Analyte Negati ve Not Available bryanna souza [address], [place], [address], 10/11/2022 15:11:21 10/12/19 23 10/11/2022 urina lysis , dipst ick Unknown Analyte Normal = 1.010, 1.015, 1.020 Not Available 2099bryanna souza [address], [place], [address], 10/11/2022 15:11:21 10/12/19 23 10/11/2022 urina lysis , dipst ick Unknown Analyte 1.030 Not Available [address], [place], [address], 10/11/2022 15:11:21 10/12/19 23 10/11/2022 urina lysis , dipst ick Unknown Analyte Normal = Negati ve Not Available [address], [place], [address], 10/11/2022 15:11:21 10/12/19 23 10/11/2022 urina lysis , dipst ick Unknown Analyte Trace- intact Not Available [address], [place], [address], 10/11/2022 15:11:21 10/12/19 23 10/11/2022 urina lysis , dipst ick Unknown Analyte Normal = 6.5, 7.0, 7.5, 8.0 Not Available [address], [place], [address], 10/11/2022 15:11:21 10/12/19 23 10/11/2022 urina lysis , dipst ick Unknown Analyte 5.5 Not Available [address], [place], [address], 10/11/2022 15:11:21 10/12/19 23 10/11/2022 urina lysis , dipst ick Unknown Analyte Normal = Negati ve Not Available [address], [place], [address], 10/11/2022 15:11:21 10/12/19 23 10/11/2022 urina lysis , dipst ick Unknown Analyte Negati ve Not Available bryanna souza [address], [place], [address], 10/11/2022 15:11:21 10/12/1910/11/2022 urina lysis , dipst ick Unknown Analyte Normal = 0.2, 1.0 Not Available [facility] [address], [place], [address], 10/11/2022 15:11:21 10/12/19 23 10/11/2022 urina lysis , dipst ick Unknown Analyte 0.2 E.U./d L Not Available bryanna souza [address], [place], [address], 10/11/2022 15:11:21 10/12/1910/11/2022 urina lysis , dipst ick Unknown Analyte Normal = Negati ve Not Available bryanna [address], [place], [address], 10/11/2022 15:11:21 10/12/1910/11/2022 urina lysis , dipst ick Unknown Analyte Negati ve Not Available bryanna souza [address], [place], [address], 10/11/2022 15:11:21 10/12/19 23 10/11/2022 urina lysis , dipst ick Unknown Analyte Normal = Negati ve Not Available bryanna souza [address], [place], [address], 10/11/2022 15:11:21 10/12/19 23 10/11/2022 urina lysis , dipst ick Unknown Analyte Negati ve Not Available bryanna souza [address], [place], [address], 10/11/2022 15:11:21 Result Notes None recorded. Problems [...] Updated DateTime 3 182.88 cm 26.4 kg/m2 77990.5 1 g 9 17 /min 98 % 98 % 55 /min 97.9 [degF] 151 mm[Hg] 75 mm[Hg] DIANNE [facility] 3 14:37:11 Social History Question Answer Notes LastModified by Organizat ion Details LastModified Time Tobacco Smoking Status Never Smoker DIANNE gomez PA Eduardo [facility] 10/11/2022 14:35:10 What Is Your Level Of Alcohol Consumption? Occasional Information not available 10/11/2022 Do You Use Any Illicit Or Recreational Drugs? No [email or web address] Information not available 10/11/2022 Have You Recently [...] Time Father No current problems or disability [email or web address] Not available 10/11 14:34:47 Mother No current problems or disability [email or web address] Not available 10/11 14:34:47 Medical History No medical history recorded. Past Encounters Encounter ID Performer Location Encounter Start Date Encounter Closed Date Diagnosis/Indication Diagnosis SNOMED-CT Code Diagnosis ICD10 Code Diagnosis Note [id number] [address] [address] 10/25/2020 19:24:14 10/25/2020 20:09:32 [id number] [place] [address] [facility] [place] [address] 10/11/2022 13:49:51 10/11/2022 15:13:21 Tinea cruris 291672525 B35.6 Health Concerns Section Related Observation LastModified by Organization Detai ls LastModified Time None Recorded Concern Status LastModified by Organization Details LastModified Time None Recorded Advance Directives Directive None Recorded Payers Encounter Date Sequence Insurance Name Policy Number Policy Dumont Covered Member ID Dumont Member ID Guarantor Name 10/25/2020 1 [place] [employer] Ruy Leónnsworth [id number] Ruy LeónHyder 10/25/2020 2 [place] [id number] Ruy Resendez Juan Jose [id number] Ruy LeónJuan Jose 10/11/2022 1 [place] Ruy Leónnsworth [id number] Ruy LeónJuan Jose 10/11/2022 2 [place] [id number] Ruy Ingram [id number] Ruy Ingram Notes Date Note Type [...] History:prescription topical treatment with no improvement Aquiles Robetr NP [address] [place], [address], [place] - [facility] 10/11/2022 15:59:02
--- OUTSIDE RECORDS SUMMARY | 2024-07-27 08:05 | XMS_ITS | Patient Health Record ---
Author Organization [facility] Address [address] [place] [address] Care Team Providers Care Coding Analyst Name Role Phone Jose L JARAMILLO, [place] Primary Care Provider Inocencio Murcia Unavailable [phone] Reason For Referral No Information Immunizations Vaccine Route Administration Date Status Comme nts Flu vaccine no Preserv 3 and > Unknown 01/24/2014 Admin istered Flu vaccine no Preserv 3 and > Unknown 01/04/2015 Admin istered Influenza Unknown 01/03/2017 Administered Problems Problem Type SNOMED Code ICD Code Onset Dates Problem Status W/U Status Risk Notes Problem 183619717 Encounter for screening for malignant neoplasm of colon (Z12.11) Active confirmed Problem 304177353 History of adenomatous polyp of colon (Z86.010) Active confirmed Problem 04560104 Preprocedural examination (Z01.818) Active confirmed Problem 946006213 History of colon polyps (Z86.010) Active confirmed Problem 217533508 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 Plan Of Treatment Future Test Test Name Order Date COLONOSCOPY 07/25/2015 COLONOSCOPY 02/19/2017 Insurance Providers Payer Name Payer Address Payer Phone Subscriber Number Group Number Insured Name Patient Relationship to Insured Coverage Start Date Coverage End Date MEDICARE OF [place] [address] [place] [address] [id number] ANGEL BARRERA Self - patient is the insured MEDEX ATTN CLAIMS [address] [place] [address] [id number] ANGEL BARRERA Self - patient is the insured Medical (General) History Medical History History ICD Code 02/21/2004 Screening Colonos copy was negative other than some diverticulosis and internal hemorrhoids Denies [place],DM,CVA,Lung disease,renal dise ase Colonoscopy in 10/2014--flat adenoma [...]
--- OUTSIDE RECORDS SUMMARY | 2024-07-27 08:05 | XMS_ITS | Patient Health Record ---
Author Organization [facility] Address [address] [place] [address] Care Team Providers Care Service Control Operator Name Role Phone Jose L JARAMILLO, [place] Primary Care Provider Keena Navarrete Unavailable [phone] Allergies No Known Allergies Reason For Referral [...] W/U Status Risk Notes Problem Plantar wart (25941407) Plantar wart (B07.0) Active confirmed Problem 371494748 Raynaud's disease without gangrene (I73.00) Active confirmed Vital Signs Blood pressure diastolic 80 mm Hg 02/02/2024 Height 6 ft in 02/02/2024 Blood pressure systolic 120 mm Hg 02/02/2024 Weight 193 lbs 02/02/2024 BMI 26.17 kg/m2 02/02/2024 Encounters Encounter Location Date Provider [facility] [address] [place] [address] 02/02/2024 Keena Lainez Plantar wart B07.0 Assessments Encounter Date Diagnosis (ICD Code) Assessment Notes Treatment Notes Treatment Clinical Notes Section Notes 02/02/2024 Plantar wart (ICD-10 - B07.0) Plan Of Treatment Next Appt Details Provider Name:Keena ledesma, 08/02/2024 09:00:00 AM, [address] [facility], [place], [address], Insurance Providers Payer Name Payer Address Payer Phone Subscriber Number Group Number Insured Name Patient Relationship to Insured Coverage Start Date Coverage End Date Medicare National [facility] [address] [place] [address] [id number] Ruy Roth Self - patient is the insured Med[employer] Blue Shield [address] [place] [address] [phone] [id number] Ruy Roth Self - patient is the insured Medical (General) History Medical History History ICD Code Cataracts Measles Mumps Chicken pox Joint implants/screws Surgical History Surgery Date(Month/Year)
== END 2024-07-27 08:23 | disposition home or self-care (01) ==
LOC: HO.HSMS 07:58
PROVIDERS: PCP Internal Medicine; Visit Provider Psychiatry & Neurology Neurology
DX: G62.89 Other specified polyneuropathies (principal)
CPT/HCPCS: 99214

== ENCOUNTER → 2024-07-27 07:57 | Outpatient (BNVA) | payer MEDICARE, SELFPAY | PROVIDERS: PCP Internal Medicine; Visit Provider Psychiatry & Neurology Neurology | DX: G62.89 Other specified polyneuropathies (principal) | CPT/HCPCS: 99212 ==

== ENCOUNTER → 2024-08-01 23:59 | Outpatient (BNV) | payer MEDICARE, SELFPAY | PROVIDERS: PCP Internal Medicine; Visit Provider Internal Medicine Cardiovascular Disease | DX: I35.0 Nonrheumatic aortic (valve) stenosis (principal); Z00.6 Encounter for examination for normal comparison and control in clinical research program | CPT/HCPCS: 33361; 99152 ==

== ENCOUNTER → 2024-08-10 07:54 | Outpatient (REF) | payer MEDICARE, SELFPAY ==
--- NOTE | 2024-08-10 07:57 | CA_ITS ---
Transthoracic Echocardiogram Patient (Last, First, Middle): Ruy Ingram W Gender: Male Date of : 1935 Age: 89 Procedure Date: 08/10/2024 Procedure Type: Transthoracic Echocardiogram Location: OP Height: 182.88 cm Weight: 93.44 kg BSA: 2.16 m2 Heart Rate: 60 bpm BP: 122 / 60 mmHg Adjunct Phlebotomy Instructor: DANICA/KOSTA Referring MD: Indra Frost MD Symptoms: Z95.2 - Presence of prosthetic heart valve Study Quality: Adequate ECG Rhythm: Sinus Conclusions: - The left ventricular systolic function is normal. The calculated ejection fraction is 66% by biplane method. - A bioprosthetic aortic valve is present. The prosthetic aortic valve appears to be functioning normally. Findings Left Ventricle Normal left ventricular cavity size. There is moderately increased left ventricular wall thickness. The left ventricular systolic function is normal. The calculated ejection fraction is 66% by biplane method. There is no evidence of regional wall motion abnormalities. Diastolic function is normal for age. Right Ventricle Moderately increased right ventricular cavity size. There is normal right ventricular systolic function. Atria The left atrium is moderately dilated. The right atrium is severely dilated. Aortic Valve A bioprosthetic aortic valve is present. The prosthetic aortic valve appears to be functioning normally. Trace to mild para-valvular regurgitation. Mitral Valve The mitral valve appears normal. There is trace mitral valve regurgitation. There is no mitral valve stenosis. Pulmonic Valve The pulmonic valve is likely normal. Tricuspid Valve There is mild tricuspid valve regurgitation. There is no evidence of pulmonary hypertension. Great Vessels The asc aorta and aortic arch are normal in size. Venous The inferior vena cava is mildly dilated and collapses greater than 50% with inspiration. Pericardium/Pleural There is no evidence of pericardial effusion. Prior Study Comparison Changes noted compared to prior study dated: 05/26/2024. s/p TAVR. Measurements 2D Linear Measurements IVSd: 1.11 0.6-0.9/0.6-1.0 cm LVIDd: 3.96 3.9-5.3/4.2-5.9 cm LVIDd Index: 1.83 2.4-3.2/2.2-3.1 cm/m2 LVIDs: 2.61 2.0-3.6 cm LVPWd: 1.69 0.7-1.1 cm LA Diam: 5.20 2.7-3.8/3.0-4.0 cm LAIDs Index: 2.41 1.5-2.3 cm/m2 LV Mass: 256.69 67-162/88-224 g LV Mass Index: 118.84 43-95/49-115 g/m2 LVOT Diam: 2.20 3.0+(-)1.3 cm 2D Systolic Function EF 4C: 71.10 >55% EF 2C: 59.30 >55% EF BiP: 66.40 >55% Mitral Valve MV Pk E: 0.88 MV PK A: 0.89 MV Decel Time: 199.00 E/A: 1.00 E'Lateral: 8.70 E'Medial: 6.31 E/E' Med: 13.90 E/E' Lat: 10.10 PHT: 58.00 MVA PHT: 3.79 Decel [place]: 4.39 Aortic Valve AoV Pk Devonte: 2.32 AoV Mn Devonte: 1.61 AoV VTI: 0.46 AoV Pk Grad: 22.00 Aov Mn Grad: 12.00 JOSE MANUEL Cont.VTI: 1.69 LVOT LVOT Pk Devonte: 1.01 LVOT Mn Devonte: 0.63 LVOT VTI: 0.21 LVOT Pk Grad: 4.00 LVOT Mn Grad: 2.00 LVOT Diam: 2.20 LVOT Area: 3.80 Diastolic Function MV Pk E: 0.88 MV Pk A: 0.89 E/A: 1.00 E'Medial: 6.31 E/E' Med: 13.90 E' Laterial: 8.70 E/E' Lat: 10.10 Right Ventricle TAPSE (mm): 30.00 TVS' Devonte: 17.90 Tricuspid Valve TR Pk Devonte: 2.46 TR Pk Grad: 24.00 RA Press: 8.00 RVSP: 32.00 Great Vessels Aorta Sinus of Valsalva: 3.30 2.0-3.5 cm Ao Asc: 3.50 2.1-3.4 cm Ao Arch: 3.10 Pulmonary Valve PV Pk Devonte: 1.18 Peak PV Grad: 6.00 Updated in Other Vendor System with Status of Final Endy Hawthorne MD electronically signed on 08/12/2024 10:58:48 AM with status of Final
--- OUTSIDE RECORDS SUMMARY | 2024-08-10 07:57 | XMS_ITS ---
Author Organization [facility] Address [address] [place] [address] Care Team Providers Care Harness And Bag Inspector Name Role Phone Jose L JARAMILLO, [place] Primary Care Provider Unava Keena Suresh Unavailable [phone] Encounters Encounter Location Date Provider Diagnosis [address] [address] 08/02/2024 Keena Lainez Plan Of Treatment Next Appt Details Provider Name:Keena ledesma, 09/18/2024 03:00:00 PM, [address] [place] [address], [phone], Progress Notes * Ruy INGRAM WDOB:[birth year] (89 yo M)Acc No.[id number]:08/02/2024 Progress Note Patient:?Ruy INGRAM Provider:?Keena Lainez DPM :1935???Age:89 Y???Sex:Male Kris e:08/02/2024 Address:[address] [place] [address] Pcp:Pepito Domingo MD Subjective: * Chief Complaints: * ??? * Medical History:? Objective: * Vitals:? Assessment: Plan: * Treatment: * Images: * The named appointment provid er may or may not be the originator of this progress note, and it is not deemed complete until electronically signed by the appointment provider. Sign off status: Pending * Provider:?Keena Lainez DPM Date:?0 08/02/2024 Generated for Alexsandra maldonado/Han/Penny on:?08/10/2024 07:57 AM EDT
--- OUTSIDE RECORDS SUMMARY | 2024-08-10 07:57 | XMS_ITS | Data Portability ---
Author Organization [facility], [address] Address [address] [place] [address] Assessment No assessment recorded. Plan of Treatment Reminders Order Date Submit Date Provider Last Modified By Organization Details Last Modified Time Details Appointments None recorded. Lab urinalysis , dipstick 2022 023 [email or web address] _[facility], [facility] [place], [address], 15:58:42 Referral None recorded. Procedures None recorded. Surgeries None recorded. Imaging None recorded. Medication Orders clotrimazo le-betamet hasone 1 %-0.05 % topical cream 2022 023 [facility], [address] [place], [address], 15:07:46 Patient TargetsNo targets recorded. Patient Instructions Encounter Date Encounter Id Patient Instructions Last Modified By Organization Details Last Modified Time 10/11/2022 [id number] What are ringworm, athlete's foot, and jock [...] infection? You can catch fungal infections through [id number] contact with a person who is infected. [...] = light yellow Not Available _bryanna souza [address], [address], 10/11/2022 15:11:21 10/12/1910/11/2022 urina lysis , dipst ick Unknown Analyte Yellow Not Available [facility] [address], [address], 10/11/2022 15:11:21 10/12/1910/11/2022 urina lysis , dipst ick Unknown Analyte Normal = clear Not Available _bryanna souza [address], [address], 10/11/2022 15:11:21 10/12/1910/11/2022 urina lysis , dipst ick Unknown Analyte Clear Not Available [facility] [address], [address], 10/11/2022 15:11:21 10/12/19 23 10/11/2022 urina lysis , dipst ick Unknown Analyte Normal = negati ve Not Available bryanna souza [address], [place], [place], [address], 10/11/2022 15:11:21 10/12/19 23 10/11/2022 urina lysis , dipst ick Unknown Analyte Negati ve Not Available bryanna souza [address], [place], [place], [address], 10/11/2022 15:11:21 10/12/1910/11/2022 urina lysis , dipst ick Unknown Analyte Normal = Negati ve Not Available bryanna souza [address], [place], [address], 10/11/2022 15:11:21 10/12/19 23 10/11/2022 urina lysis , dipst ick Unknown Analyte Negati ve Not Available bryanna souza [address], [place], [place], [address], 10/11/2022 15:11:21 10/12/19 23 10/11/2022 urina lysis , dipst ick Unknown Analyte Normal = Negati ve Not Available bryanna souza [address], [place], [address], 10/11/2022 15:11:21 10/12/19 23 10/11/2022 urina lysis , dipst ick Unknown Analyte Negati ve Not Available bryanna souza [address], [place], [address], 10/11/2022 15:11:21 10/12/19 23 10/11/2022 urina lysis , dipst ick Unknown Analyte Normal = 1.010, 1.015, 1.020 Not Available 2099bryanna souza [address], [place], [address], 10/11/2022 15:11:21 10/12/19 23 10/11/2022 urina lysis , dipst ick Unknown Analyte 1.030 Not Available [address], [place], [address], 10/11/2022 15:11:21 10/12/19 23 10/11/2022 urina lysis , dipst ick Unknown Analyte Normal = Negati ve Not Available [address], [place], [address], 10/11/2022 15:11:21 10/12/19 23 10/11/2022 urina lysis , dipst ick Unknown Analyte Trace- intact Not Available [address], [place], [address], 10/11/2022 15:11:21 10/12/19 23 10/11/2022 urina lysis , dipst ick Unknown Analyte Normal = 6.5, 7.0, 7.5, 8.0 Not Available [address], [place], [address], 10/11/2022 15:11:21 10/12/19 23 10/11/2022 urina lysis , dipst ick Unknown Analyte 5.5 Not Available [address], [place], [address], 10/11/2022 15:11:21 10/12/19 23 10/11/2022 urina lysis , dipst ick Unknown Analyte Normal = Negati ve Not Available [address], [place], [address], 10/11/2022 15:11:21 10/12/19 23 10/11/2022 urina lysis , dipst ick Unknown Analyte Negati ve Not Available bryanna souza [address], [place], [address], 10/11/2022 15:11:21 10/12/1910/11/2022 urina lysis , dipst ick Unknown Analyte Normal = 0.2, 1.0 Not Available [facility] [address], [place], [address], 10/11/2022 15:11:21 10/12/19 23 10/11/2022 urina lysis , dipst ick Unknown Analyte 0.2 E.U./d L Not Available bryanna souza [address], [place], [address], 10/11/2022 15:11:21 10/12/1910/11/2022 urina lysis , dipst ick Unknown Analyte Normal = Negati ve Not Available bryanna [address], [place], [address], 10/11/2022 15:11:21 10/12/1910/11/2022 urina lysis , dipst ick Unknown Analyte Negati ve Not Available bryanna souza [address], [place], [address], 10/11/2022 15:11:21 10/12/19 23 10/11/2022 urina lysis , dipst ick Unknown Analyte Normal = Negati ve Not Available bryanna souza [address], [place], [address], 10/11/2022 15:11:21 10/12/19 23 10/11/2022 urina lysis , dipst ick Unknown Analyte Negati ve Not Available bryanna souza [address], [place], [address], 10/11/2022 15:11:21 Result Notes None recorded. Problems [...] Updated DateTime 3 182.88 cm 26.4 kg/m2 97481.5 1 g 9 17 /min 98 % 98 % 55 /min 97.9 [degF] 151 mm[Hg] 75 mm[Hg] DIANNE [facility] 3 14:37:11 Social History Question Answer Notes LastModified by Organizat ion Details LastModified Time Tobacco Smoking Status Never Smoker DIANNE gomez [place] Eduardo [facility] 10/11/2022 14:35:10 What Is Your Level Of Alcohol Consumption? Occasional [email or web address] Information not available 10/11/2022 Do You Use Any Illicit Or Recreational Drugs? No [email or web address] Information not available 10/11/2022 Have You Recently Traveled Abroad? No [email or web address] Information not available 10/11/2022 Do You Or Have You Ever Used Any Other Forms Of Tobacco Or Nicotine? No [email or web address] Information not available 10/11/2022 Sex: Unknown Functional Status None recorded. Mental Status None recorded. Family History Relationship Description Onset Age of this Age Resolved Age Notes LastModified by Organization Details LastModified Time Father No current problems or disability [email or web address] Not available 10/11 14:34:47 Mother No current problems or disability [email or web address] Not available 10/11 14:34:47 Medical History No medical history recorded. Past Encounters Encounter ID Performer Location Encounter Start Date Encounter Closed Date Diagnosis/Indication Diagnosis SNOMED-CT Code Diagnosis ICD10 Code Diagnosis Note [id number] [address] [facility] [address] [place] [address] 10/25/2020 19:24:14 10/25/2020 20:09:32 [id number] Aquiles Robert, RAM CAR OPERATOR [address] [address] [place] [address] 10/11/2022 13:49:51 10/11/2022 15:13:21 Tinea cruris 153504169 B35.6 Health Concerns Section Related Observation LastModified by Organization Detai ls LastModified Time None Recorded Concern Status LastModified by Organization Details LastModified Time None Recorded Advance Directives Directive None Recorded Payers Insurance Date Sequence Insurance Name Policy Number Policy Dumont Covered Member ID Dumont Member ID Guarantor Name 10/11/2022 1 [place] Ruy Ingram [id number] Ruy Ingram 10/11/2022 2 [place] [id number] Ruy Ingram [id number] Ruy Ingram Notes Date Note Type [...] with no improvement Aquiles Robert NP [address] [place], [address], [place] - [facility] 10/11/2022 15:59:02
--- OUTSIDE RECORDS SUMMARY | 2024-08-10 07:58 | XMS_ITS | Data Portability ---
Author Organization [place] - [facility], [facility] Address [address] [place] [address] Care Team Providers Care Denitrator Name Role Phone JAMILAH MOORE Primary Care [...] cuff tear Referring Physician: Rosi Read, Physician Healthcare Educator, Encounter Date: 09/26/2018 Results Created Date Observation [...] Time 03/05/20 15 Other completed Pearlmago Torres [facility] 09/26/2018 08:02:59 09/04/19 12 Orthopaedic Surgery completed Pearlmago Torres [facility] 09/26/2018 08:02:46 11/04/19 07 [facility]opaedic [facility] 09/26/2018 08:02:33 Imaging Results Imaging Date Name [...] mL injection syringe VACCINE ADMINISTE RED BY [employer] T 09/26 completed Not Available Not Available Not Available Fluad 2018- 65yr up(PF)45 mcg(15 mcgx3)/0.5 mL intramuscul ar syringe VACCINE ADMINISTE RED BY [employer] T 09/26 completed Not Available Not Available Not Available Vitals Date Recorded Body height Body mass index (BMI) Body weight Provider Name and Address Organization Details Last Updated DateTime 09/26/2018 182.88 cm 28.9 kg/m2 08247.17 g Pearlmago Torres [facility] 09/26/2018 08:00:54 Social History Question Answer Notes LastModified by Organizat ion Details LastModified Time Tobacco Smoking Status Never Smoker Pearl gomez [place] - [facility] 09/26/2018 08:01:30 What Is Your Level Of Alcohol Consumption? None Information not available 09/26/2018 Auto Related Injury? No Information not available 09/26/2018 Have You Had Cortisone? Yes R Knee Information not available 09/26/2018 What Was The Date Of Your Most Recent Tobacco Screening? 09/26/2018 Information not available 10/27/2018 What Types Of Sporting Activities Do You Participate In? Conditioning , [facility] At [facility] Information not available 09/26/2018 Work Related [...] or AIDS N High Blood Pressure N MRSA N Weight Gain / Loss N Angina, Heart Failure or Attack N Night Sweats N Osteoarthritis / Rheumatoid arthritis / Other Y Cancer N Stroke N Visual Loss or Glaucoma N Heart Problems N Emphysema / Chronic Bronchitis N Reaction to General/Local Anesthesia N Hepatitis / Jaundice N Kidney / Bladder Infections N Bleeding Disorder N Chemical Dependency / Alcoholism N Thyroid Disorder N Pulmonary Embolism N Irregular Heartbeat N Any Other Significant Medical Issues N Hearing Loss Y Seizures / Epilepsy N Ulcer / Stomach Bleeding / Indigestion N Blood Clots / Phlebitis N Depression or Anxiety N Diabetes N Psoriasis / Skin Rash N Heart Disease N Asthma / Shortness of Breath / Sleep Service Car Driver ea (please specify) N Past Encounters Encounter ID Performer Location Encounter Start Date Encounter Closed Date Diagnosis/Indication Diagnosis SNOMED-CT Code Diagnosis ICD10 Code Diagnosis Note [id number] FRANCK SMALL [facility] Office [address] [place] [address] 09/26/2018 07:41:04 09/26/2018 08:44:47 Full thickness rotator cuff tear 189935402 M75.122 Health Concerns Section Related Observation LastModified by Organization Detai ls LastModified Time None Recorded Concern Status LastModified by Organization Details LastModified Time None Recorded Advance Directives Directive None Recorded Payers Insurance Date Sequence Insurance Name Policy Number Policy Dumont Covered Member ID Dumont Member ID Guarantor Name 09/19/2018 1 [place] Ruy Ingram [id number] Ruy Ingram 10/07/2018 2 [place] [id number] Ruy Ingram [id number] Ruy Ingram Notes Date Note Type [...] exercises heavily with conditioning classes at the [employer] and swimming. ROS: Positive for hearing loss and arthritis. FRANCK SMALL [address] [place] [address], [place], [address], [facility] 09/29/2018 18:52:08
--- OUTSIDE RECORDS SUMMARY | 2024-08-10 07:58 | XMS_ITS | Patient Health Record ---
Author Organization [facility] Address [address] [place] [address] Care Team Providers Care Advertising Representative Name Role Phone Jose L JARAMILLO, [place] Primary Care Provider Inocencio Murcia Unavailable [phone] Reason For Referral No Information Immunizations Vaccine Route Administration Date Status Comme nts Flu vaccine no Preserv 3 and > Unknown 01/24/2014 Admin istered Flu vaccine no Preserv 3 and > Unknown 01/04/2015 Admin istered Influenza Unknown 01/03/2017 Administered Problems Problem Type SNOMED Code ICD Code Onset Dates Problem Status W/U Status Risk Notes Problem 820602393 Encounter for screening for malignant neoplasm of colon (Z12.11) Active confirmed Problem 137097063 History of adenomatous polyp of colon (Z86.010) Active confirmed Problem 02098112 Preprocedural examination (Z01.818) Active confirmed Problem 210976676 History of colon polyps (Z86.010) Active confirmed Problem 599589813 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 Plan Of Treatment Future Test Test Name Order Date COLONOSCOPY 07/25/2015 COLONOSCOPY 02/19/2017 Insurance Providers Payer Name Payer Address Payer Phone Subscriber Number Group Number Insured Name Patient Relationship to Insured Coverage Start Date Coverage End Date MEDICARE OF [place] [address] [place] [address] [phone] [id number] ANGEL BARRERA Self - patient is the insured MEDEX ATTN CLAIMS [address] [place] [address] [phone] [id number] ANGEL BARRERA Self - patient is the insured Medical (General) History Medical History History ICD Code 02/21/2004 Screening Colonos copy was negative other than some diverticulosis and internal hemorrhoids Denies ME,DM,CVA,Lung disease,renal dise ase Colonoscopy in 10/2014--flat adenoma [...]
--- OUTSIDE RECORDS SUMMARY | 2024-08-10 07:58 | XMS_ITS ---
Author Organization [facility] Address [address] [place] [address] Care Team Providers Care Chiropractic Physician Name Role Phone Jose L JARMAILLO, [place] Primary Care Provider Unava Keena Suresh [phone] REASON FOR VISIT cx 08/02 Encounters Encounter Location Date Provider Diagnosis [address] [address] 07/31/2024 Keena Lainez Plan Of Treatment Next Appt Details Provider Name:Keena ledesma, 09/18/2024 03:00:00 PM, [address] [place] [address], [address], Progress Notes * Ruy INGRAM WDOB:[birth year] (89 yo M)Acc No.[id number]:07/31/2024 Patient:?Ruy INGRAM :1935???Age:89 Y???Sex:Male Address:[address] [place] [address] * true * Date:? Generated for Printi joel/Han/eTransmitting on:?08/10/2024 07:58 AM EDT
--- OUTSIDE RECORDS SUMMARY | 2024-08-10 07:58 | XMS_ITS | Patient Health Record ---
Author Organization [facility] Address [address] [place] [address] Care Team Providers Care Elementary School Counselor Name Role Phone Jose L JARAMILLO, [place] Primary Care Provider Keena Navarrete Unavailable [phone] Allergies No Known Allergies Reason For Referral [...] W/U Status Risk Notes Problem Plantar wart (99401835) Plantar wart (B07.0) Active confirmed Problem 217171790 Raynaud's disease without gangrene (I73.00) Active confirmed Vital Signs Blood pressure diastolic 80 mm Hg 02/02/2024 Height 6 ft in 02/02/2024 Blood pressure systolic 120 mm Hg 02/02/2024 Weight 193 lbs 02/02/2024 BMI 26.17 kg/m2 02/02/2024 Encounters Encounter Location Date Provider Diagnosis [facility] [address] [place] [address] 02/02/2024 Keena Villagomezaker Plantar wart B07.0 [facility] [address] [place] [address] 07/31/2024 Keena Fatou Assessments Encounter Date Diagnosis (ICD Code) Assessment Notes Treatment Notes Treatment Clinical Notes Section Notes 02/02/2024 Plantar wart (ICD-10 - B07.0) Plan Of Treatment Next Appt Details Provider Name:Keena Smith callie, 09/18/2024 03:00:00 PM, [address] [place], [address], Insurance Providers Payer Name Payer Address Payer Phone Subscriber Number Group Number Insured Name Patient Relationship to Insured Coverage Start Date Coverage End Date Medicare National Govt Svcs Inc [address] [place] [address] [id number] Ruy Roth Self - patient is the insured Medex Blue Shield [address] [place] [address] [id number] Ruy Roth Self - patient is the insured Medical (General) History Medical History History ICD Code Cataracts Measles Mumps Chicken pox Joint implants/screws Surgical History Surgery Date(Month/Year)
--- OUTSIDE RECORDS SUMMARY | 2024-08-10 07:59 | XMS_ITS ---
Author Organization [facility] Address [address] [place] [address] Care Team Providers Care Ultrasonic Cleaner Name Role Phone Jose L JARAMILLO, [place] Primary Care Provider Keena Navarrete Unavailable [phone] Allergies No Known Allergies REASON FOR VISIT PCP: 01/19/2024, Stephanie(s) Medications Medication SIG (Take, Route, Frequency, Duration) [...] W/U Status Risk Notes Problem Plantar wart ([id number]) Plantar wart (B07.0) Active confirmed Vital Signs Blood pressure systolic 120 mm Hg 02/02/20 24 Blood pressure diastolic 80 mm Hg 024 Height 6 ft in 02/02/2024 Weight 193 lbs 02/02/2024 BMI 26.17 kg/m2 02/02/2024 Encounters Encounter Location Date Provider Diagnosis [facility] [address] [place] [address] 02/02/2024 Keena Lainez Plantar wart B07.0 Assessments Encounter Date Diagnosis (ICD Code) Assessment Notes Treatment Notes Treatment Clinical Notes Section Notes 02/02/2024 Plantar wart (ICD-10 - B07.0) Plan Of Treatment Next Appt Details Follow Up: prn, Reason: Provider Name:Keena ledesma, 09/18/2024 03:00:00 PM, [address] [place], [address], Progress Notes * Ruy INGRAM WDOB:[birth year] (88 yo M)Acc No.[id number]:02/02/2024 Progress Note Patient:?Ruy Ingram Provider:?Keena Lainez DPM :1935???Age:88 Y???Sex:Male Kris e:02/02/2024 Address:[address] [place] [address] Pcp:Pepito Domingo MD Subjective: * Chief Complaints: [...] Lainez DPM Date:?1 Generated for Alexsandra maldonado/Han/Penny on:?08/10/2024 07:58 AM EDT History and Physical Notes * [...]
== END ==
LOC: HO.CARD 07:54
PROVIDERS: PCP Internal Medicine; Visit Provider Internal Medicine Cardiovascular Disease
DX: Z95.2 Presence of prosthetic heart valve (principal)
CPT/HCPCS: 93306

== ENCOUNTER → 2024-08-10 07:57 | Outpatient (BNV) | payer MEDICARE, SELFPAY | PROVIDERS: PCP Internal Medicine; Visit Provider Internal Medicine | DX: T82.03XA Leakage of heart valve prosthesis, initial encounter (principal); I51.7 Cardiomegaly; I36.1 Nonrheumatic tricuspid (valve) insufficiency | CPT/HCPCS: 93306 ==

== ENCOUNTER 2024-08-24 13:36 | Outpatient (REF) | payer MEDICARE, SELFPAY ==
--- OUTSIDE RECORDS SUMMARY | 2024-08-24 13:46 | XMS_ITS ---
Author Organization [facility] Address [address] [place] [address] Care Team Providers Care Assistant Director Of Admissions Name Role Phone Jose L JARAMILLO, [place] Primary Care Provider Unava Keena Suresh Unavailable [phone] Encounters Encounter Location Date Provider Diagnosis [address] [address] 08/02/2024 Keena Lainez Plan Of Treatment Next Appt Details Provider Name:Keena ledesma, 09/18/2024 03:00:00 PM, [address] [place] [address], [address], Progress Notes * Ruy INGRAM WDOB:[birth year] (89 yo M)Acc No.[id number]:08/02/2024 Progress Note Patient:?Ruy INGRAM Provider:?Keena Lainez DPM :1935???Age:89 Y???Sex:Male Kris e:08/02/2024 Address:[address] [place] [address] Pcp:Pepito Domingo MD Subjective: * Chief Complaints: [...] DPM Date:?0 08/02/2024 Generated for Alexsandra maldonado/Han/Penny on:?08/24/2024 01:46 PM EDT
[2024-08-24 16:00] LABS: MANUAL DIFF FLAG NO
[2024-08-24 16:03] LABS: Basophils Absolute Auto 0.1 X10*3/uL (0.0-0.2); Basophils Percent Auto 0.5 % (0-2); Eosinophils Absolute Auto 0.4 X10*3/uL (0.0-0.4); Eosinophils Percent Auto 2.9 % (0-4); Hemoglobin 11.6 g/dl (14.0-18.0); Imm Gran Abs Auto 0.45 X10*3/uL (0.00-0.03); Imm Gran Pct Auto 3.5 % (0.0-0.4); Lymphocytes Absolute Auto 2.5 X10*3/uL (1.2-4.9); Lymphocytes Percent Auto 19.3 % (20-40); Mean Corpuscular HGB Conc 33.1 g/dl (31.0-36.0); Mean Corpuscular Hemoglobin 31.9 pg (27.0-33.0); Mean Corpuscular Volume 96.2 fL (80.0-98.0); Mean Platelet Volume 12.1 fL (9.4-12.4); Monocytes Absolute Auto 1.5 X10*3/uL (0.1-1.2); Monocytes Percent Auto 11.5 % (2-11); Neutrophils Absolute Auto 8.1 x10*3/uL (2.0-8.3); Neutrophils Percent Auto 62.3 % (45-73); Platelet Count 153 X10*3/uL (160-400); Red Blood Count 3.64 X10*6/uL (4.60-5.80); Red Cell Distribution Width 19.2 % (11.0-16.0); White Blood Count 12.9 X10*3/uL (4.8-10.8)
[2024-08-24 16:35] LABS: Alanine Aminotransferase 18 U/L (0-40); Anion Gap 15 (12-20); Aspartate Amino Transferase 32 U/L (5-37); Blood Urea Nitrogen 18 mg/dL (9-16); Carbon Dioxide 27 mmol/L (22-29); Chloride 105 mmol/L (96-108); Cholesterol 158 mg/dL (<200); Estimated Glomerular Filt Rate > 60; Glucose Fasting 85 mg/dL (60-99); HDL Cholesterol 37 mg/dL (>40); Iron 103 mcg/dL (45-160); LDL Cholesterol Calculated 106 mg/dL (<100); Percent Iron Saturation 39 % (15-50); Potassium 4.5 mmol/L (3.3-5.1); Sodium 142 mmol/L (135-145); Total Iron Binding Capacity 262 mcg/dL (228-428); Triglycerides 78 mg/dL (<150); Unsaturated Iron Binding 159 ug/dL
[2024-08-24 16:51] LABS: Free T4 (Free Thyroxine) 0.89 ng/dL (0.71-1.85); Thyroid Stimulating Hormone 1.58 uIU/mL (0.32-4.0); Vitamin D 25-OH Total 49.7 ng/mL (>30)
[2024-08-24 17:02] LABS: Folate 15.4 ng/mL (> or = 4.0); Vitamin B12 1510 pg/mL (200-900)
== END 2024-08-24 13:37 | disposition home or self-care (01) ==
LOC: HO.HMGCLDS 13:36
PROVIDERS: PCP Internal Medicine; Visit Provider Internal Medicine
DX: D72.829 Elevated white blood cell count, unspecified (principal); E03.9 Hypothyroidism, unspecified; I65.23 Occlusion and stenosis of bilateral carotid arteries; I35.0 Nonrheumatic aortic (valve) stenosis; G62.89 Other specified polyneuropathies; D64.9 Anemia, unspecified; E78.5 Hyperlipidemia, unspecified
CPT/HCPCS: 36415; 80048; 80061; 82306; 82607; 82746; 83540; 84439; 84443; 84450; 84460; 85025

== ENCOUNTER → 2024-08-28 23:59 | Outpatient (BNV) | payer MEDICARE, SELFPAY ==
--- NOTE | 2024-09-03 09:33 | MHC.OFFVIS ---
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 Mother No problems noted. Social History (Updated 09/01/24 @ 09:12 by Marcy Galindo) Household Members: Spouse Housing: House Do you presently have visiting nurse or other home services: No Alcohol intake: former Patient Tobacco Use Status: Never used Tobacco e-Cigarette/Vaping Use: Never Used Second Hand Smoke Exposure: Yes service: No Current occupational status: retired Cognitive needs: No Hearing needs: Yes Vision needs: Yes (Pt wear glasses) Office Procedures Cardiac Device Check Cardiac Device Check Details: Date of service- 08/28/2024 ; Battery life >10 years; normal lead parameters; AP 38%; PRINTED CIRCUIT BOARDS SOLDER LEVELER 96%; no significant arrhythmias. Overall normal device function. [id number] Cardiac Device Interrogation, pacemaker Procedure code (CPT) selection complete Assessment & Plan Assessment & Plan (1) Pacemaker: Code(s): Z95.0 - Presence of cardiac pacemaker Category: Medical (2) History of atrial flutter: Code(s): Z86.79 - Personal history of other diseases of the circulatory system Category: Medical Plan x Coding Level of Care Code Procedure Only Diagnoses Pacemaker Z95.0 History of atrial flutter Z86.79 CPT Codes Cardiac Device Check - Cardiac Device 12: [id number] Cardiac Device Interrogation, pacemaker ([id number])
== END ==
PROVIDERS: PCP Internal Medicine; Visit Provider Internal Medicine Cardiovascular Disease
DX: I48.92 Unspecified atrial flutter (principal); Z95.0 Presence of cardiac pacemaker
CPT/HCPCS: 93294

== ENCOUNTER 2024-08-29 11:29 | Outpatient (AMB) | payer MEDICARE, SELFPAY ==
--- NOTE | 2024-08-29 11:56 | A.OFFPC_ITS ---
Vital Signs 08/29/24 11:59 Height 6 ft Weight 201 lb BMI 27.3 BP 132/62 Blood Pressure Location Lt brachial Position Sitting Respiration 16 Pulse 70 Pulse Source Pulse Oximeter Temp 97.6 F Temp Source Oral Pulse Oximetry (%) 97 Oxygen Delivery Method Room Air Intake Visit Reasons: 2m f/u- labs Intake Note: Pt is here today for his 2mo. f/u labs Allergies No Known Allergies Allergy (Verified 08/29/24 12:19) Medication List - Last Reconciled 08/29/24 by Allison Haley MD apixaban (Eliquis) 2.5 mg PO ONCE ascorbic acid (vitamin C) 1,000 mg PO DAILY ferrous fumarate 324 mg PO BEDTIME levothyroxine 50 mcg PO DAILY@0600 sennosides (senna) 8.6 mg PO BEDTIME Tobacco use date assessed: 08/29/24 Fall risk assessment: No Falls in past year Dental Screening Dental Screen Date: 08/29/24 Did you have a dental visit in the last 12 months?: No Did you have a dental problem in the last 6 months where you did not have access to dental care?: No Was dental information given to patient?: Patient has dentist HPI 2m f/u- labs HPI Details - 89-year-old male here today for follo w-up. - He recently underwent successful TAVR at [facility] , feels better but still gets tired easily. He however has started playing golf already. - Anemia remains a concern; hematocrit a nd hemoglobin are low, with elevated white blood cell count. Has an appointment to be seen by Hematology later this week - He is experiencing deconditioning post -surgery, with significant efforts required to regain strength. -denies any chest pain, no headache or l ightheadedness, or pain over postoperative site, - Improved lipid profile noted in compar navneet to last year, though the patient is still not at preferred exercise levels. - Neuropathy is longstanding, with persi stent numbness and tingling. 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 Mother No problems noted. Social History (Updated 09/01/24 @ 09:12 by Marcy Galindo) Household Members: Spouse Housing: House Do you presently have visiting nurse or other home services: No Alcohol intake: former Patient Tobacco Use Status: Never used Tobacco e-Cigarette/Vaping Use: Never Used Second Hand Smoke Exposure: Yes service: No Current occupational status: retired Cognitive needs: No Hearing needs: Yes Vision needs: Yes (Pt wear glasses) Questionnaire PHQ-9 Over the last 2 weeks, how often have you been bothered by any of the following problems? Depression Screening Interpretation: Negative Depression Screening Done: Yes Source: Developed by Drs. Inocencio Alvarez, Robyn Tellez, Bg Posada and colleagues, with an educational nathalia from [employer]. Thrive Questionnaire Date Thrive assessed: 04/12/24 I am a: Patient What is your living situation today?: I have a steady place to live Within the past 12 months, did the food you bought not last and you didn't have the money to get more?: Never true Within the past 12 months, did you worry whether your food would run out before you got money to buy more?: Never true Do you have trouble paying for medicines?: No Do you have trouble getting transportation to medical appointments?: No Do you have trouble paying your heating and electricity bill?: No Do you have trouble taking care of your child, family member or friend?: No Do you have trouble with day-to-day activities such as bathing, preparing meals, shopping, managing finances, etc.?: No Are you currently unemployed and looking for a job?: No Are you interested in more education?: Yes Please select the resources that you would like help with: None Currently or been in a relationship where the following occur: No concerns reported THRIVE Score: 0 AUDIT C Alcohol Use Questionnaire (AUDIT-C) 2. How many drinks containing alcohol do you have on a typical day when you are drinking?: 1 or 2 3. How often do you have six or more drinks on one occasion?: Never Total Score: 0 JAS-7 AMB Questionnaire JAS-7 Date JAS - 7 assessed: 12/07/23 Source: Developed by Drs. Inocencio Alvarez, Robyn Tellez, Bg Posada and colleagues, with an educational nathalia from [employer]. Review of Systems Const Denies weakness ENT Denies vertigo, Denies dizziness, Denies epistaxis, Denies disequilibrium and Reports throat swelling Card Denies chest pain, Denies chest pain with activity, Denies syncope, Denies rapid heart rate, Denies irregular heart rhythm, Denies leg edema, Denies lightheadedness, Denies palpitations, Denies dyspnea and Reports dyspnea on exertion Resp Denies cough, Denies dyspnea and Reports dyspnea on exertion GI Denies abdominal pain, Denies hematochezia, Denies change in bowel habits and Denies change in stool character Denies hematuria, Denies oliguria, Denies difficulty urinating and Denies dysuria Musc Denies abnormal gait, Denies muscle cramps, Denies muscle weakness, Denies numbness, Denies radiating pain into limb and Denies tingling Skin/Breast Denies sores and Denies unusual bruising Neuro Denies abnormal gait, Denies vertigo, Denies dizziness, Denies syncope, Denies numbness, Denies tingling, Denies disequilibrium and Denies weakness Psych Reports no additional complaints Endo Denies palpitations Ant/Lymph Reports no additional complaints Aller/Immun Reports no additional complaints and Reports throat swelling Physical exam (Primary Care) Vital Signs: Last Vital Signs Temp 97.6 F 08/29/24 11:59 Pulse 70 08/29/24 11:59 Resp 16 08/29/24 11:59 BP 132/62 08/29/24 11:59 Pulse Ox 97 08/29/24 11:59 Oxygen Delivery Method Room Air 08/29/24 11:59 BMI result Body Mass Index 27.3 Tobacco/Smoking Status: Tobacco use Status Tobacco use date assessed 08/29/24 08/29/24 11:58 Patient Tobacco Use Status Never used Tobacco 08/29/24 11:58 e-Cigarette/Vaping Use Never Used 08/29/24 11:58 Depression Screening Interpretation: Negative Thrive Assessment: Date of Thrive Assessment Date Thrive assessed 04/12/24 08/29/24 11:58 Currently or been in a relationship where the following occur: No concerns reported Const General: comfortable, no acute distress and alert Orientation/consciousness: patient oriented x3 HENMT Ears: external ears normal General nose exam: Normal external nose present Mouth: Normal oral and palatal mucosa present, oropharynx normal and moist mucous membranes Eyes General: appearance normal, both eyes and all related structures Neck Neck: Yes full ROM, Yes no lymphadenopathy and Yes supple Resp Effort & Inspection: normal respiratory effort and able to speak in complete sentences Auscultation: clear to auscultation bilaterally Cardio Rate: regular rate Rhythm: regular rhythm Heart sounds: S1 normal heart sound present, S2 normal heart sound present and Murmur heart sound present systolic (at aortic area) GI Palpation (GI): Soft to palpation, nontender and no masses Auscultation: normal bowel sounds General: Yes no CVA tenderness Back/Spine/Pelvis Back: no CVA tenderness and No back tenderness Skin Other: Ecchymosis left lateral hip, nontender to palpation Neuro General: patient oriented x3, gait normal, tone normal, moves all extremities, Normal light touch and pain sensation and no focal motor deficits Cranial nerves: Yes CN's II-XII intact bilaterally Cognition (Neuro): normal cognition Extrem General: Yes full ROM, Yes no joint enlargement, Yes no clubbing, cyanosis or edema and Yes no calf tenderness Results Reviewed Results Reviewed: Name: Ruy Ingram Age/Sex: 89/M : 1935 Unit#: [id number] Attend Dr: Allison Haley MD Re08/24/24 Status: DEP REF Location: [facility] Disch: SPEC : [id number] BERNADINE: 08/24/24 STATUS: COMP REQ : [id number] RECD: 08/24/[address]: Allison Haley MD COMP: 08/24/24 ENTERED: 08/24/[address]: ORDERED: CBC Auto Diff Test Result Flag Reference WBC 12.9 H 4.8-10.8 X10* 3/uL RBC 3.64 L 4.60-5.80 X10*6/uL HGB 11.6 L 14.0-18.0 g/dl HCT 35.0 L 42.0-52.0 % MCV 96.2 80.0-98.0 fL MCH 31.9 27.0-33.0 pg MCHC 33.1 31.0-36.0 g/dl RDW 19.2 H 11.0-16.0 % PLT 153 L 160-400 X10*3/uL MPV 12.1 9.4-12.4 fL Neut Pct Auto 62.3 45-73 % ImGran Pct Auto 3.5 H 0.0-0.4 % Lymp Pct Auto 19.3 L 20-40 % Ralls Pct Auto 11.5 H 2-11 % Eos Pct Auto 2.9 0-4 % Baso Pct Auto 0.5 0-2 % NRBC Pct Auto 0.0 0.0-0.2 /100WBC ANC Neut Abs # 8.1 2.0-8.3 x10*3/uL ImGran Abs Auto 0.45 H 0.00-0.03 X10*3/uL Lymph Abs Auto 2.5 1.2-4.9 X10*3/uL Ralls Abs Auto 1.5 H 0.1-1.2 X10*3/uL Eos Abs Auto 0.4 0.0-0.4 X10*3/uL Baso Abs Auto 0.1 0.0-0.2 X10*3/uL NRBC Abs Auto 0.000 0.0-0.012 X10*3/uL Name: Ruy Ingram Age/Sex: 89/M : 1935 Unit#: [id number] Attend Dr: Allison Haley MD Re08/24/24 Status: DEP [facility]F [facility] Disch: SPEC : [id number] BERNADINE: 08/24/24-134 STATUS: COMP REQ : [id number] RECD: 08/24/24-[address]: Allison Haley MD COMP: 08/24/24-1650 ENTERED: 08/24/24-[address]: ORDERED: Met Prof Fast, IRON PROF, AST, ALT, Lipid Panel, Vitamin D 25-OH, Free T Test Result Flag Reference Sodium 142 135-145 mmol/L Potassium 4.5 3.3-5.1 mmol/L CL 105 96-108 mmol/L CO2 27 22-29 mmol/L Gap 15 12-20 BUN 18 H 9-16 mg/dL Creat 0.74 0.5-1.4 mg/dL eGFR > 60 Chronic Kidney Disease: Estimated GFR < 60 mL/min/1.73m2 Severe Kidney Disease: Estimated GFR < 15 mL/min/1.73m2 FBS 85 60-99 mg/dL CA 9.0 8.4-10.2 mg/dL Iron 103 45-160 mcg/dL TIBC 262 228-428 mcg/dL Saturation 39 15-50 % UIBC 159 ug/dL AST (GOT) 32 5-37 U/L ALT (GPT) 18 0-40 U/L Triglyceride 78 <150 mg/dL Desirable Triglyceride: less than 150 mg/dL Borderline High Triglyceride 150-199 mg/dL High Triglyceride: 200-499 mg/dL Very High Triglyceride: greater than or equal to 5OO mg/dL Cholesterol 158 <200 mg/dL Desirable Cholesterol: less than 200 mg/dL Borderline High Cholesterol: 200-239 mg/dL High Cholesterol: greater than 239 mg/dL LDL Calculated 106 H <100 mg/dL Desirable LDL: less than 100 mg/dL Near Optimal/Above Optimal LDL: 110-129 mg/dL Borderline High LDL: 130-159 mg/dL High LDL: 160-189 mg/dL Very High LDL: greater than or equal to 190 mg/dL HDL 37 L >40 mg/dL Desirable HDL: greater than 40 mg/dL Note: This HDL assay may give artificially low results in patients with liver disease. Vitamin D 25-OH 49.7 >30 ng/mL Health Based Reference Values* < 20 ng/mL Deficient 20-30 ng/mL Insufficient > 30 ng/mL Sufficient *Henrry MURILLO. N Engl J Med. 2007;357:266-280 There is no well-established upper level of normal vitamin D levels. Some laboratories use 50 ng/mL as an upper limit of normal. However, toxicity is patient-dependent and may occur at any level. Careful correlation with the patient's presentation is necessary and, if there is concern for vitamin D toxicity, treatment should be considered irrespective of the serum level. Care must be taken in interpreting Vitamin D results from different laboratories and methodologies. Published data demonstrated that results from patients undergoing hemodialysis may show a negative bias when tested with various automated 25-OH vitamin D assays when compared to LC-MS/MS. When testing samples from patients whose predominant form of Vitamin D is Vitamin D2, such as patients receiving Vitamin D2 supplementation, results that are subtherapeutic should be confirmed with another method such as LC-MS/MS. Free T4 0.89 0.71-1.85 ng/dL TSH 3rd Gen. 1.58 0.32-4.0 uIU/mL Coding Level of Care Code Est Pt Level 4 (23288) Complex EM visit Add On G2211 Diagnoses Dyslipidemia E78.5 Hypothyroidism E03.9 Normocytic normochromic anemia D64.9 Assessment & Plan Assessment & Plan (1) Dyslipidemia: Code(s): E78.5 - Hyperlipidemia, unspecified Category: Medical Plan: Lipids are within normal limits, continue with regular exercise, adherence to healthy eating habits. (2) Hypothyroidism: Code(s): E03.9 - Hypothyroidism, unspecified Category: Medical Plan: Latest thyroid levels are within normal limits, continued on levothyroxine 50 mcg daily (3) Normocytic normochromic anemia: Code(s): D64.9 - Anemia, unspecified Category: Medical Plan: Currently on low-dose apixaban 2.5 mg twice a day, continued on ferrous fumarate 324 mg daily. Has appointment for follow-up with Hematology later this week Orders: Orders Lipid Panel 02/03/25 D64.9 - Anemia, unspecified, D72.829 - Elevated white blood cell count, unspecified, E03.9 - Hypothyroidism, unspecified, E78.5 - Hyperlipidemia, unspecified, R53.83 - Other fatigue Aspartate Amino Transferase 02/03/25 D64.9 - Anemia, unspecified, D72.829 - Elevated white blood cell count, unspecified, E03.9 - Hypothyroidism, unspecified, E78.5 - Hyperlipidemia, unspecified, R53.83 - Other fatigue Alanine Aminotransferase 02/03/25 D64.9 - Anemia, unspecified, D72.829 - Elevated white blood cell count, unspecified, E03.9 - Hypothyroidism, unspecified, E78.5 - Hyperlipidemia, unspecified, R53.83 - Other fatigue Complete Blood Count Auto Diff 02/03/25 D64.9 - Anemia, unspecified, D72.829 - Elevated white blood cell count, unspecified, E03.9 - Hypothyroidism, unspecified, E78.5 - Hyperlipidemia, unspecified, R53.83 - Other fatigue IRON PROFILE 02/03/25 D64.9 - Anemia, unspecified, D72.829 - Elevated white blood cell count, unspecified, E03.9 - Hypothyroidism, unspecified, E78.5 - Hyperlipidemia, unspecified, R53.83 - Other fatigue Thyroid Stimulating Hormone 02/03/25 D64.9 - Anemia, unspecified, D72.829 - Elevated white blood cell count, unspecified, E03.9 - Hypothyroidism, unspecified, E78.5 - Hyperlipidemia, unspecified, R53.83 - Other fatigue Free T4 (Free Thyroxine) 02/03/25 D64.9 - Anemia, unspecified, D72.829 - Elevated white blood cell count, unspecified, E03.9 - Hypothyroidism, unspecified, E78.5 - Hyperlipidemia, unspecified, R53.83 - Other fatigue Basic Metabolic Panel Fasting 02/03/25 D64.9 - Anemia, unspecified, D72.829 - Elevated white blood cell count, unspecified, E03.9 - Hypothyroidism, unspeci fied, E78.5 - Hyperlipidemia, unspecified, R53.83 - Other fatigue Vitamin D 25-OH Total 02/03/25 D64.9 - Anemia, unspecified, D72.829 - Elevated white blood cell count, unspecified, E03.9 - Hypothyroidism, unspecified, E78.5 - Hyperlipidemia, unspecified, R53.83 - Other fatigue Vitamin B12 and Folate 02/03/25 D64.9 - Anemia, unspecified, D72.829 - Elevated white blood cell count, unspecified, E03.9 - Hypothyroidism, unspecified, E78.5 - Hyperlipidemia, unspecified, R53.83 - Other fatigue
[2024-08-29 11:59] VITALS: BP 132/62; PULSE 70; RESP 16; TEMP 36.4; O2SAT 97; BMI 27.3
--- OUTSIDE RECORDS SUMMARY | 2024-08-29 12:12 | XMS_ITS ---
Author Organization [facility] Address [address] [place] [address] Care Team Providers Care Testing And Regulating Chief Name Role Phone Jose L JARAMILLO, [place] Primary Care Provider Unava Keena Suresh Unavailable [phone] Encounters Encounter Location Date Provider Diagnosis [address] [address] 08/02/2024 Keena Lainez Plan Of Treatment Next Appt Details Provider Name:Keena ledesma, 09/18/2024 03:00:00 PM, [address] [place] [address], [phone], Progress Notes * Ruy INGRAM WDOB:[birth year] (89 yo M)Acc No.[id number]:08/02/2024 Progress Note Patient:?Ruy INGRAM Provider:?Keena Lainez DPM :1935???Age:89 Y???Sex:Male Kris e:08/02/2024 Address:[address] [place] [address] Pcp:Pepito Domingo MD Subjective: * Chief Complaints: [...] DPM Date:?0 08/02/2024 Generated for Alexsandra maldonado/Han/Penny on:?08/29/2024 12:12 PM EDT
== END 2024-08-29 12:36 | disposition home or self-care (01) ==
LOC: HO.HMCC 11:30
PROVIDERS: PCP Internal Medicine; Visit Provider Internal Medicine
DX: E78.5 Hyperlipidemia, unspecified (principal); E03.9 Hypothyroidism, unspecified; D64.9 Anemia, unspecified

== ENCOUNTER → 2024-08-29 11:29 | Outpatient (BNVA) | payer MEDICARE, SELFPAY | PROVIDERS: PCP Internal Medicine; Visit Provider Internal Medicine | DX: E78.5 Hyperlipidemia, unspecified (principal); E03.9 Hypothyroidism, unspecified; D64.9 Anemia, unspecified | CPT/HCPCS: 99212 ==

== ENCOUNTER → 2024-09-01 08:51 | Outpatient (BNV) | payer MEDICARE, SELFPAY | PROVIDERS: PCP Internal Medicine; Referring Provider Internal Medicine; Visit Provider Internal Medicine | DX: D64.9 Anemia, unspecified (principal) | CPT/HCPCS: 99204; G2211 ==

== ENCOUNTER → 2024-09-12 09:03 | Outpatient (REF) | payer MEDICARE, SELFPAY ==
--- NOTE | 2024-09-12 09:06 | CA_ITS ---
Transthoracic Echocardiogram Patient (Last, First, Middle): Ruy Ingram W Gender: Male Date of : 1935 Age: 89 Procedure Date: 09/12/2024 Procedure Type: Transthoracic Echocardiogram Location: OP Height: 182. cm Weight: 90.27 kg BSA: 2.12 m2 Heart Rate: 60 bpm BP: 126 / 50 mmHg Coater: DANICA Referring MD: Indra Frost MD Symptoms: Z95.2 - Presence of prosthetic heart valve Study Quality: Adequate ECG Rhythm: Sinus Conclusions: - Normal left ventricular size, thickness, and systolic function. The visually estimated ejection fraction is between 60-65%. There is evidence of regional wall motion abnormalities. Diastolic function is normal for age. - The basal inferior segment is akinetic. - Mildly increased right ventricular cavity size. - A bioprosthetic aortic valve is present. The prosthetic aortic valve appears to be functioning normally. Findings Left Ventricle Normal left ventricular size, thickness, and systolic function. The visually estimated ejection fraction is between 60-65%. There is evidence of regional wall motion abnormalities. Diastolic function is normal for age. Wall Motion Rest Echo Findings The basal inferior segment is akinetic. Right Ventricle Mildly increased right ventricular cavity size. There is normal right ventricular systolic function. Atria The left atrium is moderately dilated. The right atrium is severely dilated. Aortic Valve A bioprosthetic aortic valve is present. The prosthetic aortic valve appears to be functioning normally. There is no aortic valve stenosis. The mean gradient is 10 mmHg. There is trace (trivial) aortic valve regurgitation. Mitral Valve The mitral valve appears normal. There is trace mitral valve regurgitation. There is no mitral valve stenosis. Pulmonic Valve The pulmonic valve is likely normal. Tricuspid Valve Normal tricuspid valve structure. There is trace tricuspid valve regurgitation. Normal right atrial pressure. There is no evidence of pulmonary hypertension. Great Vessels All visible segments of the aorta are normal in size. Venous The inferior vena cava is normal in size and collapses greater than 50% with inspiration. Pericardium/Pleural There is no evidence of pericardial effusion. Prior Study Comparison No significant change compared to prior study dated: 08/10/2024. Measurements 2D Linear Measurements IVSd: 0.98 0.6-0.9/0.6-1.0 cm LVIDd: 5.16 3.9-5.3/4.2-5.9 cm LVIDd Index: 2.43 2.4-3.2/2.2-3.1 cm/m2 LVIDs: 3.35 2.0-3.6 cm LVPWd: 1.02 0.7-1.1 cm LA Diam: 4.20 2.7-3.8/3.0-4.0 cm LAIDs Index: 1.98 1.5-2.3 cm/m2 LV Mass: 239.18 67-162/88-224 g LV Mass Index: 112.82 43-95/49-115 g/m2 LVOT Diam: 2.20 3.0+(-)1.3 cm 2D Systolic Function EF 4C: 58.30 >55% EF 2C: 67.50 >55% EF BiP: 65.60 >55% Mitral Valve MV Pk E: 0.95 MV PK A: 0.90 MV Decel Time: 177.00 E/A: 1.10 E'Lateral: 8.70 E'Medial: 7.62 E/E' Med: 12.50 E/E' Lat: 10.90 PHT: 52.00 MVA PHT: 4.23 Decel [place]: 5.39 Aortic Valve AoV Pk Devonte: 2.24 AoV Mn Devonte: 1.39 AoV VTI: 0.46 AoV Pk Grad: 20.00 Aov Mn Grad: 10.00 JOSE MANUEL Cont.VTI: 1.98 AI Pk Devonte: 2.97 AI [place]: 1.37 LVOT LVOT Pk Devonte: 1.06 LVOT Mn Devonte: 0.69 LVOT VTI: 0.24 LVOT Pk Grad: 4.00 LVOT Mn Grad: 2.00 LVOT Diam: 2.20 LVOT Area: 3.80 Diastolic Function MV Pk E: 0.95 MV Pk A: 0.90 E/A: 1.10 E'Medial: 7.62 E/E' Med: 12.50 E' Laterial: 8.70 E/E' Lat: 10.90 Right Ventricle TAPSE (mm): 21.90 TVS' Devonte: 11.70 Tricuspid Valve TR Pk Devonte: 2.32 TR Pk Grad: 22.00 RA Press: 3.00 RVSP: 25.00 Great Vessels Aorta Sinus of Valsalva: 3.10 2.0-3.5 cm Ao Asc: 2.90 2.1-3.4 cm Ao Arch: 2.80 Pulmonary Valve PV Pk Devonte: 1.00 Peak PV Grad: 4.00 Updated in Other Vendor System with Status of Final Indra Frost MD electronically signed on 09/13/2024 1:16:29 PM with status of Final
--- OUTSIDE RECORDS SUMMARY | 2024-09-12 09:45 | XMS_ITS ---
Author Organization [facility] Address [address] [place] [address] Care Team Providers Care Health Spa Manager Name Role Phone Jose L JARAMILLO, Pepito Primary Care Provider Unava Keena Suresh Unavailable [phone] Encounters Encounter Location Date Provider Diagnosis [address] [address] 08/02/2024 Keena Lainez Plan Of Treatment Next Appt Details Provider Name:Keena ledesma, 09/18/2024 03:00:00 PM, [address] [place] [address], [phone], Progress Notes * Ruy INGRAM WDOB:[birth year] (89 yo M)Acc No.[id number]:08/02/2024 Progress Note Patient:?Ruy INGRAM Provider:?Keena Lainez DPM :1935???Age:89 Y???Sex:Male Kris e:08/02/2024 Address:[address] [place] [address] Pcp:Pepito Domingo MD Subjective: * Chief Complaints: [...] DPM Date:?0 08/02/2024 Generated for Alexsandra maldonado/Han/Penny on:?09/12/2024 09:45 AM EDT
== END ==
LOC: HO.CARD 09:03
PROVIDERS: PCP Internal Medicine; Visit Provider Internal Medicine Cardiovascular Disease
DX: Z95.2 Presence of prosthetic heart valve (principal)
CPT/HCPCS: 93306

== ENCOUNTER → 2024-09-12 09:06 | Outpatient (BNV) | payer MEDICARE, SELFPAY | PROVIDERS: PCP Internal Medicine; Visit Provider Internal Medicine Cardiovascular Disease | DX: I51.7 Cardiomegaly (principal); Z95.2 Presence of prosthetic heart valve | CPT/HCPCS: 93306 ==

== ENCOUNTER 2024-09-13 09:30 | Outpatient (AMB) | payer MEDICARE, SELFPAY ==
--- NOTE | 2024-09-13 09:34 | MHC.OFFVIS ---
Vital Signs 09/13/24 09:35 Height 6 ft Weight 200 lb 9.93 oz BMI 27.2 BP 110/56 L Blood Pressure Location Lt brachial Position Sitting Pulse 61 Pulse Source Monitor Intake Visit Reasons: 2mth & TAVR 08/01 Intake Note: 2 mth f/up/TAVR 08/01 Documentation Billing Clerk Required: No Accompanied by: Self / Same As Patient Allergies No Known Allergies Allergy (Verified 08/29/24 12:19) Medication List - Last Reconciled 09/13/24 by Indra Frost MD apixaban (Eliquis) 2.5 mg PO ONCE ascorbic acid (vitamin C) 1,000 mg PO DAILY ferrous fumarate 324 mg PO BEDTIME levothyroxine 50 mcg PO DAILY@0600 sennosides (senna) 8.6 mg PO BEDTIME HPI Comments Details: 89-year-old gentleman who is here for follow-up. He has background history of atrial flutter status post ablation and permanent pacemaker placement. He had severe aortic valve stenosis and he is status post transcatheter aortic valve replacement at this point with 34 mm Evolut FX valve. This was done on 08/01/2024. He has done well since the transcatheter aortic valve replacement and has been active. He has been active add cardiac rehabilitation. He is saying that he gets short of breath with activities but overall he is improving with exercise. 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 Mother No problems noted. Social History Household Members: Spouse Housing: House Do you presently have visiting nurse or other home services: No Alcohol intake: former Patient Tobacco Use Status: Never used Tobacco e-Cigarette/Vaping Use: Never Used Second Hand Smoke Exposure: Yes service: No Current occupational status: retired Cognitive needs: No Hearing needs: Yes Vision needs: Yes (Pt wear glasses) Review of Systems Const Denies chills, Denies fatigue, Denies fever(s), Denies frequent falls, Denies weakness, Denies weight gain and Denies weight loss ENT Denies dizziness Card Denies chest pain, Denies leg edema, Denies lightheadedness, Denies palpitations, Denies dyspnea and Denies dyspnea on exertion Resp Denies cough, Denies dyspnea and Denies dyspnea on exertion GI Denies hematochezia Musc Denies abnormal gait, Denies muscle weakness, Denies numbness, Denies radiating pain into limb and Denies tingling Neuro Denies abnormal gait, Denies dizziness, Denies frequent falls, Denies numbness, Denies tingling and Denies weakness Endo Denies fatigue and Denies palpitations Physical Exam Vital Signs: Last Vital Signs Pulse 61 09/13/24 09:35 BP 110/56 L 09/13/24 09:35 BMI result Body Mass Index 27.2 GENERAL APPEARANCE: in no acute distress, pleasant. NECK: no carotid bruit, no jugular venous distention. Slow rising pulse. SKIN: no suspicious lesions, warm and dry. HEART: Mid systolic murmur aortic area, regular rate and rhythm. LUNGS: clear to auscultation bilaterally. ABDOMEN: soft, nontender. EXTREMITIES: no edema. PERIPHERAL PULSES: equal. NEUROLOGIC: No gross deficits, AAO X 3 Office Procedures EKG Details: Atrial sensed V paced rhythm 61 beats per minute, QTC 455 milliseconds. [id number]-[id number], Complete Assessment & Plan Assessment & Plan (1) S/P TAVR (transcatheter aortic valve replacement): Code(s): Z95.2 - Presence of prosthetic heart valve Category: Surgical Plan Pleasant 89-year-old gentleman who is here for follow-up. He underwent transcatheter aortic valve replacement for severe aortic valve stenosis. He had a 34 mm Evolut FX valve. Clinically he has improved significantly. Blood pressure well controlled. He is on apixaban for previous atrial flutter. I think he is doing well at this stage. We will see him back as a TAVR follow-up in 1 year. At that stage he will have repeat echocardiography. In the meantime we will follow up with Dr. Hawthorne. Follow-up 1 year. Thank you for allowing me to participate in the care of your patient. Please feel free to contact me if you have any questions. Coding Level of Care Code Est Pt Level 4 (26983) Complex EM visit Add On G2211 Diagnoses S/P TAVR (transcatheter aortic valve replacement) Z95.2 CPT Codes EKG - CPT: 52907-Ocemdjbpqltamxegc, Complete ([id number])
[2024-09-13 09:35] VITALS: BP 110/56; PULSE 61; BMI 27.2
--- OUTSIDE RECORDS SUMMARY | 2024-09-13 10:24 | XMS_ITS ---
Author Organization [facility] Address [address] [place] [address] Care Team Providers Care Clinic Charge Nurse Name Role Phone Jose L JARAMILLO, Pepito Primary Care Provider Unava Keena Suresh Unavailable [phone] Encounters Encounter Location Date Provider Diagnosis [address] [address] 08/02/2024 Keena Lainez Plan Of Treatment Next Appt Details Provider Name:Keena ledesma, 09/18/2024 03:00:00 PM, [address] [place] [address], [phone], Progress Notes * Ruy INGRAM WDOB:[birth year] (89 yo M)Acc No.[id number]:08/02/2024 Progress Note Patient:?Ruy INGRAM Provider:?Keena Lainez DPM :1935???Age:89 Y???Sex:Male Kris e:08/02/2024 Address:[address] [place] [address] Pcp:Pepito Domingo MD Subjective: * Chief Complaints: [...] DPM Date:?0 08/02/2024 Generated for Alexsandra maldonado/Han/Penny on:?09/13/2024 10:24 AM EDT
== END 2024-09-13 10:04 | disposition home or self-care (01) ==
LOC: HO.HCS 09:31
PROVIDERS: PCP Internal Medicine; Visit Provider Internal Medicine Cardiovascular Disease
DX: Z95.2 Presence of prosthetic heart valve (principal)
CPT/HCPCS: 99214; G2211

== ENCOUNTER → 2024-09-13 09:30 | Outpatient (BNVA) | payer MEDICARE, SELFPAY | PROVIDERS: PCP Internal Medicine; Visit Provider Internal Medicine Cardiovascular Disease | DX: Z95.2 Presence of prosthetic heart valve (principal); R94.31 Abnormal electrocardiogram [ECG] [EKG] | CPT/HCPCS: 93005; 99212 ==

== ENCOUNTER 2024-10-03 07:22 | Outpatient (REF) | payer MEDICARE, SELFPAY ==
--- OUTSIDE RECORDS SUMMARY | 2024-08-02 05:00 | XMS_ITS ---
Author Organization [facility] Address [address] [place] [address] Care Team Providers Care Branch Operations Coordinator Name Role Phone Sudha JARAMILLO, Allison Vo Primary Care Provider Un available Keena Lainez Unavailable [phone] Encounters Encounter Location Date Provider Diagnosis [address] [address] 08/02/2024 Keena Lainez Plan Of Treatment Next Appt Details Provider Name:Keena ledesma, 04/19/2025 10:00:00 AM, [address] [place] [address], [phone], Progress Notes * Ruy INGRAM WDOB:[birth year] (89 yo M)Acc No.[id number]:08/02/2024 Progress Note Patient: Ruy FISHER Provider: Pat Lainez DPM :1935 A ge:89 Y S ex:Male Date:08/02/2024 Address:[address] [place] [address] Pcp:Taran Palacios Subjective: * Chief Complaints: * [...] 08/02/2024 Generated for Alexsandra maldonado/Han/Penny on: 0 10/03/2024 07:24 AM EDT
--- OUTSIDE RECORDS SUMMARY | 2024-10-03 07:24 | XMS_ITS | Data Portability ---
Author Organization [facility] [address] Address [address] [place] [address] Assessment No assessment recorded. Plan of Treatment Reminders Order Date Submit Date Provider Last Modified By Organization Details Last Modified Time Details Appointments None recorded. Lab urinalysis , dipstick 2022 023 kylezArt _[facility], [facility] [place], [address], 15:58:42 Referral None recorded. Procedures None recorded. Surgeries None recorded. Imaging None recorded. Medication Orders clotrimazo le-betamet hasone 1 %-0.05 % topical cream 2022 023 [facility], [address] [place], [address], 15:07:46 Patient TargetsNo targets recorded. Patient Instructions Encounter Date Encounter Id Patient Instructions Last Modified By Organization Details Last Modified Time 10/11/2022 [id number] What are ringworm, athlete's foot, and jock [...] the infection is, it can look different: People with athlete's foot might instead have moist, raw skin between their toes, or flaking skin on the bottoms of their feet. People with jock itch often just have a rash on their groin. It usually starts in the fold where the thigh meets the groin area. Sometimes, especially in children, the fungus can infect the scalp. On the scalp, the infection can look like a bald spot or a round flaky patch of skin. How did I get a fungal infection? You can catch fungal infections through umbu-yk-fyli contact with a person who is infected. You can also catch them from an infected dog or cat. You can also get the infections from places where the fungus might be, such as: A shower stall A locker room floor The area near a pool If you have a fungal infection on 1 part of your body, you can also spread it to other parts. For instance, a fungal infection on your feet could spread to your groin. How are fungal infections treated? The treatment for a fungal infection depends on which body part is affected: If you have a fungal infection on your scalp, you must take pills to kill the fungus. Treatment for scalp infections usually lasts 1 to 3 months. If you have a fungal infection on your feet, groin, or another body part, most of the time, you will not need pills. Instead, you can use a special gel, cream, lotion, or powder to kill the fungus. Treatment with these products lasts 2 to 4 weeks. If you have a fungal infection on your groin and on your feet, you must treat both infections at the same time. If you don't, the infection on your feet can spread to your groin again. What problems should I watch for? If you are being treated for a fungal infection, call your doctor or nurse for advice if: Your fungal infection spreads. You have any of the following symptoms: Fever of 100.4 F (38 C) or higher Chills Swelling, redness, or warmth around the infected area Pain when touching the area Your fungal infection doesn't go away after treatment. How do I keep from getting a fungal infection again? If someone in your home has had a fungal infection on their scalp: Get rid of any suárez, brushes, barrettes, or other hair products that could have the fungus on them. Make sure that a doctor or nurse checks everyone in the house for a fungal infection on the scalp. The doctor or nurse might also suggest that everyone else in the house use an antifungal shampoo for a few weeks. If the fungal infection might have come from a pet, have the pet checked by a vet. Some other general tips to prevent fungal infections: Do not share unwashed clothes, sports gear, or towels with other people. Always wear slippers or sandals when at the gym, pool, or other public areas. This includes public showers. Change your socks and underwear at least once a day. Keep your skin clean and dry. Always dry yourself well after swimming or showering. [email or web address] Not available 10/11/2022 15:07:43 Reason for Referral None Reported. Results Created Date Observation Date Name Description Value Unit Range Abnormal Flag Note LastModifiedBy Organization Detail LastModifiedTime 10/12/1910/11/2022 urina lysis , dipst ick Unknown Analyte Normal = light yellow Not Available [facility] [address], [address], 10/11/2022 15:11:21 10/12/19 23 10/11/2022 urina lysis , dipst ick Unknown Analyte Yellow Not Available [address] [place] [address], [address], 10/11/2022 15:11:21 10/12/19 23 10/11/2022 urina lysis , dipst ick Unknown Analyte Normal = clear Not Available [address] [place] [address], [place], [address], 10/11/2022 15:11:21 10/12/19 23 10/11/2022 urina lysis , dipst ick Unknown Analyte Clear Not Available [address] [place] [address], [address], 10/11/2022 15:11:21 10/12/19 23 10/11/2022 urina lysis , dipst ick Unknown Analyte Normal = negati ve Not Available [address] [place] [address], [address], 10/11/2022 15:11:21 10/12/19 23 10/11/2022 urina lysis , dipst ick Unknown Analyte Negati ve Not Available bryanna souza [address], [place], [address], 10/11/2022 15:11:21 10/12/1910/11/2022 urina lysis , dipst ick Unknown Analyte Normal = Negati ve Not Available [facility] [address], [place], [address], 10/11/2022 15:11:21 10/12/19 23 10/11/2022 urina lysis , dipst ick Unknown Analyte Negati ve Not Available [facility] [address], [place], [address], 10/11/2022 15:11:21 10/12/19 23 10/11/2022 urina lysis , dipst ick Unknown Analyte Normal = Negati ve Not Available [address], [place], [address], 10/11/2022 15:11:21 10/12/1910/11/2022 urina lysis , dipst ick Unknown Analyte Negati ve Not Available [address], [place], [address], 10/11/2022 15:11:21 10/12/1910/11/2022 urina lysis , dipst ick Unknown Analyte Normal = 1.010, 1.015, 1.020 Not Available [address], [place], [address], 10/11/2022 15:11:21 10/12/1910/11/2022 urina lysis , dipst ick Unknown Analyte 1.030 Not Available [address] [place] [address], [place], [address], 10/11/2022 15:11:21 10/12/19 23 10/11/2022 urina lysis , dipst ick Unknown Analyte Normal = Negati ve Not Available [address] [address], [place], [address], 10/11/2022 15:11:21 10/12/19 23 10/11/2022 urina lysis , dipst ick Unknown Analyte Trace- intact Not Available [address] [place] [address], [place], [address], 10/11/2022 15:11:21 10/12/19 23 10/11/2022 urina lysis , dipst ick Unknown Analyte Normal = 6.5, 7.0, 7.5, 8.0 Not Available [address] [place] [address], [place], [address], 10/11/2022 15:11:21 10/12/19 23 10/11/2022 urina lysis , dipst ick Unknown Analyte 5.5 Not Available [address] [place] [address], [place], [address], 10/11/2022 15:11:21 10/12/19 23 10/11/2022 urina lysis , dipst ick Unknown Analyte Normal = Negati ve Not Available [address], [place], [address], 10/11/2022 15:11:21 10/12/19 23 10/11/2022 urina lysis , dipst ick Unknown Analyte Negati ve Not Available [address] [place] [address], [place], [address], 10/11/2022 15:11:21 10/12/19 23 10/11/2022 urina lysis , dipst ick Unknown Analyte Normal = 0.2, 1.0 Not Available [address], [place], [address], 10/11/2022 15:11:21 10/12/1910/11/2022 urina lysis , dipst ick Unknown Analyte 0.2 E.U./d L Not Available [address], [place], [address], 10/11/2022 15:11:21 10/12/1910/11/2022 urina lysis , dipst ick Unknown Analyte Normal = Negati ve Not Available [address], [place], [address], 10/11/2022 15:11:21 10/12/19 23 10/11/2022 urina lysis , dipst ick Unknown Analyte Negati ve Not Available [address], [place], [address], 10/11/2022 15:11:21 10/12/1910/11/2022 urina lysis , dipst ick Unknown Analyte Normal = Negati ve Not Available [address], [place], [address], 10/11/2022 15:11:21 10/12/1910/11/2022 urina lysis , dipst ick Unknown Analyte Negati ve Not Available [address], [place], [address], 10/11/2022 15:11:21 Result Notes None recorded. Problems No Known Problems Procedures Surgical History Date Name Laterality Status Provider Name and Address Organization Details Recorded Time procedure on knee completed [facility]ANNEMytrusEY [facility] - [facility] 10/11/2022 14:35:35 prosthetic arthroplasty of hip completed [facility]ANNEMytrusEY PA - [facility] 10/11/2022 14:35:51 rectal polypectomy completed [facility] - [facility] 10/11/2022 14:36:20 Imaging Results None recorded. [...] height Body mass index (BMI) Body weight Respiratory rate Oxygen saturation Oxygen saturation in Arterial blood by Pulse oximetry Heart rate Body temperature Systolic blood pressure Diastolic blood pressure Provider Name and Address Organization Details Last Updated DateTime 3 182.88 cm 26.4 kg/m2 09523.5 1 g 17 /min 98 % 98 % 55 /min 97.9 [degF] 151 mm[Hg] 75 mm[Hg] [facility] 14:37:11 Social History Question Answer Notes LastModified by YaData Details LastModified Time Tobacco Smoking Status Never Smoker [facility] 10/11/2022 14:35:10 Have You Recently Traveled Abroad? No [email or web address] Information not available 10/11/2022 Sex: Unknown Functional Status Question Answer Note LastModified by YaData Details LastModified Time Do you use any illicit or recreational drugs? No [email or web address] Information not available 10/11/2022 Do you or have you ever used any other forms of tobacco or nicotine? No [email or web address] Information not available 10/11/2022 What is your level of alcohol consumption? Occasional [email or web address] Information not available 10/11/2022 Mental Status None recorded. Family History Relationship Description Onset Age of this Age Resolved Age Notes LastModified by Organization Details LastModified Time Father No current problems or disability [email or web address] Not available 10/11 14:34:47 Mother No current problems or disability [email or web address] Not available 10/11 14:34:47 Medical History No medical history recorded. Past Encounters Encounter ID Performer Location Encounter Start Date Encounter Closed Date Diagnosis/Indication Diagnosis SNOMED-CT Code Diagnosis ICD10 Code Diagnosis Note [id number] [facility] [address] [address] 10/25/2020 19:24:14 10/25/2020 20:09:32 [id number] [place] [address] [address] [address] 10/11/2022 13:49:51 10/11/2022 15:13:21 Tinea cruris 510913170 B35.6 Health Concerns Section Related Observation LastModified by Organization Detai ls LastModified Time None Recorded Concern Status LastModified by Organization Details LastModified Time None Recorded Advance Directives Directive None Recorded Payers Insurance Date Sequence Insurance Name Policy Number Policy Dumont Covered Member ID Dumont Member ID Guarantor Name 10/11/2022 1 [place] Ruy Ingram [id number] Ruy Ingram 10/11/2022 2 [place] [id number] Ruy Ingram [id number] Ruy Ingram Notes Date Note Type [...] Robert NP [address] [place], [address], [place] - [facility] 10/11/2022 15:59:02
--- OUTSIDE RECORDS SUMMARY | 2024-10-03 07:24 | XMS_ITS | Patient Health Record ---
Author Organization [facility] Address [address] [place] [address] Care Team Providers Care Food Service Utility Worker Name Role Phone Jose L JARAMILLO, Donaldson Primary Care Provider Inocencio Murcia Unavailable [phone] Reason For Referral No Information Immunizations Vaccine Route Administration Date Status Comme nts Flu vaccine no Preserv 3 and > Unknown 01/24/2014 Admin istered Flu vaccine no Preserv 3 and > Unknown 01/04/2015 Admin istered Influenza Unknown 01/03/2017 Administered Problems Problem Type SNOMED Code ICD Code Onset Dates Problem Status W/U Status Risk Notes Problem 294819621 Encounter for screening for malignant neoplasm of colon (Z12.11) Active confirmed Problem 969445877 History of adenomatous polyp of colon (Z86.010) Active confirmed Problem 88718900 Preprocedural examination (Z01.818) Active confirmed Problem 193575922 History of colon polyps (Z86.010) Active confirmed Problem 591361808 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 Plan Of Treatment Future Test Test Name Order Date COLONOSCOPY 07/25/2015 COLONOSCOPY 02/19/2017 Insurance Providers Payer Name Payer Address Payer Phone Subscriber Number Group Number Insured Name Patient Relationship to Insured Coverage Start Date Coverage End Date MEDICARE OF [place] [address] [place] [id number] ANGEL BARRERA Self - patient is the insured MED[employer] ATTN CLAIMS [address] [place] [address] [id number] ANGEL BARRERA Self - patient is the insured Medical (General) History Medical History History ICD Code 02/21/2004 Screening Colonos copy was negative other than some diverticulosis and internal hemorrhoids Denies HI,DM,CVA,Lung disease,renal dise ase Colonoscopy in 10/2014--flat adenoma [...]
[2024-10-03 10:15] LABS: Hematocrit 35.6 % (42.0-52.0); Hemoglobin 11.8 g/dl (14.0-18.0); Imm Gran Abs Auto 0.47 X10*3/uL (0.00-0.03); Imm Gran Pct Auto 3.7 % (0.0-0.4); Lymphocytes Absolute Auto 2.6 X10*3/uL (1.2-4.9); MANUAL DIFF FLAG SCAN; Mean Corpuscular HGB Conc 33.1 g/dl (31.0-36.0); Mean Corpuscular Hemoglobin 31.6 pg (27.0-33.0); Mean Corpuscular Volume 95.4 fL (80.0-98.0); NRBC Abs Auto 0.000 X10*3/uL (0.0-0.012); NRBC Pct Auto 0.0 /100WBC (0.0-0.2); Platelet Count 142 X10*3/uL (160-400); Red Blood Count 3.73 X10*6/uL (4.60-5.80); SCAN SMEAR FLAG 1; White Blood Count 12.7 X10*3/uL (4.8-10.8)
[2024-10-03 10:25] LABS: Anion Gap 11 (12-20); Blood Urea Nitrogen 17 mg/dL (9-16); Calcium 8.9 mg/dL (8.4-10.2); Carbon Dioxide 28 mmol/L (22-29); Chloride 106 mmol/L (96-108); Estimated Glomerular Filt Rate > 60; Potassium 4.1 mmol/L (3.3-5.1); Sodium 141 mmol/L (135-145)
== END 2024-10-03 07:23 | disposition home or self-care (01) ==
LOC: HO.HMGCLDS 07:22
PROVIDERS: PCP Internal Medicine; Visit Provider Internal Medicine Cardiovascular Disease
DX: Z95.2 Presence of prosthetic heart valve (principal)
CPT/HCPCS: 36415; 80048; 85025

== ENCOUNTER 2024-10-05 10:37 | Outpatient (REF) | payer MEDICARE, SELFPAY ==
--- OUTSIDE RECORDS SUMMARY | 2024-08-02 05:00 | XMS_ITS ---
Author Organization [facility] Address [address] [place] [address] Care Team Providers Care Per Diem Clerk Name Role Phone Sudha JARAMILLO, Allison Vo Primary Care Provider Un available Keena Lainez Unavailable [phone] Encounters Encounter Location Date Provider Diagnosis [address] [address] 08/02/2024 Keena Lainez Plan Of Treatment Next Appt Details Provider Name:Keena ledesma, 04/19/2025 10:00:00 AM, [address] [place] [address], [address], Progress Notes * Ruy INGRAM WDOB:[birth year] (89 yo M)Acc No.[id number]:08/02/2024 Progress Note Patient: Ruy FISHER Provider: Pat Lainez DPM :1935 A ge:89 Y S ex:Male Date:08/02/2024 Address:[address] [place] [address] Pcp:Taran Palacios Subjective: * Chief Complaints: * * [...] 0 08/02/2024 Generated for Alexsandra maldonado/Han/Penny on: 0 10/05/2024 11:25 AM EDT
--- OUTSIDE RECORDS SUMMARY | 2024-10-05 11:25 | XMS_ITS | Patient Health Record ---
Author Organization [facility] Address [address] [place] [address] Care Team Providers Care Field Software Engineer Name Role Phone Jose L JARAMILLO, [place] Primary Care Provider Inocencio Murcia Unavailable [phone] Reason For Referral No Information Immunizations Vaccine Route Administration Date Status Comme nts Flu vaccine no Preserv 3 and > Unknown 01/24/2014 Admin istered Flu vaccine no Preserv 3 and > Unknown 01/04/2015 Admin istered Influenza Unknown 01/03/2017 Administered Problems Problem Type SNOMED Code ICD Code Onset Dates Problem Status W/U Status Risk Notes Problem 683316643 Encounter for screening for malignant neoplasm of colon (Z12.11) Active confirmed Problem 797984330 History of adenomatous polyp of colon (Z86.010) Active confirmed Problem 26863586 Preprocedural examination (Z01.818) Active confirmed Problem 672786487 History of colon polyps (Z86.010) Active confirmed Problem 679472947 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 Plan Of Treatment Future Test Test Name Order Date COLONOSCOPY 07/25/2015 COLONOSCOPY 02/19/2017 Insurance Providers Payer Name Payer Address Payer Phone Subscriber Number Group Number Insured Name Patient Relationship to Insured Coverage Start Date Coverage End Date MEDICARE OF [place] [address] ERLIN ADAMES [id number] [id number] ANGEL BARRERA Self - patient is the insured MEDEX ATTN CLAIMS [address] [place] [address] [id number] ANGEL BARRERA Self - patient is the insured Medical (General) History Medical History History ICD Code 02/21/2004 Screening Colonos copy was negative other than some diverticulosis and internal hemorrhoids Denies AR,DM,CVA,Lung disease,renal dise ase Colonoscopy in 10/2014--flat adenoma [...]
--- OUTSIDE RECORDS SUMMARY | 2024-10-05 11:25 | XMS_ITS | Data Portability ---
Author Organization [facility] [address] Address [address] [place] [address] Assessment No assessment recorded. Plan of Treatment Reminders Order Date Submit Date Provider Last Modified By Organization Details Last Modified Time Details Appointments None recorded. Lab urinalysis , dipstick 2022 023 [facility] [place], [address], 15:58:42 Referral None recorded. Procedures None recorded. Surgeries None recorded. Imaging None recorded. Medication Orders clotrimazo le-betamet hasone 1 %-0.05 % topical cream 2022 023 [facility], [address] [place], [address], 15:07:46 Patient TargetsNo targets recorded. Patient Instructions Encounter Date Encounter Id Patient Instructions Last Modified By Organization Details Last Modified Time 10/11/2022 [id number] What are ringworm, athlete's foot, and jock [...] infection? You can catch fungal infections through dryt-li-yohs contact with a person who is infected. [...] Analyte Normal = light yellow Not Available [facility] [address], [address], 10/11/2022 15:11:21 10/12/19 23 10/11/2022 urina lysis , dipst ick Unknown Analyte Yellow Not Available [address] [place] [address], [address], 10/11/2022 15:11:21 10/12/19 23 10/11/2022 urina lysis , dipst ick Unknown Analyte Normal = clear Not Available [address] [place] [address], [place], [address], 10/11/2022 15:11:21 10/12/19 23 10/11/2022 urina lysis , dipst ick Unknown Analyte Clear Not Available [address] [place] [address], [address], 10/11/2022 15:11:21 10/12/19 23 10/11/2022 urina lysis , dipst ick Unknown Analyte Normal = negati ve Not Available [address] [place] [address], [address], 10/11/2022 15:11:21 10/12/19 23 10/11/2022 urina lysis , dipst ick Unknown Analyte Negati ve Not Available bryanna souza [address], [place], [address], 10/11/2022 15:11:21 10/12/1910/11/2022 urina lysis , dipst ick Unknown Analyte Normal = Negati ve Not Available [facility] [address], [place], [address], 10/11/2022 15:11:21 10/12/19 23 10/11/2022 urina lysis , dipst ick Unknown Analyte Negati ve Not Available [facility] [address], [place], [address], 10/11/2022 15:11:21 10/12/19 23 10/11/2022 urina lysis , dipst ick Unknown Analyte Normal = Negati ve Not Available [address], [place], [address], 10/11/2022 15:11:21 10/12/1910/11/2022 urina lysis , dipst ick Unknown Analyte Negati ve Not Available [address], [place], [address], 10/11/2022 15:11:21 10/12/1910/11/2022 urina lysis , dipst ick Unknown Analyte Normal = 1.010, 1.015, 1.020 Not Available [address], [place], [address], 10/11/2022 15:11:21 10/12/1910/11/2022 urina lysis , dipst ick Unknown Analyte 1.030 Not Available [address] [place] [address], [place], [address], 10/11/2022 15:11:21 10/12/19 23 10/11/2022 urina lysis , dipst ick Unknown Analyte Normal = Negati ve Not Available 2099bryanna souza [address], [place], [address], 10/11/2022 15:11:21 10/12/19 23 10/11/2022 urina lysis , dipst ick Unknown Analyte Trace- intact Not Available [address] [place] [address], [place], [address], 10/11/2022 15:11:21 10/12/19 23 10/11/2022 urina lysis , dipst ick Unknown Analyte Normal = 6.5, 7.0, 7.5, 8.0 Not Available [address] [place] [address], [place], [address], 10/11/2022 15:11:21 10/12/19 23 10/11/2022 urina lysis , dipst ick Unknown Analyte 5.5 Not Available [address] [place] [address], [place], [address], 10/11/2022 15:11:21 10/12/19 23 10/11/2022 urina lysis , dipst ick Unknown Analyte Normal = Negati ve Not Available [address], [place], [address], 10/11/2022 15:11:21 10/12/19 23 10/11/2022 urina lysis , dipst ick Unknown Analyte Negati ve Not Available [address] [place] [address], [place], [address], 10/11/2022 15:11:21 10/12/19 23 10/11/2022 urina lysis , dipst ick Unknown Analyte Normal = 0.2, 1.0 Not Available [address], [place], [address], 10/11/2022 15:11:21 10/12/1910/11/2022 urina lysis , dipst ick Unknown Analyte 0.2 E.U./d L Not Available [address], [place], [address], 10/11/2022 15:11:21 10/12/1910/11/2022 urina lysis , dipst ick Unknown Analyte Normal = Negati ve Not Available [address], [place], [address], 10/11/2022 15:11:21 10/12/19 23 10/11/2022 urina lysis , dipst ick Unknown Analyte Negati ve Not Available [address], [place], [address], 10/11/2022 15:11:21 10/12/1910/11/2022 urina lysis , dipst ick Unknown Analyte Normal = Negati ve Not Available [address], [place], [address], 10/11/2022 15:11:21 10/12/1910/11/2022 urina lysis , dipst ick Unknown Analyte Negati ve Not Available [address], [place], [address], 10/11/2022 15:11:21 Result Notes None recorded. Problems No Known Problems Procedures Surgical History Date Name Laterality Status Provider Name and Address Organization Details Recorded Time procedure on knee completed DIANNE[facility]absEY [place] - [facility] 10/11/2022 14:35:35 prosthetic arthroplasty of hip completed IDANNEAislelabsEY [place] - [facility] 10/11/2022 14:35:51 rectal polypectomy completed [facility]NE[facility] Labs [place] - [facility] 10/11/2022 14:36:20 [...] Pulse oximetry Heart rate Body temperature Systolic And Diastolic Provider Name and Address Organization Details Last Updated DateTime 3 182.88 cm 26.4 kg/m2 52485.5 1 g 17 /min 98 % 98 % 55 /min 97.9 [degF] 151/75 mm[Hg] DIANNE [facility] 14:37:11 Social History Question Answer Notes LastModified by [employer] Details LastModified Time Tobacco Smoking Status Never Smoker [facility] 10/11/2022 14:35:10 Have You Recently Traveled Abroad? No [email or web address] Information not available 10/11/2022 Sex: Unknown Functional Status Question Answer Note LastModified by [employer] Details LastModified Time Do you use any illicit or recreational drugs? No Information not available 10/11/2022 Do you or have you ever used any other forms of tobacco or nicotine? No [email or web address] Information not available 10/11/2022 What is your level of alcohol consumption? Occasional Information not available 10/11/2022 Mental Status None recorded. Family History Relationship Description Onset Age of this Age Resolved Age Notes LastModified by Organization Details LastModified Time Father No current problems or disability Not available 10/11 14:34:47 Mother No current problems or disability [email or web address] Not available 10/11 14:34:47 Medical History No medical history recorded. Past Encounters Encounter ID Performer Location Encounter Start Date Encounter Closed Date Diagnosis/Indication Diagnosis SNOMED-CT Code Diagnosis ICD10 Code Diagnosis Note [id number] [facility] [address] [address] 10/25/2020 19:24:14 10/25/2020 20:09:32 [id number] [place] [address] [address] [address] 10/11/2022 13:49:51 10/11/2022 15:13:21 Tinea cruris 774080587 B35.6 Health Concerns Section Related Observation LastModified by Organization Detai ls LastModified Time None Recorded Concern Status LastModified by Organization Details LastModified Time None Recorded Advance Directives Directive None Recorded Payers Insurance Date Sequence Insurance Name Policy Number Policy Dumont Covered Member ID Dumont Member ID Guarantor Name 10/11/2022 1 [place] [employer] Ruy Ingram [id number] Ruy Ingram 10/11/2022 2 [place] [id number] Ruy Ingram [id number] Ruy Ingram Notes Date Note Type [...] Robert NP [address] [place], [address], [place] - [facility] 10/11/2022 15:59:02
[2024-10-05 13:14] LABS: Appearance Urine Clear; Glucose Urine UA Negative (Negative); PH 5.5 (5.0-9.0); Specific Gravity - Urine 1.020 (1.005-1.025)
== END 2024-10-05 10:38 | disposition home or self-care (01) ==
LOC: HO.HMGCLDS 10:37
PROVIDERS: PCP Internal Medicine; Visit Provider Nurse Practitioner Family
DX: R31.9 Hematuria, unspecified (principal)
CPT/HCPCS: 81001

== ENCOUNTER 2024-10-12 09:25 | Outpatient (AMB) | payer MEDICARE, SELFPAY ==
--- OUTSIDE RECORDS SUMMARY | 2024-08-02 05:00 | XMS_ITS ---
Author Organization [facility] Address [address] [place] [address] Care Team Providers Care Button Tufter Name Role Phone Sudha JARAMILLO, Allison Vo Primary Care Provider Un available Keena Lainez Unavailable [phone] Encounters Encounter Location Date Provider Diagnosis [address] [address] 08/02/2024 Keena Lainez Plan Of Treatment Next Appt Details Provider Name:Keena ledesma, 04/19/2025 10:00:00 AM, [address] [place] [address], [address], Progress Notes * Ruy INGRAM WDOB:[birth year] (89 yo M)Acc No.[id number]:08/02/2024 Progress Note Patient: Ruy FISHER Provider: Pat Lainez DPM :1935 A ge:89 Y S ex:Male Date:08/02/2024 Address:[address] [place] [address] Pcp:Taran Palacios Subjective: * Chief Complaints: * [...] 08/02/2024 Generated for Alexsandra maldonado/Han/Penny on: 0 10/12/2024 09:52 AM EDT
--- NOTE | 2024-10-12 09:39 | MHC.OFFVIS ---
Intake Visit Reasons: 3m follow up Intake Note: Patient presents today for follow up on: Hematuria Urology Medications: none Blood Thinner: Apixaban Smoker: Never Back Padder Required: No Accompanied by: Self / Same As Patient Allergies No Known Allergies Allergy (Verified 10/12/24 11:13) Medication List - Last Reconciled 10/12/24 by KARLOS Montiel-BROOKLYNN apixaban (Eliquis) 5 mg PO BID levothyroxine 50 mcg PO DAILY@0600 HPI Comments Details: Ruy is a pleasant 89 year old male patient of Dr. Domingo. He has a PMH of peripheral neuropathy, BPH, osteoarthritis, lumbar degenerative disc disease, and dyslipidemia. He presents to the office today for follow-up of his gross hematuria. Of note, patient was seen approximately 3 months ago as a new patient for gross hematuria at which time we discussed potential causes of gross hematuria in reviewed most recent CT that patient had had completed prior to his initial visit. In discussion with the patient today he denies having had any other episodes of gross hematuria. Previous urine cytology results were reviewed with the patient today 07/28 Negative for high-grade urothelial carcinoma. CT angio 06/27 notes the kidneys and ureters with no hydronephrosis, nephrolithiasis, or suspicious masses. Simple appearing renal cysts in hypodensities that are too small to characterize are noted, requiring no dedicated follow-up per radiology report. We discussed potential causes of gross hematuria as well as in the setting of anticoagulation. He denies any bothersome urinary issues. He does report episodes of urinary urgency and frequency as well as nocturia however feels he is managing these symptoms well independently. He discusses his recent pacemaker placement with Dr. Browning. He discusses being very active with violeta, attending [facility] for body sculpting class, and attends cardiac rehab here at [facility]. He denies dysuria, foul smelling urine, changes to urinary stream, flank pain, fever, and or chills. He is happy with his current voiding parameters. In review of patient's chart it appears PSAs are as follows 07/27 0.9 We discussed further workup to include cystoscopy and risks and benefits of this intervention. In office urinalysis results reviewed with the patient today trace microscopic hematuria noted. He denies any previous history of nicotine dependence and or workplace chemical exposure. He otherwise offers no other issues or concerns at this time. 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 Mother No problems noted. Social History Household Members: Spouse Housing: House Do you presently have visiting nurse or other home services: No Alcohol intake: former Patient Tobacco Use Status: Never used Tobacco e-Cigarette/Vaping Use: Never Used Second Hand Smoke Exposure: Yes service: No Current occupational status: retired Cognitive needs: No Hearing needs: Yes Vision needs: Yes (Pt wear glasses) Review of Systems Const All systems reviewed & are unremarkable except as noted in HPI and below Physical Exam Const General: cooperative, healthy appearing, comfortable, no acute distress, well developed, alert and awake Orientation/consciousness: patient oriented x3 Limitations: no limitations HEENT Head: Yes normal to inspection, Yes normocephalic and Yes atraumatic Ears: hearing grossly normal bilaterally Eyes General: appearance normal, both eyes and all related structures Neck Neck: Yes normal visual inspection and Yes trachea midline Chest Chest palpation & inspection: normal inspection of the chest Resp Effort & Inspection: normal respiratory effort and able to speak in complete sentences Cardio Rate: regular rate GI Inspection: Yes normal to inspection General: Yes no CVA tenderness Back/Spine/Pelvis Back: no CVA tenderness Skin General skin exam: no rashes or lesions noted Neuro General: patient oriented x3 Extrem General: Yes normal to inspection Psych Appearance: grossly normal and well kempt Mental Status: mental status grossly normal Speech and movement: Normal speech and movement present and Clear speech present Affect: normal affect Attitude: cooperative Thought process: Normal thought process present Thought content: Normal thought content present Insight: Fair insight present (Psych) Judgement: Fair judgement present (Psych) Results AMB Urinalysis, Automated UA Leukoctes 0 Glenn/uL Last Edit by Farhandavejeanna Estebanevin [facility] on 10/12/24 09:54 UA Nitrite [facility], [facility] on 10/12/24 09:54 UA Urobilinogen 0.2 mg/dL Last Edit by [facility] Eulalia, [facility] on 10/12/24 09:54 UA Protein 15 mg/dL Last Edit by [facility], [facility] on 10/12/24 09:54 UA pH 6.0 Last Edit by [facility] Eulalia, [facility] on 10/12/24 09:54 UA Blood 10 Jesse/uL Last Edit by [facility], [facility] on 10/12/24 09:54 UA Specific [place] 1.015 Last Edit by [facility] E[facility]alia, [facility] on 10/12/24 09:54 UA Ketone Last Edit by [facility], [facility] on 10/12/24 09:54 UA Bilirubin 0 mg/dL Last Edit by [facility], [facility] on 10/12/24 09:54 UA Glucose 0 mg/dL Last Edit by [facility], [facility] on 10/12/24 09:54 Results Reviewed Results Reviewed: Laboratory Last Values Urine pH (Auto) 6.0 10/12/24 09:45 Specific [place] (Auto) 1.015 10/12/24 09:45 Urine Protein (Auto) 15 mg/dL 10/12/24 09:45 Glucose (UA)(Auto) 0 mg/dL 10/12/24 09:45 Urine Blood (Auto) 10 Jesse/uL 10/12/24 09:45 Urine Bilirubin (Auto) 0 mg/dL 10/12/24 09:45 Urine Urobilinogen (Auto) 0.2 mg/dL 10/12/24 09:45 Leukocyte Esterase (Auto) 0 Glenn/uL 10/12/24 09:45 Assessment & Plan Assessment & Plan (1) Hematuria: Code(s): R31.9 - Hematuria, unspecified Category: Medical (2) BPH (benign prostatic hyperplasia): Code(s): N40.0 - Benign prostatic hyperplasia without lower urinary tract symptoms Category: Medical Qualifiers: Lower urinary tract symptom presence: unspecified whether lower urinary tract symptoms present Qualified Code(s): N40.0 - Benign prostatic hyperplasia without lower urinary tract symptoms Plan In office urinalysis results reviewed with the patient today; as noted above; will send for urine cytology. Previous urine cytology results reviewed with the patient today; as noted above. We discussed importance of obtaining PSA as planned as this was ordered at last office visit. He currently denies any bothersome urinary issues or concerns. He reports to be happy with current voiding parameters. He denies having had any other episodes of gross hematuria. We did discussed potential causes of gross hematuria as well as workup to include cystoscopy; we discussed risks and benefits of this intervention; will continue with surveillance monitoring at this time per patient request. All questions were answered. Follow-up in 6 months with PSA; or sooner with any issues, concerns, and or questions. Orders: Orders Prostate Specific Antigen Today N40.0 - Benign prostatic hyperplasia without lower urinary tract symptoms AMB Urinalysis Automated Today Z13.9 - Encounter for screening, unspecified Urine Cytology Today R31.9 - Hematuria, unspecified Patient Instructions: The patient had an opportunity to ask questions regarding the treatment plan. All questions were answered. Physical exam, labs, and imaging were discussed and reviewed in detail. As well as risks, benefits, and discussion of treatment choices. No major barriers to understanding were identified. The patient expressed understanding and agreement with the above treatment plan. The patient was made aware they should contact our office by phone for worsening of their current condition, the appearance of new symptoms, or with any questions or concerns. Compliance is encouraged with any medications and follow up testing that is ordered. It is a privilege to be allowed the opportunity to participate in? your urological care.? Again, if you have any questions or concerns If you have any questions or concerns please do not hesitate to contact me. The office is [phone]. This note is constructed using voice recognition software. While every effort has been made to ensure accuracy tie up worker errors may have been included. Yours sincerely, DEWAYNE Montiel Coding Level of Care Code Est Pt Level 3 (46043) Complex EM visit Add On G2211 Diagnoses Hematuria R31.9 Benign prostatic hyperplasia, unspecified whether lower urinary tract symptoms present N40.0 Lower urinary tract symptom presence: unspecified whether lower urinary tract symptoms present
--- OUTSIDE RECORDS SUMMARY | 2024-10-12 09:53 | XMS_ITS | Patient Health Record ---
Author Organization [facility] Address [address] [place] [address] Care Team Providers Care Cone Picker Name Role Phone Jose L JARAMILLO, [place] Primary Care Provider Inocencio Murcia Unavailable [phone] Reason For Referral No Information Immunizations Vaccine Route Administration Date Status Comme nts Flu vaccine no Preserv 3 and > Unknown 01/24/2014 Admin istered Flu vaccine no Preserv 3 and > Unknown 01/04/2015 Admin istered Influenza Unknown 01/03/2017 Administered Problems Problem Type SNOMED Code ICD Code Onset Dates Problem Status W/U Status Risk Notes Problem 224220880 Encounter for screening for malignant neoplasm of colon (Z12.11) Active confirmed Problem 242373002 History of adenomatous polyp of colon (Z86.010) Active confirmed Problem 41020686 Preprocedural examination (Z01.818) Active confirmed Problem 069241258 History of colon polyps (Z86.010) Active confirmed Problem 819515818 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
--- OUTSIDE RECORDS SUMMARY | 2024-10-12 09:53 | XMS_ITS | Data Portability ---
Author Organization FRANCK Becerra [facility] [address] Address [address] [place] [address] Assessment No assessment recorded. Plan of Treatment Reminders Order Date Submit Date Provider Last Modified By Organization Details Last Modified Time Details Appointments None recorded. Lab urinalysis , dipstick 2022 023 kylezArt _[facility], [facility] [place], [address], 15:58:42 Referral None recorded. Procedures None recorded. Surgeries None recorded. Imaging None recorded. Medication Orders clotrimazo le-betamet hasone 1 %-0.05 % topical cream 2022 023 [facility], [address] [place], [address], 15:07:46 Patient TargetsNo targets recorded. Patient Instructions Encounter Date Encounter Id Patient Instructions Last Modified By Organization Details Last Modified Time 10/11/2022 [id number] What are ringworm, athlete's foot, and jock [...] infection? You can catch fungal infections through ibzp-ke-mzda contact with a person who is infected. [...] Analyte Normal = light yellow Not Available [facility] [address], [address], 10/11/2022 15:11:21 10/12/19 23 10/11/2022 urina lysis , dipst ick Unknown Analyte Yellow Not Available [address] [place] [address], [address], 10/11/2022 15:11:21 10/12/19 23 10/11/2022 urina lysis , dipst ick Unknown Analyte Normal = clear Not Available [address] [place] [address], [place], [address], 10/11/2022 15:11:21 10/12/19 23 10/11/2022 urina lysis , dipst ick Unknown Analyte Clear Not Available [address] [place] [address], [address], 10/11/2022 15:11:21 10/12/19 23 10/11/2022 urina lysis , dipst ick Unknown Analyte Normal = negati ve Not Available [address] [place] [address], [address], 10/11/2022 15:11:21 10/12/19 23 10/11/2022 urina lysis , dipst ick Unknown Analyte Negati ve Not Available bryanna souza [address], [place], [address], 10/11/2022 15:11:21 10/12/1910/11/2022 urina lysis , dipst ick Unknown Analyte Normal = Negati ve Not Available [facility] [address], [place], [address], 10/11/2022 15:11:21 10/12/19 23 10/11/2022 urina lysis , dipst ick Unknown Analyte Negati ve Not Available [facility] [address], [place], [address], 10/11/2022 15:11:21 10/12/19 23 10/11/2022 urina lysis , dipst ick Unknown Analyte Normal = Negati ve Not Available [address], [place], [address], 10/11/2022 15:11:21 10/12/1910/11/2022 urina lysis , dipst ick Unknown Analyte Negati ve Not Available [address], [place], [address], 10/11/2022 15:11:21 10/12/1910/11/2022 urina lysis , dipst ick Unknown Analyte Normal = 1.010, 1.015, 1.020 Not Available [address], [place], [address], 10/11/2022 15:11:21 10/12/1910/11/2022 urina lysis , dipst ick Unknown Analyte 1.030 Not Available [address] [place] [address], [place], [address], 10/11/2022 15:11:21 10/12/19 23 10/11/2022 urina lysis , dipst ick Unknown Analyte Normal = Negati ve Not Available 2099bryanna souza [address], [place], [address], 10/11/2022 15:11:21 10/12/19 23 10/11/2022 urina lysis , dipst ick Unknown Analyte Trace- intact Not Available [address] [place] [address], [place], [address], 10/11/2022 15:11:21 10/12/19 23 10/11/2022 urina lysis , dipst ick Unknown Analyte Normal = 6.5, 7.0, 7.5, 8.0 Not Available [address] [place] [address], [place], [address], 10/11/2022 15:11:21 10/12/19 23 10/11/2022 urina lysis , dipst ick Unknown Analyte 5.5 Not Available [address] [place] [address], [place], [address], 10/11/2022 15:11:21 10/12/19 23 10/11/2022 urina lysis , dipst ick Unknown Analyte Normal = Negati ve Not Available [address], [place], [address], 10/11/2022 15:11:21 10/12/19 23 10/11/2022 urina lysis , dipst ick Unknown Analyte Negati ve Not Available [address] [place] [address], [place], [address], 10/11/2022 15:11:21 10/12/19 23 10/11/2022 urina lysis , dipst ick Unknown Analyte Normal = 0.2, 1.0 Not Available [address], [place], [address], 10/11/2022 15:11:21 10/12/1910/11/2022 urina lysis , dipst ick Unknown Analyte 0.2 E.U./d L Not Available [address], [place], [address], 10/11/2022 15:11:21 10/12/1910/11/2022 urina lysis , dipst ick Unknown Analyte Normal = Negati ve Not Available [address], [place], [address], 10/11/2022 15:11:21 10/12/19 23 10/11/2022 urina lysis , dipst ick Unknown Analyte Negati ve Not Available [address], [place], [address], 10/11/2022 15:11:21 10/12/1910/11/2022 urina lysis , dipst ick Unknown Analyte Normal = Negati ve Not Available [address], [place], [address], 10/11/2022 15:11:21 10/12/1910/11/2022 urina lysis , dipst ick Unknown Analyte Negati ve Not Available [address], [place], [address], 10/11/2022 15:11:21 Result Notes None recorded. Problems No Known Problems Procedures Surgical History Date Name Laterality Status Provider Name and Address Organization Details Recorded Time procedure on knee completed [email or web address] [place] [facility] 10/11/2022 14:35:35 prosthetic arthroplasty of hip completed [email or web address] [place] [facility] 10/11/2022 14:35:51 [facility] [place] [facility] 10/11/2022 14:36:20 Imaging [...] Updated DateTime 3 182.88 cm 26.4 kg/m2 04856.5 1 g 17 /min 98 % 98 % 55 /min 97.9 [degF] 151/75 mm[Hg] [facility] 14:37:11 Social History Question Answer Notes LastModified by [facility] Details LastModified Time Tobacco Smoking Status Never Smoker [facility] 10/11/2022 14:35:10 Have You Recently Traveled Abroad? No [email or web address] Information not available 10/11/2022 Sex: Unknown Functional Status Question Answer Note LastModified by [facility] Details LastModified Time Do you use any illicit or recreational drugs? No [email or web address] Information not available 10/11/2022 Do you or have you ever used any other forms of tobacco or nicotine? No Information not available 10/11/2022 What is your level of alcohol consumption? Occasional Information not available 10/11/2022 Mental Status None recorded. Family History Relationship Description Onset Age of this Age Resolved Age Notes LastModified by Organization Details LastModified Time Father No current problems or disability [email or web address] Not available 10/11 14:34:47 Mother No current problems or disability [email or web address] Not available 10/11 14:34:47 Medical History No medical history recorded. Past Encounters Encounter ID Performer Location Encounter Start Date Encounter Closed Date Diagnosis/Indication Diagnosis SNOMED-CT Code Diagnosis ICD10 Code Diagnosis Note [id number] [facility] [address] [address] 10/25/2020 19:24:14 10/25/2020 20:09:32 [id number] [place] [address] [address] 10/11/2022 13:49:51 10/11/2022 15:13:21 Tinea cruris 723230384 B35.6 Health Concerns Section Related Observation LastModified by Organization Detai ls LastModified Time None Recorded Concern Status LastModified by Organization Details LastModified Time None Recorded Advance Directives Directive None Recorded Payers Insurance Date Sequence Insurance Name Policy Number Policy Dumont Covered Member ID Dumont Member ID Guarantor Name 10/11/2022 1 [place] [employer] Ruy Ingram [id number] Ruy Ingram 10/11/2022 2 [place] [id number] Ruy Ingram [id number] Ruy Ingram Notes Date Note Type [...] Robert NP [address] [place], [address], [place] - [facility] 10/11/2022 15:59:02
== END 2024-10-12 10:15 | disposition home or self-care (01) ==
LOC: HO.HUSH 09:26
PROVIDERS: PCP Internal Medicine; Visit Provider Nurse Practitioner Family
DX: R31.9 Hematuria, unspecified (principal); N40.0 Benign prostatic hyperplasia without lower urinary tract symptoms; Z13.9 Encounter for screening, unspecified
CPT/HCPCS: 99213; G2211

== ENCOUNTER 2024-10-12 09:25 | Outpatient (REF) | payer MEDICARE, SELFPAY | END 2024-10-12 09:26 | disposition home or self-care (01) | LOC: HO.LNP 09:25 | PROVIDERS: PCP Internal Medicine; Visit Provider Nurse Practitioner Family | DX: N40.0 Benign prostatic hyperplasia without lower urinary tract symptoms (principal); R31.9 Hematuria, unspecified; Z13.9 Encounter for screening, unspecified | CPT/HCPCS: 81003; 88112; 99212 ==

== ENCOUNTER 2024-11-15 10:00 | Outpatient (RCR) | payer MEDICARE, SELFPAY | END 2024-11-15 11:09 | disposition home or self-care (01) | LOC: HO.CR 10:00 | PROVIDERS: PCP Internal Medicine; Visit Provider Internal Medicine Cardiovascular Disease | DX: Z95.2 Presence of prosthetic heart valve (principal) | CPT/HCPCS: 93798 ==

== ENCOUNTER 2024-11-16 08:25 | Outpatient (AMB) | payer MEDICARE, SELFPAY ==
--- OUTSIDE RECORDS SUMMARY | 2024-08-02 05:00 | XMS_ITS ---
Author Organization [facility] Address [address] [place] [address] Care Team Providers Care Electric Organ Assembler And Checker Name Role Phone Sudha JARAMILLO, Allison Vo Primary Care Provider Un available Keena Lainez Unavailable [phone] Encounters Encounter Location Date Provider Diagnosis [address] [address] 08/02/2024 Keena Lainez Plan Of Treatment Next Appt Details Provider Name:Keena ledesma, 04/19/2025 10:00:00 AM, [address] [place] [address], [address], Progress Notes * Ruy INGRAM WDOB:[birth year] (89 yo M)Acc No.[id number]:08/02/2024 Progress Note Patient: Ruy FISHER Provider: Pat Lainez DPM :1935 A ge:89 Y S ex:Male Date:08/02/2024 Address:[address] [place] [address] Pcp:Taran Palacios Subjective: * Chief Complaints: * [...] 08/02/2024 Generated for Alexsandra maldonado/Han/Penny on: 0 11/16/2024 08:41 AM EDT
[2024-11-16 08:33] VITALS: BMI 27.1
--- NOTE | 2024-11-16 08:33 | MHC.OFFVIS ---
Vital Signs 11/16/24 08:33 Height 6 ft Weight 200 lb BMI 27.1 Intake Visit Reasons: ov - Right TKA 01/09/2019 KI-one year follow up Intake Note: Ruy is an 89 year old male who presents today for a yearly follow up s/p Right TKA 01/09/[address] Johnson. Patient reports that the right knee is doing great with no concerns. He does however complain of left hip/lower back pain - he has had trouble with this in the past but it is the worst it has ever been. He is asking about possible imaging and referral for his back. Allergies No Known Allergies Allergy (Verified 11/16/24 08:33) HPI HPI ov - Right TKA 01/09/2019 KI-one year follow up: Details: Ruy is an 89 year old male who presents today for a yearly follow up s/p Right TKA 01/09/[address] Johnson. He has been seeing me for his poor left abductor funtion partially 2/2 prior QUEENIE. Patient reports that the right knee is doing great with no concerns. He does however complain of left hip/lower back pain - he has had trouble with this in the past but it is the worst it has ever been. He is asking about possible imaging and referral for his back. He has cardiac surgery this past winter. 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 Mother No problems noted. Social History Household Members: Spouse Housing: House Do you presently have visiting nurse or other home services: No Alcohol intake: former Patient Tobacco Use Status: Never used Tobacco e-Cigarette/Vaping Use: Never Used Second Hand Smoke Exposure: Yes service: No Current occupational status: retired Cognitive needs: No Hearing needs: Yes Vision needs: Yes (Pt wear glasses) Physical Exam Vital Signs: BMI result Body Mass Index 27.1 Extrem Other: left hip with + Stinchfield and mildly + impingement. 90flexion/20IR/40ER Assessment & Plan Assessment & Plan (1) Lumbar back pain: Code(s): M54.50 - Low back pain, unspecified Category: Medical Plan: Primary complaint is lumbar spine. A referral was made to Pain Management. (2) S/P total left hip arthroplasty: Code(s): Z96.642 - Presence of left artificial hip joint Category: Surgical Plan: Stable. Abductor weakness constant. (3) Primary osteoarthritis of right knee: Comment: S/P total right knee arthroplasty in January 2019 Code(s): M17.11 - Unilateral primary osteoarthritis, right knee Category: Medical Plan: Stable Coding Level of Care Code Est Pt Level 3 (55722) Global (80424) Diagnoses Lumbar back pain M54.50 S/P total left hip arthroplasty Z96.642 Primary osteoarthritis of right knee M17.11
--- OUTSIDE RECORDS SUMMARY | 2024-11-16 08:42 | XMS_ITS | Patient Health Record ---
Author Organization [facility] Address [address] [place] [address] Care Team Providers Care Corporate Real Estate Specialist Name Role Phone Jose L JARAMILLO, [place] Primary Care Provider Inocencio Murcia Unavailable [phone] Reason For Referral No Information Immunizations Vaccine Route Administration Date Status Comme nts Flu vaccine no Preserv 3 and > Unknown 01/24/2014 Admin istered Flu vaccine no Preserv 3 and > Unknown 01/04/2015 Admin istered Influenza Unknown 01/03/2017 Administered Problems Problem Type SNOMED Code ICD Code Onset Dates Problem Status W/U Status Risk Notes Problem 572125910 Encounter for screening for malignant neoplasm of colon (Z12.11) Active confirmed Problem 632648216 History of adenomatous polyp of colon (Z86.010) Active confirmed Problem 10540193 Preprocedural examination (Z01.818) Active confirmed Problem 791975720 History of colon polyps (Z86.010) Active confirmed Problem 302391451 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 Plan Of Treatment Future Test Test Name Order Date COLONOSCOPY 07/25/2015 COLONOSCOPY 02/19/2017 Insurance Providers Payer Name Payer Address Payer Phone Subscriber Number Group Number Insured Name Patient Relationship to Insured Coverage Start Date Coverage End Date MEDICARE OF [place] [address] [place] [address] [id number] ANGEL BARRERA Self - patient is the insured MED[employer] ATTN CLAIMS [address] [place] [address] [phone] [id number] ANGEL BARRERA Self - patient is the insured Medical (General) History Medical History History ICD Code 02/21/2004 Screening Colonos copy was negative other than some diverticulosis and internal hemorrhoids Denies [place],DM,CVA,Lung disease,renal dise ase Colonoscopy in 10/2014--flat adenoma [...]
== END 2024-11-16 09:04 | disposition home or self-care (01) ==
LOC: HO.HOS 08:31
PROVIDERS: PCP Internal Medicine; Visit Provider Orthopaedic Surgery
DX: M54.50 Low back pain, unspecified (principal); Z96.642 Presence of left artificial hip joint; M17.11 Unilateral primary osteoarthritis, right knee
CPT/HCPCS: 99024; 99213

== ENCOUNTER → 2024-11-16 08:25 | Outpatient (BNVA) | payer MEDICARE, SELFPAY | PROVIDERS: PCP Internal Medicine; Visit Provider Orthopaedic Surgery | DX: Z47.1 Aftercare following joint replacement surgery (principal); Z96.642 Presence of left artificial hip joint; M17.11 Unilateral primary osteoarthritis, right knee; M54.50 Low back pain, unspecified | CPT/HCPCS: 99212 ==

== ENCOUNTER 2024-11-23 14:24 | Outpatient (AMB) | payer MEDICARE, SELFPAY ==
--- OUTSIDE RECORDS SUMMARY | 2024-08-02 05:00 | XMS_ITS ---
Author Organization [facility] Address [address] [place] [address] Care Team Providers Care Imaging Account Manager Name Role Phone Sudha JARAMILLO, Allison Vo Primary Care Provider Un available Keena Lainez Unavailable [phone] Encounters Encounter Location Date Provider Diagnosis [address] [address] 08/02/2024 Keena Lainez Plan Of Treatment Next Appt Details Provider Name:Keena ledesma, 04/19/2025 10:00:00 AM, [address] [place] [address], [address], Progress Notes * Ruy INGRAM WDOB:[birth year] (89 yo M)Acc No.[id number]:08/02/2024 Progress Note Patient: Ruy FISHER Provider: Pat Lainez DPM :1935 A ge:89 Y S ex:Male Date:08/02/2024 Address:[address] [place] [address] Pcp:Taran Palacios Subjective: * Chief Complaints: * [...] 08/02/2024 Generated for Alexsandra maldonado/Han/Penny on: 0 11/23/2024 02:34 PM EDT
--- NOTE | 2024-11-23 14:32 | MHC.OFFVIS ---
Vital Signs 11/23/24 14:33 Height 6 ft Weight 200 lb BMI 27.1 BP 138/63 Blood Pressure Location Lt brachial Position Sitting Respiration 18 Pulse 63 Pulse Source Pulse Oximeter Pulse Oximetry (%) 99 Oxygen Delivery Method Room Air Intake Visit Reasons: Low Back Pain Grocery Checker Required: No Allergies No Known Allergies Allergy (Verified 11/23/24 14:34) HPI Comments Details: Ruy is very pleasant 89 years old gentleman who presents in my office with complains on pain in the projection of the lateral left hip. He reports that this pain started at least 2 years ago. He does not know what caused this problem. In the distant past he had total hip replacement performed by Dr. Merida. However the pain started much longer after the procedure. He reports that he is able to sleep normally because of his pain, but he can not do activities of daily living he is able to take care of himself and he can not function normally. He is retired individual. He is self mobile. He reports that movements aggravate his pain the pain is increased after sitting and is decreased after exercise. In terms of tissue damage he reports his pain as throbbing, cutting, wrenching, aching, heavy, suffocating sensation. He had images performed in Dr. Merida office demonstrating excellent alignment and position of the replace hip. He had physical therapy recently related to his heart is conditions but Sissydian had physical therapy for current pain. He never had any injections in the past. His past medical history significant for dysrhythmia, history of aortic valve stenosis treated with TAVR, also has pacemaker inserted he is suffering from anemia shortness of breath and hypothyroidism. He denies smoking cigarettes denies drinking alcohol denies coffee caffeinated beverages he denies recreational drugs. 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) S/P TAVR (transcatheter aortic valve replacement) History of permanent cardiac pacemaker placement History of total right knee replacement (TKR) History of cataract extraction H/O right hemicolectomy History of total left hip replacement History of arthroscopy of right knee Family History Father No problems noted. Mother No problems noted. Social History Household Members: Spouse Housing: House Do you presently have visiting nurse or other home services: No Alcohol intake: former Patient Tobacco Use Status: Never used Tobacco e-Cigarette/Vaping Use: Never Used Second Hand Smoke Exposure: Yes service: No Current occupational status: retired Cognitive needs: No Hearing needs: Yes Vision needs: Yes (Pt wear glasses) Review of Systems Const All systems reviewed & are unremarkable except as noted in HPI and below ENT Reports Normal hearing present Neuro Reports Normal hearing present, Denies Abnormal speech present, Denies confusion and Denies Sensory deficit (Neuro) Psych Denies confusion Physical Exam Vital Signs: Last Vital Signs Pulse 63 11/23/24 14:33 Resp 18 11/23/24 14:33 BP 138/63 11/23/24 14:33 Pulse Ox 99 11/23/24 14:33 Oxygen Delivery Method Room Air 11/23/24 14:33 BMI result Body Mass Index 27.1 Const General: no acute distress; No confusion Nutritional Appearance: average body habitus and well nourished Orientation/consciousness: patient oriented x3 and No confusion Limitations: no limitations Eyes General: appearance normal, both eyes and all related structures Pupils: Equal, round and reactive pupils present EOM: EOMs intact bilaterally Neck Neck: Yes full ROM Chest Chest palpation & inspection: normal inspection of the chest Resp Effort & Inspection: normal respiratory effort, able to speak in complete sentences, normal respiratory pattern, no audible wheezes and no cough Cardio Jugular venous distension: no JVD GI Inspection: Yes normal to inspection Neuro General: patient oriented x3, gait normal and No confusion Cranial nerves: Yes CN's II-XII intact bilaterally, Yes Equal, round and reactive pupils present, Yes Normal hearing present and Yes Ability to bilaterally elevate shoulders present Speech: No Abnormal speech present Gait exam (Neuro): Normal gait present Motor exam (neuro): 5/5 motor strength present throughout Sensory Exam: No Sensory deficit (Neuro) Extrem Other: There is no tenderness on palpation in paraspinal spinal region lumbar spine. There is no tenderness on palpation in projection of the left sacroiliac joint. Marcus test is negative for the pain in the back however he reports discomfort in the projection of the iliotibial band. Palpation of the left iliotibial band is very tender. Slight radiation into the groin however medial rotation and lateral rotation aggravate pain in the groin very minimally. 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 I will refer him for physical therapy with diagnosis of iliotibial band syndrome and presence of left artificial hip joint. I will see him in 2 months. I gave him brochure of spinal cord stimulator [employer], if his condition will not be improved I may consider [employer] spinal cord stimulator positioned in L2-L3 L3-L4 left lumbar gutter to alleviate his pain in the left hip. This patient is on blood thinners and remains to be seen if we can stop this medication. If we can not stop his blood thinner Eliquis at least for 3-4 days then neuromodulation will be contraindicated for this patient Orders: Orders PT Evaluation and Treatment Today M76.32 - Iliotibial band syndrome, left leg, Z96.642 - Presence of left artificial hip joint Patient Instructions: I here by testify that I spent 45 minutes in conversation with this patient as well as planning his care and organizing this note. Coding Level of Care Code New Pt Level 4 (55651) Diagnoses Iliotibial band syndrome affecting left lower leg M76.32 S/P total left hip arthroplasty Z96.642 Chronic pain syndrome G89.4
[2024-11-23 14:33] VITALS: BP 138/63; PULSE 63; RESP 18; O2SAT 99; BMI 27.1
--- OUTSIDE RECORDS SUMMARY | 2024-11-23 14:35 | XMS_ITS | Patient Health Record ---
Author Organization [facility] Address [address] [place] [address] Care Team Providers Care Assistant Wrestling Coach Name Role Phone Jose L JARAMILLO, [place] Primary Care Provider Inocencio Murcia Unavailable [phone] Reason For Referral No Information Immunizations Vaccine Route Administration Date Status Comme nts Flu vaccine no Preserv 3 and > Unknown 01/24/2014 Admin istered Flu vaccine no Preserv 3 and > Unknown 01/04/2015 Admin istered Influenza Unknown 01/03/2017 Administered Problems Problem Type SNOMED Code ICD Code Onset Dates Problem Status W/U Status Risk Notes Problem 156873777 Encounter for screening for malignant neoplasm of colon (Z12.11) Active confirmed Problem 639893775 History of adenomatous polyp of colon (Z86.010) Active confirmed Problem 42096592 Preprocedural examination (Z01.818) Active confirmed Problem 137004625 History of colon polyps (Z86.010) Active confirmed Problem 858004871 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 Plan Of Treatment Future Test Test Name Order Date COLONOSCOPY 07/25/2015 COLONOSCOPY 02/19/2017 Insurance Providers Payer Name Payer Address Payer Phone Subscriber Number Group Number Insured Name Patient Relationship to Insured Coverage Start Date Coverage End Date MEDICARE OF [place] [address] [place] [id number] ANGEL BARRERA Self - patient is the insured MED[employer] ATTN CLAIMS [address] [place] [address] [id number] ANGEL BARRERA Self - patient is the insured Medical (General) History Medical History History ICD Code 02/21/2004 Screening Colonos copy was negative other than some diverticulosis and internal hemorrhoids Denies [place],DM,CVA,Lung disease,renal dise ase Colonoscopy in 10/2014--flat adenoma [...]
== END 2024-11-23 15:02 | disposition home or self-care (01) ==
LOC: HO.PMC 14:25
PROVIDERS: PCP Internal Medicine; Referring Provider Orthopaedic Surgery; Visit Provider Anesthesiology
DX: G89.4 Chronic pain syndrome (principal); M76.32 Iliotibial band syndrome, left leg; Z96.642 Presence of left artificial hip joint
CPT/HCPCS: 99204

== ENCOUNTER → 2024-11-23 14:24 | Outpatient (BNVA) | payer MEDICARE, SELFPAY | PROVIDERS: PCP Internal Medicine; Referring Provider Orthopaedic Surgery; Visit Provider Anesthesiology | DX: M76.32 Iliotibial band syndrome, left leg (principal); G89.4 Chronic pain syndrome; Z96.642 Presence of left artificial hip joint | CPT/HCPCS: 99202 ==

== ENCOUNTER → 2024-11-27 23:59 | Outpatient (BNV) | payer MEDICARE, SELFPAY ==
--- NOTE | 2024-11-30 20:45 | A.OFFVIS_ITS ---
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 Mother No problems noted. Social History Household Members: Spouse Housing: House Do you presently have visiting nurse or other home services: No Alcohol intake: former Patient Tobacco Use Status: Never used Tobacco e-Cigarette/Vaping Use: Never Used Second Hand Smoke Exposure: Yes service: No Current occupational status: retired Cognitive needs: No Hearing needs: Yes Vision needs: Yes (Pt wear glasses) Office Procedures Cardiac Device Check Cardiac Device Check Details: Date of service- 11/27/2024 ; Battery life >11 years; normal lead parameters; AP 42%; SUPERVISOR CLAIMS 95%; transient NSVT. Overall normal device function. [id number] Cardiac Device Interrogation, pacemaker Procedure code (CPT) selection complete Assessment & Plan Assessment & Plan (1) Pacemaker: Code(s): Z95.0 - Presence of cardiac pacemaker Category: Medical (2) S/P TAVR (transcatheter aortic valve replacement): Code(s): Z95.2 - Presence of prosthetic heart valve Category: Surgical (3) Heart block: Code(s): I45.9 - Conduction disorder, unspecified Plan x Coding Level of Care Code Procedure Only Diagnoses Pacemaker Z95.0 S/P TAVR (transcatheter aortic valve replacement) Z95.2 Heart block I45.9 CPT Codes Cardiac Device Check - Cardiac Device 12: [id number] Cardiac Device Interrogation, pacemaker ([id number])
== END ==
PROVIDERS: PCP Internal Medicine; Visit Provider Internal Medicine
DX: I45.9 Conduction disorder, unspecified (principal); Z95.0 Presence of cardiac pacemaker; Z95.2 Presence of prosthetic heart valve
CPT/HCPCS: 93294

== ENCOUNTER 2025-01-11 10:00 | Outpatient (RCR) | payer MEDICARE, SELFPAY ==
--- NOTE | 2024-12-15 10:01 | MHC.PT.EP ---
[facility] [place] [facility] [place] [facility] [place] [facility] [address] Waqas Mcguire [address] [phone] F: [phone] F: [phone] F: [phone] F: [phone] Physical Therapy Plan of Care Date of Evaluation: 12/15/24 Date of Surgery: n/a Diagnosis: presence of L artificial hip/ITB syndrome Assessment: Patient is a 89 year old male presenting to PT with complaints of pain in his L hip. Pt reports onset of pain began a couple years ago due to insidious onset but does have hx of QUEENIE. He presents today with impairments in pain, ROM, strength. Pt's current occupation is retired, with baseline physical activities including ADLs, ambulating, stair negotiation, transfers, golf. 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 Clinical presentation today is most consistent with signs and sx associated with L hip pain and pt will benefit from skilled PT 2 week x 4 weeks to address the following problems and impairments noted upon evaluation: pain, ROM, strength. These problems limit the patient with the following functional activities: transfers, ambulating, stair negotiation. The prescribed treatment plan of care is medically necessary. Co-morbidities of pacemaker, on blood thinners were identified and taken into considerations of plan of care. Pt was educated on HEP, role of PT, prognosis, POC. Frequency and Duration: The patient will be seen 2 x week x 4 weeks Short Term Goals: Pt will demonstrate L hip ROM with min to no pain in 2 weeks. Pt will demonstrate improved hip MMT strength by 1/3 grade in 2 weeks. 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 Pt will demonstrate ability to negotiate stairs with min to no pain in 4 weeks for return to PLOF. Treatment Plan: Modalities to reduce pain, spasms and effusion. Manual therapy to restore motion and function. Therapeutic exercise to improve strength and flexibility. Neuromuscular re-education for posture and balance. Therapeutic activities to return to functional activities of daily living. Electronically signed by: Prema Cesar, PT, DPT, ATC Please sign and return to therapist. Thank you for your referral.
--- NOTE | 2025-01-16 10:06 | MHC.PT.DC ---
[facility] [place] [facility] [place] [facility] [place] [facility] [address] Waqas Mcguire [address] [phone] F: [phone] F: [phone] F: [phone] F: [phone] Physical Therapy Discharge Report Diagnosis: presence of L artificial hip/ITB syndrome Date of Surgery: n/a Date of Evaluation: 12/15/24 Date of Discharge: 01/16/25 Treatments to Date: 9 Cancellations to Date: 0 No Shows to Date: 0 Discharge Status: Independent with HEP Discharge Summary: Pt saw BLAST FURNACE BLOWER for last visit. Is no longer having pain and is independent in his program. Pt to be d/c to HEP. Electronically signed by: Prema Cesar, PT, DPT, ATC Please sign and return to therapist. Thank you for your referral.
== END 2025-01-16 10:07 | disposition home or self-care (01) ==
LOC: HO.PTCHIC 10:00
PROVIDERS: PCP Internal Medicine; Visit Provider Anesthesiology
DX: M76.32 Iliotibial band syndrome, left leg (principal); Z96.642 Presence of left artificial hip joint
CPT/HCPCS: 97110; 97162

== ENCOUNTER 2025-01-18 08:37 | Outpatient (AMB) | payer MEDICARE, SELFPAY ==
--- OUTSIDE RECORDS SUMMARY | 2024-08-02 05:00 | XMS_ITS ---
Author Organization [facility] Address [address] [place] [address] Care Team Providers Care Composing Room Machinist Name Role Phone Sudha JARAMILLO, Allison Vo Primary Care Provider Un available Keena Lainze Unavailable [phone] Encounters Encounter Location Date Provider Diagnosis [address] [address] 08/02/2024 Keena Lainez Plan Of Treatment Next Appt Details Provider Name:Keena ledesma, 04/19/2025 10:00:00 AM, [address] [place] [address], [address], Progress Notes * Ruy INGRAM WDOB:[birth year] (89 yo M)Acc No.[id number]:08/02/2024 Progress Note Patient: Ruy FISHER Provider: Pat Lainez DPM :1935 A ge:89 Y S ex:Male Date:08/02/2024 Address:[address] [place] [address] Pcp:Taran Palacios Subjective: * Chief Complaints: * [...] 08/02/2024 Generated for Alexsandra maldonado/Han/Penny on: 1 09:10 AM EDT
[2025-01-18 08:52] VITALS: BP 127/60; PULSE 150; RESP 16; O2SAT 83; BMI 27.3
--- NOTE | 2025-01-18 08:52 | A.OFFVIS_ITS ---
Vital Signs 01/18/25 08:52 Height 6 ft Weight 201 lb BMI 27.3 BP 127/60 Blood Pressure Location Rt brachial Position Sitting Respiration 16 Pulse 150 H Pulse Source Pulse Oximeter Pulse Oximetry (%) 83 L Oxygen Delivery Method Room Air Intake Visit Reasons: 8 Week Follow Up Home Restoration Service Cleaner Required: No Accompanied by: Self / Same As Patient Allergies No Known Allergies Allergy (Verified 01/18/25 08:52) HPI Comments Details: Ruy is back in my office after he completed physical therapy. He continues home exercise program. He reports that his pain is 0 to 1/10. He reports improved mobility improved activities of daily living good social interactions. Recommended him to continue home exercise program, no new appointment at this time. If his pain will come back we will consider [employer] gutter positioned lumbar spinal cord stimulator. Prior:complains on pain in the projection of the lateral left hip. He reports that this pain started at least 2 years ago. He does not know what caused this problem. He had images performed in Dr. Merida office demonstrating excellent alignment and position of the replace hip. He had physical therapy recently related to his heart is conditions but Sissydian had physical therapy for current pain. He never had any injections in the past. His past medical history significant for dysrhythmia, history of aortic valve stenosis treated with TAVR, also has pacemaker inserted he is suffering from anemia shortness of breath and hypothyroidism. He denies smoking cigarettes denies drinking alcohol denies coffee caffeinated beverages he denies recreational drugs. 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 Mother No problems noted. Social History Household Members: Spouse Housing: House Do you presently have visiting nurse or other home services: No Alcohol intake: former Patient Tobacco Use Status: Never used Tobacco e-Cigarette/Vaping Use: Never Used Second Hand Smoke Exposure: Yes service: No Current occupational status: retired Cognitive needs: No Hearing needs: Yes Vision needs: Yes (Pt wear glasses) Review of Systems Const All systems reviewed & are unremarkable except as noted in HPI and below ENT Reports Normal hearing present Neuro Reports Normal hearing present, Denies Abnormal speech present, Denies confusion and Denies Sensory deficit (Neuro) Psych Denies confusion Physical Exam Vital Signs: Last Vital Signs Pulse 150 H 01/18/25 08:52 Resp 16 01/18/25 08:52 BP 127/60 01/18/25 08:52 Pulse Ox 83 L 01/18/25 08:52 Oxygen Delivery Method Room Air 01/18/25 08:52 BMI result Body Mass Index 27.3 Const General: no acute distress; No confusion Nutritional Appearance: average body habitus and well nourished Orientation/consciousness: patient oriented x3 and No confusion Limitations: no limitations Eyes General: appearance normal, both eyes and all related structures Pupils: Equal, round and reactive pupils present EOM: EOMs intact bilaterally Neck Neck: Yes full ROM Chest Chest palpation & inspection: normal inspection of the chest Resp Effort & Inspection: normal respiratory effort, able to speak in complete sentences, normal respiratory pattern, no audible wheezes and no cough Cardio Jugular venous distension: no JVD GI Inspection: Yes normal to inspection Neuro General: patient oriented x3, gait normal and No confusion Cranial nerves: Yes CN's II-XII intact bilaterally, Yes Equal, round and reactiv e pupils present, Yes Normal hearing present and Yes Ability to bilaterally elevate shoulders present Speech: No Abnormal speech present Gait exam (Neuro): Normal gait present Motor exam (neuro): 5/5 motor strength present throughout Sensory Exam: No Sensory deficit (Neuro) Extrem Other: There is no tenderness on palpation in paraspinal spinal region lumbar spine. There is no tenderness on palpation in projection of the left sacroiliac joint. Marcus test is negative for the pain in the back however he reports discomfort in the projection of the iliotibial band. Palpation of the left iliotibial band is very tender. Slight radiation into the groin however medial rotation and lateral rotation aggravate pain in the groin very minimally. General: No pedal edema Psych Speech and movement: Normal speech and movement present Affect: normal affect Attitude: cooperative Thought process: Normal thought process present Thought content: Normal thought content present Insight: Good insight present (Psych) Judgement: Good judgement present (Psych) Assessment & Plan Assessment & Plan (1) Iliotibial band syndrome affecting left lower leg: Code(s): M76.32 - Iliotibial band syndrome, left leg Category: Medical (2) S/P total left hip arthroplasty: Code(s): Z96.642 - Presence of left artificial hip joint Category: Surgical (3) Chronic pain syndrome: Code(s): G89.4 - Chronic pain syndrome Category: Medical Plan Physical therapy completed by this patient. Patient reports great improvement. No new appointment at this time. If pain will come back we will consider [facility] upper lumbar positioned for treat meant of his pain. Coding Level of Care Code Est Pt Level 3 (55642) Diagnoses Iliotibial band syndrome affecting left lower leg M76.32 S/P total left hip arthroplasty Z96.642 Chronic pain syndrome G89.4
--- OUTSIDE RECORDS SUMMARY | 2025-01-18 09:11 | XMS_ITS | Data Portability ---
Author Organization [place] - [facility], Allergy Address [address] [place] [id number] Assessment Encounter Date Assessment Date Assessment LastModified by Organization Details LastModified Time 09/12/2024 09/12/2024 Annual visit: Otoscopy: MAGGY Bell. 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 There has been some decline in pure tones and in discrimination. Patient has been aware that his speech discrim in down in the right ear as he cannot talk on the phone with that ear. Hearing aid: The aids are over 7 years old. I gingerly changed domes and wax guards. Domes: Right= med power, left= large vented Listening check: good Warranty expires: 2020 Notes: Ruy reports that in general he has only been wearing the right hearing aid because the left was uncomfortable and he uses that ear to talk on the phone. I put a large vented dome on the left aid to see what he thought- much to my surprise, he thought this was comfortable. He is going to try to continue wearing both aids. We also discussed some communication strategies for at home with his . I have reminded him that his hearing aids are no longer repairable by [employer] and that he should start to think about getting new aids. SPhere brochure given. Follow up as needed or annually. [email or web address] Not available 09/12/2024 11:50:51 Plan of Treatment Reminders Order Date Submit Date Provider Last Modified By Organization Details Last Modified Time Details Appointments None record ed. Lab None record ed. Referral None record ed. Procedures None record ed. Surgeries None record ed. Imaging None record ed. Medication Orders None record ed. Patient TargetsNo targets recorded. Patient InstructionsNo instructions recorded. Reason for Referral None Reported. Results Created Date Observation Date Name Description Value Unit Range Abnormal Flag Note LastModifiedBy Organization Detail LastModifiedTime 09/13/19 25 audio gram No observ ation record ed. BARCODE Not Available 2024 13:12:38 Result Notes None recorded. Problems Name Problem SNOMED Code Status Onset Date Resolution Date Notes Provider Name and Address Organization Details Recorded Time Bilateral tinnitus 14779120685 02 Active 2016 Tinnitus, bilateral ; Note: Date Diagnosed : 03/11/2017 12:50 PM (H93.13) Not Available [facility] 4 02:42:09 Sensorine ural hearing loss of bilateral ears 038457163 Active 2016 Sensorine ural hearing loss, bilateral ; Note: Date Diagnosed : 03/11/2017 12:48 PM (H90.3) Not Available [facility] 4 02:42:10 Bilateral exostosis of external ear canals 80036139920 22402 Active 2016 Exostosis of external canal, bilateral ; Note: Date Diagnosed : 03/11/2017 12:50 PM (H61.813) Not Available [facility] 4 02:42:10 Impacted cerumen of bilateral ears 26656234858 30216 Active 2016 Impacted cerumen, bilateral ; Note: Date Diagnosed : 03/11/2017 12:50 PM (H61.23) Not Available [facility] 4 02:42:09 Problem Notes None recorded. Procedures Surgical History Date Name Laterality Status Provider Name and Address Organization Details Recorded Time 5 Air only Audio - 75165 completed IVANNA JUAREZ, [facility] [address], [address], [facility] 09/12/2024 11:52:39 5 SRT & Speech Recognition - 10440 completed IVANNA JUAREZ [facility] [address], [address], [facility] 09/12/2024 11:52:44 Imaging Results None recorded. Procedure Notes None recorded. Medical Equipment None Reported. Medications Name Sig Start Date Stop Date Status Note LastModified by Organization Details LastModified Time levothyroxin e 25 mcg tablet TAKE ONE TABLET BY MOUTH EVERY DAY AT 6:00 A.M. active Not Available Not Available No t Available levothyroxin e 50 mcg tablet TAKE 1 TABLET BY MOUTH DAILY AT 6:00 AM. active Not Available Not Available Not Available senna 8.6 mg capsule TAKE ONE CAPSULE BY MOUTH DAILY AT BEDTIME NEEDED FOR CONSTIPATIO N. active Not Available Not Available No t Available ferrous fumarate 324 mg (106 mg iron) tablet TAKE ONE TABLET BY MOUTH DAILY AT BEDTIME active Not Available Not Available N ot Available [facility] 100,000 unit/gram topical powder APPLY TO AFFECTED AREA S) ON THE GROIN ONCE OR TWICE DAILY OR NEEDED FOR MAINTENANCE active Not Available Not Available Not Available Eliquis 5 mg tablet TAKE ONE TABLET BY MOUTH TWICE A DAY active Not Available Not Available No t Available Eliquis 2.5 mg tablet TAKE ONE TABLET BY MOUTH TWICE A DAY active Not Available Not Available No t Available Vitals None Recorded Social History None recorded. Functional Status None recorded. Mental Status None recorded. Family History Nothing Reported. Medical History No medical history recorded. Past Encounters Encounter ID Performer Location Encounter Start Date Encounter Closed Date Diagnosis/Indication Diagnosis SNOMED-CT Code Diagnosis ICD10 Code Diagnosis IMO Codes Diagnosis Note [id number] [facility] [place] [address] [address] 09/12/2024 10:44:07 09/13/2024 15:22:58 Sensorineural hearing loss of bilateral ears 438105251 H90.3 Audiologic al evaluation results: Right ear: Mild sloping to profound sensorineu ral hearing loss with poor word recognitio n. Left ear: Mild sloping to profound sensorineu ral hearing loss with fair word recognitio n. Health Concerns Section Related Observation LastModified by Organization Detai ls LastModified Time None Recorded Concern Status LastModified by Organization Details LastModified Time None Recorded Advance Directives Directive None Recorded Payers Insurance Date Sequence Insurance Name Policy Number Policy Dumont Covered Member ID Dumont Member ID Guarantor Name 09/12/2024 2 [facility] Ruy Ingram [id number] Ruy Ingram 09/12/2024 1 MEDICARE B-[place]: [employer] Ruy Ingram [id number] Ruy Ingram
--- OUTSIDE RECORDS SUMMARY | 2025-01-18 09:11 | XMS_ITS | Patient Health Record ---
Author Organization [facility] Address [address] [place] [address] Care Team Providers Care Boot Repairer Name Role Phone Jose L JARAMILLO, [place] Primary Care Provider Inocencio Murcia Unavailable [phone] Reason For Referral No Information Immunizations Vaccine Route Administration Date Status Comme nts Flu vaccine no Preserv 3 and > Unknown 01/24/2014 Admin istered Flu vaccine no Preserv 3 and > Unknown 01/04/2015 Admin istered Influenza Unknown 01/03/2017 Administered Problems Problem Type SNOMED Code ICD Code Onset Dates Problem Status W/U Status Risk Notes Problem Screening for malignant neoplasm of colon (645128969) Encounter for screening for malignant neoplasm of colon (Z12.11) Active confirmed Problem History of adenomatous polyp of colon (964248989) History of adenomatous polyp of colon (Z86.010) Active confirmed Problem Preprocedural examination (289116260027604) Preprocedural examination (Z01.818) Active confirmed Problem History of polyp of colon (situation) (688272803) History of colon polyps (Z86.010) Active confirmed Problem 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 [address] [place] [address] [id number] ANGEL BARRERA Self - patient is the insured [employer] ATT[employer] CLAIMS [address] [place] [address] [id number] ANGEL BARRERA is the insured Medical (General) History Medical History History ICD Code 02/21/2004 Screening Colonos copy was negative other than some diverticulosis and internal hemorrhoids Denies [place],DM,CVA,Lung disease,renal dise ase Colonoscopy in 10/2014--flat adenoma [...]
--- OUTSIDE RECORDS SUMMARY | 2025-01-18 09:11 | XMS_ITS | Data Portability ---
Author Organization FRANCK Becerra s [address] Address [address] [place] [address] Assessment No assessment recorded. Plan of Treatment Reminders Order Date Submit Date Provider Last Modified By Organization Details Last Modified Time Details Appointments None recorded. Lab urinalysis , dipstick 2022 023 kylezArt _[facility], [facility] [place], [address], 15:58:42 Referral None recorded. Procedures None recorded. Surgeries None recorded. Imaging None recorded. Medication Orders clotrimazo le-betamet hasone 1 %-0.05 % topical cream 2022 023 [facility], [address] [place], [address], 3 15:07:46 Patient TargetsNo targets recorded. Patient Instructions Encounter Date Encounter Id Patient Instructions Last Modified By Organization Details Last Modified Time 10/11/2022 [id number] What are ringworm, athlete's foot, and jock [...] infection? You can catch fungal infections through ehpi-tg-gogh contact with a person who is infected. [...] You have any of the following symptoms: F ever of 100.4 F (38 C) or higher C hills S welling, redness, or warmth around the infected area P ain when touching the area Your fungal infection [...] Analyte Normal = light yellow Not Available [address] [place], [address], 10/11/2022 15:11:21 10/12/19 23 10/11/2022 urina lysis , dipst ick Unknown Analyte Yellow Not Available [address] [place] [address], [place], [address], 10/11/2022 15:11:21 10/12/1910/11/2022 urina lysis , dipst ick Unknown Analyte Normal = clear Not Available [address] [place] [address], [place], [address], 10/11/2022 15:11:21 10/12/19 23 10/11/2022 urina lysis , dipst ick Unknown Analyte Clear Not Available [address] [place] [address], [address], 10/11/2022 15:11:21 10/12/1910/11/2022 urina lysis , dipst ick Unknown Analyte Normal = negati ve Not Available [address] [place], [place] [address] [place], [address], 10/11/2022 15:11:21 10/12/19 23 10/11/2022 urina lysis , dipst ick Unknown Analyte Negati ve Not Available bryanna souza [address], [place], [address], 10/11/2022 15:11:21 10/12/19 23 10/11/2022 urina lysis , dipst ick Unknown Analyte Normal = Negati ve Not Available [facility] [address], [place], [address], 10/11/2022 15:11:21 10/12/19 23 10/11/2022 urina lysis , dipst ick Unknown Analyte Negati ve Not Available [facility] [address], [place], [address], 10/11/2022 15:11:21 10/12/19 23 10/11/2022 urina lysis , dipst ick Unknown Analyte Normal = Negati ve Not Available [facility] [address], [place], [address], 10/11/2022 15:11:21 10/12/1910/11/2022 urina lysis , dipst ick Unknown Analyte Negati ve Not Available [facility] [address], [place], [address], 10/11/2022 15:11:21 10/12/1910/11/2022 urina lysis , dipst ick Unknown Analyte Normal = 1.010, 1.015, 1.020 Not Available [address], [place], [address], 10/11/2022 15:11:21 10/12/19 23 10/11/2022 urina lysis , dipst ick Unknown Analyte 1.030 Not Available [address] [place] [address], [place], [address], 10/11/2022 15:11:21 10/12/19 23 10/11/2022 urina lysis , dipst ick Unknown Analyte Normal = Negati ve Not Available [address]bryanna souza [address], [place], [address], 10/11/2022 15:11:21 10/12/19 23 10/11/2022 urina lysis , dipst ick Unknown Analyte Trace- intact Not Available [address] [place] [address], [place], [address], 10/11/2022 15:11:21 10/12/19 23 10/11/2022 urina lysis , dipst ick Unknown Analyte Normal = 6.5, 7.0, 7.5, 8.0 Not Available [address] [place] [address], [place], [address], 10/11/2022 15:11:21 10/12/19 23 10/11/2022 urina lysis , dipst ick Unknown Analyte 5.5 Not Available [address] [place] [address], [place], [address], 10/11/2022 15:11:21 10/12/19 23 10/11/2022 urina lysis , dipst ick Unknown Analyte Normal = Negati ve Not Available [address] [place] [address], [place], [address], 10/11/2022 15:11:21 10/12/19 23 10/11/2022 urina lysis , dipst ick Unknown Analyte Negati ve Not Available [address] [place] [address], [place], [address], 10/11/2022 15:11:21 10/12/19 23 10/11/2022 urina lysis , dipst ick Unknown Analyte Normal = 0.2, 1.0 Not Available [address], [place], [address], 10/11/2022 15:11:21 10/12/1910/11/2022 urina lysis , dipst ick Unknown Analyte 0.2 E.U./d L Not Available [address] [place] [address], [place], [address], 10/11/2022 15:11:21 10/12/19 23 10/11/2022 urina lysis , dipst ick Unknown Analyte Normal = Negati ve Not Available [address] [place] [address], [place], [address], 10/11/2022 15:11:21 10/12/19 23 10/11/2022 urina lysis , dipst ick Unknown Analyte Negati ve Not Available [address] [place] [address], [place], [address], 10/11/2022 15:11:21 10/12/19 23 10/11/2022 urina lysis , dipst ick Unknown Analyte Normal = Negati ve Not Available [address] [place] [address], [place], [address], 10/11/2022 15:11:21 10/12/19 23 10/11/2022 urina lysis , dipst ick Unknown Analyte Negati ve Not Available [address] [place] [address], [place], [address], 10/11/2022 15:11:21 Result Notes None recorded. Problems No Known Problems Procedures Surgical History Date Name Laterality Status Provider Name and Address Organization Details Recorded Time procedure on knee completed DIANNEPETAR TALAVERA [place] - [facility] 10/11/2022 14:35:35 prosthetic arthroplasty of hip completed DIANNEPETAR TALAVERA PA - [facility] 10/11/2022 14:35:51 rectal polypectomy completed DIANNE Clark [facility] 10/11/2022 14:36:20 Imaging Results None recorded. [...] Updated DateTime 3 182.88 cm 26.4 kg/m2 64181.5 1 g 9 17 /min 98 % 98 % 55 /min 97.9 [degF] 151/75 mm[Hg] DIANNE JUÁREZ - [facility] 14:37:11 Social History Question Answer Notes LastModified by Cree Details LastModified Time Tobacco Smoking Status Never Smoker DIANNE gomez PA Eduardo [facility] 10/11/2022 14:35:10 Have You Recently Traveled Abroad? No [email or web address] Information not available 10/11/2022 Sex: Unknown Functional Status Question Answer Note LastModified by Cree Details LastModified Time Do you use any illicit or recreational drugs? No [email or web address] Information not available 10/11/2022 Do you or have you ever used any other forms of tobacco or nicotine? No Information not available 10/11/2022 What is your level of alcohol consumption? Occasional [email or web address] Information not available 10/11/2022 Mental Status None recorded. Family History Relationship Description Onset Age of this Age Resolved Age Notes LastModified by Organization Details LastModified Time Father No current problems or disability [email or web address] Not available 10/11 14:34:47 Mother No current problems or disability Not available 10/11 14:34:47 Medical History No medical history recorded. Past Encounters Encounter ID Performer Location Encounter Start Date Encounter Closed Date Diagnosis/Indication Diagnosis SNOMED-CT Code Diagnosis ICD10 Code Diagnosis IMO Codes Diagnosis Note [id number] [facility] [address] [address] 10/25/2020 19:24:14 10/25/2020 20:09:32 [id number] Aquiles Robert X [employer]MENT SERVICER [address] [address] 10/11/2022 13:49:51 10/11/2022 15:13:21 Tinea cruris 170919128 B35.6 Health Concerns Section Related Observation LastModified by Organization Detai ls LastModified Time None Recorded Concern Status LastModified by Organization Details LastModified Time None Recorded Advance Directives Directive None Recorded Payers Insurance Date Sequence Insurance Name Policy Number Policy Dumont Covered Member ID Dumont Member ID Guarantor Name 10/11/2022 1 [place] Ruy Mal Juan Jose [id number] Ruy Ingram 10/11/2022 2 [place] [id number] Ruy Mal Juan Jose [id number] Ruy Ingram Notes Date Note Type Note Provider Name and Address Organization Details Recorded Time 3 text/html UC Rash/Skin LesionReported by PatientHPIFor quality, patient reportsitchyandred. For context, patient reportsother exposurebut reportsno new detergent or skin product,no recent change in medication,no exposure to hair dye,no expsoure to new clothes/jewelry,no recent travel,no recent illness,no pets/animals in home, andnot affiliated with chemicals/pesticides. For source of patient information, patient reportsinformation obtained from patientandpatient arrived at urgent care ambulatory. For location, patient reportsgroin. For severity, patient reportsmoderate. For duration, patient reports5 days. For alleviating factors, patient reportsnothing gives relief. For associated symptoms, patient reportsno feverandno fatigue. For treatment history, patient reportsprescription topical treatment ___ with no improvement. Aquiles Robert NP [address] [place], [address], [place] - [facility] 10/11/2022 15:59:02
--- OUTSIDE RECORDS SUMMARY | 2025-01-18 09:11 | XMS_ITS | Patient Health Record ---
Author Organization [facility] Address [address] [place] [address] Care Team Providers Care Automotive Collision Estimator Name Role Phone Sudha JARAMILLO, Allison Vo Primary Care Provider Un available Keena Lainez Unavailable [phone] Allergies No Known Allergies Reason For Referral No Information Medications Medication SIG (Take, Route, Frequency, Duration) Notes Start Date End Date Status Iron Active Vitamin C Active Levothyroxine Sodium 50 MCG Oral; Duration: 90 Days Active Ferrous Fumarate 324 (106 Fe) MG TAKE ONE TABLET BY MOUTH DAILY AT BEDTIME Oral; Duration: 90 Days Active Immunizations Vaccine Route Administration Date Status Comme nts Influenza Unknown 01/04/2024 Administered Social History Tobacco Use: Social History Observation Description Date Details (start date - stop date) Never Smoker NA - NA Tobacco use other than smoking: Question Answer Notes Are you an other tobacco user? No Tobacco Control (Standard) Question Answer Notes Tobacco use: Nonsmoker Additional Findings: Tobacco non-user Current no nsmoker AUDIT-C (Standard) Question Answer Notes Did you have a drink containing alcohol in the p ast year? No Points 0 Interpretation Negative Problems Problem Type SNOMED Code ICD Code Onset Dates Problem Status W/U Status Risk Notes Problem Plantar wart (09590585) Plantar wart (B07.0) Active confirmed Problem Raynaud's disease (646286113) Raynaud's disease without gangrene (I73.00) Active confirmed Vital Signs Blood pressure diastolic 65 mm Hg 09/18/2024 Height 6 ft in 09/18/2024 Blood pressure systolic 128 mm Hg 09/18/2024 Weight 199 lbs 09/18/2024 BMI 26.99 kg/m2 09/18/2024 Procedures Procedure Date Ordered Date Performed Result Body Sit e 52888-SGYCRIO NAIL, 6 OR MORE 09/18/2024 N/A Encounters Encounter Location Date Provider Diagnosis [address] [address] 02/02/2024 Keena Lainez Plantar wart B07.[address] [address] 09/18/2024 Keena Lainez Pain in right toe(s) M79.674 ; Onychomycosis B35.1 and Pain in left toe(s) M79.[address] [address] 07/31/2024 Keena Lainez Assessments Encounter Date Diagnosis (ICD Code) Assessment Notes Treatment Notes Treatment Clinical Notes Section Notes 02/02/2024 Plantar wart (ICD-10 - B07.0) 09/18/2024 Pain in right toe(s) (ICD-10 - M79.674) 09/18/2024 Onychomycosis (ICD-10 - B35.1) 09/18/2024 Pain in left toe(s) (ICD-10 - M79.675) Plan Of Treatment Pending Test Test Name Order Date [id number] NAIL, 6 OR MORE 09/18/2024 Next Appt Details Provider Name:Keena ledesma, 04/19/2025 10:00:00 AM, [address] [place] [address], [address], Insurance Providers Payer Name Payer Address Payer Phone Subscriber Number Group Number Insured Name Patient Relationship to Insured Coverage Start Date Coverage End Date Medicare [facility] [address] [facility] [place] [address] [id number] Ruy Roth Self - patient is the insured [employer] [address] [place] [address] [phone] [id number] Ruy Roth Self - patient is the insured Medical (General) History Medical History History ICD Code Cataracts Measles Mumps Chicken pox Joint implants/screws Surgical History Surgery Date(Month/Year)
== END 2025-01-18 09:04 | disposition home or self-care (01) ==
LOC: HO.PMC 08:38
PROVIDERS: PCP Internal Medicine; Visit Provider Anesthesiology
DX: M76.32 Iliotibial band syndrome, left leg (principal); Z96.642 Presence of left artificial hip joint; G89.4 Chronic pain syndrome
CPT/HCPCS: 99213

== ENCOUNTER → 2025-01-18 08:37 | Outpatient (BNVA) | payer MEDICARE, SELFPAY | PROVIDERS: PCP Internal Medicine; Visit Provider Anesthesiology | DX: M76.32 Iliotibial band syndrome, left leg (principal); Z96.642 Presence of left artificial hip joint; G89.4 Chronic pain syndrome | CPT/HCPCS: 99212 ==

== ENCOUNTER 2025-02-27 08:11 | Outpatient (REF) | payer MEDICARE, SELFPAY ==
--- OUTSIDE RECORDS SUMMARY | 2025-02-27 08:24 | XMS_ITS | Data Portability ---
Author Organization FRANCK Becerra s [address] Address [address] [place] [address] Assessment No assessment recorded. Plan of Treatment Reminders Order Date Submit Date Provider Last Modified By Organization Details Last Modified Time Details Appointments None recorded. Lab urinalysis , dipstick 2022 023 kylezArt _[facility], [facility] [place], [address], 15:58:42 Referral None recorded. Procedures None recorded. Surgeries None recorded. Imaging None recorded. Medication Orders clotrimazo le-betamet hasone 1 %-0.05 % topical cream 2022 023 [facility], [address] [place], [address], 15:07:46 Patient TargetsNo targets recorded. Patient Instructions Encounter Date Encounter Id Patient Instructions Last Modified By Organization Details Last Modified Time 10/11/2022 [id number] What are ringworm, athlete's foot, and jock [...] infection? You can catch fungal infections through hthh-et-sico contact with a person who is infected. [...] Normal = light yellow Not Available [address] [place], [address], 10/11/2022 15:11:21 10/12/19 23 10/11/2022 urina lysis , dipst ick Unknown Analyte Yellow Not Available [address] [place] [address], [place], [address], 10/11/2022 15:11:21 10/12/1910/11/2022 urina lysis , dipst ick Unknown Analyte Normal = clear Not Available [address] [place] [address], [place], [address], 10/11/2022 15:11:21 10/12/19 23 10/11/2022 urina lysis , dipst ick Unknown Analyte Clear Not Available [address] [place] [address], [address], 10/11/2022 15:11:21 10/12/1910/11/2022 urina lysis , dipst ick Unknown Analyte Normal = negati ve Not Available [address] [place], [place] [address], [address], 10/11/2022 15:11:21 10/12/19 23 10/11/2022 urina lysis , dipst ick Unknown Analyte Negati ve Not Available bryanna souza [address], [place], [address], 10/11/2022 15:11:21 10/12/19 23 10/11/2022 urina lysis , dipst ick Unknown Analyte Normal = Negati ve Not Available [facility] [address], [place], [address], 10/11/2022 15:11:21 10/12/19 23 10/11/2022 urina lysis , dipst ick Unknown Analyte Negati ve Not Available [facility] [address], [place], [address], 10/11/2022 15:11:21 10/12/19 23 10/11/2022 urina lysis , dipst ick Unknown Analyte Normal = Negati ve Not Available [facility] [address], [place], [address], 10/11/2022 15:11:21 10/12/1910/11/2022 urina lysis , dipst ick Unknown Analyte Negati ve Not Available [facility] [address], [place], [address], 10/11/2022 15:11:21 10/12/1910/11/2022 urina lysis , dipst ick Unknown Analyte Normal = 1.010, 1.015, 1.020 Not Available [address], [place], [address], 10/11/2022 15:11:21 10/12/19 23 10/11/2022 urina lysis , dipst ick Unknown Analyte 1.030 Not Available [address] [place] [address], [place], [address], 10/11/2022 15:11:21 10/12/19 23 10/11/2022 urina lysis , dipst ick Unknown Analyte Normal = Negati ve Not Available [address]bryanna souza [address], [place], [address], 10/11/2022 15:11:21 10/12/19 23 10/11/2022 urina lysis , dipst ick Unknown Analyte Trace- intact Not Available [address] [place] [address], [place], [address], 10/11/2022 15:11:21 10/12/19 23 10/11/2022 urina lysis , dipst ick Unknown Analyte Normal = 6.5, 7.0, 7.5, 8.0 Not Available [address] [place] [address], [place], [address], 10/11/2022 15:11:21 10/12/19 23 10/11/2022 urina lysis , dipst ick Unknown Analyte 5.5 Not Available [address] [place] [address], [place], [address], 10/11/2022 15:11:21 10/12/19 23 10/11/2022 urina lysis , dipst ick Unknown Analyte Normal = Negati ve Not Available [address] [place] [address], [place], [address], 10/11/2022 15:11:21 10/12/19 23 10/11/2022 urina lysis , dipst ick Unknown Analyte Negati ve Not Available [address] [place] [address], [place], [address], 10/11/2022 15:11:21 10/12/19 23 10/11/2022 urina lysis , dipst ick Unknown Analyte Normal = 0.2, 1.0 Not Available [address], [place], [address], 10/11/2022 15:11:21 10/12/1910/11/2022 urina lysis , dipst ick Unknown Analyte 0.2 E.U./d L Not Available [address] [place] [address], [place], [address], 10/11/2022 15:11:21 10/12/19 23 10/11/2022 urina lysis , dipst ick Unknown Analyte Normal = Negati ve Not Available [address] [place] [address], [place], [address], 10/11/2022 15:11:21 10/12/19 23 10/11/2022 urina lysis , dipst ick Unknown Analyte Negati ve Not Available [address] [place] [address], [place], [address], 10/11/2022 15:11:21 10/12/19 23 10/11/2022 urina lysis , dipst ick Unknown Analyte Normal = Negati ve Not Available [address] [place] [address], [place], [address], 10/11/2022 15:11:21 10/12/19 23 10/11/2022 urina lysis , dipst ick Unknown Analyte Negati ve Not Available [address] [place] [address], [place], [address], 10/11/2022 15:11:21 Result Notes None recorded. Problems No Known Problems Procedures Surgical History Date Name Laterality Status Provider Name and Address Organization Details Recorded Time procedure on knee completed DIANNEPETAR TALAVERA PA - [facility] 10/11/2022 14:35:35 prosthetic arthroplasty of hip completed DIANNEPETAR TALAVERA PA - [facility] 10/11/2022 14:35:51 rectal polypectomy completed [facility] 10/11/2022 14:36:20 Imaging Results None recorded. Procedure [...] [Score] - Reported Respiratory rate Oxygen saturation Heart rate Body temperature Systolic And Diastolic Provider Name and Address Organization Details Last Updated DateTime 3 182.88 cm 26.4 kg/m2 64276.5 1 g 9 17 /min 98 % 55 /min 97.9 [degF] 151/75 mm[Hg] DIANNE JUÁREZ - [facility] 3 14:37:11 Social History Question Answer Notes LastModified by [employer] Details LastModified Time Tobacco Smoking Status Never Smoker DIANNE gomez PA Eduardo [facility] 10/11/2022 14:35:10 Have You Recently Traveled Abroad? No [email or web address] Information not available 10/11/2022 Sex: Unknown Functional Status Question Answer Note LastModified by [employer] Details LastModified Time Do you use any illicit or recreational drugs? No [email or web address] Information not available 10/11/2022 Do you or have you ever used any other forms of tobacco or nicotine? No [email or web address] Information not available 10/11/2022 What is your level of alcohol consumption? Occasional [email or web address] Information not available 10/11/2022 Mental Status None recorded. Family History Relationship Description Onset Age of this Age Resolved Age Notes LastModified by Organization Details LastModified Time Father No current problems or disability [email or web address] Not available 10/11 14:34:47 Mother No current problems or disability [email or web address] Not available 10/11 14:34:47 Medical History No medical history recorded. Past Encounters Encounter ID Performer Location Encounter Start Date Encounter Closed Date Diagnosis/Indication Diagnosis SNOMED-CT Code Diagnosis ICD10 Code Diagnosis IMO Codes Diagnosis Note [id number] [facility] _[facility] [address] [address] 10/25/2020 19:24:14 10/25/2020 20:09:32 [id number] [place] [address] [address] 10/11/2022 13:49:51 10/11/2022 15:13:21 Tinea cruris 207352024 B35.6 Health Concerns Section Related Observation LastModified by Organization Detai ls LastModified Time None Recorded Concern Status LastModified by Organization Details LastModified Time None Recorded Advance Directives Directive None Recorded Payers Insurance Date Sequence Insurance Name Policy Number Policy Dumont Covered Member ID Dumont Member ID Guarantor Name 10/11/2022 1 [place]ERNMENT [place] Ruy Mendozaworth [id number] Ruy Ingram 10/11/2022 2 [place]) [id number] Ruy W Juan Jose [id number] Ruy Ingram Notes Date Note Type [...] with no improvement. Aquiles Robert NP [address] [place], [address], [place] - [facility] 10/11/2022 15:59:02
--- OUTSIDE RECORDS SUMMARY | 2025-02-27 08:24 | XMS_ITS | Data Portability ---
Author Organization [place] - [facility], Allergy Address [address] [place] [address] Assessment Encounter Date Assessment Date Assessment LastModified [...] Address Organization Details Recorded Time Bilateral tinnitus 02807958366 02 Active 2016 Tinnitus, bilateral ; Note: Date Diagnosed : 03/11/2017 12:50 PM (H93.13) Not Available [facility] 4 02:42:09 Sensorine ural hearing loss of bilateral ears 685765698 Active 2016 Sensorine ural hearing loss, bilateral ; Note: Date Diagnosed : 03/11/2017 12:48 PM (H90.3) Not Available [facility] 4 02:42:10 Bilateral exostosis of external ear canals 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 Procedures Surgical History Date Name Laterality Status Provider Name and Address Organization Details Recorded Time 5 Air only Audio - 25983 completed IVANNA JUAREZ, [facility] [address], [address], [facility] 09/12/2024 11:52:39 5 SRT & Speech Recognition - 11002 completed IVANNA JUAREZ [facility] [address], [address], [facility] 09/12/2024 11:52:44 Imaging Results None recorded. Procedure [...] Not Available Not Available N ot Available [facility] 100,000 unit/gram topical powder APPLY TO AFFECTED [...] ICD10 Code Diagnosis IMO Codes Diagnosis Note [id number] JOHN MONTALVO [facility]IS[place] [place] [address] [address] 09/12/2024 10:44:07 09/13/2024 15:22:58 Sensorineural hearing loss of bilateral ears [id number] H90.3 Audiologic al evaluation results: Right ear: [...] Dumont Member ID Guarantor Name 09/12/2024 2 [facility] Ruy Ingram [id number] Ruy Ingram 09/12/2024 1 [place]IC[place] [employer] Ruy Ingram [id number] 13 Ruy Ingram
[2025-02-27 10:17] LABS: MANUAL DIFF FLAG NO
[2025-02-27 10:25] LABS: Hematocrit 37.7 % (42.0-52.0); Hemoglobin 12.2 g/dl (14.0-18.0); Imm Gran Abs Auto 0.33 X10*3/uL (0.00-0.03); Imm Gran Pct Auto 2.8 % (0.0-0.4); Lymphocytes Absolute Auto 2.5 X10*3/uL (1.2-4.9); Mean Corpuscular HGB Conc 32.4 g/dl (31.0-36.0); Mean Corpuscular Hemoglobin 30.6 pg (27.0-33.0); Mean Corpuscular Volume 94.5 fL (80.0-98.0); NRBC Abs Auto 0.000 X10*3/uL (0.0-0.012); NRBC Pct Auto 0.0 /100WBC (0.0-0.2); Platelet Count 144 X10*3/uL (160-400); Red Blood Count 3.99 X10*6/uL (4.60-5.80); White Blood Count 11.9 X10*3/uL (4.8-10.8)
[2025-02-27 10:55] LABS: Alanine Aminotransferase 21 U/L (0-40); Anion Gap 7 (12-20); Aspartate Amino Transferase 39 U/L (5-37); Blood Urea Nitrogen 23 mg/dL (9-16); Calcium 8.9 mg/dL (8.4-10.2); Carbon Dioxide 30 mmol/L (22-29); Chloride 107 mmol/L (96-108); Cholesterol 145 mg/dL (<200); Estimated Glomerular Filt Rate > 60; HDL Cholesterol 29 mg/dL (>40); Iron 71 mcg/dL (45-160); Percent Iron Saturation 28 % (15-50); Potassium 4.2 mmol/L (3.3-5.1); Sodium 140 mmol/L (135-145); Total Iron Binding Capacity 253 mcg/dL (228-428); Triglycerides 139 mg/dL (<150); Unsaturated Iron Binding 182 ug/dL
[2025-02-27 11:12] LABS: Folate 13.0 ng/mL (> or = 4.0); Vitamin B12 1222 pg/mL (200-900)
[2025-02-27 11:16] LABS: Free T4 (Free Thyroxine) 0.85 ng/dL (0.71-1.85); Thyroid Stimulating Hormone 2.49 uIU/mL (0.32-4.0)
== END 2025-02-27 08:12 | disposition home or self-care (01) ==
LOC: HO.HMGCLDS 08:11
PROVIDERS: PCP Internal Medicine; Visit Provider Internal Medicine
DX: R53.83 Other fatigue (principal); D64.9 Anemia, unspecified; E03.9 Hypothyroidism, unspecified; E78.5 Hyperlipidemia, unspecified; D72.829 Elevated white blood cell count, unspecified; Z13.21 Encounter for screening for nutritional disorder
CPT/HCPCS: 36415; 80048; 80061; 82306; 82607; 82746; 83540; 84439; 84443; 84450; 84460; 85025

== ENCOUNTER 2025-03-05 07:59 | Outpatient (AMB) | payer MEDICARE, SELFPAY ==
--- OUTSIDE RECORDS SUMMARY | 2024-08-02 04:00 | XMS_ITS ---
Author Organization [facility] Address [address] [place] [address] Care Team Providers Care Licensed Clinical Psychologist Name Role Phone Sudha JARAMILLO, Allison Vo Primary Care Provider Un available Keena Lainez Unavailable [phone] Encounters Encounter Location Date Provider Diagnosis [address] [address] 08/02/2024 Keena Lainez Plan Of Treatment Next Appt Details Provider Name:Keena ledesma, 04/19/2025 10:00:00 AM, [address] [place] [address], [address], Progress Notes * Ruy INGRAM WDOB:[birth year] (89 yo M)Acc No.[id number]:08/02/2024 Progress Note Patient: Ruy FISHER Provider: Pat Lainez DPM :1935 A ge:89 Y S ex:Male Date:08/02/2024 Address:[address] [place] [address] Pcp:aTran Palacios Subjective: * Chief Complaints: * * Medical History: Objective: * Vitals: Assessment: Plan: * Treatment: * Images: * The named appointment provid er may or may not be the originator of this progress note, and it is not deemed complete until electronically signed by the appointment provider. Sign off status: Pending * Provider: Pat Lainez DPM Date: 0 08/02/2024 Generated for Alexsandra maldonado/Han/Penny on: 1 05/06/2024 08:06 AM EST
--- OUTSIDE RECORDS SUMMARY | 2025-03-05 08:06 | XMS_ITS | Patient Health Record ---
[facility] Address [address] [place] [address] Care Team Providers Care Director Of Food And Nutrition Services Name Role Phone Sudha JARAMILLO, Allison Vo Primary Care Provider Un available Keena Lainez Unavailable [phone] Allergies No Known Allergies Reason For Referral [...] W/U Status Risk Notes Problem Plantar wart (59621036) Plantar wart (B07.0) Active confirmed Problem Raynaud's disease (023801578) Raynaud's disease without gangrene (I73.00) Active confirmed Vital Signs Blood pressure diastolic 65 mm Hg 09/18/2024 Height 6 ft in 09/18/2024 Blood pressure systolic 128 mm Hg 09/18/2024 Weight 199 lbs 09/18/2024 BMI 26.99 kg/m2 09/18/2024 Procedures Procedure Date Ordered Date Performed Result Body Sit e 05454-TBUDKER NAIL, 6 OR MORE 09/18/2024 N/A Encounters Encounter Location Date Provider Diagnosis [address] [address] 09/18/2024 Keena Lainez Pain in right toe(s) M79.674 ; Onychomycosis B35.1 and Pain in left toe(s) M79.675 [facility] [address] 07/31/2024 Keena Lainez Assessments Encounter Date Diagnosis (ICD Code) Assessment Notes Treatment Notes Treatment Clinical Notes Section Notes 09/18/2024 Pain in right toe(s) (ICD-10 - M79.674) 09/18/2024 Onychomycosis (ICD-10 - B35.1) 09/18/2024 Pain in left toe(s) (ICD-10 - M79.675) Plan Of Treatment Pending Test Test Name Order Date [id number] NAIL, 6 OR MORE 09/18/2024 Next Appt Details Provider Name:Keena ledesma, 04/19/2025 10:00:00 AM, [address] [place] [address], [id number], Insurance Providers Payer Name Payer Address Payer Phone Subscriber Number Group Number Insured Name Patient Relationship to Insured Coverage Start Date Coverage End Date Medicare National Govt Svcs Inc [address] [place] [address] [id number] Ruy Roth Self - patient is the insured [employer] [address] [place] [address] [phone] [id number] Ruy Roth Self - patient is the insured Medical (General) History Medical History History ICD Code Cataracts Measles Mumps Chicken pox Joint implants/screws Surgical History Surgery Date(Month/Year)
--- OUTSIDE RECORDS SUMMARY | 2025-03-05 08:06 | XMS_ITS | Patient Health Record ---
Author Organization [facility] Address [address] [place] [address] Care Team Providers Care Barrel Builder Name Role Phone Jose L JARAMILLO, Dyke Primary Care Provider Inocencio Murcia Unavailable [phone] Reason For Referral No Information Immunizations Vaccine Route Administration Date Status Comme nts Flu vaccine no Preserv 3 and > Unknown 01/24/2014 Admin istered Flu vaccine no Preserv 3 and > Unknown 01/04/2015 Admin istered Influenza Unknown 01/03/2017 Administered Social History Social History Additional Details Category Social Info Options Details Miscellaneous: Exercise: He exercises regularly, including running Marital status: 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 Section Notes: Nonsmoker; no sig alcohol Nonsmoker; no sig alcohol Nonsmoker; no sig alcohol Nonsmoker; no sig alcohol Nonsmoker; no sig alcohol Problems Problem Type SNOMED Code ICD Code Onset Dates Problem Status W/U Status Risk Notes Problem Screening for malignant neoplasm of colon (397743188) Encounter for screening for malignant neoplasm of colon (Z12.11) Active confirmed Problem History of adenomatous polyp of colon (928757773) History of adenomatous polyp of colon (Z86.010) Active confirmed Problem Preprocedural examination (961737784709616) Preprocedural examination (Z01.818) Active confirmed Problem History of polyp of colon (situation) (917579384) History of colon polyps (Z86.010) Active confirmed Problem 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 Plan Of Treatment Future Test Test Name Order Date COLONOSCOPY 07/25/2015 COLONOSCOPY 02/19/2017 Insurance Providers Payer Name Payer Address Payer Phone Subscriber Number Group Number Insured Name Patient Relationship to Insured Coverage Start Date Coverage End Date MEDICARE OF [place] [address] [place] [id number] ANGEL BARRERA Self - patient is the insured MED[employer] ATTN CLAIMS [address] [place] [address] [id number] ANGEL BARRERA Self - patient is the insured Medical (General) History Medical History History ICD Code 02/21/2004 Screening Colonos copy was negative other than some diverticulosis and internal hemorrhoids Denies [place],DM,CVA,Lung disease,renal dise ase Colonoscopy in 10/2014--flat adenoma [...]
[2025-03-05 08:26] VITALS: BP 110/52; PULSE 63; RESP 16; TEMP 36.6; O2SAT 95; BMI 27.8
--- NOTE | 2025-03-05 08:26 | MHC.PC.OV ---
Vital Signs 03/05/25 08:26 Height 6 ft Weight 205 lb BMI 27.8 BP 110/52 L Blood Pressure Location Lt brachial Position Sitting Respiration 16 Pulse 63 Pulse Source Pulse Oximeter Temp 97.8 F Temp Source Oral Pulse Oximetry (%) 95 Oxygen Delivery Method Room Air Intake Visit Reasons: 6m f/u- labs - see comments Intake Note: Pt is here today for his 6mo. f/u labs Allergies No Known Allergies Allergy (Verified 03/05/25 08:49) Medication List - Last Reconciled 03/05/25 by Allison Haley MD apixaban (Eliquis) 5 mg PO BID 90 days levothyroxine 50 mcg PO DAILY@0600 Tobacco use date assessed: 03/05/25 Last assessed Fall Risk: 03/05/25 Dental Screening Dental Screen Date: 03/05/25 Did you have a dental visit in the last 12 months?: No Did you have a dental problem in the last 6 months where you did not have access to dental care?: No Was dental information given to patient?: Patient has dentist HPI 6m f/u- labs - see comments HPI Details 89-year-old male with history of TAVR for aortic stenosis, normocytic normochromic anemia, idiopathic leukocytosis, peripheral neuropathy,, history of left total hip arthroplasty, here today for follow-up on his hypothyroidism. Patient states that he feels well, still plays golf, last game was 2 weeks ago. He has a long-standing history of hypothyroidism and is currently on levothyroxine 50 mcg taken daily, at 6 a.m. Recent labs showed the patient's thyroid level is within normal limits. The patient has a history of 50-60% carotid artery stenosis, followed by Dr. Gardner, and takes Eliquis, s/p TAVR. The patient also has a history of long-standing peripheral neuropathy, involving mainly the right lower leg. [62] Review of recent lab work hemoglobin at f 12.2, which is an improvement, and a white blood cell count that has decreased to 11.9 from 12.7. The patient's B12 level is high, and lipid levels, kidney function, and fasting glucose are within normal limit. The patient received an influenza shot and a COVID-19 vaccine in December. He has follow-ups schedule with Dr. Frost for cardiology in April, a urologist in April for the prostate, and a neurologist in July for neuropathy. 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 Mother No problems noted. Social History Household Members: Spouse Housing: House Do you presently have visiting nurse or other home services: No Alcohol intake: former Patient Tobacco Use Status: Never used Tobacco e-Cigarette/Vaping Use: Never Used Second Hand Smoke Exposure: Yes service: No Current occupational status: retired Cognitive needs: No Hearing needs: Yes Vision needs: Yes (Pt wear glasses) Questionnaire PHQ-9 Over the last 2 weeks, how often have you been bothered by any of the following problems? 1. Little interest or pleasure in doing things: not at all 2. Feeling down, depressed, or hopeless: not at all 3. Trouble falling or staying asleep, or sleeping too much: not at all 4. Feeling tired or having little energy: not at all 5. Poor appetite or overeating: several days 6. Feeling bad about yourself - or that you are a failure or have let yourself or your family down: not at all 7. Trouble concentrating on things, such as reading the newspaper or watching television: not at all 8. Moving or speaking so slowly that other people could have noticed. Or the opposite - being so fidgety or restless that you have been moving around a lot more than usual: not at all 9. Thoughts that you would be better off or of hurting yourself in some way: not at all Total score: 1 Depression Screening Interpretation: Negative Depression Screening Done: Yes Source: Developed by Drs. Inocencio Alvarez, Robyn Tellez, Bg Posada and colleagues, with an educational nathalia from [employer]. Thrive Questionnaire Date Thrive assessed: 04/12/24 I am a: Patient What is your living situation today?: I have a steady place to live Within the past 12 months, did the food you bought not last and you didn't have the money to get more?: Never true Within the past 12 months, did you worry whether your food would run out before you got money to buy more?: Never true Do you have trouble paying for medicines?: No Do you have trouble getting transportation to medical appointments?: No Do you have trouble paying your heating and electricity bill?: No Do you have trouble taking care of your child, family member or friend?: No Do you have trouble with day-to-day activities such as bathing, preparing meals, shopping, managing finances, etc.?: No Are you currently unemployed and looking for a job?: No Are you interested in more education?: Yes Please select the resources that you would like help with: None Currently or been in a relationship where the following occur: No concerns reported THRIVE Score: 0 AUDIT C Alcohol Use Questionnaire (AUDIT-C) 2. How many drinks containing alcohol do you have on a typical day when you are drinking?: 1 or 2 3. How often do you have six or more drinks on one occasion?: Never Total Score: 0 JAS-7 AMB Questionnaire JAS-7 Date JAS - 7 assessed: 03/05/25 Feeling nervous, anxious, or on edge: 0 = Not at all Not being able to stop or control worryin = Not at all Worrying too much about different things: 0 = Not at all Trouble relaxin = Not at all Being so restless that it is hard to sit still: 0 = Not at all Becoming easily annoyed or irritable: 0 = Not at all Feeling afraid as if something awful might happen: 0 = Not at all Total JAS-7 score (0-4 normal; 5-9 mild; 10-14 moderate; 15-21 severe): 0 Source: Developed by Drs. Inocencio Alvarez, Robyn Tellez, Bg Posada and colleagues, with an educational nathalia from [employer]. JAS-7 Assessment Billing JAS-7 Assessment Tool: JAS-7 Assessment 90902 Review of Systems Const Denies weakness Eyes Reports no additional complaints ENT Denies vertigo, Denies dizziness, Denies epistaxis and Denies disequilibrium Card Denies chest pain, Denies chest pain with activity, Denies syncope, Denies rapid heart rate, Denies irregular heart rhythm, Denies leg edema, Denies lightheadedness, Denies palpitations, Denies dyspnea and Reports dyspnea on exertion Resp Denies cough, Denies dyspnea and Reports dyspnea on exertion GI Denies abdominal pain, Denies hematochezia and Denies change in bowel habits Denies hematuria, Denies oliguria, Denies difficulty urinating and Denies dysuria Musc Denies abnormal gait, Denies muscle cramps, Denies muscle weakness, Denies numbness, Denies radiating pain into limb and Reports tingling (Right lower extremity) Skin/Breast Denies sores and Denies unusual bruising Neuro Denies abnormal gait, Denies vertigo, Denies dizziness, Denies syncope, Denies numbness, Reports tingling (Right lower extremity), Denies disequilibrium and Denies weakness Psych Reports no additional complaints Endo Denies palpitations Ant/Lymph Reports no additional complaints Aller/Immun Reports no additional complaints Physical exam (Primary Care) Vital Signs: Last Vital Signs Temp 97.8 F 03/05/25 08:26 Pulse 63 03/05/25 08:26 Resp 16 03/05/25 08:26 BP 110/52 L 03/05/25 08:26 Pulse Ox 95 03/05/25 08:26 Oxygen Delivery Method Room Air 03/05/25 08:26 BMI result Body Mass Index 27.8 Tobacco/Smoking Status: Tobacco use Status Tobacco use date assessed 03/05/25 03/05/25 08:28 Patient Tobacco Use Status Never used Tobacco 03/05/25 08:28 e-Cigarette/Vaping Use Never Used 03/05/25 08:28 PHQ-9: PHQ-9 Score PHQ-9: Total score 1 03/05/25 08:28 Depression Screening Interpretation: Negative Thrive Assessment: Date of Thrive Assessment Date Thrive assessed 04/12/24 03/05/25 08:28 Currently or been in a relationship where the following occur: No concerns reported Const General: comfortable, no acute distress and alert Orientation/consciousness: patient oriented x3 HENIN Ears: external ears normal General nose exam: Normal external nose present Mouth: Normal oral and palatal mucosa present, oropharynx normal and moist mucous membranes Eyes General: appearance normal, both eyes and all related structures Neck Neck: Yes full ROM, Yes no lymphadenopathy and Yes supple Resp Effort & Inspection: normal respiratory effort and able to speak in complete sentences Auscultation: clear to auscultation bilaterally Cardio Rate: regular rate Rhythm: regular rhythm Heart sounds: S1 normal heart sound present, S2 normal heart sound present and Murmur heart sound present systolic (at aortic area) GI Palpation (GI): Soft to palpation, nontender and no masses Auscultation: normal bowel sounds General: Yes no CVA tenderness Back/Spine/Pelvis Back: no CVA tenderness and No back tenderness Skin General skin exam: no rashes or lesions noted, dry skin and no ecchymosis Neuro General: patient oriented x3, gait normal, tone normal, moves all extremities, Normal light touch and pain sensation and no focal motor deficits Cranial nerves: Yes CN's II-XII intact bilaterally Cognition (Neuro): normal cognition Extrem General: Yes full ROM, Yes no joint enlargement, Yes no clubbing, cyanosis or edema and Yes no calf tenderness Psych Appearance: grossly normal Mental Status: mental status grossly normal Speech and movement: Normal speech and movement present Affect: normal affect Results Reviewed Results Reviewed: Name: Ruy Ingram Age/Sex: 89/M : 1935 Unit#: [id number] Attend Dr: Allison Haley MD Re02/27/25 Status: DEP REF Location: [facility] Disch: SPEC : [id number] BERNADINE: 02/27/25 STATUS: COMP REQ : [id number] RECD: 02/27/[address]: Allison Haley MD COMP: 02/27/25 ENTERED: 02/27/[address]: ORDERED: CBC Auto Diff Test Result Flag Reference WBC 11.9 H 4.8-10.8 X10*3/uL RBC 3.99 L 4.60-5.80 X10*6/uL HGB 12.2 L 14.0-18.0 g/dl HCT 37.7 L 42.0-52.0 % MCV 94.5 80.0-98.0 fL MCH 30.6 27.0-33.0 pg MCHC 32.4 31.0-36.0 g/dl RDW 19.0 H 11.0-16.0 % PLT 144 L 160-400 X10*3/uL MPV 12.6 H 9.4-12.4 fL Neut Pct Auto 60.1 45-73 % ImGran Pct Auto 2.8 H 0.0-0.4 % Lymp Pct Auto 20.6 20-40 % Baldwin Pct Auto 12.1 H 2-11 % Eos Pct Auto 3.2 0-4 % Baso Pct Auto 1.2 0-2 % NRBC Pct Auto 0.0 0.0-0.2 /100WBC ANC Neut Abs # 7.1 2.0-8.3 x10*3/uL ImGran Abs Auto 0.33 H 0.00-0.03 X10*3/uL Lymph Abs Auto 2.5 1.2-4.9 X10*3/uL Baldwin Abs Auto 1.4 H 0.1-1.2 X10*3/uL Eos Abs Auto 0.4 0.0-0.4 X10*3/uL Baso Abs Auto 0.1 0.0-0.2 X10*3/uL NRBC Abs Auto 0.000 0.0-0.012 X10*3/uL Name: Ruy Ingram Age/Sex: 89/M : 1935 Unit#: [id number] Attend Dr: Allison Haley MD Re02/27/25 Status: DEP [facility] Disch: SPEC : [id number] BERNADINE: 02/27/25 STATUS: COMP REQ : [id number] RECD: 02/27/25-[address]: Allison Haley MD COMP: 02/27/25-1115 ENTERED: 02/27/[address] [facility] [address]: ORDERED: Met Prof Fast, IRON PROF, AST, ALT, Lipid Panel, Vitamin D 25-OH, Free T Test Result Flag Reference Sodium 140 135-145 mmol/L Potassium 4.2 3.3-5.1 mmol/L CL 107 96-108 mmol/L CO2 30 H 22-29 mmol/L Gap 7 L 12-20 BUN 23 H 9-16 mg/dL Creat 0.82 0.5-1.4 mg/dL eGFR > 60 Chronic Kidney Disease: Estimated GFR < 60 mL/min/1.73m2 Severe Kidney Disease: Estimated GFR < 15 mL/min/1.73m2 FBS 97 60-99 mg/dL CA 8.9 8.4-10.2 mg/dL Iron 71 45-160 mcg/dL TIBC 253 228-428 mcg/dL Saturation 28 15-50 % UIBC 182 ug/dL AST (GOT) 39 H 5-37 U/L ALT (GPT) 21 0-40 U/L Triglyceride 139 <150 mg/dL Desirable Triglyceride: less than 150 mg/dL Borderline High Triglyceride 150-199 mg/dL High Triglyceride: 200-499 mg/dL Very High Triglyceride: greater than or equal to 5OO mg/dL Cholesterol 145 <200 mg/dL Desirable Cholesterol: less than 200 mg/dL Borderline High Cholesterol: 200-239 mg/dL High Cholesterol: greater than 239 mg/dL LDL Calculated 89 <100 mg/dL Desirable LDL: less than 100 mg/dL Near Optimal/Above Optimal LDL: 110-129 mg/dL Borderline High LDL: 130-159 mg/dL High LDL: 160-189 mg/dL Very High LDL: greater than or equal to 190 mg/dL HDL 29 L >40 mg/dL Desirable HDL: greater than 40 mg/dL Note: This HDL assay may give artificially low results in patients with liver disease. Vitamin D 25-OH 32.3 >30 ng/mL Health Based Reference Values* < 20 ng/mL Deficient 20-30 ng/mL Insufficient > 30 ng/mL Sufficient *Henrry MURILLO. N Engl J Med. 2007;357:266-280 There is no well-established upper level of normal vitamin D levels. Some laboratories use 50 ng/mL as an upper limit of normal. However, toxicity is patient-dependent and may occur at any level. Careful correlation with the patient's presentation is necessary and, if there is concern for vitamin D toxicity, treatment should be considered irrespective of the serum level. Care must be taken in interpreting Vitamin D results from different laboratories and methodologies. Published data demonstrated that results from patients undergoing hemodialysis may show a negative bias when tested with various automated 25-OH vitamin D assays when compared to LC-MS/MS. When testing samples from patients whose predominant form of Vitamin D is Vitamin D2, such as patients receiving Vitamin D2 supplementation, results that are subtherapeutic should be confirmed with another method such as LC-MS/MS. Free T4 0.85 0.71-1.85 ng/dL TSH 3rd Gen. 2.49 0.32-4.0 uIU/mL Coding Level of Care Code Est Pt Level 4 (30814) Diagnoses Dyslipidemia E78.5 Moderate aortic stenosis I35.0 Hypothyroidism E03.9 Other polyneuropathy G62.89 Peripheral neuropathy type: polyneuropathy, other Leukocytosis D72.829 S/P TAVR (transcatheter aortic valve replacement) Z95.2 Normocytic normochromic anemia D64.9 Additional Codes JAS-7 Assessment Billing - JAS-7 Assessment Tool: JAS-7 Assessment 41444 ([id number]) Assessment & Plan Assessment & Plan (1) Dyslipidemia: Code(s): E78.5 - Hyperlipidemia, unspecified Category: Medical Plan: Fasting lipids are within normal limits except for low HDL cholesterol. Patient stays active, still plays golf regularly when weather permits (2) Moderate aortic stenosis: Code(s): I35.0 - Nonrheumatic aortic (valve) stenosis Category: Medical Plan: Continue with apixaban 5 mg twice a day. Has an appointment with Dr. Frost in April 2019 (3) Hypothyroidism: Code(s): E03.9 - Hypothyroidism, unspecified Category: Medical Plan: Thyroid levels are within normal limits, continue with levothyroxine 50 mcg daily here to recheck thyroid levels again in July 2025 (4) Peripheral neuropathy: Comment: Likely hereditary Code(s): G62.9 - Polyneuropathy, unspecified Category: Medical Qualifiers: Peripheral neuropathy type: polyneuropathy, other Qualified Code(s): G62.89 - Other specified polyneuropathies Plan: Patient has an appointment with Dr. Almonte in July 2025 (5) Leukocytosis: Code(s): D72.829 - Elevated white blood cell count, unspecified Category: Medical Plan: Will recheck another CBC in April 2025, patient currently asymptomatic (6) S/P TAVR (transcatheter aortic valve replacement): Code(s): Z95.2 - Presence of prosthetic heart valve Category: Surgical Plan: Currently on Eliquis, has an appointment with Dr. Frost in April 2025 (7) Normocytic normochromic anemia: Code(s): D64.9 - Anemia, unspecified Category: Medical Plan: Improving. Continue with iron rich foods Orders: Orders Aspartate Amino Transferase 07/04/25 D64.9 - Anemia, unspecified, D72.829 - Elevated white blood cell count, unspecified, E03.9 - Hypothyroidism, unspecified, E78.5 - Hyperlipidemia, unspecified, G62.89 - Other specified polyneuropathies, I35.0 - Nonrheumatic aortic (valve) stenosis, Z95.2 - Presence of prosthetic heart valve Alanine Aminotransferase 07/04/25 D64.9 - Anemia, unspecified, D72.829 - Elevated white blood cell count, unspecified, E03.9 - Hypothyroidism, unspecified, E78.5 - Hyperlipidemia, unspecified, G62.89 - Other specified polyneuropathies, I35.0 - Nonrheumatic aortic (valve) stenosis, Z95.2 - Presence of prosthetic heart valve Complete Blood Count Auto Diff 07/04/25 D64.9 - Anemia, unspecified, D72.829 - Elevated white blood cell count, unspecified, E03.9 - Hypothyroidism, unspecified, E78.5 - Hyperlipidemia, unspecified, G62.89 - Other specified polyneuropathies, I35.0 - Nonrheumatic aortic (valve) stenosis, Z95.2 - Presence of prosthetic heart valve Basic Metabolic Panel Fasting 07/04/25 D64.9 - Anemia, unspecified, D72.829 - Elevated white blood cell count, unspecified, E03.9 - Hypothyroidism, unspecified, E78.5 - Hyperlipidemia, unspecified, G62.89 - Other specified polyneuropathies, I35.0 - Nonrheumatic aortic (valve) stenosis, Z95.2 - Presence of prosthetic heart valve Free T4 (Free Thyroxine) 07/04/25 D64.9 - Anemia, unspecified, D72.829 - Elevated white blood cell count, unspecified, E03.9 - Hypothyroidism, unspecified, E78.5 - Hyperlipidemia, unspecified, G62.89 - Other specified polyneuropathies, I35.0 - Nonrheumatic aortic (valve) stenosis, Z95.2 - Presence of prosthetic heart valve Thyroid Stimulating Hormone 07/04/25 D64.9 - Anemia, unspecified, D72.829 - Elevated white blood cell count, unspecified, E03.9 - Hypothyroidism, unspecified, E78.5 - Hyperlipidemia, unspecified, G62.89 - Other specified polyneuropathies, I35.0 - Nonrheumatic aortic (valve) stenosis, Z95.2 - Presence of prosthetic heart valve Lipid Panel 07/04/25 D64.9 - Anemia, unspecified, D72.829 - Elevated white blood cell count, unspecified, E03.9 - Hypothyroidism, unspecified, E78.5 - Hyperlipidemia, unspecified, G62.89 - Other specified polyneuropathies, I35.0 - Nonrheumatic aortic (valve) stenosis, Z95.2 - Presence of prosthetic heart valve Vitamin D 25-OH Total 07/04/25 D64.9 - Anemia, unspecified, D72.829 - Elevated white blood cell count, unspecified, E03.9 - Hypothyroidism, unspecified, E78.5 - Hyperlipidemia, unspecified, G62.89 - Other specified polyneuropathies, I35.0 - Nonrheumatic aortic (valve) stenosis, Z95.2 - Presence of prosthetic heart valve Triiodothyronine T3 Free 07/04/25 D64.9 - Anemia, unspecified, D72.829 - Elevated white blood cell count, unspecified, E03.9 - Hypothyroidism, unspecified, E78.5 - Hyperlipidemia, unspecified, G62.89 - Other specified polyneuropathies, I35.0 - Nonrheumatic aortic (valve) stenosis, Z95.2 - Presence of prosthetic heart valve
== END 2025-03-05 09:16 | disposition home or self-care (01) ==
LOC: HO.HMCC 08:00
PROVIDERS: PCP Internal Medicine; Visit Provider Internal Medicine
DX: E78.5 Hyperlipidemia, unspecified (principal); I35.0 Nonrheumatic aortic (valve) stenosis; E03.9 Hypothyroidism, unspecified; G62.89 Other specified polyneuropathies; D72.829 Elevated white blood cell count, unspecified; Z95.2 Presence of prosthetic heart valve; D64.9 Anemia, unspecified

== ENCOUNTER → 2025-03-05 07:59 | Outpatient (BNVA) | payer MEDICARE, SELFPAY | PROVIDERS: PCP Internal Medicine; Visit Provider Internal Medicine | DX: E78.5 Hyperlipidemia, unspecified (principal); I35.0 Nonrheumatic aortic (valve) stenosis; E03.9 Hypothyroidism, unspecified; G62.89 Other specified polyneuropathies; D72.829 Elevated white blood cell count, unspecified; D64.9 Anemia, unspecified; Z95.2 Presence of prosthetic heart valve | CPT/HCPCS: 96127; 99212 ==

== ENCOUNTER → 2025-03-06 09:22 | Outpatient (BNV) | payer MEDICARE, SELFPAY | PROVIDERS: PCP Internal Medicine; Visit Provider Internal Medicine | DX: I48.92 Unspecified atrial flutter (principal); I45.9 Conduction disorder, unspecified; Z95.0 Presence of cardiac pacemaker | CPT/HCPCS: 93294 ==